=== PATIENT | female | born 1960 | race Caucasian/White ===

== ENCOUNTER → 2016-12-06 | Outpatient (REF) | payer OTHER ==
[~2016-12-06] MED LIST: ALDA100T OR; CETI10TA OR; COLA100C2 OR; DILT180C7 OR; LASI80TA OR; LEVOXYL25 MCG OR; METFPOW4 OR; PERC5TAB8 OR; PERC7.5T8 OR; POTA75TA OR; SING4CHW7 OR; STARLIX OR; VITAMIN D50000 UNT OR; [UNRECOGNIZED DRUG - OTHER]
== END ==
LOC: M SFHCLERA 14:11
PROVIDERS: ATTEND Nurse Practitioner Family
DX: R68.89 Other general symptoms and signs (principal)

== ENCOUNTER 2017-03-29 12:50 | Inpatient (IN) | payer BC, OTHER, MEDICARE ==
[~2017-03-29] VITALS: Ht 170.2 cm; Wt 177.5 kg
[2017-03-29] MEDS ORDERED: FISH1000 PO (13:14)
[2017-03-29] MEDS ORDERED: CALC250T PO (13:14)
[2017-03-29] MEDS ORDERED: OMEP20CA3 PO (13:14)
[2017-03-29] MEDS ORDERED: GABA-282 PO (13:14)
[2017-03-29] MEDS ORDERED: AZEL0.055 (13:14)
[2017-03-29] MEDS ORDERED: FE G325T PO (13:14)
[2017-03-29] MEDS ORDERED: METF-414 PO (13:14)
[2017-03-29] MEDS ORDERED: GLIP10TA13 PO (13:14)
[2017-03-29] MEDS ORDERED: CYCL10TA PO (13:14)
[2017-03-29] MEDS ORDERED: TRAM50TA2 PO (13:14)
[2017-03-29] MEDS ORDERED: NAPR375T2 PO (13:14)
[2017-03-29] MEDS ORDERED: DRIS50002 PO (13:14)
[2017-03-29] MEDS ORDERED: FERRPOW27 XX (13:14)
[2017-03-29] MEDS ORDERED: VITA500T53 PO (13:14)
[2017-03-29] MEDS ORDERED: ASPE10LO EX (13:14)
[2017-03-29] MEDS ORDERED: FLUTISP (13:14)
[2017-03-29] MEDS ORDERED: MULTTAB24 PO (13:14)
[2017-03-29] MEDS ORDERED: L-THPOW PO (13:14)
[2017-03-29] MEDS ORDERED: PERCOCET 5MG/325MG TAB PO ONE (15:45)
[2017-03-29 15:56] LABS: ANION GAP 12 MEQ/L (8-16); BLOOD UREA NITROGEN 38 MG/DL (7-18); CALCIUM LEVEL 7.5 MG/DL (8.5-10.1); CARBON DIOXIDE LEVEL 24 MEQ/L (21-32); CHLORIDE LEVEL 96 MEQ/L (98-107); CREATININE FOR GFR 1.56 MG/DL (0.55-1.02); GLOMERULAR FILTRATION RATE 36.7 (>51); GLUCOSE, FASTING 91 MG/DL (70-105); POTASSIUM SERUM 4.4 MEQ/L (3.5-5.1); SODIUM LEVEL 132 MEQ/L (136-145)
[2017-03-29] MEDS ORDERED: NS 500 ML IV ONE (16:00)
[2017-03-29 16:07] LABS: BASO # 0.1 K/mm3 (0.0-0.2); BASO % 0.5 % (0.0-1.0); EOS # 0.2 K/mm3 (0.0-0.50); EOS % 0.9 % (0.0-3.0); LARGE UNSTAINED CELL # 0.1 K/mm3 (0.0-0.4); LARGE UNSTAINED CELL % 0.7 % (0.0-4.0); LYMPH % 15.1 % (24.0-44.0); MEAN CORPUSCULAR HEMOGLOBIN 25.9 pg (27.0-33.0); MEAN CORPUSCULAR HGB CONC 30.6 g/dl (32.0-36.5); MEAN CORPUSCULAR VOLUME 84.6 fl (80.0-96.0); MONO % 5.2 % (0.0-5.0); NEUTROPHILS # 14.7 K/mm3 (1.8-7.7); NEUTROPHILS % 77.5 % (36.0-66.0); PLATELET COUNT, AUTOMATED 633 k/mm3 (150-450); RED CELL DISTRIBUTION WIDTH 17.5 % (11.5-14.5); WHITE BLOOD COUNT 18.9 K/mm3 (4.0-10.0)
[2017-03-29 16:09] LABS: INR 0.97
[2017-03-29] MEDS ORDERED: ISOVUE-370 76% 100ML VIAL (Q9967) As Ordered ONE (16:20)
--- NOTE | 2017-03-29 16:45 | REP ---
Duplex extremity venous ultrasound: Bilateral lower extremities. History: Edema. Question DVT. Findings: The deep veins are anechoic and fully compressible from the groin to the popliteal fossa in the right and left lower extremity. Color flow imaging is homogeneous. Spectral Doppler interrogation demonstrates intact respiratory variation in flow and normal manual augmentation of flow. There is no evidence of deep vein thrombosis. Impression: Negative bilateral lower extremity duplex venous ultrasound. No evidence of deep vein thrombosis. Signed by Mariano Arvizu MD 03/29/2017 04:38 P
--- NOTE | 2017-03-29 17:17 | REP ---
Chest x-ray: Two views. History: Chest pain. Comparison study: June 01, 2010. Findings: The right humeral head has been replaced. The lungs are symmetrically aerated and clear. The pleural angles are sharp. Heart appears mildly enlarged, unchanged from the comparison study from 2009. Pulmonary vasculature is not increased. EKG electrodes are seen. No evidence of pulmonary edema or pleural effusion. Impression: Mildly prominent heart. Otherwise no acute disease. Signed by Mariano Arvizu MD 03/30/2017 07:54 A
--- NOTE | 2017-03-29 17:32 | REP ---
CT of the chest with IV contrast, CT pulmonary artery angiography: There are no emboli in the pulmonary trunk or central pulmonary arteries. There are no emboli in the pulmonary artery lobe or segment branches. There are no acute infiltrates or pleural effusions. There are no nodules or masses. There is no mediastinal or hilar adenopathy. There is no axillary adenopathy. The thoracic aorta is unremarkable. Cardiac size is normal. The visualized upper abdominal contents are unremarkable. There are surgical clips in the gallbladder fossa. There are surgical clips in the upper abdomen compatible with bariatric surgery. Impression: No pulmonary embolus. Otherwise, negative CT study of the chest. Cholecystectomy and bariatric surgery. Signed by Remy Spangler MD 03/29/2017 05:23 P
[2017-03-29] MEDS: NS 1,000 ML IV SCH (19:25)
[2017-03-29] MEDS ORDERED: DILT120T PO (19:26)
[2017-03-29] MEDS ORDERED: SPIR100T PO (19:26)
[2017-03-29] MEDS ORDERED: CETI10TA PO (19:26)
[2017-03-29] MEDS ORDERED: MONT10TA2 PO (19:26)
[2017-03-29] MEDS ORDERED: K-TA1TAB PO (19:26)
[2017-03-29] MEDS ORDERED: OXYC1TAB23 PO (19:26)
[2017-03-29] MEDS ORDERED: FURO1TAB15 PO (19:26)
[2017-03-29] MEDS ORDERED: PERCOCET 5MG/325MG TAB PO PRN (19:30)
[2017-03-29] MEDS ORDERED: ONDANSETRON 4MG/2ML VIAL (J2405) IV PRN (19:30)
[2017-03-29] MEDS ORDERED: SYNT100T PO (19:32)
[2017-03-29] MEDS ORDERED: VITMTA PO (19:32)
[2017-03-29] MEDS ORDERED: FISH120012 PO (19:32)
[2017-03-29] MEDS ORDERED: DILT120C PO (19:43)
[2017-03-29] MEDS ORDERED: GLUCAGON FOR INJ 1 MG VIAL (J1610) SC PRN (19:45)
[2017-03-29] MEDS ORDERED: DEXTROSE 50% 50 ML SYRINGE IV PRN (19:45)
[2017-03-29] MEDS ORDERED: GLUCOSE 4 GM CHEW TABLET PO PRN (19:45)
--- NOTE | 2017-03-29 20:41 | HPE ---
DATE OF ADMISSION: 03/29/2017 PRIMARY CARE PHYSICIAN: Zunilda Hernández CHIEF COMPLAINT: Dizziness when standing. HISTORY OF THE PRESENT ILLNESS: The patient is a 56-year-old morbidly female who reports over the last 2-3 weeks she has had progressively worsening dizziness when standing to the point that she is having difficulty taking care of her grandson. At home at her baseline, due to her morbid obesity and bad osteoarthritis, she walks with two canes. However, this has become more difficult and bothersome with transfers and arising from a seated or laying position of late. She denies shortness of breath, chest pain, lightheadedness, nausea, vomiting, diarrhea, cough, sick contacts, changes in bowel or bladder habits. She tells me that her levothyroxine has been titrated up slightly in the last week, but otherwise no recent medication changes. PAST MEDICAL HISTORY: Chronic kidney disease with a baseline creatinine of approximately 1.0. Osteoarthritis. Morbid obesity. Type 2 diabetes. Hypertension. Dyslipidemia. Hypothyroidism secondary to Grave's disease. Season allergies. Gastroesophageal reflux disease. Iron deficiency anemia. Diabetic neuropathy. ALLERGIES: PENICILLIN and CROSS-REACTORS and QUINOLONES cause hives, TAPAZOLE caused anaphylaxis. PAST SURGICAL HISTORY: Cholecystectomy. Bariatric surgery. section. Hernia repair. Thyroidectomy. SOCIAL HISTORY: She walks with two canes at her baseline. She is a [employer]. She watches her grandson daily but otherwise does not work. She denies alcohol or tobacco use. She lives with her . FAMILY HISTORY: Noncontributory. REVIEW OF SYSTEMS: Negative other than in the history of the present illness (HPI). HOME MEDICATIONS: - Lasix 80 mg by mouth twice a day - glipizide extended release 10 mg daily - metformin 2 grams nightly extended release - naproxen 375 mg twice a day as needed for pain - Percocet 5-325 one tablet by mouth every 4 hours as needed for pain - potassium chloride 20 mEq twice a day - aldactone 100 mg twice a day - vitamin D 50,000 units as directed - azelastine spray daily - calcium citrate 250 mg daily - ferrous gluconate 325 mg by mouth twice a day - fish oil 1200 mg daily - cetirizine 10 mg daily - B12 500 mcg every 2 days - diltiazem 120 mg daily - fluticasone 50 mcg spray inhaled nasally nightly - gabapentin 900 mg three times a day - levothyroxine 200 mcg in the morning - Singulair 10 mg nightly - multivitamin one tablet daily - omeprazole 20 mg daily OBJECTIVE: VITAL SIGNS: Temperature 97.8, pulse 82, respiratory rate 22, blood pressure is 133 while laying flat and 85/47 when standing. At the present time, she is 145/ 61 sitting on the edge of the stretcher. Oxygen saturation 99% on room air. In general, she is a morbidly obese female sitting on the edge of the stretcher. She is accompanied by her . She does not appear to be in any acute distress. HEENT: Cranial nerves II-XII are grossly intact. She has dry mucous membranes. There is no elevation of central venous pressure (CVP), although it is difficult to assess secondary to enlarged neck. CARDIOVASCULAR EXAM: S1, S2, she is mildly tachycardic. RESPIRATORY EXAM: Completely clear. There are no rales whatsoever, even at her bases. She has good air movement. ABDOMINAL EXAM: Grossly obese. EXTREMITIES: There is no clubbing or cyanosis. I do not appreciate significant edema, even in the face of her morbid obesity. She has a well-healed surgical on the left lower extremity. LABORATORY STUDIES: WBC 18.9, hemoglobin 11.9, hematocrit 39, platelet count 633 , 77.5% neutrophils, no bandemia. Chemistry panel: Sodium 132, potassium 4.4, chloride 96, bicarbonate 24, BUN 38, creatinine 1.5, TSH 4.3, BNP is 115. INR is 0.97. IMAGING: The patient did have a CT angiography of the chest that revealed no pulmonary embolus. No acute infiltrates or pleural effusions. She had a duplex of the lower extremities that were negative bilaterally for any deep vein thrombosis (DVT) and a chest x-ray that revealed mildly prominent heart; otherwise no acute disease. ASSESSMENT AND PLAN: This is a 56-year-old female with symptomatic orthostatic hypotension. Problems: 1. Symptomatic orthostatic hypotension: Likely related to dehydration. She may have gradually over diuresed with her Lasix over the last 2 weeks. I suspect it is because her BUN to creatinine ratio is greater than 20:1. She is hypochloremic and hypovolemic, hyponatremic and she does not have any evidence on her clinical exam of being fluid overloaded, rather, despite her morbid obesity, appears to be mildly dehydrated, and as such, for the time being, I will hold her nephrotoxic medications, I will hold her Lasix, aldactone and naproxen, gently hydrate her, monitoring her daily weights and intake and output in the progressive care unit. Will get an EKG. Follow her daily weights. If this is the etiology, I would suspect that her symptoms should improve significantly even by the morning. Given that she walks with two canes at her baseline, will have her seen and evaluated by physical therapy. 2. Type 2 diabetes. Will hold her oral agents in favor for sliding scale. She will be on a consistent carbohydrate diet. 3. Osteoarthritis. We are holding her naproxen due to some acute kidney injury. She will be given her home Percocet with additional as needed. 4. Acute kidney injury. Likely prerenal. Will check a fractional secretion of sodium and urea and repeat her basic metabolic panel (BMP) in the morning to see if this improves with hydration and holding of her diuretics. 5. Seasonal allergies. Continue with her Zyrtec, Singulair an Flonase. 6. Gastroesophageal reflux disease. Continue with omeprazole. 7. Iron deficiency anemia. She can continue her home iron supplementation. 8. Diabetic neuropathy. Continue with Neurontin. 9. Hypertension. As mentioned, we are holding her diuretics. I will continue her diltiazem with holding parameters. 10. Post-bariatric surgery. Continue with B12 supplementation and vitamin D supplementation and multivitamin supplementation. 11. Hypothyroidism. Continue with levothyroxine. 12. Deep vein thrombosis (DVT) prophylaxis. The patient will be on heparin. DISPOSITION: The patient is admitted to the progressive care unit to Dr. Holden's service, who will continue following the patient tomorrow morning at 7:00 a.m. [facility]
[2017-03-29] MEDS: FLUTICASONE PROP 0.05% NASAL SPRAY 16 GM (FLONASE) SCH (21:00)
[2017-03-29] MEDS: GABAPENTIN 300 MG CAP PO SCH (21:00)
[2017-03-29] MEDS: MONTELUKAST 10 MG TAB PO SCH (21:00)
[2017-03-29] MEDS: HEPARIN SOD (PORCINE) 5000 UNITS/ML VIAL SC SCH (21:00)
[2017-03-29] MEDS: HumaLOG INSULIN (NovoLOG) PER UNIT SC SCH (21:00)
[2017-03-30] VITALS (7 sets, daily range): BP systolic 101–138; BP diastolic 50–74
[2017-03-30 00:51] LABS: ERYTHROCYTE SEDIMENTATION RATE 44 mm/hr (0-30)
--- NOTE | 2017-03-30 06:04 | ECGEPIP ---
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
[2017-03-30] MEDS: LEVOTHYROXINE 0.1 MG TAB (100 MCG) PO SCH (06:06)
[2017-03-30 07:32] LABS: MEAN CORPUSCULAR HEMOGLOBIN 26.1 pg (27.0-33.0); MEAN CORPUSCULAR HGB CONC 31.5 g/dl (32.0-36.5); RED CELL DISTRIBUTION WIDTH 17.7 % (11.5-14.5); WHITE BLOOD COUNT 10.7 K/mm3 (4.0-10.0)
[2017-03-30 07:38] LABS: CALCIUM LEVEL 7.2 MG/DL (8.5-10.1); CREATININE FOR GFR 1.29 MG/DL (0.55-1.02); GLOMERULAR FILTRATION RATE 45.7 (>51); POTASSIUM SERUM 4.1 MEQ/L (3.5-5.1)
[2017-03-30] MEDS: HumaLOG INSULIN (NovoLOG) PER UNIT SC SCH ×4 (07:40→20:38)
--- NOTE | 2017-03-30 08:13 | ECGEPIP ---
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
[2017-03-30] MEDS: HEPARIN SOD (PORCINE) 5000 UNITS/ML VIAL SC SCH ×2 (10:09→20:38)
[2017-03-30] MEDS: OMEPRAZOLE 20 MG CAP PO SCH (10:10)
[2017-03-30] MEDS: CYANOCOBALAMIN 500 MCG TAB PO SCH (10:10)
[2017-03-30] MEDS: MULTIVITAMINS/MINERALS THERAP 1 TAB PO SCH (10:10)
[2017-03-30] MEDS: CETIRIZINE (ZyrTEC) 10 MG TAB PO SCH (10:15)
[2017-03-30] MEDS: GABAPENTIN 300 MG CAP PO SCH ×2 (10:15→20:37)
[2017-03-30] MEDS: PERCOCET 5MG/325MG TAB PO PRN (11:51)
[2017-03-30] MEDS: NS 1,000 ML IV SCH (15:25)
--- NOTE | 2017-03-30 17:43 | IPN ---
DATE: 03/30/2017 SUBJECTIVE: The patient is seen and examined in the room today. The patient continues to feel dizzy during posture changes and the patient stated it has been going on for a few days. No overnight events reported. OBJECTIVE: VITAL SIGNS: Temperature is 98.4, pulse is 85, respiratory rate 20, blood pressure is 117/55, pulse oximetry is 95% on room air. GENERAL: Morbidly obese, no sign of acute distress, alert and oriented times three. HEENT: Normocephalic, atraumatic. Extraocular motor grossly intact. CARDIOVASCULAR: Positive S1, S2, regular rate. LUNGS: Clear to auscultation bilaterally. ABDOMEN: Soft, nontender, nondistended. Bowel sounds present. Morbidly obese. EXTREMITIES: Positive 1-2 pitting edema bilaterally. No sign of cyanosis. LABORATORY DATA: WBC is 10.7, hemoglobin 9.6, hematocrit 30.5, platelet count is 468. Sodium 134, potassium 4.1, chloride is 102, carbon dioxide 26, BUN 36, creatinine 1.29, GFR is 45.7, fasting glucose 76, calcium is 7.2. ASSESSMENT AND PLAN: 1. Symptomatic orthostatic hypotension. Most likely secondary to dehydration. Lasix is on hold. The patient is getting IV fluid. We will continue to follow the orthostasis. 2. Acute kidney injury. Most likely secondary to prerenal azotemia. Improving with IV hydration. Continue to monitor. 3. Bilateral lower extremity swelling. The differential includes congestive heart failure versus chronic venous stasis. We will obtain the echocardiogram. Currently, the patient is clinically dry. The patient started having orthostatic hypotension and acute kidney injury. The patient requires fluid at this moment. We will continue to monitor the swelling. 4. Type 2 diabetes. On sliding scale and consistent-carbohydrate diet. 5. Seasonal allergies. On Zyrtec and Singulair. 6. Gastroesophageal reflux disease. On omeprazole. 7. Diabetic neuropathy. Continue with Neurontin. 8. Hypertension. Diuretic will be on hold. The patient is on diltiazem. 9. Status post bariatric surgery. We will continue with vitamin B12 supplement and multivitamin. 10. Hypothyroidism. On Synthroid. 11. Osteoarthritis. Due to the acute kidney injury (TIANNA), nonsteroidal antiinflammatory drugs (NSAIDs) will be on hold at this moment. 12. Deep vein thrombosis (DVT) prophylaxis. The patient is on heparin.
[2017-03-30] MEDS: MONTELUKAST 10 MG TAB PO SCH (20:37)
[2017-03-30] MEDS: FLUTICASONE PROP 0.05% NASAL SPRAY 16 GM (FLONASE) SCH (20:39)
[2017-03-31] VITALS (7 sets, daily range): BP systolic 110–152; BP diastolic 58–78
[2017-03-31] MEDS: LEVOTHYROXINE 0.1 MG TAB (100 MCG) PO SCH (05:32)
[2017-03-31 05:35] LABS: MEAN CORPUSCULAR HGB CONC 30.7 g/dl (32.0-36.5); MEAN CORPUSCULAR VOLUME 84.5 fl (80.0-96.0); RED CELL DISTRIBUTION WIDTH 17.6 % (11.5-14.5); WHITE BLOOD COUNT 11.7 K/mm3 (4.0-10.0)
[2017-03-31 06:01] LABS: CALCIUM LEVEL 7.5 MG/DL (8.5-10.1); CREATININE FOR GFR 1.17 MG/DL (0.55-1.02); FREE T4 1.06 NG/DL (0.76-1.46); GLOMERULAR FILTRATION RATE 51.1 (>51); POTASSIUM SERUM 4.1 MEQ/L (3.5-5.1)
[2017-03-31] MEDS: HumaLOG INSULIN (NovoLOG) PER UNIT SC SCH ×4 (07:30→21:10)
[2017-03-31] MEDS: HEPARIN SOD (PORCINE) 5000 UNITS/ML VIAL SC SCH ×2 (09:46→21:09)
[2017-03-31] MEDS: MULTIVITAMINS/MINERALS THERAP 1 TAB PO SCH (09:46)
[2017-03-31] MEDS: OMEPRAZOLE 20 MG CAP PO SCH (09:46)
[2017-03-31] MEDS: GABAPENTIN 300 MG CAP PO SCH ×3 (09:46→21:10)
[2017-03-31] MEDS: CETIRIZINE (ZyrTEC) 10 MG TAB PO SCH (09:46)
[2017-03-31] MEDS: NS 1,000 ML IV SCH (13:00)
[2017-03-31] MEDS: FLUTICASONE PROP 0.05% NASAL SPRAY 16 GM (FLONASE) SCH (21:09)
[2017-03-31] MEDS: MONTELUKAST 10 MG TAB PO SCH (21:10)
[2017-04-01] MEDS: PERCOCET 5MG/325MG TAB PO PRN (04:46)
[2017-04-01] MEDS: LEVOTHYROXINE 0.1 MG TAB (100 MCG) PO SCH (05:36)
[2017-04-01 06:00] VITALS: BP 106/55
[2017-04-01 06:49] LABS: MEAN CORPUSCULAR HEMOGLOBIN 25.9 pg (27.0-33.0); MEAN CORPUSCULAR HGB CONC 30.5 g/dl (32.0-36.5); MEAN CORPUSCULAR VOLUME 84.9 fl (80.0-96.0); RED CELL DISTRIBUTION WIDTH 17.5 % (11.5-14.5)
[2017-04-01 07:02] LABS: ANION GAP 7 MEQ/L (8-16); BLOOD UREA NITROGEN 22 MG/DL (7-18); CARBON DIOXIDE LEVEL 26 MEQ/L (21-32); CHLORIDE LEVEL 107 MEQ/L (98-107); CREATININE FOR GFR 0.97 MG/DL (0.55-1.02); GLOMERULAR FILTRATION RATE > 60.0 (>51); GLUCOSE, FASTING 95 MG/DL (70-105); POTASSIUM SERUM 4.4 MEQ/L (3.5-5.1); SODIUM LEVEL 140 MEQ/L (136-145)
[2017-04-01] MEDS: NS 1,000 ML IV SCH (07:25)
[2017-04-01] MEDS: HumaLOG INSULIN (NovoLOG) PER UNIT SC SCH ×2 (07:30→12:00)
[2017-04-01 09:30] VITALS: BP_SYST 163; BP_SYST 171; BP_SYST 172; BP_DIAS 83; BP_DIAS 84; BP_DIAS 89
[2017-04-01] MEDS: OMEPRAZOLE 20 MG CAP PO SCH (09:46)
[2017-04-01] MEDS: CETIRIZINE (ZyrTEC) 10 MG TAB PO SCH (09:46)
[2017-04-01] MEDS: HEPARIN SOD (PORCINE) 5000 UNITS/ML VIAL SC SCH (09:46)
[2017-04-01] MEDS: GABAPENTIN 300 MG CAP PO SCH (09:46)
[2017-04-01] MEDS: CYANOCOBALAMIN 500 MCG TAB PO SCH (09:46)
[2017-04-01] MEDS: MULTIVITAMINS/MINERALS THERAP 1 TAB PO SCH (09:46)
[2017-04-01 09:47] VITALS: BP 177/81
[2017-04-01] MEDS ORDERED: LASI80TA PO (10:01)
[2017-04-01] MEDS ORDERED: SPIR100T PO (10:01)
[2017-04-01] MEDS ORDERED: DILT240C77 PO (14:07)
--- NOTE | 2017-04-01 15:00 | DSES ---
DATE OF ADMISSION: 03/29/2017 DATE OF DISCHARGE: 04/01/2017 PRIMARY CARE PROVIDER: Zunilda Hernández MD ADMISSION/DISCHARGE DIAGNOSES: 1. Symptomatic orthostatic hypotension secondary to dehydration. 2. Acute kidney injury secondary to prerenal azotemia. 3. Bilateral lower extremity swelling. 4. Type 2 diabetes. 5. Seasonal allergies. 6. Gastroesophageal reflux disease (GERD). 7. Diabetic neuropathy. 8. History of hypertension. 9. Status post bariatric surgery. 10. Hypothyroidism. 11. Osteoarthritis (OA). HOSPITALIZATION COURSE: Patient is a 56-year-old female who presented to [facility] on April 08, 2017 for dizziness during posture changes. Patient is admitted to the PCU for cardiac telemetry. During admission, the patient was found to have severe dehydration causing significant orthostatic hypotension and acute kidney injury (TIANNA). The patient's oral diuretic and blood pressure medication was discontinued and the patient was started on full resuscitation and the patient's input and output has been monitored. The patient's orthostatic hypotension has been measured on a regular basis and the patient is also following with physical therapy. No significant abnormality detected on cardiac telemetry. After two days hospitalization, the patient was transferred to the medical/surgical floor to continue with fluid management. On 04/01/2017, the patient's orthostatic hypotension finally resolved and the patient passed physical therapy and the patient medications were reviewed and adjusted and the patient was determined medically stable for discharge on 04/01/2017 with recommendations to followup with primary care physician within one week for continuous diuretic adjustment. It is recommended the patient obtain a referral for an echocardiogram. OBJECTIVE: VITAL SIGNS: Temperature 97.4, pulse is 70, respirations 18, blood pressure supine is 163/83, sitting is 172/84, standing is 171/89. Oxygen saturation is 96% in room air. LABORATORY DATA: WBC is 9, hemoglobin 9.1, hematocrit 29.8, platelet count 428. Sodium is 140, potassium 4.4, chloride 107, carbon dioxide 26, BUN 22, creatinine 0.97, GFR greater than 60 (at admission patient had a creatinine of 1.56 with a GFR of 36.7). Fasting glucose 95, calcium is 7, free T4 is 1.06. Urinalysis is negative. Microbiology: Blood culture is negative after 48 hours times two sets. Urine culture showed no grow of clinical significance for two or more organisms. IMAGING STUDIES: Chest x-ray on 03/29/2017 showed mildly prominent heart. Otherwise, no acute disease. Bilateral lower extremity Doppler showed no evidence of DVT. CT angio of the chest on 03/29/2017 showed no pulmonary embolism. DISCHARGE MEDICATIONS: - Lasix 80 mg by mouth daily - spironolactone 100 mg by mouth daily - calcium citrate 250 mg by mouth daily - cetirizine 10 mg by mouth daily - vitamin B12 500 mcg by mouth every two days - diltiazem 120 mg by mouth daily - ferrous gluconate 325 mg by mouth twice a day - fluticasone one spray per nasal at bedtime - gabapentin 300 mg by mouth three times a day - glipizide 10 mg by mouth daily - Synthroid 200 mcg by mouth every morning - metformin 2000 mg by mouth at bedtime - montelukast 10 mg by mouth at bedtime - multivitamin one tablet by mouth daily - naproxen 375 mg by mouth twice a day - omeprazole 20 mg by mouth daily - Percocet one tablet by mouth every 4 hours as needed - vitamin D 100,000 units by mouth as directed DISCHARGE INSTRUCTIONS: 1. Discontinue lines, discharge home. 2. Activity as tolerated. 3. Consistent carbohydrate diet as tolerated. 4. Patient is instructed to measure weights. If there is a significant increase or loss of body weight, patient is instructed to contact primary care provider immediately. Due to the severe hydration causing orthostatic and acute kidney injury, the patient's diuretic dose was decreased and should be evaluated in the outpatient setting. 5. Patient recommended to have a cardiac echocardiogram performed in the outpatient setting. DISCHARGE CONDITION: Stable. Discharge took greater than 30 minutes.
--- NOTE | 2017-04-02 16:59 | IPN ---
DATE: 03/31/2017 SUBJECTIVE: The patient is seen and examined in the room today. The patient is still complaining about dizziness and lightheadedness during postural changes, but patient stated her symptoms are improving. No overnight events reported. OBJECTIVE: VITAL SIGNS: Temperature is 97.2, pulse 65, respirations 18, blood pressure showed sitting at 152/72, standing at 133/74. Pulse oximetry 95% on room air. GENERAL: Morbidly obese. No sign of acute distress. Alert and oriented times three. HEENT: Normocephalic, atraumatic. Extraocular motor grossly intact. CARDIOVASCULAR: Positive S1, S2. Regular rate. LUNGS: Clear to auscultation bilaterally. ABDOMEN: Soft, nontender, nondistended. Bowel sounds present. No rebound, no guarding. EXTREMITIES: 2+ pitting edema bilaterally. No sign of cyanosis. LABORATORY DATA: WBC 11.7, hemoglobin 10.1, hematocrit 32.8, platelet count 483. Sodium is 136, potassium 4.1, chloride 103, carbon dioxide 26, BUN 29, creatinine 1.17, GFR is 51.1, fasting glucose 92, calcium is 7.5. Free T4 is 1.06. ASSESSMENT AND PLAN: 1. Symptomatic orthostatic hypotension, most likely secondary to dehydration. Lasix has been on hold. The patient is on intravenous (IV) fluids. The patient continues to have orthostasis. Continue with hydration. Continue with physical therapy. 2. Acute kidney injury secondary to prerenal azotemia. The patient's renal function continues to improve; however, the patient's renal function is not at baseline. 3. Bilateral lower extremity edema. Currently the patient is being treated for symptomatic orthostasis and acute kidney injury (TIANNA). The patient is on IV fluids. Follow the patient closely. Bilateral lower extremity swelling due to congestive heart failure versus chronic renal stasis. The patient will need echocardiogram in the future. 4. Type 2 diabetes, on sliding scale and consistent carbohydrate diet. 5. Seasonal allergies on Zyrtec. 6. Gastroesophageal reflux disease (GERD), on omeprazole. 7. Diabetic neuropathy on Neurontin. 8. Hypertension. The patient is on diltiazem. 9. Status post bariatric surgery. The patient is on supplements. 10. Hypothyroidism. Free T4 is within normal range. Continue Synthroid. 11. Osteoarthritis. 12. Deep venous thrombosis (DVT) prophylaxis. Patient on heparin.
== END 2017-04-01 12:35 | disposition home or self-care (01) | DRG 422 ==
LOC: M ED 14:17 → M ED INP 19:25 → M PCU 03-30 17:10 → M MSPAV 03-31 11:28
PROVIDERS: ADMIT Internal Medicine; ATTEND Internal Medicine
DX: E86.0 Dehydration (principal); N17.9 Acute kidney failure, unspecified; E11.40 Type 2 diabetes mellitus with diabetic neuropathy, unspecified; E66.01 Morbid (severe) obesity due to excess calories; I95.1 Orthostatic hypotension; E87.1 Hypo-osmolality and hyponatremia; M19.90 Unspecified osteoarthritis, unspecified site; E03.9 Hypothyroidism, unspecified; I12.9 Hypertensive chronic kidney disease with stage 1 through stage 4 chronic kidney disease, or unspecified chronic kidney disease; Z79.899 Other long term (current) drug therapy; N18.9 Chronic kidney disease, unspecified; D50.9 Iron deficiency anemia, unspecified; K21.9 Gastro-esophageal reflux disease without esophagitis; Z88.0 Allergy status to penicillin; Z88.8 Allergy status to other drugs, medicaments and biological substances; Z98.84 Bariatric surgery status; R60.0 Localized edema

== ENCOUNTER → 2017-04-19 | Outpatient (REF) | payer OTHER, MEDICARE ==
[~2017-04-19] MED LIST changes: +ASPE10LO EX; +AZEL0.055; +CALC250T PO; +CETI10TA PO; +CYCL10TA PO; +DILT120C PO; +DILT120T PO; +DILT240C77 PO; +DRIS50002 PO; +FE G325T PO; +FERRPOW27 XX; +FISH1000 PO; +FISH120012 PO; +FLUTISP; +FURO1TAB15 PO; +GABA-282 PO; +GLIP10TA13 PO; +K-TA1TAB PO; +L-THPOW PO; +LASI80TA PO; +METF-414 PO; +MONT10TA2 PO; +MULTTAB24 PO; +NAPR375T2 PO; +OMEP20CA3 PO; +OXYC1TAB23 PO; +SPIR100T PO; +SYNT100T PO; +TRAM50TA2 PO; +VITA500T53 PO; +VITMTA PO
[2017-04-19 14:48] LABS: CALCIUM LEVEL 7.9 MG/DL (8.5-10.1); CREATININE FOR GFR 1.26 MG/DL (0.55-1.02); GLOMERULAR FILTRATION RATE 46.9 (>51); POTASSIUM SERUM 4.7 MEQ/L (3.5-5.1)
== END ==
LOC: M LABDRAW1 11:40
PROVIDERS: ATTEND Physician Assistant Medical
DX: N17.9 Acute kidney failure, unspecified (principal)

== ENCOUNTER → 2017-04-30 | Outpatient (REF) | payer OTHER, MEDICARE ==
[~2017-04-30] MED LIST changes: -FURO1TAB15 PO; +FURO80TA2 PO; -GLIP10TA13 PO; +GLIP1TAB51 PO; +NAPR-855 PO; -NAPR375T2 PO
[2017-04-30 16:34] LABS: ALBUMIN 2.3 GM/DL (3.2-5.2); CALCIUM LEVEL 7.9 MG/DL (8.5-10.1); CREATININE FOR GFR 1.48 MG/DL (0.55-1.02); MAGNESIUM LEVEL 2.1 MG/DL (1.8-2.4); PHOSPHORUS LEVEL 4.7 MG/DL (2.5-4.9); POTASSIUM SERUM 4.5 MEQ/L (3.5-5.1)
== END ==
LOC: M LABDRAW1 14:25
PROVIDERS: ATTEND Internal Medicine Cardiovascular Disease
DX: I10 Essential (primary) hypertension (principal)

== ENCOUNTER → 2017-05-01 | Outpatient (REF) | payer BC, OTHER, MEDICARE | LOC: M LAB 10:00 | PROVIDERS: ATTEND Internal Medicine Cardiovascular Disease | DX: I10 Essential (primary) hypertension (principal) ==

== ENCOUNTER → 2017-06-25 | Outpatient (REF) | payer BC, OTHER ==
[2017-06-25 14:29] LABS: FREE T4 1.61 NG/DL (0.76-1.46)
== END ==
LOC: M LABDRAW1 11:16
PROVIDERS: ATTEND Internal Medicine Endocrinology, Diabetes & Metabolism
DX: E89.0 Postprocedural hypothyroidism (principal)

== ENCOUNTER → 2017-07-09 | Outpatient (REF) | payer OTHER, BC ==
[2017-07-09 12:53] LABS: BASO # 0.1 K/mm3 (0.0-0.2); BASO % 0.8 % (0.0-1.0); EOS # 0.5 K/mm3 (0.0-0.50); EOS % 3.7 % (0.0-3.0); LARGE UNSTAINED CELL # 0.1 K/mm3 (0.0-0.4); LARGE UNSTAINED CELL % 0.8 % (0.0-4.0); LYMPH # 1.2 K/mm3 (1.5-4.5); LYMPH % 9.1 % (24.0-44.0); MEAN CORPUSCULAR HEMOGLOBIN 28.3 pg (27.0-33.0); MEAN CORPUSCULAR HGB CONC 31.1 g/dl (32.0-36.5); MEAN CORPUSCULAR VOLUME 91.1 fl (80.0-96.0); MONO # 0.7 K/mm3 (0.0-0.8); MONO % 5.6 % (0.0-5.0); NEUTROPHILS # 9.9 K/mm3 (1.8-7.7); PLATELET COUNT, AUTOMATED 509 k/mm3 (150-450); RED CELL DISTRIBUTION WIDTH 16.2 % (11.5-14.5); WHITE BLOOD COUNT 12.4 K/mm3 (4.0-10.0)
== END ==
LOC: M LABDRAW1 11:45
PROVIDERS: ATTEND Family Medicine
DX: Z01.419 Encounter for gynecological examination (general) (routine) without abnormal findings (principal); D72.829 Elevated white blood cell count, unspecified; B37.3 Candidiasis of vulva and vagina
CPT/HCPCS: 36415; 85025; G0123

== ENCOUNTER → 2017-10-22 | Outpatient (REF) | payer OTHER ==
[2017-10-22 13:02] LABS: MEAN CORPUSCULAR HEMOGLOBIN 28.5 pg (27.0-33.0); MEAN CORPUSCULAR HGB CONC 32.5 g/dl (32.0-36.5); MEAN CORPUSCULAR VOLUME 87.9 fl (80.0-96.0); PLATELET COUNT, AUTOMATED 545 10^3/uL (150-450); RED CELL DISTRIBUTION WIDTH 15.8 % (11.5-14.5)
[2017-10-22 13:20] LABS: ALBUMIN 2.3 GM/DL (3.2-5.2); ANION GAP 11 MEQ/L (8-16); BLOOD UREA NITROGEN 26 MG/DL (7-18); CALCIUM LEVEL 8.5 MG/DL (8.5-10.1); CARBON DIOXIDE LEVEL 21 MEQ/L (21-32); CHLORIDE LEVEL 102 MEQ/L (98-107); GLOMERULAR FILTRATION RATE 49.7 (>51); GLUCOSE, FASTING 118 MG/DL (70-105); MAGNESIUM LEVEL 1.9 MG/DL (1.8-2.4); PHOSPHORUS LEVEL 3.8 MG/DL (2.5-4.9); SODIUM LEVEL 134 MEQ/L (136-145)
[2017-10-22 13:22] LABS: POTASSIUM SERUM 5.4 MEQ/L (3.5-5.1)
== END ==
LOC: M LABDRAW1 12:41
DX: I50.32 Chronic diastolic (congestive) heart failure (principal); R06.02 Shortness of breath

== ENCOUNTER → 2017-10-28 | Outpatient (REF) | payer OTHER ==
[2017-10-28 12:43] LABS: ANION GAP 9 MEQ/L (8-16); BLOOD UREA NITROGEN 25 MG/DL (7-18); CARBON DIOXIDE LEVEL 23 MEQ/L (21-32); CHLORIDE LEVEL 106 MEQ/L (98-107); CHOLESTEROL LEVEL 179 MG/DL (<200); CHOLESTEROL RISK RATIO 2.753 (<5); CREATININE FOR GFR 0.87 MG/DL (0.55-1.02); FREE T4 1.73 NG/DL (0.76-1.46); GLOMERULAR FILTRATION RATE > 60.0 (>51); GLUCOSE, FASTING 105 MG/DL (70-105); HDL CHOLESTEROL 65 MG/DL (>40); LDL CHOLESTEROL 81.4 MG/DL (<100); NON-HDL-C 114 MG/DL; POTASSIUM SERUM 5.1 MEQ/L (3.5-5.1); SODIUM LEVEL 138 MEQ/L (136-145); THYROID STIMULATING HORMONE 0.147 uIU/ML (0.358-3.740); TRIGLYCERIDES LEVEL 163 MG/DL (<150)
[2017-10-28 13:07] LABS: MALB URINE SIEMENS 16.8 MG/L; MAU/CREAT RATIO 12.8 MCG/MG (0.0-30.0)
[2017-10-28 13:34] LABS: ESTIMATED AVERAGE GLUCOSE 105 MG/DL (60-110); HEMOGLOBIN A1c 5.3 %
== END ==
LOC: M LABDRAW1 10:34
DX: E11.40 Type 2 diabetes mellitus with diabetic neuropathy, unspecified (principal); E89.0 Postprocedural hypothyroidism
CPT/HCPCS: 84443

== ENCOUNTER → 2017-12-17 | Outpatient (REF) | payer OTHER ==
[2017-12-17 13:03] LABS: FREE T4 1.05 NG/DL (0.76-1.46)
== END ==
LOC: M LABDRAW1 09:37
DX: E03.9 Hypothyroidism, unspecified (principal)

== ENCOUNTER → 2017-12-17 | Outpatient (REF) | payer OTHER ==
[2017-12-17 13:06] LABS: TOTAL 25(OH) VITAMIN D 70.4 NG/ML (30.0-100.0)
[2017-12-17 13:08] LABS: ANION GAP 10 MEQ/L (8-16); BLOOD UREA NITROGEN 23 MG/DL (7-18); CALCIUM LEVEL 8.1 MG/DL (8.5-10.1); CARBON DIOXIDE LEVEL 23 MEQ/L (21-32); CHLORIDE LEVEL 104 MEQ/L (98-107); CREATININE FOR GFR 1.08 MG/DL (0.55-1.30); FREE T4 1.02 NG/DL (0.76-1.46); GLOMERULAR FILTRATION RATE 55.9 (>51); GLUCOSE, FASTING 88 MG/DL (70-100); SODIUM LEVEL 137 MEQ/L (136-145)
== END ==
LOC: M LABDRAW1 09:31
DX: E89.0 Postprocedural hypothyroidism (principal); E83.51 Hypocalcemia

== ENCOUNTER → 2017-12-17 | Outpatient (REF) | payer OTHER ==
[2017-12-17 12:59] LABS: ALBUMIN 2.2 GM/DL (3.2-5.2); ANION GAP 10 MEQ/L (8-16); BLOOD UREA NITROGEN 24 MG/DL (7-18); CALCIUM LEVEL 8.1 MG/DL (8.5-10.1); CARBON DIOXIDE LEVEL 23 MEQ/L (21-32); CHLORIDE LEVEL 104 MEQ/L (98-107); CREATININE FOR GFR 1.05 MG/DL (0.55-1.30); GLOMERULAR FILTRATION RATE 57.7 (>51); GLUCOSE, FASTING 85 MG/DL (70-100); MAGNESIUM LEVEL 1.8 MG/DL (1.8-2.4); SODIUM LEVEL 137 MEQ/L (136-145)
[2017-12-17 13:03] LABS: POTASSIUM SERUM 5.3 MEQ/L (3.5-5.1)
== END ==
LOC: M LABDRAW1 09:35
DX: I50.32 Chronic diastolic (congestive) heart failure (principal)

== ENCOUNTER → 2018-04-15 | Outpatient (REF) | payer OTHER ==
[2018-04-15 15:32] LABS: ANION GAP 15 MEQ/L (8-16); BLOOD UREA NITROGEN 42 MG/DL (7-18); CALCIUM LEVEL 8.8 MG/DL (8.5-10.1); CARBON DIOXIDE LEVEL 21 MEQ/L (21-32); CHLORIDE LEVEL 100 MEQ/L (98-107); CREATININE FOR GFR 1.49 MG/DL (0.55-1.30); GLOMERULAR FILTRATION RATE 38.5 (>51); GLUCOSE, FASTING 160 MG/DL (70-100); MAGNESIUM LEVEL 1.8 MG/DL (1.8-2.4); POTASSIUM SERUM 3.8 MEQ/L (3.5-5.1); SODIUM LEVEL 136 MEQ/L (136-145)
== END ==
LOC: M LABDRAW1 11:45
DX: I50.9 Heart failure, unspecified (principal)

== ENCOUNTER → 2018-04-15 | Outpatient (REF) | payer OTHER ==
[2018-04-15 15:25] LABS: BASO # 0.1 10^3/uL (0.0-0.2); BASO % 0.6 % (0.0-1.0); EOS # 0.1 10^3/uL (0.0-0.50); EOS % 1.1 % (0.0-3.0); HEMATOCRIT 45.2 % (36.0-47.0); HEMOGLOBIN 15.1 g/dl (12.0-15.5); IMMATURE GRANULOCYTE % 0.7 % (0-3.0); LYMPH # 1.9 10^3/uL (1.5-4.5); LYMPH % 14.5 % (24.0-44.0); MEAN CORPUSCULAR HEMOGLOBIN 30.1 pg (27.0-33.0); MEAN CORPUSCULAR HGB CONC 33.4 g/dl (32.0-36.5); MONO # 0.7 10^3/uL (0.0-0.8); NEUTROPHILS # 10.4 10^3/uL (1.8-7.7); NEUTROPHILS % 78.1 % (36.0-66.0); PLATELET COUNT, AUTOMATED 457 10^3/uL (150-450); RED BLOOD COUNT 5.02 10^6/uL (4.00-5.40); RED CELL DISTRIBUTION WIDTH 13.3 % (11.5-14.5); WHITE BLOOD COUNT 13.3 10^3/uL (4.0-10.0)
[2018-04-15 15:34] LABS: ESTIMATED AVERAGE GLUCOSE 103 MG/DL (60-110); HEMOGLOBIN A1c 5.2 %
[2018-04-15 15:39] LABS: ALBUMIN 2.7 GM/DL (3.2-5.2); ALBUMIN/GLOBULIN RATIO 0.73 (1.00-1.93); ALKALINE PHOSPHATASE 110 U/L (45-117); ALT/SGPT 17 U/L (12-78); ANION GAP 15 MEQ/L (8-16); AST/SGOT 21 U/L (7-37); BILIRUBIN,TOTAL 0.5 MG/DL (0.2-1.0); BLOOD UREA NITROGEN 42 MG/DL (7-18); CALCIUM LEVEL 8.6 MG/DL (8.5-10.1); CARBON DIOXIDE LEVEL 21 MEQ/L (21-32); CHLORIDE LEVEL 101 MEQ/L (98-107); CHOLESTEROL LEVEL 197 MG/DL (<200); CHOLESTEROL RISK RATIO 2.897 (<5); CREATININE FOR GFR 1.54 MG/DL (0.55-1.30); FREE T4 1.51 NG/DL (0.76-1.46); GLOMERULAR FILTRATION RATE 37.1 (>51); GLUCOSE, FASTING 161 MG/DL (70-100); HDL CHOLESTEROL 68 MG/DL (>40); MAGNESIUM LEVEL 1.8 MG/DL (1.8-2.4); NON-HDL-C 129 MG/DL; SODIUM LEVEL 137 MEQ/L (136-145); TOTAL PROTEIN 6.4 GM/DL (6.4-8.2); TRIGLYCERIDES LEVEL 195 MG/DL (<150)
[2018-04-15 15:48] LABS: MALB URINE SIEMENS 17.4 MG/L
== END ==
LOC: M LABDRAW1 11:44
DX: E11.40 Type 2 diabetes mellitus with diabetic neuropathy, unspecified (principal); E89.0 Postprocedural hypothyroidism; I10 Essential (primary) hypertension

== ENCOUNTER → 2018-07-05 | Outpatient (REF) | payer OTHER ==
[2018-07-05 13:16] LABS: ANION GAP 10 MEQ/L (8-16); BLOOD UREA NITROGEN 31 MG/DL (7-18); CALCIUM LEVEL 8.3 MG/DL (8.5-10.1); CARBON DIOXIDE LEVEL 23 MEQ/L (21-32); CHLORIDE LEVEL 109 MEQ/L (98-107); CREATININE FOR GFR 1.16 MG/DL (0.55-1.30); FREE T4 1.68 NG/DL (0.76-1.46); GLOMERULAR FILTRATION RATE 51.4 (>51); GLUCOSE, FASTING 114 MG/DL (70-100); POTASSIUM SERUM 4.2 MEQ/L (3.5-5.1); SODIUM LEVEL 142 MEQ/L (136-145); THYROID STIMULATING HORMONE 0.344 uIU/ML (0.358-3.740)
== END ==
LOC: M LABDRAW1 11:45
DX: E03.9 Hypothyroidism, unspecified (principal); I11.0 Hypertensive heart disease with heart failure; I50.32 Chronic diastolic (congestive) heart failure
CPT/HCPCS: 84443

== ENCOUNTER → 2018-08-24 | Outpatient (REF) | payer OTHER ==
[2018-08-24 14:22] LABS: C REACTIVE PROTEIN QUANTITATIV 3.41 MG/DL (0.00-0.30); RHEUMATOID FACTOR QUANT < 10.0 IU/ML (<15.0)
[2018-08-24 14:22] LABS: COMPLEMENT C3 134 MG/DL (90-180)
[2018-08-24 14:31] LABS: FREE T4 2.14 NG/DL (0.76-1.46)
[2018-08-26 00:09] LABS: ANA (HEP2) Negative (.); SSA SJOGRENS A <0.2 AI (0.0-0.9); SSB SJOGRENS B <0.2 AI (0.0-0.9)
== END ==
LOC: M LAB REF 13:23
DX: E03.9 Hypothyroidism, unspecified (principal)

== ENCOUNTER 2018-10-31 13:29 | Day surgery (SDC) | payer BC, OTHER ==
[~2018-10-31] VITALS: Ht 170.2 cm; Wt 118.4 kg
[~2018-10-31 13:29] MED LIST changes: +ASPECRE EX; -DILT120C PO; +DILT120C77 PO; -DRIS50002 PO; +DRIS50003 PO; +FERR32TA PO; +FISH600C PO; -GABA-282 PO; +GABA-843 PO; +GLIP10TA18 PO; -GLIP1TAB51 PO; -LASI80TA PO; +LASI80TA3 PO; +LEVO175T2 PO; +LIDOCAINE 2% INJ 100 MG/5 ML SDV (FOR ANES.) As Ordered ONE; +NS 1,000 ML IV ONE; +ONDA4TAB5; +PROPOFOL 200 MG/20 ML VIAL As Ordered ONE; -SPIR100T PO; +SPIR100T3 PO
--- NOTE | 2018-10-31 15:00 | ROOR ---
Patient Name: Ashanti Stoll Procedure Date: 10/31/2018 2:35 PM Date of : 1960 Age: 57 Room: [facility] Gender: Female Note Status: Finalized Procedure: Upper GI endoscopy Indications: Nausea with vomiting Providers: Darrius BETANCOURT MD Referring MD: Zunilda Hernández MD Requesting Provider: Medicines: Monitored Anesthesia Care Complications: No immediate complications. Procedure: Pre-Anesthesia Assessment: - The heart rate, respiratory rate, oxygen saturations, blood pressure, adequacy of pulmonary ventilation, and response to care were monitored throughout the procedure. The Endoscope was introduced through the mouth, and advanced to the jejunum. The upper GI endoscopy was accomplished without difficulty. The patient tolerated the procedure well. Findings: The examined esophagus was normal. 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 The gastrojejunal anastomosis was characterized by moderate stenosis. This was traversed after dilation. A TTS dilator was passed through the scope. Dilation with a 10-11-12 mm balloon dilator was performed to 12 mm. The dilation site was examined and showed moderate mucosal disruption and moderate improvement in luminal narrowing. The examined jejunum was normal. Impression: - Normal esophagus. 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 Dilated to 12 mm with CRE balloon dilation. Scope now passes easily. - Normal examined jejunum. - No specimens collected. Recommendation: - Observe patient's clinical course. - Depending on results with todays dilation, will consider repeat dilation vs referral to Bariatric surgery for revision of gastrojejunal anastomosis. - Avoid NSAIDS/Aleve/Naprosyn/Motrin. Use Tylenol instead. - Use Omeprazole 40 mg daily. - (the script was sent to your pharmacy on file) Darrius Betancourt MD Darrius BETANCOURT MD 10/31/2018 3:00:33 PM This report has been signed electronically. Number of Addenda: 0 Note Initiated On: 10/31/2018 2:35 PM Estimated Blood Loss: Estimated blood loss: none.
[2018-10-31 15:30] VITALS: BP 152/72
== END 2018-10-31 15:44 | disposition home or self-care (01) ==
LOC: M OPP 13:29
PROVIDERS: ATTEND Internal Medicine Gastroenterology
DX: R11.2 Nausea with vomiting, unspecified (principal); Z98.84 Bariatric surgery status

== ENCOUNTER → 2018-12-13 | Outpatient (REF) | payer OTHER ==
[~2018-12-13] MED LIST changes: -LIDOCAINE 2% INJ 100 MG/5 ML SDV (FOR ANES.) As Ordered ONE; -NS 1,000 ML IV ONE; -PROPOFOL 200 MG/20 ML VIAL As Ordered ONE
[2018-12-13 12:20] LABS: BASO # 0.1 10^3/uL (0.0-0.2); BASO % 0.7 % (0.0-1.0); EOS # 0.6 10^3/uL (0.0-0.50); EOS % 3.8 % (0.0-3.0); HEMATOCRIT 40.8 % (36.0-47.0); HEMOGLOBIN 13.4 g/dl (12.0-15.5); LYMPH # 1.9 10^3/uL (1.5-4.5); LYMPH % 11.8 % (24.0-44.0); MEAN CORPUSCULAR HEMOGLOBIN 28.8 pg (27.0-33.0); MEAN CORPUSCULAR HGB CONC 32.8 g/dl (32.0-36.5); MEAN CORPUSCULAR VOLUME 87.6 fl (80.0-96.0); MONO # 0.7 10^3/uL (0.0-0.8); MONO % 4.3 % (0.0-5.0); NEUTROPHILS # 12.7 10^3/uL (1.8-7.7); NEUTROPHILS % 78.3 % (36.0-66.0); PLATELET COUNT, AUTOMATED 425 10^3/uL (150-450); RED BLOOD COUNT 4.66 10^6/uL (4.00-5.40); WHITE BLOOD COUNT 16.2 10^3/uL (4.0-10.0)
[2018-12-13 12:48] LABS: ALBUMIN 3.6 GM/DL (3.2-5.2); ALT/SGPT 16 U/L (12-78); BILIRUBIN,TOTAL 0.6 MG/DL (0.2-1.0); BLOOD UREA NITROGEN 53 MG/DL (7-18); C REACTIVE PROTEIN QUANTITATIV 1.28 MG/DL (0.00-0.30); CALCIUM LEVEL 8.7 MG/DL (8.5-10.1); CARBON DIOXIDE LEVEL 23 MEQ/L (21-32); CHLORIDE LEVEL 100 MEQ/L (98-107); CREATININE FOR GFR 1.48 MG/DL (0.55-1.30); GLOMERULAR FILTRATION RATE 38.7 (>51); GLUCOSE, FASTING 243 MG/DL (70-100); POTASSIUM SERUM 4.2 MEQ/L (3.5-5.1); RHEUMATOID FACTOR QUANT < 10.0 IU/ML (<15.0); SODIUM LEVEL 135 MEQ/L (136-145); TOTAL PROTEIN 6.7 GM/DL (6.4-8.2); URIC ACID 8.4 MG/DL (2.6-6.0)
[2018-12-13 13:23] LABS: ERYTHROCYTE SEDIMENTATION RATE 61 mm/hr (0-30)
== END ==
LOC: M SFHCPLAZ 10:34
PROVIDERS: ATTEND Internal Medicine Rheumatology
DX: M19.90 Unspecified osteoarthritis, unspecified site (principal)

== ENCOUNTER → 2018-12-21 | Outpatient (CLI) | payer BC, OTHER ==
--- NOTE | 2018-12-21 11:25 | REP ---
Clinical: Arthritis. Technique: AP, lateral, bilateral oblique views of the right and left hand. Findings: Generalized osteodystrophy is appreciated. Right hand demonstrates periarticular sclerosis, joint space narrowing, and scattered cystic/erosive changes most notably at the head of the first metacarpal bone and head of the second proximal phalanx. Left hand demonstrates periarticular sclerosis with joint space narrowing of the and subchondral heterogeneity but no significant periarticular erosive changes. Impression: Findings suggest moderate bilateral osteoarthritic degenerative changes (right greater than left). Electronically Signed by Lit Meyers MD 12/21/2018 11:16 A
--- NOTE | 2018-12-21 11:29 | REP ---
Clinical: Arthritis. Technique: AP, lateral, bilateral oblique views of the right and left wrist. Findings: Generalized osteodystrophy is appreciated. Right wrist demonstrates diffuse periarticular sclerosis along with pancarpal joint space narrowing including joint space narrowing along the radiocarpal joint line and carpometacarpal joints. Surrounding soft tissues are grossly unremarkable. Left wrist demonstrates diffuse increase sclerosis along the radial surface radiocarpal joint space narrowing. Mild joint space narrowing involving the carpometacarpal joints is also suggested. Subchondral erosive cystic changes at the base of the first metacarpal bone are identified. Impression: Moderate arthritic changes (left greater than right). Electronically Signed by Lit Meyers MD 12/21/2018 11:22 A
== END ==
LOC: M LRY 10:23
PROVIDERS: ATTEND Internal Medicine Rheumatology
DX: M19.90 Unspecified osteoarthritis, unspecified site (principal)

== ENCOUNTER → 2019-01-09 | Outpatient (REF) | payer OTHER ==
[2019-01-09 13:52] LABS: FREE T4 1.94 NG/DL (0.76-1.46); THYROID STIMULATING HORMONE 1.86 uIU/ML (0.358-3.740)
== END ==
LOC: M LABDRAW1 12:44
PROVIDERS: ATTEND Family Medicine
DX: E03.9 Hypothyroidism, unspecified (principal)

== ENCOUNTER → 2019-08-03 | Outpatient (REF) | payer OTHER ==
[~2019-08-03] MED LIST changes: +DILT1CAP6 PO; -DILT240C77 PO; -OMEP20CA3 PO; +OMEP20CA4 PO; +VITA500T17 PO; -VITA500T53 PO
[2019-08-03 15:26] LABS: BASO # 0.1 10^3/uL (0.0-0.2); BASO % 0.7 % (0.0-1.0); EOS # 0.7 10^3/uL (0.0-0.5); EOS % 4.6 % (0.0-3.0); HEMOGLOBIN 11.7 g/dl (12.0-15.5); LYMPH # 1.5 10^3/uL (1.5-5.0); LYMPH % 10.2 % (24.0-44.0); MEAN CORPUSCULAR HEMOGLOBIN 29.3 pg (27.0-33.0); MEAN CORPUSCULAR HGB CONC 32.5 g/dl (32.0-36.5); MONO # 1.1 10^3/uL (0.0-0.8); MONO % 7.1 % (0.0-5.0); NEUTROPHILS # 11.3 10^3/uL (1.5-8.5); NEUTROPHILS % 76.6 % (36.0-66.0); PLATELET COUNT, AUTOMATED 463 10^3/uL (150-450); WHITE BLOOD COUNT 14.8 10^3/uL (4.0-10.0)
[2019-08-03 15:39] LABS: ALBUMIN 3.3 GM/DL (3.2-5.2); BILIRUBIN,TOTAL 0.4 MG/DL (0.2-1.0); CALCIUM LEVEL 8.9 MG/DL (8.5-10.1); CHOLESTEROL RISK RATIO 2.767 (<5); CREATININE FOR GFR 2.07 MG/DL (0.55-1.30); FREE T4 1.75 NG/DL (0.76-1.46); GLOMERULAR FILTRATION RATE 26.3 (>51); POTASSIUM SERUM 4.4 MEQ/L (3.5-5.1); THYROID STIMULATING HORMONE 3.08 uIU/ML (0.358-3.740); TOTAL PROTEIN 6.8 GM/DL (6.4-8.2)
[2019-08-03 15:45] LABS: HEMOGLOBIN A1c 6.9 %
[2019-08-03 15:56] LABS: CREATININE, URINE 91.7 MG/DL; MALB URINE SIEMENS 62.1 MG/L; MAU/CREAT RATIO 67.7 MCG/MG (0.0-30.0)
== END ==
LOC: M LABDRAW1 11:20
PROVIDERS: ATTEND Family Medicine
DX: E11.40 Type 2 diabetes mellitus with diabetic neuropathy, unspecified (principal); E03.9 Hypothyroidism, unspecified

== ENCOUNTER 2019-12-19 07:40 | Day surgery (SDC) | payer BC, OTHER ==
[~2019-12-19] VITALS: Ht 170.2 cm; Wt 135.2 kg
[~2019-12-19 07:40] MED LIST changes: +DILT120C31 PO; +DYMI137S; -MONT10TA2 PO; +MONT10TA4 PO; +OMEG12003 PO; +OMEP1CAP73 PO; -OMEP20CA4 PO; +ONDA-83; -ONDA4TAB5; +PLAQ200T4 PO; +VITA500079 PO
[2019-12-19] MEDS ORDERED: NS 1,000 ML IV ONE (08:00)
--- NOTE | 2019-12-19 09:37 | ROOR ---
Patient Name: Ashanti Stoll Procedure Date: 12/19/2019 9:07 AM Date of : 1960 Age: 59 Room: [facility] Gender: Female Note Status: Finalized Procedure: Colonoscopy Indications: Positive Cologuard test Providers: Darrius BETANCOURT MD Referring MD: Zunilda Hernández MD Requesting Provider: Medicines: Monitored Anesthesia Care Complications: No immediate complications. Procedure: Pre-Anesthesia Assessment: - The heart rate, respiratory rate, oxygen saturations, blood pressure, adequacy of pulmonary ventilation, and response to care were monitored throughout the procedure. The Colonoscope was introduced through the anus and advanced to the cecum, identified by appendiceal orifice and ileocecal valve. The colonoscopy was performed without difficulty. The patient tolerated the procedure well. The quality of the bowel preparation was good. Findings: The perianal and digital rectal examinations were normal. Internal hemorrhoids were found during retroflexion. The hemorrhoids were medium-sized. Mild sigmoid diverticulosis. Impression: - Internal hemorrhoids. - Mild sigmoid diverticulosis. - Otherwise normal colonoscopy. - No specimens collected. Recommendation: - Repeat colonoscopy in 5 years for screening purposes. Darrius Betancourt MD Darrius BETANCOURT MD 12/19/2019 9:37:09 AM Electronically signed by Darrius BETANCOURT MD Number of Addenda: 0 Note Initiated On: 12/19/2019 9:07 AM Estimated Blood Loss: Estimated blood loss: none.
[2019-12-19] MEDS ORDERED: LIDOCAINE 2% INJ 100 MG/5 ML SDV (FOR ANES.) As Ordered ONE (09:52)
[2019-12-19] MEDS ORDERED: propofoL 500 MG/50 ML VIAL As Ordered ONE (09:52)
[2019-12-19 10:01] VITALS: BP 160/71
== END 2019-12-19 10:03 | disposition home or self-care (01) ==
LOC: M OPP 07:40
PROVIDERS: ATTEND Internal Medicine Gastroenterology
DX: K64.8 Other hemorrhoids (principal); K57.30 Diverticulosis of large intestine without perforation or abscess without bleeding; R19.5 Other fecal abnormalities; Z79.899 Other long term (current) drug therapy; Z88.5 Allergy status to narcotic agent; Z88.8 Allergy status to other drugs, medicaments and biological substances; Z91.018 Allergy to other foods; Z91.048 Other nonmedicinal substance allergy status; Z87.891 Personal history of nicotine dependence

== ENCOUNTER → 2020-01-04 | Outpatient (REF) | payer BC, OTHER ==
[2020-01-04 13:53] LABS: FREE T4 1.61 NG/DL (0.76-1.46); THYROID STIMULATING HORMONE 1.71 uIU/ML (0.358-3.740)
[2020-01-04 13:56] LABS: BASO # 0.1 10^3/uL (0.0-0.2); BASO % 0.9 % (0.0-1.0); EOS # 0.6 10^3/uL (0.0-0.5); HEMATOCRIT 35.4 % (36.0-47.0); HEMOGLOBIN 11.3 g/dl (12.0-15.5); LYMPH # 1.8 10^3/uL (1.5-5.0); LYMPH % 13.9 % (24.0-44.0); MEAN CORPUSCULAR HEMOGLOBIN 28.3 pg (27.0-33.0); MEAN CORPUSCULAR HGB CONC 31.9 g/dl (32.0-36.5); MEAN CORPUSCULAR VOLUME 88.7 fl (80.0-96.0); MONO # 0.9 10^3/uL (0.0-0.8); MONO % 6.8 % (0.0-5.0); NEUTROPHILS # 9.2 10^3/uL (1.5-8.5); NEUTROPHILS % 72.2 % (36.0-66.0); PLATELET COUNT, AUTOMATED 422 10^3/uL (150-450); RED BLOOD COUNT 3.99 10^6/uL (4.00-5.40); WHITE BLOOD COUNT 12.7 10^3/uL (4.0-10.0)
[2020-01-04 13:57] LABS: HEMOGLOBIN A1c 8.1 %
== END ==
LOC: M LABDRAW1 10:54
PROVIDERS: ATTEND Family Medicine
DX: Z00.01 Encounter for general adult medical examination with abnormal findings (principal); I10 Essential (primary) hypertension; E11.40 Type 2 diabetes mellitus with diabetic neuropathy, unspecified; D70.9 Neutropenia, unspecified

== ENCOUNTER 2020-04-16 15:31 | Inpatient (IN) | payer BC, OTHER, MEDICARE ==
[~2020-04-16] VITALS: Ht 167.6 cm; Wt 130.5 kg
[~2020-04-16 15:31] MED LIST changes: -ASPECRE EX; +ASPECRE TOP; +CYCL-707 PO; -CYCL10TA PO; -DYMI137S; +DYMI137S NARES; -FLUTISP; +FLUTISP NARES; +GABA-282 PO; -GABA-843 PO; +MONT10TA10 PO; -MONT10TA4 PO
[2020-04-16] MEDS ORDERED: ACETAMINOPHEN TAB 650MG DOSE (2X325MG) PO PRN (19:00)
[2020-04-16 20:28] LABS: HEMATOCRIT 23.5 % (36.0-47.0); HEMOGLOBIN 7.8 g/dl (12.0-15.5); MEAN CORPUSCULAR HEMOGLOBIN 29.3 pg (27.0-33.0); MEAN CORPUSCULAR HGB CONC 33.2 g/dl (32.0-36.5); MEAN CORPUSCULAR VOLUME 88.3 fl (80.0-96.0); PLATELET COUNT, AUTOMATED 388 10^3/uL (150-450); RED BLOOD COUNT 2.66 10^6/uL (4.00-5.40); WHITE BLOOD COUNT 15.5 10^3/uL (4.0-10.0)
[2020-04-16 20:39] LABS: INR 1.14; PROTHROMBIN TIME 14.3 SECONDS (11.8-14.0)
[2020-04-16 20:55] LABS: ALBUMIN 2.4 GM/DL (3.2-5.2); BILIRUBIN,TOTAL 0.6 MG/DL (0.2-1.0); CALCIUM LEVEL 7.7 MG/DL (8.5-10.1); CREATININE FOR GFR 2.3 MG/DL (0.55-1.30); GLOMERULAR FILTRATION RATE 23.2 (>51); POTASSIUM SERUM 4.7 MEQ/L (3.5-5.1)
[2020-04-16] MEDS ORDERED: OMEPRAZOLE 20 MG CAP PO SCH (21:00)
[2020-04-16 22:00] VITALS: BP 140/72
--- NOTE | 2020-04-16 22:53 | HPEPDOC ---
[facility] Medical History & Physical Date of Admission Apr 16, 2020 Date of Service: Apr 16, 2020 Primary Care Physician: Zunilda Hernández MD Attending Physician: NAOMI DOVER DO History and Physical CHIEF COMPLAINT: Weakness, lightheadedness HISTORY OF PRESENT ILLNESS: Ms. Stoll is a 59-year-old female who was transferred to [facility] from [facility] for evaluation regarding GI bleed. The patient reports that she has been feeling weak for almost 2 weeks now, however when she woke up this morning she was feeling even more profoundly weak, to the point where she would sit not even able to get out to the car, therefore EMS was called. She is status post Joselito-en-Y gastric bypass surgery in 2006, she reports that she has lost almost 600 pounds, and continues to keep it off. She reports that she does maintain the appropriate diet, and avoids foods that would aggravate her stomach, however she does admit that she takes NSAIDs, in particular naproxen, and has done so for at least the past few years due to arthritic pain. 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 She reports that she has been worked up by multiple doctors and hematologists, none of which have been able to identify a specific etiology PAST SURGICAL HISTORY: Cholecystectomy Oophorectomy Thyroidectomy Umbilical hernia repair Joselito-en-Y gastric bypass SOCIAL HISTORY: She denies tobacco, alcohol, or illicit drug use FAMILY HISTORY: She reports that many individuals in her family also suffer from this "paper skin disease" REVIEW OF SYSTEMS: Constitutional: Patient denies fevers, chills, night sweats, recent weight gain/loss. HEENT: Patient denies blurred or double vision, transient visual disturbances, postnasal drip, epistaxis, sore throat, difficulty chewing or swallowing food. Cardiovascular: Patient denies chest discomfort/pain, palpitations Respiratory: Patient does admit to dyspnea and easy fatigability, however she denies any wheezing, cough, hemoptysis, sputum production. Gastrointestinal: Patient denies nausea, vomiting, diarrhea, constipation, abdominal pain. She reports that her stools have been black recently (although she is on iron supplementation), and then just this morning and they appear to load a more reddish. After she was given Kayexalate at [facility] her stools were a little more liquidy and more reddish PHYSICAL EXAMINATION: General: Awake, alert, oriented 3. She is not in any acute distress at this t pollo. HEENT: Head normocephalic atraumatic, conjunctiva are pink, sclera are nonicteric, buccal mucosa is pink and moist with no lesions in the oropharynx. Hearing is grossly intact to conversation. Respiratory: Clear to auscultation bilaterally with no wheezes, rales, or rhonchi. Cardiovascular: Regular rate and rhythm, with no rubs, gallops, or murmur. Abdomen: Soft, nontender, nondistended, no hepatosplenomegaly appreciated. Bowel sounds present. Extremities: 2+ pulses in the radial and dorsalis pedis bilaterally. No evidence of clubbing or cyanosis. ASSESSMENT/PLAN: Upper GI bleed, likely secondary to NSAID use (naproxen) with a history of Ro ux-en-Y gastric bypass. - Increase omeprazole to 20 mg twice a day. Started on Carafate twice a day as well. The patient knows that she needs to discontinue NSAID use. Anemia - Given 2 units of PRBCs at [facility], H/H increased from 6.4/20.2% to 7.8/23.5%. Will continue to monitor every 6 hours, and transfuse if she goes below 7 once again. Will hold home dose of iron supplementation as blood transfusions have sufficient iron, and this will reduce the likelihood of confusion with dark stools. Hypothyroidism - Continue home dose of levothyroxine Hypertension -Hold home antihypertensives for now History of Joselito-en-Y -Continue with home doses of vitamin supplementation DVT prophylaxis -Teds and sequentials DISPO: [facility] Laboratory Data Labs 24H Laboratory Tests 2 04/16/20 20:06: Prothrombin Time 14.3H, Prothromb Time International Ratio 1.14, Anion Gap 16, Glomerular Filtration Rate 23.2L, Calcium Level 7.7L, Total Bilirubin 0.6, Aspartate Amino Transf (AST/SGOT) 15, Alanine Aminotransferase (ALT/SGPT) 16, Alkaline Phosphatase 53, Total Protein 5.0L, Albumin 2.4L, Albumin/Globulin Ratio 0.9L 04/16/20 20:07: Nucleated Red Blood Cells % (auto) 0.3H 04/16/20 21:28: Urine Color YELLOW, Urine Appearance CLEAR, Urine pH 5.0, Urine Specific [place] 1.011, Urine Protein NEGATIVE, Urine Glucose (UA) NEGATIVE, Urine Ketones TRACEH, Urine Blood NEGATIVE, Urine Nitrite NEGATIVE, Urine Bilirubin NEGATIVE, Urine Urobilinogen 0.2, Urine Leukocyte Esterase NEGATIVE, Urine WBC (Auto) 0, Urine RBC (Auto) 1, Urine Hyaline Casts (Auto) 0, Urine Bacteria (Auto) NEGATIVE, Urine Squamous Epithelial Cells 0, Urine Mucus (Auto) SMALL, Urine Sperm (Auto) CBC/BMP Laboratory Tests 04/16/20 20:06 04/16/20 20:07 Home Medications Scheduled Azelastine/Fluticasone (Dymista Nasal [place]) 23 Gm [place].pump, 1 SPR NA DAILY Calcium Citrate (Calcium Citrate) 250 Mg Tab, 600 MG PO BID Cetirizine HCl (Cetirizine HCl) 10 Mg Tab, 10 MG PO DAILY Cholecalciferol (Vitamin D3) (Vitamin D3) 5,000 Unit Tab.rapdis, 50,000 UNIT PO 2XWK Cyanocobalamin (Vitamin B-12) (Vitamin B-12) 500 Mcg Tab, 500 MCG PO DAILY Diltiazem HCl (Dilt-Xr) 120 Mg Cap.er.deg, 1 CAP PO BID Ferrous Gluconate (Ferrous Gluconate) 324 Mg Tab, 324 MG PO BID Fluticasone Propionate (Fluticasone Propionate) 50 Mcg/Act Spr, 1 SPRAY NA QHS Furosemide (Lasix) 80 Mg Tab, 80 MG PO BID Hydroxychloroquine Sulfate (Plaquenil) 200 Mg Tablet, 200 MG PO BID Levothyroxine Sodium (Levothyroxine Sodium) 175 Mcg Tab, 175 MCG PO DAILY Montelukast Sodium (Montelukast Sodium) 10 Mg Tab, 10 MG PO QHS Multivitamins (Thera M Plus Tablet) 1 Tab Tab, 1 TAB PO DAILY [place]-3/Dha/Epa/Fish Oil (Fish Oil 1,200 mg Softgel) 1 Each Capsule.dr, 1 CAP PO DAILY Omeprazole (Omeprazole) 20 Mg Cap, 20 MG PO DAILY Spironolactone (Spironolactone) 100 Mg Tab, 100 MG PO DAILY Trolamine Salicylate/Aloe Vera (Aspercreme 10% Cream) 10 % Cre, 10 % EX QHS Scheduled PRN Naproxen (Naproxen) 375 Mg Tab, 375 MG PO BID PRN for pain Tramadol HCl (Tramadol HCl) 50 Mg Tab, 50 MG PO Q6HP PRN for PAIN Allergies Coded Allergies: Coconut (Verified Allergy, Unknown, hives, 10/21/18) adhesive tape (Verified Allergy, Unknown, 12/05/19) levofloxacin (Verified Allergy, Unknown, hives, 12/05/19) methimazole (Verified Allergy, Unknown, hives/SOB, 12/05/19) tea tree (Verified Allergy, Unknown, hives, 12/05/19) codeine (Verified Adverse Reaction, Mild, N/V, 12/05/19) has had it in past with no problems at time A-FIB/CHADSVASC A-FIB History Current/History of A-Fib/PAF?: No Current PO Anticoag Therapy: No NAOMI DOVER DO Apr 16, 2020 22:11
[2020-04-16] MEDS ORDERED: SPIR100T3 PO (23:39)
[2020-04-16] MEDS ORDERED: VITA50005 PO (23:39)
[2020-04-17] VITALS (14 sets, daily range): BP systolic 117–162; BP diastolic 69–90
[2020-04-17] MEDS: MONTELUKAST 10 MG TAB PO SCH ×2 (00:10→20:33)
[2020-04-17] MEDS: LEVOTHYROXINE 150MCG TABLET (0.15MG) PO SCH (05:37)
[2020-04-17] MEDS: LEVOTHYROXINE 25MCG TABLET (0.025MG) PO SCH (05:37)
[2020-04-17 05:59] LABS: MEAN CORPUSCULAR HEMOGLOBIN 29.1 pg (27.0-33.0); MEAN CORPUSCULAR HGB CONC 33.5 g/dl (32.0-36.5); MEAN CORPUSCULAR VOLUME 86.8 fl (80.0-96.0); PLATELET COUNT, AUTOMATED 317 10^3/uL (150-450); RED BLOOD COUNT 2.27 10^6/uL (4.00-5.40); WHITE BLOOD COUNT 12.2 10^3/uL (4.0-10.0)
[2020-04-17 06:02] LABS: HEMATOCRIT 19.7 % (36.0-47.0); HEMOGLOBIN 6.6 g/dl (12.0-15.5)
[2020-04-17 06:30] LABS: ALBUMIN 2.1 GM/DL (3.2-5.2); BILIRUBIN,TOTAL 0.4 MG/DL (0.2-1.0); CALCIUM LEVEL 7.5 MG/DL (8.5-10.1); CREATININE FOR GFR 2.14 MG/DL (0.55-1.30); GLOMERULAR FILTRATION RATE 25.2 (>51); POTASSIUM SERUM 4.2 MEQ/L (3.5-5.1); TOTAL PROTEIN 4.8 GM/DL (6.4-8.2)
[2020-04-17] MEDS ORDERED: NS 1,000 ML IV SCH (07:26)
[2020-04-17] MEDS ORDERED: SUCRALFATE SUSP 1GM/10ML UD PO SCH (08:00)
[2020-04-17] MEDS: PANTOPRAZOLE 40MG VIAL (C9113 PER 1) IV SCH ×2 (08:18→20:34)
[2020-04-17] MEDS: MULTIVITAMINS/MINERALS THERAP 1 TAB PO SCH (08:18)
[2020-04-17] MEDS: CYANOCOBALAMIN 500 MCG TAB PO SCH (08:18)
--- NOTE | 2020-04-17 09:03 | IPNPDOC ---
Text Note Date of Service The patient was seen on 04/17/20. NOTE No acute events overnight. She has not had any bloody BMs since yesterday at [place]. Her Hgb did drop a little overnight, but she feels much stronger than yesterday. VSSAF NAD labs - below A) 59y/o female with likely UGI bleed secondary to gastritis vs. bleeding marginal ulcer. P) NPO COVID testing OPP for upper endoscopy this afternoon. Mark Barger DO VS,Sudheer, I+O VS, Sudheer, I+O Laboratory Tests 04/16/20 20:06 04/16/20 20:07 04/17/20 05:27 Vital Signs Date Time Temp Pulse Resp B/P (MAP) Pulse Ox O2 Delivery O2 Flow Rate FiO2 04/17/20 06:00 97.9 87 20 117/69 (85) 99 Room Air I&O- Last 24 Hours up to 6 AM 04/17/20 06:00 Intake Total 630 ml Output Total 950 ml Balance -320 ml NAOMI BARGER DO Apr 17, 2020 09:03
[2020-04-17] MEDS ORDERED: fentaNYL 100 MCG/2 ML INJECTION (J3010) As Ordered ONE (11:35)
[2020-04-17] MEDS ORDERED: LIDOCAINE 2% 100MG/5ML SDV (FOR ANES.) As Ordered ONE (11:43)
[2020-04-17] MEDS ORDERED: propofoL 200 MG/20 ML VIAL As Ordered ONE (11:43)
--- NOTE | 2020-04-17 11:51 | ROOR ---
Patient Name: Ashanti Stoll Procedure Date: 04/17/2020 11:39 AM Date of : 1960 Age: 59 Room: [facility] Gender: Female Note Status: Finalized Procedure: Upper GI endoscopy Indications: Iron deficiency anemia Providers: DO Mary Castellanos MD: Zunilda Hernández MD Requesting Provider: Medicines: Propofol per Anesthesia Complications: No immediate complications. Procedure: Pre-Anesthesia Assessment: - Prior to the procedure, a History and Physical was performed, and patient medications and allergies were reviewed. The patient is competent. The risks and benefits of the procedure and the sedation options and risks were discussed with the patient. All questions were answered and informed consent was obtained. Patient identification and proposed procedure were verified by the physician, the nurse, the assistant press operator and the biodiesel processing technician in the endoscopy suite. Mental Status Examination: alert and oriented. Airway Examination: normal oropharyngeal airway and neck mobility. Respiratory Examination: clear to auscultation. CV Examination: normal. ASA Grade Assessment: II - A patient with mild systemic disease. After reviewing the risks and benefits, the patient was deemed in satisfactory condition to undergo the procedure. The anesthesia plan was to use monitored anesthesia care (MAC). Immediately prior to administration of medications, the patient was re-assessed for adequacy to receive sedatives. The heart rate, respiratory rate, oxygen saturations, blood pressure, adequacy of pulmonary ventilation, and response to care were monitored throughout the procedure. The physical status of the patient was re-assessed after the procedure. The Endoscope was introduced through the mouth, and advanced to the efferent jejunal loop. The upper GI endoscopy was accomplished without difficulty. The patient tolerated the procedure well. Findings: The esophagus was normal. The stomach was normal. The examined duodenum was normal. Impression: - Normal esophagus. - Normal stomach. - Normal examined duodenum. - No specimens collected. Recommendation: - Return patient to hospital [facility] for ongoing care. - Resume regular diet today. Remy Barger DO 04/17/2020 11:51:15 AM Electronically signed by Remy Barger DO Number of Addenda: 0 Note Initiated On: 04/17/2020 11:39 AM Estimated Blood Loss: Estimated blood loss: none.
[2020-04-17] MEDS: SUCRALFATE SUSP 1GM/10ML UD PO SCH ×3 (12:35→23:24)
[2020-04-17 13:23] LABS: HEMATOCRIT 26.1 % (36.0-47.0); HEMOGLOBIN 8.6 g/dl (12.0-15.5)
[2020-04-17] MEDS: SPIRONOLACTONE 50 MG TAB PO SCH (13:59)
[2020-04-17 18:15] LABS: HEMATOCRIT 30.8 % (36.0-47.0); HEMOGLOBIN 10.3 g/dl (12.0-15.5)
--- NOTE | 2020-04-17 18:30 | IPNPDOC ---
Date Seen The patient was seen on 04/17/20. Progress Note SUBJECTIVE: Patient was seen and examined this morning. She was transferred from [facility] for acute blood loss anemia 2/2 to GI bleed. She had been transfused at [place]. On repeat CBC this morning the patient did have a drop in Hgb to 6.6 and was subsequently transfused 2 units. She currently states that she feels better then she did yesterday. She feels as if she has more strength. She states that she has felt week for the past week or more and before presentation to [facility] had developed chest discomfort and shortness of breath. Currently patient is planned for an upper endoscopy this afternoon OBJECTIVE PHYSICAL EXAMINATION: VITAL SIGNS: Please see below. GENERAL: Awake, alert, and oriented. Appears in no acute distress. Lying comfortably in bed. HEENT: Atruamtic, normocephalic. Eyes are nonicteric. Trachea is midline. Mucous membranes are pink and moist CARDIOVASCULAR: Normal S1, S2. Regular rate and rhythm. No clicks rubs or murmurs RESPIRATORY: Clear vesicular breath sounds bilaterally. No wheezes, rhonchi, or rales. Symmetric chest expansion ABDOMINAL: Morbidly obese. Soft, nondistended. Nontender. No rebound tenderness or guarding. Normoactive bowel sounds EXTREMITIES: No edema. Full and equal pulses in bilateral upper and lower extremities NEUROLOGICAL: No focal neurological deficits PSYCHOLOGICAL: Mood and affect appear appropriate LABORATORY DATA, IMAGING STUDIES, MICROBIOLOGY: Please see below. DVT prophylaxis ordered?: Mechanical ASSESSMENT AND PLAN: Patient is a 59 year old female who presented to [facility] as a transfer from [place] for acute blood loss anemia 2/2 GI bleed PROBLEMS: 1. Acute Blood Loss Anemia 2/2 upper vs lower GI bleed -Patient presented to [place] with Hgb of 6.4 and Hemoccult positive stool. She was transfused at [facility] and transfered to [facility] for endoscopy. She has had a drop in Hgb this morning to 6.7 and has been transfused an additional 2 units with appropriate response. Regarding the cause of her bleed she does have a gastric bypass and has been taking Naproxen which does increase risk of a gastritis or ulcer. Clinically she has no abdominal pain. She actually denies any bloody stools that she noticed. She has had no further bloody stools since presentation to [facility] -Patient did receive an endoscopy by General Surgery. Interestingly the patients upper endoscopy was rather normal. She has reportedly had a colonoscopy in the past by Dr. Raman which revealed diverticuli. This could be the source of her bleeding. At this time it does not appear that she is actively bleeding -Plan to trend H&H and transfuse prn. -If patient does develop bloody stools or a significant drop in hgb then will consider RBC tagged scan 2. Congestive Heart Failure -Patient has what appears to be a history of CHF. She does follow with Dr. Rendon. There is no Echocardiogram available in the medical record. She is obese and likely has a degree of right heart failure. At this time this is stable -Continue home Spironolactone -Will decrease Lasix dose by half given acute GI bleed and likely more dietary compliance in hospital. 3. HTN -Continue Diltiazem 4. Hypothyroidism -Continue Levothyroxine 5. History of Joselito-en-Y -Continue home vitamins -Recommendations to discontinue Naproxen outpatient 6. DVT Prophylaxis -Mechanical VS, I&O, 24H, Fishbone Vital Signs/I&O Vital Signs Date Time Temp Pulse Resp B/P (MAP) Pulse Ox O2 Delivery O2 Flow Rate FiO2 04/17/20 16:14 98.6 95 18 146/80 100 Room Air I&O- Last 24 Hours up to 6 AM 04/17/20 06:00 Intake Total 630 ml Output Total 950 ml Balance -320 ml Laboratory Data 24H LABS Laboratory Tests 2 04/16/20 20:06: Prothrombin Time 14.3H, Prothromb Time International Ratio 1.14, Anion Gap 16, Glomerular Filtration Rate 23.2L, Calcium Level 7.7L, Total Bilirubin 0.6, Asp artate Amino Transf (AST/SGOT) 15, Alanine Aminotransferase (ALT/SGPT) 16, Alkaline Phosphatase 53, Total Protein 5.0L, Albumin 2.4L, Albumin/Globulin Ratio 0.9L 04/16/20 20:07: Nucleated Red Blood Cells % (auto) 0.3H 04/16/20 21:28: Urine Color YELLOW, Urine Appearance CLEAR, Urine pH 5.0, Urine Specific [place] 1.011, Urine Protein NEGATIVE, Urine Glucose (UA) NEGATIVE, Urine Ketones TRACEH, Urine Blood NEGATIVE, Urine Nitrite NEGATIVE, Urine Bilirubin NEGATIVE, Urine Urobilinogen 0.2, Urine Leukocyte Esterase NEGATIVE, Urine WBC (Auto) 0, Urine RBC (Auto) 1, Urine Hyaline Casts (Auto) 0, Urine Bacteria (Auto) NEGATIVE, Urine Squamous Epithelial Cells 0, Urine Mucus (Auto) SMALL, Urine Sperm (Auto) 04/17/20 05:27: Anion Gap 9, Glomerular Filtration Rate 25.2L, Calcium Level 7.5L, Total Bilirubin 0.4, Aspartate Amino Transf (AST/SGOT) 13, Alanine Aminotransferase (ALT/SGPT) 15, Alkaline Phosphatase 45, Total Protein 4.8L, Albumin 2.1L, Albumin/Globulin Ratio 0.8L, Nucleated Red Blood Cells % (auto) 0.3H CBC/BMP Laboratory Tests 04/16/20 20:06 04/16/20 20:07 04/17/20 05:27 04/17/20 13:09 Microbiology Microbiology 04/17/20 Respiratory Virus Panel (PCR) (JOYEC) - Final, Complete GME ATTESTATION I have personally evaluated and examined the patient. Discussed with resident/student regarding plan of care and agree with the above assessment and plan. MANINDER COLEMAN DO Apr 17, 2020 17:45 KODY DUGAN MD Apr 19, 2020 08:13
[2020-04-17] MEDS ORDERED: FLUTICASONE PROP 0.05% NASAL SPRAY 16 GM (FLONASE) NARES SCH (21:00)
[2020-04-18 00:53] LABS: HEMATOCRIT 26.1 % (36.0-47.0); HEMOGLOBIN 8.9 g/dl (12.0-15.5)
[2020-04-18] MEDS: LEVOTHYROXINE 25MCG TABLET (0.025MG) PO SCH (05:37)
[2020-04-18] MEDS: SUCRALFATE SUSP 1GM/10ML UD PO SCH (05:37)
[2020-04-18] MEDS: LEVOTHYROXINE 150MCG TABLET (0.15MG) PO SCH (05:37)
[2020-04-18 06:00] VITALS: BP 143/75
[2020-04-18 06:08] LABS: HEMATOCRIT 26.5 % (36.0-47.0); HEMOGLOBIN 8.7 g/dl (12.0-15.5)
--- NOTE | 2020-04-18 08:01 | IPNPDOC ---
Text Note Date of Service The patient was seen on 04/18/20. NOTE No acute events overnight. She did have a BM this am that was slightly dark, but not bloody. She feels like she has her strength back, and is anxious to go home. VSSAF NAD labs - below A) 59y/o female who presented with acute blood loss anemia likely secondary to diverticular bleed that has resolved. POD#1 s/p EGD that was normal P)reg diet stable for d/c from surgical standpoint I explained to her that if she develops bleeding again then she I will recommend a colonoscopy and if that is normal she will likely need a capsule endoscopy. Follow up as needed. Mark Barger DO VSSudheer, I+O VSSudheer, I+O Laboratory Tests 04/17/20 13:09 04/17/20 18:01 04/18/20 00:19 04/18/20 05:40 Vital Signs Date Time Temp Pulse Resp B/P (MAP) Pulse Ox O2 Delivery O2 Flow Rate FiO2 04/18/20 06:00 98.3 93 18 143/75 (97) 99 Room Air I&O- Last 24 Hours up to 6 AM 04/18/20 06:00 Intake Total 1950 ml Output Total 3175 ml Balance -1225 ml NAOMI BARGER DO Apr 18, 2020 08:01
[2020-04-18] MEDS ORDERED: FUROSEMIDE 80 MG TAB PO SCH (09:00)
[2020-04-18] MEDS: MULTIVITAMINS/MINERALS THERAP 1 TAB PO SCH (10:03)
[2020-04-18] MEDS: CYANOCOBALAMIN 500 MCG TAB PO SCH (10:03)
[2020-04-18] MEDS: SPIRONOLACTONE 50 MG TAB PO SCH (10:03)
[2020-04-18] MEDS: PANTOPRAZOLE 40MG VIAL (C9113 PER 1) IV SCH (10:03)
[2020-04-18 10:06] VITALS: BP 163/92
--- NOTE | 2020-04-18 16:44 | CR ---
DATE OF CONSULTATION: 04/17/2020 REASON FOR CONSULTATION: Gastrointestinal (GI) bleed. HISTORY OF PRESENT ILLNESS: The patient is a 59-year-old female who was evaluated in [facility] Emergency Room for gastrointestinal (GI) bleeding. She was then transferred here after she was found to be anemic since they did not have any GI or surgery available over there. Initial laboratories showed hemoglobin around 6. She was transferred two units of blood and then transferred over here. She claims that she has been feeling increased weakness for the past couple of weeks. Two weeks prior to that, she was having left lower abdominal pains. Her stools are always dark in color. However, when she was in the emergency room in [place], she did have a couple episodes of bright red bloody stools as well. There is a history of a gastric bypass in 2006. However, she has never had any difficulty with upper GI bleeding or ulcers from that. She does take Naprosyn daily for arthritic pain but she always takes it with food already in her stomach and she does also take omeprazole. She denies any alcohol, caffeine, or tobacco usage. No spicy or acidic foods. No problems with GI bleeding in the past. She did have a colonoscopy in November [address] Raman that was not for GI bleeding, that was just for a positive Cologuard test, but it did not show any source of bleeding other than possibly diverticulosis. Currently, she feels much improved after getting a couple units of blood. She has not had any bowel movements in the last 12 hours since leaving [place]. No current complaints and denies current abdominal pains. PAST MEDICAL HISTORY: Arthritis, Graves' disease, hypertension, hypothyroidism. PAST SURGICAL HISTORY: Cholecystectomy, (C) section, oophorectomy, thyroidectomy, umbilical hernia repair, padilla-en-y gastric bypass. ALLERGIES: LEVAQUIN, TAPAZOLE. MEDICATIONS: Please see medical record. SOCIAL HISTORY: Denies drug, alcohol, or tobacco abuse. FAMILY HISTORY: Noncontributory. REVIEW OF SYSTEMS: Pertinent positives and negatives stated in the history of present illness (HPI). PHYSICAL EXAMINATION: GENERAL: Alert and oriented times three, in no acute distress. VITAL SIGNS: Temperature 97.9, pulse 87, respirations 20, blood pressure 117/69, pulse oximetry 99% on room air. HEENT: Pupils equal, round and react to light and accommodation. HEART: S1, S2, regular rate and rhythm. LUNGS: Clear to auscultation bilaterally. ABDOMEN: Soft, obese, nontender, nondistended. EXTREMITIES: Bilateral lower extremity pitting edema. LABORATORY DATA: Hemoglobin 6.6 which is down from 7.8 from last evening, white count 12.2, platelets 317. Potassium 4.2, creatinine 2.14. ASSESSMENT AND PLAN: The patient is a 59-year-old female presenting with generalized weakness, bloody stools, likely upper versus lower gastrointestinal (GI) bleed. Recommendation at this time is to proceed with upper endoscopy since she already had a normal lower endoscopy four months ago. With her history of Naprosyn usage and gastric bypass and slow onset of this weakness over a few weeks and black tarry stools, suspicion is higher for upper rather than lower GI bleed. The bright red bloody stools that she had are indicative of either a large upper GI bleed versus a lower GI bleed. Recommendation is to proceed with an upper endoscopy first. If that comes back normal and she remains stable then this could be attributed to a diverticular bleed that has stopped on its own. If she shows signs of continuing to bleed again in the next 24 hours, we will consider a tagged red blood cell scan prior to doing a colonoscopy. She understands this plan and she will be scheduled for upper endoscopy around noon today after she gets some COVID testing done and based on those results, we will determine our next course of action.
--- NOTE | 2020-04-18 18:11 | DS.PDOC ---
Discharge Summary General Date of Admission Apr 16, 2020 at 18:41 Date of Discharge 04/18/20 Specialist/Consultants Involve: REMY BARGER DO Discharge Summary PROCEDURES PERFORMED DURING STAY: Upper Endoscopy ADMITTING DIAGNOSES: 1. Acute Blood Loss Anemia 2/2 GI bleed DISCHARGE DIAGNOSES: 1. Acute Blood Loss Anemia 2/2 Lower GI bleed COMPLICATIONS/CHIEF COMPLAINT: Dizziness,Weakness. 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 She had stated that for about 1-2 weeks she had progressively developed weakness and fatigue. She stated that she had gotten up to walk to the bathroom and was unable to make it. She had felt lightheaded and developed chest discomfort and shortness of breath. This prompted her to present to [facility]. She had revealed that she has been taking naproxen with her history of gastric bypass. She had received a CT scan of her head, a chest x-ray, and an abdomen pelvis CT which was negative for any acute process. Her laboratory studies did demonstrate anemia with a Hgb of 6.4. She had hemoccult positive stool in the ER. She was tranfused blood and transferred to [facility] for endoscopy. HOSPITAL COURSE: On arrival to [facility] her repeat labs demonstrated a hgb of 6.6 and she was transfused an additional two units. She was seen by GI who took the patient for and upper endoscopy. The results were rather unrevealing and did not demonstrate any gastric bleed. Her upper endoscopy was otherwise normal (Report below). The patient did have a colonoscopy with Dr. Raman in Nov. of last year and at the time she had been noted to have diverticula. The patients diet was advanced and she was observed overnight. She had no further episodes of bleeding. Her hgb remained stable. The patient was discharged with recommendations to follow-up with her PCP in 7-10 days. She was instructed to stop her naproxen as this does increase her risk of gastric ulcer and bleed given her history of gastric bypass. If patient develops bleeding again she would require a colonoscopy or pill enteroscopy. DISCHARGE MEDICATIONS: Please see below. ALLERGIES: Please see below. PHYSICAL EXAMINATION ON DISCHARGE: VITAL SIGNS: Please see below. GENERAL: Awake, alert, and oriented. Appears in no acute distress. Lying comfortably in bed. HEENT: Atraumatic, normocephalic. Eyes are nonicteric. Trachea is midline. Muc ous membranes are pink and moist CARDIOVASCULAR: Normal S1, S2. Regular rate and rhythm. No clicks rubs or murmurs RESPIRATORY: Clear vesicular breath sounds bilaterally. No wheezes, rhonchi, or rales. Symmetric chest expansion ABDOMINAL: Morbidly obese. Soft, nondistended. Nontender. No rebound tenderness or guarding. Normoactive bowel sounds EXTREMITIES: No edema. Full and equal pulses in bilateral upper and lower extremities NEUROLOGICAL: No focal neurological deficits PSYCHOLOGICAL: Mood and affect appear appropriate LABORATORY DATA: Please see below. IMAGING: UPPER ENDOSCOPY Procedure: Pre-Anesthesia Assessment: - Prior to the procedure, a History and Physical was performed, and patient medications and allergies were reviewed. The patient is competent. The risks and benefits of the procedure and the sedation options and risks were discussed with the patient. All questions were answered and informed consent was obtained. Patient identification and proposed procedure were verified by the physician, the nurse, the sewer inspector and the noc technician in the endoscopy suite. Mental Status Examination: alert and oriented. Airway Examination: normal oropharyngeal airway and neck mobility. Respiratory Examination: clear to auscultation. CV Examination: normal. ASA Grade Assessment: II - A patient with mild systemic disease. After reviewing the risks and benefits, the patient was deemed in satisfactory condition to undergo the procedure. The anesthesia plan was to use monitored anesthesia care (MAC). Immediately prior to administration of medications, the patient was re-assessed for adequacy to receive sedatives. The heart rate, respiratory rate, oxygen saturations, blood pressure, adequacy of pulmonary ventilation, and response to care were monitored throughout the procedure. The physical status of the patient was re-assessed after the procedure. The Endoscope was introduced through the mouth, and advanced to the efferent jejunal loop. The upper GI endoscopy was accomplished without difficulty. The patient tolerated the procedure well. Findings: The esophagus was normal. The stomach was normal. The examined duodenum was normal. Impression: - Normal esophagus. - Normal stomach. - Normal examined duodenum. - No specimens collected. Recommendation: - Return patient to [facility] for ongoing care. - Resume regular diet today. Remy Barger DO 04/17/2020 11:51:15 AM Electronically signed by Remy Barger DO Number of Addenda: 0 Note Initiated On: 04/17/2020 11:39 AM Estimated Blood Loss: PROGNOSIS: Fair ACTIVITY: [As tolerated]. DIET: As tolerated DISCHARGE PLAN: Patient is to be discharged home with recommendations to follow- up with PCP in 7-10 days. She has been counseled on red flags of GI bleeding. If she is to develop bloody stools or develops shortness of breath, chest pain, or lightheadedness she is to call her PCP. If she does have a rebleed recommend colonoscopy or pill enteroscopy to assess bleeding. She was instructed to STOP her Naproxen as she has a history of Gastric bypass. Her upper endoscopy did not note any abnormality however it is recommended that she discontinue this medication. If she wishes to continue Naproxen then she can discuss with her PCP regarding the risks and benefits however Naproxen will be discontinued at this time unless restarted by PCP. DISPOSITION: 01 Home, Self-Care. DISCHARGE CONDITION: [Stable]. TIME SPENT ON DISCHARGE: 40 minutes. I have personally evaluated and examined the patient. Discussed with resident/student regarding plan of care and agree with the above assessment and plan. Vital Signs/I&Os Vital Signs Date Time Temp Pulse Resp B/P (MAP) Pulse Ox O2 Delivery O2 Flow Rate FiO2 04/18/20 10:06 97 163/92 04/18/20 06:00 98.3 18 99 Room Air I&O- Last 24 Hours up to 6 AM 04/18/20 06:00 Intake Total 1950 ml Output Total 3175 ml Balance -1225 ml Laboratory Data CBC/BMP Laboratory Tests 04/17/20 18:01 04/18/20 00:19 04/18/20 05:40 Microbiology Microbiology 04/17/20 Respiratory Virus Panel (PCR) (JOYCE) - Final, Complete Discharge Medications Scheduled Calcium Citrate (Calcium Citrate) 250 Mg Tab, 500 MG PO BID, (Reported) Cetirizine HCl (Cetirizine HCl) 10 Mg Tab, 10 MG PO DAILY, (Reported) Cyanocobalamin (Vitamin B-12) (Vitamin B-12) 500 Mcg Tab, 500 MCG PO DAILY, (R eported) Diltiazem HCl (Dilt-Xr) 120 Mg Cap.er.deg, 120 MG PO BID, (Reported) Ergocalciferol (Vitamin D2) (Vitamin D2) 50,000 Units Cap, 100,000 UNITS PO 1XWK, (Reported) MONDAYS Ferrous Gluconate (Ferrous Gluconate) 324 Mg Tab, 324 MG PO BID, (Reported) Fluticasone Propionate (Fluticasone Propionate) 50 Mcg/Act Spr, 1 SPRAY NARES QHS, (Reported) Furosemide (Lasix) 80 Mg Tab, 80 MG PO BID, (Reported) Hydroxychloroquine Sulfate (Plaquenil) 200 Mg Tablet, 200 MG PO DAILY, (Reported) Levothyroxine Sodium (Levothyroxine Sodium) 175 Mcg Tab, 175 MCG PO DAILY, (Reported) Montelukast Sodium (Montelukast Sodium) 10 Mg Tab, 10 MG PO QHS, (Reported) Multivitamins (Thera M Plus Tablet) 1 Tab Tab, 1 TAB PO DAILY, (Reported) [place]-3/Dha/Epa/Fish Oil (Fish Oil 1,200 mg Softgel) 1 Each Capsule.dr, 1 CAP PO DAILY, (Reported) Omeprazole (Omeprazole) 20 Mg Cap, 20 MG PO DAILY, (Reported) Spironolactone (Spironolactone) 100 Mg Tablet, 100 MG PO DAILY, (Reported) Trolamine Salicylate/Aloe Vera (Aspercreme 10% Cream) 10 % Cre, 1 APPLIC TOP QHS, (Reported) APPLY TO KNEES AND FEET Scheduled PRN Azelastine/Fluticasone (Dymista Nasal Kerens) 23 Gm Kerens.pump, 1 SPR NARES DAILY PRN for SEASONAL ALLERGIES, (Reported) Tramadol HCl (Tramadol HCl) 50 Mg Tab, 50 MG PO Q6H PRN for PAIN, (Reported) Allergies Coded Allergies: Coconut (Verified Allergy, Unknown, hives, 10/21/18) adhesive tape (Verified Allergy, Unknown, 12/05/19) levofloxacin (Verified Allergy, Unknown, hives, 12/05/19) methimazole (Verified Allergy, Unknown, hives/SOB, 12/05/19) tea tree (Verified Allergy, Unknown, hives, 12/05/19) codeine (Verified Adverse Reaction, Mild, N/V, 12/05/19) has had it in past with no problems at time MANINDER COLEMAN 25, 2020 18:11 KODY DUGAN MD Apr 19, 2020 08:17
[2020-07-16] MEDS ORDERED: ALLO100T PO (09:12)
[2020-07-16] MEDS ORDERED: COLC0.6T47 PO (09:19)
[2020-10-02] MEDS ORDERED: ALLO100T PO (14:09)
[2020-10-07] MEDS ORDERED: ALLO100T PO ×2 (14:36)
[2020-10-14] MEDS ORDERED: HYDR-3910 PO (11:57)
== END 2020-04-18 11:30 | disposition home or self-care (01) | DRG 253 ==
LOC: M MSPAV 18:41
PROVIDERS: ADMIT Internal Medicine; ATTEND Student in an Organized Health Care Education/Training Program
PROC: 0DJ08ZZ Inspection of Upper Intestinal Tract, Via Natural or Artificial Opening Endoscopic (ICD-10-PCS; 2020-04-17)
PROC: 30233N1 Transfusion of Nonautologous Red Blood Cells into Peripheral Vein, Percutaneous Approach (ICD-10-PCS; principal; 2020-04-17 12:00)
DX: K92.2 Gastrointestinal hemorrhage, unspecified (principal); I50.9 Heart failure, unspecified; E66.01 Morbid (severe) obesity due to excess calories; M06.9 Rheumatoid arthritis, unspecified; E03.9 Hypothyroidism, unspecified; Z79.899 Other long term (current) drug therapy; Z88.5 Allergy status to narcotic agent; Z88.8 Allergy status to other drugs, medicaments and biological substances; Z91.018 Allergy to other foods; Z98.84 Bariatric surgery status; I11.0 Hypertensive heart disease with heart failure; D62 Acute posthemorrhagic anemia

== ENCOUNTER 2020-04-19 12:20 | Emergency (ER) | payer BC, OTHER, MEDICARE ==
[~2020-04-19] VITALS: Ht 165.1 cm; Wt 125.0 kg
[~2020-04-19 12:20] MED LIST changes: -GABA-282 PO; +GABA-843 PO; -MONT10TA10 PO; +MONT10TA4 PO; +VITA50005 PO
[2020-04-19] MEDS ORDERED: NS 1,000 ML IV SCH (13:01)
[2020-04-19] MEDS ORDERED: PANTOPRAZOLE 40MG VIAL (C9113 PER 1) IV ONE (13:15)
[2020-04-19 13:16] LABS: BASO # 0.1 10^3/uL (0.0-0.2); BASO % 0.4 % (0.0-1.0); EOS # 0.1 10^3/uL (0.0-0.5); EOS % 0.5 % (0.0-3.0); HEMATOCRIT 28.1 % (36.0-47.0); HEMOGLOBIN 9.2 g/dl (12.0-15.5); LYMPH # 1.3 10^3/uL (1.5-5.0); LYMPH % 8.5 % (24.0-44.0); MEAN CORPUSCULAR HEMOGLOBIN 29.5 pg (27.0-33.0); MEAN CORPUSCULAR HGB CONC 32.7 g/dl (32.0-36.5); MEAN CORPUSCULAR VOLUME 90.1 fl (80.0-96.0); MONO # 1.1 10^3/uL (0.0-0.8); MONO % 7.2 % (0.0-5.0); NEUTROPHILS # 12.4 10^3/uL (1.5-8.5); NEUTROPHILS % 79.4 % (36.0-66.0); PLATELET COUNT, AUTOMATED 376 10^3/uL (150-450); RED BLOOD COUNT 3.12 10^6/uL (4.00-5.40); WHITE BLOOD COUNT 15.6 10^3/uL (4.0-10.0)
[2020-04-19 13:26] LABS: PROTHROMBIN TIME 12.9 SECONDS (11.8-14.0)
[2020-04-19 13:47] LABS: ALBUMIN 2.5 GM/DL (3.2-5.2); ALT/SGPT 18 U/L (12-78); BILIRUBIN,DIRECT < 0.1 MG/DL (0.0-0.2); BILIRUBIN,TOTAL 0.3 MG/DL (0.2-1.0); BLOOD UREA NITROGEN 67 MG/DL (7-18); CALCIUM LEVEL 8.5 MG/DL (8.5-10.1); CARBON DIOXIDE LEVEL 16 MEQ/L (21-32); CHLORIDE LEVEL 110 MEQ/L (98-107); CK-MB VALUE MASS 1.2 NG/ML (<3.6); CPK CREATINE PHOSPHOKINASE 30 U/L (26-192); CREATININE FOR GFR 1.87 MG/DL (0.55-1.30); GLOMERULAR FILTRATION RATE 29.4 (>51); GLUCOSE, FASTING 145 MG/DL (70-100); LIPASE 134 U/L (73-393); POTASSIUM SERUM 3.9 MEQ/L (3.5-5.1); SODIUM LEVEL 136 MEQ/L (136-145); TOTAL PROTEIN 5.4 GM/DL (6.4-8.2); TROPONIN I 0.03 NG/ML (< 0.10)
[2020-04-19 15:30] VITALS: BP 114/64
== END 2020-04-19 15:44 | disposition home or self-care (01) ==
LOC: M ED 12:20
DX: K92.2 Gastrointestinal hemorrhage, unspecified (principal); D64.9 Anemia, unspecified; R06.02 Shortness of breath; E11.9 Type 2 diabetes mellitus without complications; I10 Essential (primary) hypertension; Z79.899 Other long term (current) drug therapy; Z79.890 Hormone replacement therapy; Z88.1 Allergy status to other antibiotic agents; Z88.5 Allergy status to narcotic agent; Z88.8 Allergy status to other drugs, medicaments and biological substances; Z91.018 Allergy to other foods; Z91.048 Other nonmedicinal substance allergy status
CPT/HCPCS: 80048; 80076; 81001; 82550; 82553; 83690; 84484; 85025; 85610; 86850; 86900; 86901; 87086; 93041; 96361; 96374; 99284; C9113

== ENCOUNTER 2020-04-26 10:27 | Emergency (ER) | payer BC, OTHER ==
[~2020-04-26] VITALS: Ht 167.6 cm; Wt 125.0 kg
[2020-04-26] VITALS (8 sets, daily range): BP systolic 105–145; BP diastolic 40–77
[2020-04-26] MEDS ORDERED: NS 500 ML IV ONE (10:45)
[2020-04-26] MEDS ORDERED: PANTOPRAZOLE 40MG VIAL (C9113 PER 1) IV ONE (11:00)
[2020-04-26 11:28] LABS: VENOUS BASE EXCESS -13.5 (-2.0-2.0); VENOUS HCO3 12.4 MEQ/L (23.0-27.0); VENOUS PARTIAL PRESSURE CO2 28.5 mmHg (38.0-50.0); VENOUS PH 7.257 UNITS (7.330-7.430); VENOUS STANDARD HCO3 13.4 MEQ/L; VENOUS TOTAL CO2 13.3 MEQ/L (24.0-28.0)
[2020-04-26 11:30] LABS: BASO # 0.1 10^3/uL (0.0-0.2); BASO % 0.3 % (0.0-1.0); EOS # 0.1 10^3/uL (0.0-0.5); EOS % 0.8 % (0.0-3.0); LYMPH % 6.1 % (24.0-44.0); MEAN CORPUSCULAR HEMOGLOBIN 30.1 pg (27.0-33.0); MEAN CORPUSCULAR HGB CONC 31.7 g/dl (32.0-36.5); MEAN CORPUSCULAR VOLUME 94.8 fl (80.0-96.0); MONO % 6.5 % (0.0-5.0); NEUTROPHILS % 83.2 % (36.0-66.0); PLATELET COUNT, AUTOMATED 478 10^3/uL (150-450); RED BLOOD COUNT 1.73 10^6/uL (4.00-5.40); WHITE BLOOD COUNT 15.6 10^3/uL (4.0-10.0)
[2020-04-26 11:35] LABS: HEMATOCRIT 16.4 % (36.0-47.0); HEMOGLOBIN 5.2 g/dl (12.0-15.5)
[2020-04-26 12:08] LABS: ALBUMIN 2.6 GM/DL (3.2-5.2); ALT/SGPT 19 U/L (12-78); BILIRUBIN,DIRECT < 0.1 MG/DL (0.0-0.2); BILIRUBIN,TOTAL 0.4 MG/DL (0.2-1.0); BLOOD UREA NITROGEN 85 MG/DL (7-18); CALCIUM LEVEL 7.5 MG/DL (8.5-10.1); CARBON DIOXIDE LEVEL 13 MEQ/L (21-32); CHLORIDE LEVEL 105 MEQ/L (98-107); CREATININE FOR GFR 2.25 MG/DL (0.55-1.30); FREE T4 1.69 NG/DL (0.76-1.46); GLOMERULAR FILTRATION RATE 23.8 (>51); GLUCOSE, FASTING 273 MG/DL (70-100); MAGNESIUM LEVEL 1.9 MG/DL (1.8-2.4); POTASSIUM SERUM 3.4 MEQ/L (3.5-5.1); SODIUM LEVEL 132 MEQ/L (136-145); THYROID STIMULATING HORMONE 0.687 uIU/ML (0.358-3.740); TOTAL PROTEIN 5.3 GM/DL (6.4-8.2)
[2020-04-26] MEDS ORDERED: MUCI600T31 PO (13:05)
[2020-04-26] MEDS ORDERED: AZEL1SPR3 NARES (13:05)
[2020-04-26] MEDS ORDERED: NEXI20CA33 PO (13:05)
--- NOTE | 2020-04-26 17:51 | ECGEPIP ---
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
== END 2020-04-26 16:25 | disposition short-term general hospital (02) ==
LOC: M ED 10:27
DX: D64.9 Anemia, unspecified (principal); I10 Essential (primary) hypertension; E78.5 Hyperlipidemia, unspecified; E05.00 Thyrotoxicosis with diffuse goiter without thyrotoxic crisis or storm; Z98.84 Bariatric surgery status; Z79.899 Other long term (current) drug therapy; Z79.890 Hormone replacement therapy; Z88.1 Allergy status to other antibiotic agents; Z88.5 Allergy status to narcotic agent; Z91.018 Allergy to other foods; Z91.048 Other nonmedicinal substance allergy status
CPT/HCPCS: 80048; 80076; 82803; 83735; 84439; 84443; 84484; 85025; 86850; 86900; 86901; 86920; 93005; 93041; 96361; 96374; 99285; C9113; P9016

== ENCOUNTER → 2020-05-03 | Outpatient (CLI) | payer BC, OTHER, MEDICARE ==
[~2020-05-03] MED LIST changes: +ALLO100T PO; +AZEL1SPR3 NARES; +COLC1TAB13 PO; +MUCI600T31 PO; +NEXI20CA33 PO
== END ==
LOC: M LABSMTC 09:38
PROVIDERS: ATTEND Anesthesiology
DX: Z01.818 Encounter for other preprocedural examination (principal); Z11.59 Encounter for screening for other viral diseases
CPT/HCPCS: C9803; U0003

== ENCOUNTER 2020-05-06 13:37 | Day surgery (SDC) | payer BC, OTHER ==
[~2020-05-06] VITALS: Ht 167.6 cm; Wt 120.2 kg
[~2020-05-06 13:37] MED LIST changes: -ALLO100T PO; -COLC1TAB13 PO
[2020-05-06] MEDS ORDERED: NS 1,000 ML IV ONE (13:45)
[2020-05-06] MEDS ORDERED: fentaNYL 100 MCG/2 ML INJECTION (J3010) As Ordered ONE (14:29)
[2020-05-06] MEDS ORDERED: propofoL 200 MG/20 ML VIAL As Ordered ONE ×3 (14:29→15:21)
[2020-05-06] MEDS ORDERED: LIDOCAINE 2% 100MG/5ML SDV (FOR ANES.) As Ordered ONE (14:29)
--- NOTE | 2020-05-06 15:42 | ROOR ---
Patient Name: Ashanti Stoll Procedure Date: 05/06/2020 2:28 PM Date of : 1960 Age: 59 Room: [facility] Gender: Female Note Status: Finalized Procedure: Upper GI endoscopy Indications: Acute post hemorrhagic anemia Providers: Darrius BETANCOURT MD Referring MD: Zunilda Hernández MD Requesting Provider: Medicines: Monitored Anesthesia Care Complications: No immediate complications. Procedure: Pre-Anesthesia Assessment: - The heart rate, respiratory rate, oxygen saturations, blood pressure, adequacy of pulmonary ventilation, and response to care were monitored throughout the procedure. The Endoscope was introduced through the mouth, and advanced to the efferent jejunal loop. The Enteroscope was introduced through the mouth, and advanced to the jejunum. The upper GI endoscopy was accomplished without difficulty. The patient tolerated the procedure well. Findings: The examined esophagus was normal. 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 The gastrojejunal anastomosis was characterized by healthy appearing mucosa. The examined jejunum was normal. (Scope changed to pediatric colonoscope and advanced as far as possible, but even with this, the jejuno-jejunostomy was not reached) Impression: - Normal esophagus. - Joselito-en-Y gastrojejunostomy with gastrojejunal anastomosis characterized by healthy appearing mucosa. - Normal examined jejunum. - No specimens collected. Recommendation: - To visualize the small bowel, perform video capsule endoscopy at appointment to be scheduled. Darrius Betancourt MD Darrius BETANCOURT MD 05/06/2020 3:42:01 PM Electronically signed by Darrius BETANCOURT MD Number of Addenda: 0 Note Initiated On: 05/06/2020 2:28 PM Estimated Blood Loss: Estimated blood loss: none.
--- NOTE | 2020-05-06 15:45 | ROOR ---
Patient Name: Ashanti Stoll Procedure Date: 05/06/2020 2:29 PM Date of : 1960 Age: 59 Room: [facility] Gender: Female Note Status: Finalized Procedure: Colonoscopy Indications: Hematochezia, Acute post hemorrhagic anemia Providers: Darrius BETANCOURT MD Referring MD: Zunilda Hernández MD Requesting Provider: Medicines: Monitored Anesthesia Care Complications: No immediate complications. Procedure: Pre-Anesthesia Assessment: - The heart rate, respiratory rate, oxygen saturations, blood pressure, adequacy of pulmonary ventilation, and response to care were monitored throughout the procedure. The Colonoscope was introduced through the anus and advanced to 10 cm into the ileum. The colonoscopy was performed without difficulty. The patient tolerated the procedure well. The quality of the bowel preparation was adequate. Findings: The perianal and digital rectal examinations were normal. A 5 mm polyp was found in the splenic flexure. The polyp was sessile. The polyp was removed with a cold snare. Resection and retrieval were complete. Mild sigmoid diverticulosis and small internal hemorrhoids. The terminal ileum appeared normal. Impression: - One 5 mm polyp at the splenic flexure, removed with a cold snare. Resected and retrieved. - Mild sigmoid diverticulosis and small internal hemorrhoids. - The colon is otherwise normal. - The examined portion of the ileum was normal. Recommendation: - To visualize the small bowel, perform video capsule endoscopy at appointment to be scheduled. Darrius Betancourt MD Darrius BETANCOURT MD 05/06/2020 3:45:36 PM Electronically signed by Darrius BETANCOURT MD Number of Addenda: 0 Note Initiated On: 05/06/2020 2:29 PM Estimated Blood Loss: Estimated blood loss: none.
[2020-05-06 16:10] VITALS: BP 137/73
[2020-07-16] MEDS ORDERED: ALLO100T PO (09:12)
[2020-07-16] MEDS ORDERED: COLC1TAB13 PO (09:19)
== END 2020-05-06 16:20 | disposition home or self-care (01) ==
LOC: M OPP 13:37
PROVIDERS: ATTEND Internal Medicine Gastroenterology
DX: K63.5 Polyp of colon (principal); K92.1 Melena; K57.30 Diverticulosis of large intestine without perforation or abscess without bleeding; D62 Acute posthemorrhagic anemia; N18.9 Chronic kidney disease, unspecified; Z98.0 Intestinal bypass and anastomosis status; Z79.891 Long term (current) use of opiate analgesic; Z79.899 Other long term (current) drug therapy; Z88.5 Allergy status to narcotic agent; Z88.8 Allergy status to other drugs, medicaments and biological substances; Z91.018 Allergy to other foods
CPT/HCPCS: 43235; 45385; 88305; J3010

== ENCOUNTER → 2020-05-10 | Outpatient (CLI) | payer BC, OTHER ==
[~2020-05-10] MED LIST changes: +ALLO100T PO; +COLC1TAB13 PO
[2020-05-10 16:23] LABS: BILIRUBIN,TOTAL 0.3 MG/DL (0.2-1.0); CALCIUM LEVEL 7.7 MG/DL (8.5-10.1); CREATININE FOR GFR 2.03 MG/DL (0.55-1.30); GLOMERULAR FILTRATION RATE 26.8 (>51); POTASSIUM SERUM 3.8 MEQ/L (3.5-5.1)
[2020-05-10 16:35] LABS: BASO # 0.1 10^3/uL (0.0-0.2); BASO % 1.2 % (0.0-1.0); EOS # 0.4 10^3/uL (0.0-0.5); EOS % 3.4 % (0.0-3.0); HEMATOCRIT 31.8 % (36.0-47.0); HEMOGLOBIN 10.1 g/dl (12.0-15.5); LYMPH # 0.9 10^3/uL (1.5-5.0); LYMPH % 8.1 % (24.0-44.0); MEAN CORPUSCULAR HEMOGLOBIN 28.9 pg (27.0-33.0); MEAN CORPUSCULAR HGB CONC 31.8 g/dl (32.0-36.5); MEAN CORPUSCULAR VOLUME 90.9 fl (80.0-96.0); MONO # 1.2 10^3/uL (0.0-0.8); MONO % 10.2 % (0.0-5.0); NEUTROPHILS # 8.4 10^3/uL (1.5-8.5); NEUTROPHILS % 74.6 % (36.0-66.0); PLATELET COUNT, AUTOMATED 476 10^3/uL (150-450); WHITE BLOOD COUNT 11.3 10^3/uL (4.0-10.0)
== END ==
LOC: M WUC 11:08
PROVIDERS: ATTEND Nurse Practitioner Family
DX: K92.2 Gastrointestinal hemorrhage, unspecified (principal); D64.9 Anemia, unspecified; N19 Unspecified kidney failure

== ENCOUNTER → 2020-06-26 | Outpatient (REF) | payer OTHER | LOC: M LAB REF 17:55 | PROVIDERS: ATTEND Internal Medicine Nephrology | DX: D50.9 Iron deficiency anemia, unspecified (principal) ==

== ENCOUNTER → 2020-07-30 | Outpatient (CLI) | payer BC, OTHER ==
[2020-07-31 11:10] LABS: TISSUE TRANSGLUTAMINASE IgA <2 U/mL (0-3)
== END ==
LOC: M WUC 10:09
PROVIDERS: ATTEND Internal Medicine Gastroenterology
DX: D50.9 Iron deficiency anemia, unspecified (principal); D62 Acute posthemorrhagic anemia; K50.018 Crohn's disease of small intestine with other complication

== ENCOUNTER → 2020-08-20 | Outpatient (CLI) | payer BC, OTHER ==
[~2020-08-20] MED LIST changes: +E-Z-GAS II EFFERVESCENT PACKET (SODIUM BICARB./CITRIC ACID/SIMETHICONE) As Ordered ONE; +E-Z-HD 98% w/w 340GM SUSP BTL As Ordered ONE; +E-Z-PAQUE 96% w/w SUSP 176GM BTL As Ordered ONE
--- NOTE | 2020-08-20 16:49 | REP ---
INDICATION: CROHN'S DX OF SM INTESTINE, IRON DEFF ANEMIA. COMPARISON: None TECHNIQUE: This procedure was performed by Linda Kearns [facility], under the direct supervision of Dr. Arvizu. Images were reviewed with Dr. Arvizu prior to dictation. Because the patient is status post Joselito-en-Y surgery and has extremely limited mobility liquid barium was given in the prone oblique position in order to perform a single contrast upper GI examination. FINDINGS: The latent print examiner film shows no organomegaly or pathological masses. The intestinal gas pattern is unremarkable. There are surgical destin in the right upper quadrant and left upper quadrant. The oral and pharyngeal stages of deglutition were unremarkable. Esophageal transport is prompt and efficient and there is no evidence of esophagitis, stricture, or mucosal ring. However tertiary waves were visualized during the exam. There is no evidence of a hiatal hernia. Gastroesophageal reflux noted to the level of the josé manuel. The remaining stomach [place] are normally outlined. There is free flow of contrast through the anastomosis into the small intestine. No stricture or ulcer is visualized. The visualized portion of the proximal small bowel appears normal in course and caliber. Additional liquid barium was administered at the end of the end of the exam and followed through the small bowel to the level of the terminal ileum. Small bowel transit time is approximately 200 minutes. During fluoroscopy gentle palpation shows all loops are freely movable and pliable. There are no fixture angulated loops. The small bowel mucosal pattern is normal in course and caliber. There is no transition to suggest a partial small bowel obstruction. Spot filming of the terminal ileum shows it to be unremarkable. IMPRESSION: 1. Tertiary waves were visualized during the exam. 2. Gastroesophageal reflux to the level of the josé manuel. 3. Small bowel transit time of approximately 3-1/2 hours. 1.1 minutes of fluoroscopy time was utilized for this procedure. Some fluoroscopic images are performed with last image hold technology. These images require no additional radiation. <Electronically signed by Linda Kearns > 08/20/20 [id number] <Electronically signed by Martell Arvizu > 08/20/20 [id number]
== END ==
LOC: M RAD 07:55
PROVIDERS: ATTEND Internal Medicine Gastroenterology
DX: K21.9 Gastro-esophageal reflux disease without esophagitis (principal); K50.018 Crohn's disease of small intestine with other complication; D50.9 Iron deficiency anemia, unspecified; Z98.84 Bariatric surgery status

== ENCOUNTER → 2021-01-03 | Outpatient (REF) | payer BC, OTHER ==
[~2021-01-03] MED LIST changes: +COLC0.6T47 PO; -COLC1TAB13 PO; +DOXY-342 PO; -E-Z-GAS II EFFERVESCENT PACKET (SODIUM BICARB./CITRIC ACID/SIMETHICONE) As Ordered ONE; -E-Z-HD 98% w/w 340GM SUSP BTL As Ordered ONE; -E-Z-PAQUE 96% w/w SUSP 176GM BTL As Ordered ONE; +FEBU40TA4 PO; +GABA-282 PO; -GABA-843 PO; +HYDR-3910 PO; +MONT10TA10 PO; -MONT10TA4 PO; +SEVE800T3 PO; +SODI650T PO
[2021-01-03 13:37] LABS: HEMOGLOBIN A1c 5.3 %
[2021-01-03 13:52] LABS: ALBUMIN 2.6 GM/DL (3.2-5.2); BILIRUBIN,TOTAL 0.3 MG/DL (0.2-1.0); CALCIUM LEVEL 8.6 MG/DL (8.5-10.1); CHOLESTEROL RISK RATIO 1.974 (<5); CREATININE FOR GFR 3.32 MG/DL (0.55-1.30); FREE T4 1.32 NG/DL (0.76-1.46); GLOMERULAR FILTRATION RATE 15.1 (>51); POTASSIUM SERUM 5.2 MEQ/L (3.5-5.1); THYROID STIMULATING HORMONE 6.92 uIU/ML (0.358-3.740); TOTAL PROTEIN 6.2 GM/DL (6.4-8.2)
== END ==
LOC: M LAB REF 11:51
PROVIDERS: ATTEND Nurse Practitioner Family
DX: E03.9 Hypothyroidism, unspecified (principal); I10 Essential (primary) hypertension; E11.65 Type 2 diabetes mellitus with hyperglycemia

== ENCOUNTER 2021-02-03 11:10 | Inpatient (IN) | payer BC, OTHER ==
[2021-02-03 12:18] LABS: BASO # 0.1 10^3/uL (0.0-0.2); BASO % 0.6 % (0.0-1.0); EOS # 0.2 10^3/uL (0.0-0.5); EOS % 1.2 % (0.0-3.0); HEMATOCRIT 29.9 % (36.0-47.0); HEMOGLOBIN 9.5 g/dl (12.0-15.5); LYMPH # 0.9 10^3/uL (1.5-5.0); LYMPH % 6.3 % (24.0-44.0); MEAN CORPUSCULAR HEMOGLOBIN 29.1 pg (27.0-33.0); MEAN CORPUSCULAR HGB CONC 31.8 g/dl (32.0-36.5); MEAN CORPUSCULAR VOLUME 91.4 fl (80.0-96.0); MONO % 6.8 % (2.0-8.0); NEUTROPHILS # 12.1 10^3/uL (1.5-8.5); NEUTROPHILS % 83.5 % (36.0-66.0); PLATELET COUNT, AUTOMATED 561 10^3/uL (150-450); RED BLOOD COUNT 3.27 10^6/uL (4.00-5.40); WHITE BLOOD COUNT 14.5 10^3/uL (4.0-10.0)
[2021-02-03 12:50] LABS: ALBUMIN 2.1 GM/DL (3.2-5.2); ALT/SGPT 32 U/L (12-78); BILIRUBIN,DIRECT 0.2 MG/DL (0.0-0.2); BILIRUBIN,TOTAL 0.4 MG/DL (0.2-1.0); CK-MB VALUE MASS 1.1 NG/ML (<3.6); CPK CREATINE PHOSPHOKINASE 40 U/L (26-192); MB/CK RELATIVE INDEX 2.75 (< OR =4); TOTAL PROTEIN 5.2 GM/DL (6.4-8.2); TROPONIN I < 0.02 NG/ML (< 0.10)
--- NOTE | 2021-02-03 13:19 | REP ---
INDICATION: WEAKNESS. COMPARISON: 03/29/2017 AP and lateral views and the latest prior. TECHNIQUE: Single AP view. The technique utilized in obtaining the radiograph has magnified the cardiac silhouette and accentuated the interstitial markings. FINDINGS: The cardiomediastinal silhouette is stable. The heart is not enlarged. Lung bradley are clear and stable. No acute patchy parenchymal opacities or pleural effusions have developed. Chronic changes are seen involving the shoulders. Previous right shoulder prosthesis status quo. Left shoulder DJD.. IMPRESSION: There is no evidence of acute cardiopulmonary disease. <Electronically signed by Héctor Christensen > 02/03/21 [id number]
[2021-02-03] MEDS ORDERED: LEVO2TA PO (13:22)
--- NOTE | 2021-02-03 13:22 | REP ---
INDICATION: WEAKNESS. COMPARISON: None. TECHNIQUE: Axial CT images with multiplanar reformations. FINDINGS: No acute bleed or acute large vessel territorial infarct. Ventricles, cisterns and sulci are within normal limits. No mass effect or midline shift. No abnormal fluid collections. There is age-related volume loss and chronic small vessel ischemic changes. IMPRESSION: No acute findings. Age-related volume loss and white matter changes. <Electronically signed by Tommy Subramanian > 02/03/21 [id number]
[2021-02-03 13:33] LABS: MAGNESIUM LEVEL 1.7 MG/DL (1.8-2.4)
[2021-02-03] MEDS ORDERED: HYDR-3363 PO (13:39)
[2021-02-03] MEDS ORDERED: OMEP-221 PO (13:39)
[2021-02-03 14:01] LABS: RSV AMPLIFICATION NEGATIVE (NEGATIVE)
--- NOTE | 2021-02-03 14:46 | HPEPDOC ---
[facility] Medical History & Physical Date of Admission Feb 03, 2021 Date of Service: Feb 03, 2021 Attending Physician: Elysia Jain MD History and Physical CHIEF COMPLAINT: increased weakness HISTORY OF PRESENT ILLNESS: The patient is a 60-year-old female with past medical history of Graves' diseas e, hypertension, hypothyroidism, CKD stage IV, vitamin B12 anemia, IBS, morbid obesity, GERD who presented to [facility] emergency room with the chief complaint of increased weakness since 01/31/2021. The patient states she's had worsening weakness for several months , much worsened since her Covid 19 infection in November 2020. She states at baseline she is able to stand up and use her bedside commode and use her wheelchair to get between places. She noticed on 01/31/2021 that she had significantly decreased lower extremity strength, increased dizziness and lightheadedness, vision changes, weakness. She also says that for the past 1 week she's had decreased oral intake from her baseline. She also describes having dysuria during this time and taking medications at home to help with this. She does not have a history of frequent urinary tract infections but describes the dysuria similar to when she had a urinary tract infection in the past. She denies nausea, vomiting, diarrhea, chest pain, shortness of breath, recent illness side from her COVID-19 infection November, muscle cramping, numbness or tingling in her lower legs or upper arms, loss of consciousness, falls or polyuria. Due to the symptoms above not improving the patient came to the emergency room for further evaluation. In the emergency room vital signs were stable, patient remained on room air. CT of the head and chest x-ray were negative for acute findings. Abnormal labs include WBC 14.5, H&H 9.5/29.9, AST mildly elevated at 40, magnesium low at 1.7. [id number] BMP showed sodium 129, BUN 139, creatinine 4.8 (baseline creatinine 3.03.4). The patient follows with Dr. Glass with nephrology services as outpatient closely. She is on several diuretics at home which she takes daily. When attempted to's be stood up the patient could not stand up on her own without significant assistance. The patient was ultimately admitted for increased generalized weakness likely secondary to TIANNA on CKD stage IV, urinary tract infection. REVIEW OF SYSTEMS: Neg except mentioned above PAST MEDICAL HISTORY: Arthritis Graves' disease Hypertension Hypothyroidism "Paper skin disease" as she describes it, she bruises quite easily. She reports that she has been worked up by multiple doctors and hematologists, none of which have been able to identify a specific etiology CKD Stage IV Vitamin B12 anemia hx of COVID-19 11/2020 IBS morbid obesity GERD chronic pain PAST SURGICAL HISTORY: Cholecystectomy Oophorectomy Thyroidectomy Umbilical hernia repair Joselito-en-Y gastric bypass SOCIAL HISTORY: She denies tobacco, alcohol, or illicit drug use. Primary care provider Dr. Hernández, she follows with hematology/oncology at the [facility], nephrologistDr. Glass, podiatryDrJames Rondon, cardiologyDrJames Rendon, gastroenterologyDrJames Raman. She is a full code. She uses a wheelchair, cane and walker at baseline. She also sees bedside commode at baseline. Her is her emergency contact. FAMILY HISTORY: Mother: Hypertension. Alive Father: Prostate cancer. Alive ALLERGIES: Please see below. HOME MEDICATIONS: Please see below. PHYSICAL EXAMINATION: VS: Please see below CONSTITUTIONAL: No acute distress, resting comfortably, AAO x 3 EYES: PERRLA, EOM intact HENT, MOUTH: Normocephalic, atraumatic, moist mucous membrane NECK: SUPPLE, no JVD, no lymphadenopathy, no carotid bruit CV: Regular rate and rhythm, S1S2 normal, no murmurs/rubs/gallops RESPIRATORY: Clear to auscultation bilaterally, no rales/rhonchi/wheezes GI: obese abdomen, BS positive in 4 quadrants, soft, nontender, nondistended, no rebound or guarding, no organomegaly : Deferred MUSCULOSKELETAL: Decreased ROM- baseline. No cyanosis, clubbing, swelling, joint deformity. +1 pitting lower extremity edema INTEGUMENTARY: Scabs and excoriation goss all over body, large ulcer on the anterior abdomen by belly button (appears clean, nonsuppurative). Multiple healed lesions and scars over body. no erythema NEUROLOGIC: Strength 4/5 in all extremities, generally weak. Cranial Nerves II- XII are intact, no focal deficits, sensory and motor in tact, no horizontal or vertical nystagmus. no hyperreflexia, reflexes normal in upper ext, unable to be illicited in the lower ext PSYCHIATRIC: Mood and affect are normal LABORATORY DATA: Please see below IMAGING: CT head No acute intracranial abnormality CXR: No acute disease ASSESSMENT: 60-year-old female with past medical history of Graves' disease, hypertension, hypothyroidism, CKD stage III-IV, vitamin B12 anemia, IBS, morbid obesity, GERD admitted for increased generalized weakness likely secondary to TIANNA on CKD stage IV, urinary tract infection. PLAN: Acute on chronic deconditioning likely 2/2 to TIANNA on CKD Stage IV, UTI -Baseline: wheelchair, walker and cane at times; however, can barely stand, needs assistance -States after 11/2020 COVID-19 infection, she has had increased weakness from her baseline so this could also be contributing factor. -PT/OT -See treatment for individual issues below TIANNA on CKD Stage IV -Cr 4.8, baseline 3.0-3.4 on POC in ER (repeating currently) -Holding all diuretics but do not start IVFs per nephrology, avoid nephrotoxic medications -Encourage PO intake -Nephrology consulted to see in AM- followed by Olivia Glass as o/p -Daily BMP UTI -+ dysuria for 1 week at home -weak UA, sent for UCX -F/u blood cultures -C/w ceftriaxone IV Hypomagnesemia, acute -Mag 1.7 -mag run x 1 HTN -Stable -Holding diuretics -C/w other meds with holding parameters Grave's disease / hypothyroidism -c/w home treatment -Does not follow with endo as o/p Vitamin B12 anemia -C/w home meds IBS -Stable -No incr diarrhea -c/w home meds -Follows with Dr. Raman o/p Chronic pain / arthritis -Tramadol PRN GERD -PPI DVT px -heparin sc DISPOSITION: Admitted as acute inpatient. PT/OT. Vital Signs Vital Signs Date Time Temp Pulse Resp B/P (MAP) Pulse Ox O2 Delivery O2 Flow Rate FiO2 02/03/21 11:33 97.7 82 18 111/53 99 Room Air Laboratory Data Labs 24H Laboratory Tests 2 02/03/21 12:06: Immature Granulocyte % (Auto) 1.6, Neutrophils (%) (Auto) 83.5H, Lymphocytes (%) (Auto) 6.3L, Monocytes (%) (Auto) 6.8, Eosinophils (%) (Auto) 1.2, Basophils (%) (Auto) 0.6, Neutrophils # (Auto) 12.1H, Lymphocytes # (Auto) 0.9L, Monocytes # (Auto) 1.0H, Eosinophils # (Auto) 0.2, Basophils # (Auto) 0.1, Nucleated Red Blood Cells % (auto) 0.0, Magnesium Level 1.7L, Total Bilirubin 0.4, Direct Bilirubin 0.2, Aspartate Amino Transf (AST/SGOT) 40H, Alanine Aminotransferase (ALT/SGPT) 32, Alkaline Phosphatase 269H, Total Creatine Kinase 40, Creatine Kinase MB 1.1, Creatine Kinase MB Relative Index 2.75, Troponin I < 0.02, Total Protein 5.2L, Albumin 2.1L, Albumin/Globulin Ratio 0.7L, Thyroid Stimulating Hormone (TSH) 2.200 02/03/21 13:17: Urine Color YELLOW, Urine Appearance CLEAR, Urine pH 5.0, Urine Specific [place] 1.009, Urine Protein NEGATIVE, Urine Glucose (UA) NEGATIVE, Urine Ketones NEGATIVE, Urine Blood NEGATIVE, Urine Nitrite NEGATIVE, Urine Bilirubin NEGATIVE, Urine Urobilinogen 0.2, Urine Leukocyte Esterase 1+H, Urine WBC (Auto) 18H, Urine RBC (Auto) 2, Urine Hyaline Casts (Auto) 0, Urine Bacteria (Auto) NEGATIVE, Urine Squamous Epithelial Cells 1, Urine Mucus (Auto) SMALL, Urine Sperm (Auto) , Coronavirus (COVID-19)(PCR) NEGATIVE, Influenza Type A (RT-PCR) NEGATIVE, Influenza Type B (RT-PCR) NEGATIVE, Respiratory Syncytial Virus (PCR) NEGATIVE CBC/BMP Laboratory Tests 02/03/21 12:06 Microbiology Microbiology 02/03/21 Urine Culture, Received Pending Home Medications Scheduled Calcium Citrate (Calcium Citrate) 250 Mg Tab, 500 MG PO BID Cetirizine HCl (Cetirizine HCl) 10 Mg Tab, 10 MG PO DAILY Cyanocobalamin (Vitamin B-12) (Vitamin B-12) 500 Mcg Tab, 500 MCG PO DAILY TAKES IN AFTERNOON Diltiazem HCl (Dilt-Xr) 120 Mg Cap.er.deg, 120 MG PO BID Ergocalciferol (Vitamin D2) (Vitamin D2) 50,000 Units Cap, 100,000 UNITS PO 1XWK MONDAYS Febuxostat (Uloric) 40 Mg Tablet, 40 MG PO DAILY Furosemide (Lasix) 80 Mg Tab, 80 MG PO BID Hydroxychloroquine Sulfate (Plaquenil) 200 Mg Tablet, 200 MG PO QHS Levothyroxine Sodium (Synthroid) 200 Mcg Tablet, 200 MCG PO DAILY Montelukast Sodium (Montelukast Sodium) 10 Mg Tab, 10 MG PO QHS Multivitamins (Thera M Plus Tablet) 1 Tab Tab, 1 TAB PO DAILY TAKES IN THE AFTERNOON Omeprazole (Omeprazole) 40 Mg Capsule.dr, 40 MG PO DAILY Sevelamer Carbonate (Sevelamer Carbonate) 800 Mg Tablet, 2,400 MG PO TID Spironolactone (Spironolactone) 100 Mg Tablet, 100 MG PO DAILY Trolamine Salicylate/Aloe Vera (Aspercreme 10% Cream) 10 % Cre, 1 APPLIC TOP QHS APPLY TO KNEES AND FEET Scheduled PRN Azelastine HCl (Azelastine HCl) 0.1% [place].pump, 2 SPRAY NARES DAILY PRN for ALLERGIES Guaifenesin (Mucinex) 600 Mg Tab.er.12h, 600 MG PO BID PRN for CONGESTION Hydroxyzine HCl (Hydroxyzine HCl) 25 Mg Tablet, 25 MG PO Q8H PRN for ITCHING Sodium Bicarbonate (Sodium Bicarbonate) 650 Mg Tablet, 650 MG PO BID PRN for INDIGESTION Tramadol HCl (Tramadol HCl) 50 Mg Tab, 50 MG PO Q6H PRN for PAIN Allergies Coded Allergies: Coconut (Verified Allergy, Unknown, hives, 05/02/20) adhesive tape (Verified Allergy, Unknown, 05/02/20) levofloxacin (Verified Allergy, Unknown, hives, 05/02/20) methimazole (Verified Allergy, Unknown, hives/SOB, 05/02/20) tea tree (Verified Allergy, Unknown, hives, 05/02/20) codeine (Verified Adverse Reaction, Mild, N/V -has had it in past with no problems at time, 05/02/20) A-FIB/CHADSVASC A-FIB History Current/History of A-Fib/PAF?: No Current PO Anticoag Therapy: No Age/Risk Factor Scoring CHADSVASC: CHADSVASC Response (Comments) Value Age Risk Factor Age < 65 years old 0 Gender Risk Factor Female 1 Hx of CHF No 0 Hx of HTN Yes 1 Hx of Stroke/TIA/or VTE No 0 Hx of Diabetes No 0 Hx of Vascular Disease No 0 Total 2 Treatment Treatment ordered: Other Other anticoagulant ordered: heparin Elysia Jain MD Feb 03, 2021 14:46
[2021-02-03] MEDS ORDERED: hydrOXYzine 25 MG TAB PO ONE (15:40)
[2021-02-03] MEDS ORDERED: ACETAMINOPHEN TAB 650MG DOSE (2X325MG) PO PRN (15:55)
[2021-02-03] MEDS ORDERED: guaiFENesin ER 600 MG TAB PO PRN (15:55)
[2021-02-03] MEDS ORDERED: NS 1,000 ML IV SCH (15:55)
[2021-02-03] MEDS ORDERED: SODIUM BICARBONATE 325 MG TAB PO PRN (15:55)
[2021-02-03] MEDS ORDERED: MAG SULF 1GM/100ML (MAG RUN) 1 GM in IV 1 EA IV ONE (16:50)
[2021-02-03 16:54] LABS: INR 0.96
[2021-02-03 17:04] LABS: ALBUMIN 2.1 GM/DL (3.2-5.2); BILIRUBIN,TOTAL 0.5 MG/DL (0.2-1.0); CALCIUM LEVEL 7.6 MG/DL (8.5-10.1); CREATININE FOR GFR 3.56 MG/DL (0.55-1.30); POTASSIUM SERUM 4.8 MEQ/L (3.5-5.1); TOTAL PROTEIN 5.2 GM/DL (6.4-8.2)
[2021-02-03 20:00] VITALS: BP 128/66
[2021-02-03] MEDS: HYDROXYCHLOROQUINE 200 MG TAB PO SCH (20:42)
[2021-02-03] MEDS: MONTELUKAST 10 MG TAB PO SCH (20:43)
[2021-02-03] MEDS: cefTRIAXone SOD 1 GM in D5W MINI-BAG PLUS 50 ML IV SCH (20:44)
[2021-02-03] MEDS: (RENVELA) SEVELAMER **CARBONate** 800 MG TAB PO SCH (20:44)
[2021-02-03] MEDS: HEPARIN SOD (PORCINE) 5000UNITS/ML 1ML VIAL/SYRINGE SQ SCH (20:45)
[2021-02-03] MEDS: traMADol 50 MG TAB PO PRN (20:46)
[2021-02-03] MEDS: hydrOXYzine 25 MG TAB PO PRN (23:43)
--- NOTE | 2021-02-04 02:43 | ECGEPIP ---
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
[2021-02-04] MEDS: LEVOTHYROXINE 100MCG TABLET (0.1MG) PO SCH (05:30)
[2021-02-04 06:00] VITALS: BP_SYST 126; BP_SYST 128; BP_DIAS 64
[2021-02-04 06:04] LABS: HEMATOCRIT 28.4 % (36.0-47.0); HEMOGLOBIN 8.8 g/dl (12.0-15.5); MEAN CORPUSCULAR HEMOGLOBIN 28.2 pg (27.0-33.0); PLATELET COUNT, AUTOMATED 510 10^3/uL (150-450); RED BLOOD COUNT 3.12 10^6/uL (4.00-5.40); WHITE BLOOD COUNT 10.5 10^3/uL (4.0-10.0)
[2021-02-04 06:32] LABS: CALCIUM LEVEL 7.4 MG/DL (8.5-10.1); CREATININE FOR GFR 3.48 MG/DL (0.55-1.30); GLOMERULAR FILTRATION RATE 14.3 (>51); POTASSIUM SERUM 4.9 MEQ/L (3.5-5.1)
[2021-02-04] MEDS: hydrOXYzine 25 MG TAB PO PRN ×2 (08:55→18:14)
[2021-02-04] MEDS: FEBUXOSTAT 40 MG TABLET (ULORIC) PO SCH (08:55)
[2021-02-04] MEDS: CETIRIZINE (ZyrTEC) 10 MG TAB PO SCH (08:55)
[2021-02-04] MEDS: (RENVELA) SEVELAMER **CARBONate** 800 MG TAB PO SCH ×3 (08:55→18:14)
[2021-02-04] MEDS: OMEPRAZOLE 20 MG CAP PO SCH (08:56)
[2021-02-04] MEDS: HEPARIN SOD (PORCINE) 5000UNITS/ML 1ML VIAL/SYRINGE SQ SCH ×2 (08:57→20:46)
[2021-02-04] MEDS: traMADol 50 MG TAB PO PRN ×2 (08:57→20:46)
[2021-02-04] MEDS ORDERED: ENOXAPARIN 40MG/0.4ML SYRINGE (J1650 PER 10MG) SC SCH (09:00)
[2021-02-04] MEDS: MICONAZOLE TOPICAL 2% CREAM 15GM TOP SCH ×2 (11:38→20:46)
[2021-02-04] MEDS ORDERED: NS 0.45% 1,000 ML IV SCH (13:00)
[2021-02-04] MEDS: CYANOCOBALAMIN 500 MCG TAB PO SCH (13:11)
[2021-02-04] MEDS: MULTIVITAMINS/MINERALS THERAP 1 TAB PO SCH (13:11)
--- NOTE | 2021-02-04 13:21 | IPNPDOC ---
Text Note Date of Service The patient was seen on 02/04/21. NOTE SUBJECTIVE: -No acute complaints OBJECTIVE: VS: Please see below CONSTITUTIONAL: No acute distress, resting comfortably, AO x 3 EYES: PERRLA, EOM intact HENT, MOUTH: Normocephalic, atraumatic, moist mucous membrane NECK: SUPPLE, no JVD, no lymphadenopathy, no carotid bruit CV: Regular rate and rhythm, S1S2 normal, no murmurs/rubs/gallops RESPIRATORY: Clear to auscultation bilaterally, no rales/rhonchi/wheezes GI: obese abdomen, BS positive in 4 quadrants, soft, nontender, nondistended, no rebound or guarding, no organomegaly : Deferred MUSCULOSKELETAL: Decreased ROM- baseline. No cyanosis, clubbing, swelling, joint deformity. +1 pitting lower extremity edema INTEGUMENTARY: Diffuse scabs and excoriation goss, no erythema NEUROLOGIC: Strength 4/5 in all extremities, overall weak. Cranial Nerves II-XII are intact, no focal deficits, sensory and motor in tact, no horizontal or vertical nystagmus. PSYCHIATRIC: Mood and affect are normal LABORATORY DATA: Reviewed WBC 10.5 Hgb 8.8 Platelets 510 Na 134 K 4.9 Cr 3.48 IMAGING: CT head No acute intracranial abnormality CXR: No acute disease ASSESSMENT: 60-year-old W with past medical history of Graves' disease s/p thyroidectomy on replacement levothyroxine, hypertension, CKD stage III-IV, vitamin B12 anemia, IBS, morbid obesity, GERD admitted for increased generalized weakness likely secondary to TIANNA on CKD stage IV and urinary tract infection. PLAN: Acute on chronic deconditioning likely 2/2 to TIANNA on CKD Stage IV, UTI -Baseline: wheelchair, walker and cane at times; however, can barely stand, needs assistance -States after 11/2020 COVID-19 infection, she has had increased weakness from her baseline so this could also be contributing factor. -PT/OT -See treatment for individual issues below TIANNA on CKD Stage IV -Holding all diuretics, no IVFs per nephrology, avoid nephrotoxic medications -Encourage PO intake -Nephrology consulted to see this AM- followed by Olivia Glass as o/p -Daily BMP UTI -+ dysuria for 1 week at home -weak UA, sent for UCX -F/u blood cultures -C/w ceftriaxone IV, day 2 Hypomagnesemia, acute: resolved. -Mag 1.7 -mag run x 1 HTN -Stable -Holding diuretics -C/w other meds with holding parameters Grave's disease / hypothyroidism -c/w home treatment -Does not follow with endo as o/p Vitamin B12 anemia -C/w home meds IBS -Stable -No incr diarrhea -c/w home meds -Follows with Dr. Raman o/p Chronic pain / arthritis -Tramadol PRN GERD -PPI DVT px -heparin sc DISPOSITION: Admitted as acute inpatient. PT/OT. VS,Fishbone, I+O VS, Fishbone, I+O Laboratory Tests 02/03/21 12:06 02/03/21 16:27 02/04/21 05:48 Vital Signs Date Time Temp Pulse Resp B/P (MAP) Pulse Ox O2 Delivery O2 Flow Rate FiO2 02/04/21 08:57 17 Room Air 02/04/21 08:57 84 131/81 02/04/21 06:00 97.8 98 I&O- Last 24 Hours up to 6 AM 02/04/21 05:59 Intake Total 435 ml Output Total 300 ml Balance 135 ml HANSA AMARO MD Feb 04, 2021 09:25
[2021-02-04 14:00] VITALS: BP 120/58
--- NOTE | 2021-02-04 15:39 | CR.PDOC ---
General Date of Consultation: Feb 04, 2021 Attending Physician: JOSUE GLASS DO Consultation REASON FOR CONSULTATION/CHIEF COMPLAINT: Acute kidney injury on CKD HISTORY OF PRESENT ILLNESS: Ashanti Stoll is a 60-year-old female with past medical history of chronic kidney disease stage IV, anemia, hypertension, type 2 diabetes who presented to the [facility] emergency room on 02/10/2021 with chief complaint of weakness. She states that for several months she has been unable to get around her house easily without the use of a walker because her legs "give out from underneath her." She also has had worsened dizziness and lightheadedness. She called EMS for transport to the hospital when she found that she was unable to get up out of a chair. Most recently also, she has been having some burning with urination, but she denies any fevers, chills, nausea/vomiting during that time. In the emergency room she was found to have elevated WBC, hyponatremia, and acute kidney injury. Nephrology service is consult it at this time for TIANNA management. ALLERGIES: Please see below. HOME MEDICATIONS: Please see below. PAST MEDICAL HISTORY: 1. Osteoarthritis 2. CKD Stage 4 3. Morbid obesity 4. T2DM 5. Dyslipidemia 6. Hypothyroidism 2/2 Graves Disease 7. Seasonal allergies 8. GERD 9. Iron deficiency anemia, anemia of CKD, B12 deficiency 10. Diabetic neuropathy 11. History of COVID 19 pneumonia 12. Irritable bowel syndrome PAST SURGICAL HISTORY: Cholecystectomy Oophorectomy Thyroidectomy Umbilical hernia repair Joselito-en-Y gastric bypass FAMILY HISTORY: Mother: Hypertension. Alive Father: Prostate cancer. Alive SOCIAL HISTORY: She denies tobacco, alcohol, or illicit drug use. Primary care provider Dr. Hernández, she follows with hematology/oncology at the [facility], nephrologistDrJames Glass, podiatryDrJames Rondon, cardiologyDrJames Rendon, gastroenterologyDr. Lamine. She is a full code. She uses a wheelchair, cane and walker at baseline. She also sees bedside commode at baseline. Her is her emergency contact. REVIEW OF SYSTEMS: Constitutional: No Weight Change, No Fever, No Chills, No Night Sweats, No Fatigue, No Malaise ENT/Mouth: No Hearing Changes, No Ear Pain, No Nasal Congestion, No Sinus Pain, No Hoarseness, No sore throat, No Rhinorrhea, No Swallowing Difficulty Eyes: No Eye Pain, No Swelling, No Redness, No Foreign Body, No Discharge, No Vision Changes Cardiovascular: No Chest Pain, No SOB, No PND, No Dyspnea on Exertion, No Orthopnea, No Claudication, No Edema, No Palpitations Respiratory: No Cough, No Wheezing, No Smoke Exposure, No Dyspnea Gastrointestinal: No Nausea, No Vomiting, No Diarrhea, No Constipation, No Pain, No Heartburn, No Anorexia, No Dysphagia, No Hematochezia, No Melena Genitourinary: Reports dysuria Musculoskeletal: Reports weakness in her lower extremities bilaterally Skin: No Skin Lesions, No Pruritis, No Hair Changes, No Breast/Skin Changes, No Nipple Discharge Neuro: Reports weakness, difficulty ambulating, lightheadedness, dizziness. Psych: No Anxiety/Panic, No Depression, No Insomnia, No Personality Changes, No Delusions Heme/Lymph: No Bruising, No Bleeding, No Transfusions History, No Lymphadenopathy Endocrine: No Polyuria, No Polydipsia, No Temperature Intolerance PHYSICAL EXAMINATION: VITAL SIGNS: see below GENERAL: Morbidly obese, laying in bed, alert and oriented, in no apparent distress, pleasant and conversant in full sentences. HEENT: PERRL, EOMI, Oral mucous membranes are moist without lesions. NECK: The patient has no noted JVD. No adenopathy is appreciated. No thyromegaly CHEST/LUNGS: Lungs are clear bilaterally without rhonchi, rales, or wheezes. There is no subcutaneous air appreciated. There is no tenderness to the chest wall. HEART: Regular rate and rhythm. No murmurs, rubs, or gallops are appreciated. Distal pulses are 2+. No carotid bruits appreciated. ABDOMEN: Soft, nontender, and nondistended. Bowel sounds are positive. No organomegaly is appreciated. No masses are appreciated. There are no peritoneal signs. There is no [place] sign. EXTREMITIES: Bilateral extremities covered in scars, excoriations, scabs. No peripheral edema. There is no focal long bone tenderness or deformity. SKIN: The patients skin is warm and dry, without rashes or lesions. PSYCHIATRIC: AAO x 3, normal mood/affect NEUROLOGIC: The patient has 3/5 strength to the upper and lower extremities bilaterally. Sensation is intact throughout. There are no obvious deficits to the cranial nerves. LABORATORY DATA: Please see below. ASSESSMENT/PLAN: This is a 60-year-old female with history of CKD stage IV, type 2 diabetes, hypertension, hypothyroidism who presents with generalized weakness and found to have acute kidney injury on chronic kidney disease stage IV, and urinary tract infection 1. Acute kidney injury: Patient's creatinine found to be 3.56 on admission, likely prerenal -It appears her baseline is anywhere between 3.0-3.4. Today she is 3.48 which shows improvement. -Holding diuretics at this time -No indication for fluids at this time -Please encourage the patient to hydrate by mouth 2. Urinary tract infection: -WBC down to 10.5 from 14.5 yesterday -Urinalysis demonstrates 18 WBC, urine cultures pending -Agree with empiric Rocephin 3. Anemia of chronic kidney disease: -Hemoglobin today 8.8, stable -No signs of acute bleed 4. Chronic kidney disease, stage IV: -Continue home oral sodium bicarbonate, Renvela with meals 5. Hypertension: not on antihypertensives -Blood pressure within normal limits Disposition: Pending further improvement in her renal function, will continue to monitor patient. She will likely need some type of rehabilitation prior to returning home. Vital Signs/I&O Vital Signs Date Time Temp Pulse Resp B/P (MAP) Pulse Ox O2 Delivery O2 Flow Rate FiO2 02/04/21 09:27 17 Room Air 02/04/21 08:57 84 131/81 02/04/21 06:00 97.8 98 I&O- Last 24 Hours up to 6 AM 02/04/21 06:00 Intake Total 675 ml Output Total 300 ml Balance 375 ml Laboratory Data Labs 24H Laboratory Tests 2 02/03/21 16:27: Prothrombin Time 13.0, Prothromb Time International Ratio 0.96, Activated Partial Thromboplast Time 27.0, Anion Gap 12, Glomerular Filtration Rate 14.0L, Calcium Level 7.6L, Total Bilirubin 0.5, Aspartate Amino Transf (AST/SGOT) 33, Alanine Aminotransferase (ALT/SGPT) 29, Alkaline Phosphatase 272H, Total Protein 5.2L, Albumin 2.1L, Albumin/Globulin Ratio 0.7L 02/04/21 05:48: Anion Gap 13, Glomerular Filtration Rate 14.3L, Calcium Level 7.4L, Nucleated Red Blood Cells % (auto) 0.0, Magnesium Level 2.0 02/04/21 11:01: Lab Scanned Report Miscellaneous Lab CBC/BMP Laboratory Tests 02/03/21 16:27 02/04/21 05:48 Microbiology Microbiology 02/03/21 Blood Culture, Received Pending 02/03/21 Blood Culture, Received Pending 02/03/21 Urine Culture, Received Pending Allergies Coded Allergies: Coconut (Verified Allergy, Unknown, hives, 05/02/20) adhesive tape (Verified Allergy, Unknown, 05/02/20) levofloxacin (Verified Allergy, Unknown, hives, 05/02/20) methimazole (Verified Allergy, Unknown, hives/SOB, 05/02/20) tea tree (Verified Allergy, Unknown, hives, 05/02/20) codeine (Verified Adverse Reaction, Mild, N/V -has had it in past with no problems at time, 05/02/20) Home Medications Scheduled Calcium Citrate (Calcium Citrate) 250 Mg Tab, 500 MG PO BID, (Reported) Cetirizine HCl (Cetirizine HCl) 10 Mg Tab, 10 MG PO DAILY, (Reported) Cyanocobalamin (Vitamin B-12) (Vitamin B-12) 500 Mcg Tab, 500 MCG PO DAILY, (Reported) TAKES IN AFTERNOON Diltiazem HCl (Dilt-Xr) 120 Mg Cap.er.deg, 120 MG PO BID, (Reported) Ergocalciferol (Vitamin D2) (Vitamin D2) 50,000 Units Cap, 100,000 UNITS PO 1XWK, (Reported) MONDAYS Febuxostat (Uloric) 40 Mg Tablet, 40 MG PO DAILY, (Reported) Furosemide (Lasix) 80 Mg Tab, 80 MG PO BID, (Reported) Hydroxychloroquine Sulfate (Plaquenil) 200 Mg Tablet, 200 MG PO QHS, (Reported) Levothyroxine Sodium (Synthroid) 200 Mcg Tablet, 200 MCG PO DAILY, (Reported) Montelukast Sodium (Montelukast Sodium) 10 Mg Tab, 10 MG PO QHS, (Reported) Multivitamins (Thera M Plus Tablet) 1 Tab Tab, 1 TAB PO DAILY, (Reported) TAKES IN THE AFTERNOON Omeprazole (Omeprazole) 40 Mg Capsule.dr, 40 MG PO DAILY, (Reported) Sevelamer Carbonate (Sevelamer Carbonate) 800 Mg Tablet, 2,400 MG PO TID, (Reported) Spironolactone (Spironolactone) 100 Mg Tablet, 100 MG PO DAILY, (Reported) Trolamine Salicylate/Aloe Vera (Aspercreme 10% Cream) 10 % Cre, 1 APPLIC TOP QHS, (Reported) APPLY TO KNEES AND FEET Scheduled PRN Azelastine HCl (Azelastine HCl) 0.1% [place].pump, 2 SPRAY NARES DAILY PRN for ALLERGIES, (Reported) Guaifenesin (Mucinex) 600 Mg Tab.er.12h, 600 MG PO BID PRN for CONGESTION, (Reported) Hydroxyzine HCl (Hydroxyzine HCl) 25 Mg Tablet, 25 MG PO Q8H PRN for ITCHING, (Reported) Sodium Bicarbonate (Sodium Bicarbonate) 650 Mg Tablet, 650 MG PO BID PRN for IN DIGESTION, (Reported) Tramadol HCl (Tramadol HCl) 50 Mg Tab, 50 MG PO Q6H PRN for PAIN, (Reported) GME ATTESTATION GME ATTESTATION My faculty preceptor for this patient encounter was physically present during the encounter and was fully available. All aspects of the patient interview, examination, medical decision making process, and medical care plan development were reviewed and approved by the faculty preceptor. The faculty preceptor is aware and concurs with the plan as stated in the body of this note and will a ttest to such by his/her cosignature. CECILIO SPENCER MD Feb 04, 2021 14:27
[2021-02-04] MEDS: cefTRIAXone SOD 1 GM in D5W MINI-BAG PLUS 50 ML IV SCH (16:30)
[2021-02-04] MEDS: MONTELUKAST 10 MG TAB PO SCH (20:43)
[2021-02-04] MEDS: HYDROXYCHLOROQUINE 200 MG TAB PO SCH (20:43)
[2021-02-04 22:00] VITALS: BP 123/56
[2021-02-05] MEDS: hydrOXYzine 25 MG TAB PO PRN ×3 (02:15→23:42)
[2021-02-05] MEDS: LEVOTHYROXINE 100MCG TABLET (0.1MG) PO SCH (05:44)
[2021-02-05] MEDS: traMADol 50 MG TAB PO PRN (05:45)
[2021-02-05 06:00] VITALS: BP 127/67
[2021-02-05 06:26] LABS: HEMATOCRIT 25.7 % (36.0-47.0); HEMOGLOBIN 8.2 g/dl (12.0-15.5); MEAN CORPUSCULAR HEMOGLOBIN 29.3 pg (27.0-33.0); MEAN CORPUSCULAR HGB CONC 31.9 g/dl (32.0-36.5); MEAN CORPUSCULAR VOLUME 91.8 fl (80.0-96.0); PLATELET COUNT, AUTOMATED 451 10^3/uL (150-450); WHITE BLOOD COUNT 10.7 10^3/uL (4.0-10.0)
[2021-02-05 06:55] LABS: CALCIUM LEVEL 7.6 MG/DL (8.5-10.1); CREATININE FOR GFR 3.42 MG/DL (0.55-1.30); GLOMERULAR FILTRATION RATE 14.6 (>51); PERCENT SATURATION 22.7 % (13.2-45.0); POTASSIUM SERUM 4.5 MEQ/L (3.5-5.1)
[2021-02-05] MEDS: FEBUXOSTAT 40 MG TABLET (ULORIC) PO SCH (08:16)
[2021-02-05] MEDS: (RENVELA) SEVELAMER **CARBONate** 800 MG TAB PO SCH ×3 (08:16→18:40)
[2021-02-05] MEDS: HEPARIN SOD (PORCINE) 5000UNITS/ML 1ML VIAL/SYRINGE SQ SCH ×2 (08:16→23:43)
[2021-02-05] MEDS: CETIRIZINE (ZyrTEC) 10 MG TAB PO SCH (08:16)
[2021-02-05] MEDS: OMEPRAZOLE 20 MG CAP PO SCH (08:16)
[2021-02-05] MEDS: ONDANSETRON 4MG/2ML VIAL IV PRN (08:27)
[2021-02-05] MEDS ORDERED: FERRIC CARBOXYMALTOSE INJ 750 MG, VIAL MATE ADAPTER 1 EACH in NS 250 ML IV ONE ×2 (12:00→15:00)
[2021-02-05] MEDS ORDERED: FERRIC CARBOXYMALTOSE INJ 750 MG in NS 250 ML IV ONE (13:00)
[2021-02-05 14:00] VITALS: BP 115/60
--- NOTE | 2021-02-05 14:10 | IPNPDOC ---
Text Note Date of Service The patient was seen on 02/05/21. NOTE SUBJECTIVE: -Reports some dizziness and nausea OBJECTIVE: VS: Please see below CONSTITUTIONAL: No acute distress, resting comfortably, AO x 3 EYES: PERRLA, EOM intact HENT, MOUTH: Normocephalic, atraumatic, moist mucous membrane NECK: SUPPLE, no JVD, no lymphadenopathy, no carotid bruit CV: Regular rate and rhythm, S1S2 normal, no murmurs/rubs/gallops RESPIRATORY: Clear to auscultation bilaterally, no rales/rhonchi/wheezes GI: obese abdomen, BS positive in 4 quadrants, soft, nontender, nondistended, no rebound or guarding, no organomegaly : Deferred MUSCULOSKELETAL: Decreased ROM- baseline. No cyanosis, clubbing, swelling, joint deformity. +1 pitting lower extremity edema INTEGUMENTARY: Diffuse scabs and excoriation goss, no confluent erythema NEUROLOGIC: Strength 4/5 in all extremities, overall weak. Cranial Nerves II-XII are intact, no focal deficits, sensory and motor in tact, no horizontal or vertical nystagmus. PSYCHIATRIC: Mood and affect are normal LABORATORY DATA: Reviewed WBC 10.7 Hgb 8.2 Platelets 451 Na 133 K 4.9 Cr 3.42 IMAGING: CT head No acute intracranial abnormality CXR: No acute disease ASSESSMENT: 60-year-old W with past medical history of Graves' disease s/p thyroidectomy on replacement levothyroxine, hypertension, CKD stage III-IV, vitamin B12 anemia, IBS, morbid obesity, GERD admitted for increased generalized weakness likely secondary to TIANNA on CKD stage IV and urinary tract infection. PLAN: Acute on chronic deconditioning likely 2/2 to TIANNA on CKD Stage IV, UTI -Baseline: wheelchair, walker and cane at times; however, can barely stand, needs assistance -States after 11/2020 COVID-19 infection, she has had increased weakness from her baseline so this could also be contributing factor. -PT/OT -See treatment for individual issues below TIANNA on CKD Stage IV -Holding all diuretics, recent gentle IVFs per nephrology for worsening BUN, c/f uremia and if no improvement will be placing permacath and likely beginning HD -Avoid nephrotoxic medications -Daily BMP Serratia UTI -+ dysuria for 1 week at home -weak UA, growing Serratia -F/u blood cultures -Day 3 of ceftriaxone Hypomagnesemia, acute: resolved. -Mag 1.7 -mag run x 1 HTN -Stable -Holding diuretics -C/w other meds with holding parameters Grave's disease / hypothyroidism -c/w home treatment -Does not follow with endo as o/p Vitamin B12 anemia -C/w home meds IBS -Stable -No incr diarrhea -c/w home meds -Follows with Dr. Raman o/p Chronic pain / arthritis -Tramadol PRN GERD -PPI DVT px -heparin sc DISPOSITION: Admitted as acute inpatient. PT/OT. VS,Fishbone, I+O VS, Fishbone, I+O Laboratory Tests 02/05/21 06:06 Vital Signs Date Time Temp Pulse Resp B/P (MAP) Pulse Ox O2 Delivery O2 Flow Rate FiO2 02/05/21 08:18 92 134/79 02/05/21 06:15 16 02/05/21 06:00 98.3 97 Room Air I&O- Last 24 Hours up to 6 AM 02/05/21 06:00 Intake Total 890 ml Output Total 600 ml Balance 290 ml HANSA AMARO MD Feb 05, 2021 14:09
[2021-02-05] MEDS: MULTIVITAMINS/MINERALS THERAP 1 TAB PO SCH (14:40)
[2021-02-05] MEDS: SODIUM BICARBONATE 325 MG TAB PO SCH ×2 (14:40→23:42)
[2021-02-05] MEDS: CYANOCOBALAMIN 500 MCG TAB PO SCH (14:41)
[2021-02-05] MEDS: MICONAZOLE TOPICAL 2% CREAM 15GM TOP SCH ×2 (14:41→23:43)
--- NOTE | 2021-02-05 17:20 | REP ---
INDICATION: ckd 4. COMPARISON: None. TECHNIQUE: Urinary tract sonography. FINDINGS: Scanning at the level of the urinary bladder shows no abnormality. Renal cortical echogenicity pattern is increased bilaterally consistent with chronic medical renal disease. Renal parenchyma is quite echogenic.. There is no evidence hydronephrosis on either side. There are multiple small cysts bilaterally. The largest right renal cyst measures 1.8 cm located at the lower pole. The largest cyst on the left is at mid pole level measuring 0.9 cm in diameter. No mass or calculus is seen.. The right kidney measures 10.6 x 3.8 x 4.6 cm. Left renal dimensions are 8.9 x 4.5 x 5.2 cm. IMPRESSION: Increased renal cortical echogenicity pattern bilaterally consistent with chronic medical renal disease. Bilateral small renal cysts. No hydronephrosis seen.. <Electronically signed by Martell Arvizu > 02/05/21 [id number]
[2021-02-05] MEDS: cefTRIAXone SOD 1 GM in D5W MINI-BAG PLUS 50 ML IV SCH (18:40)
[2021-02-05 21:42] VITALS: BP 124/69
[2021-02-05 22:00] VITALS: BP 137/70
[2021-02-05 22:50] VITALS: BP 127/77
[2021-02-05] MEDS: MONTELUKAST 10 MG TAB PO SCH (23:42)
[2021-02-05] MEDS: HYDROXYCHLOROQUINE 200 MG TAB PO SCH (23:42)
[2021-02-05 23:51] VITALS: BP 123/70
[2021-02-06] VITALS (11 sets, daily range): BP systolic 120–150; BP diastolic 61–74
[2021-02-06] MEDS: LEVOTHYROXINE 100MCG TABLET (0.1MG) PO SCH (05:30)
[2021-02-06 07:37] LABS: HEMATOCRIT 24.7 % (36.0-47.0); HEMOGLOBIN 7.7 g/dl (12.0-15.5); MEAN CORPUSCULAR HEMOGLOBIN 29.3 pg (27.0-33.0); MEAN CORPUSCULAR HGB CONC 31.2 g/dl (32.0-36.5); MEAN CORPUSCULAR VOLUME 93.9 fl (80.0-96.0); PLATELET COUNT, AUTOMATED 426 10^3/uL (150-450); RED BLOOD COUNT 2.63 10^6/uL (4.00-5.40); WHITE BLOOD COUNT 10.3 10^3/uL (4.0-10.0)
[2021-02-06 07:48] LABS: CREATININE FOR GFR 3.05 MG/DL (0.55-1.30); GLOMERULAR FILTRATION RATE 16.7 (>51); PHOSPHORUS LEVEL 4.7 MG/DL (2.5-4.9); POTASSIUM SERUM 4.3 MEQ/L (3.5-5.1)
[2021-02-06] MEDS: CETIRIZINE (ZyrTEC) 10 MG TAB PO SCH (10:03)
[2021-02-06] MEDS: OMEPRAZOLE 20 MG CAP PO SCH (10:04)
[2021-02-06] MEDS: FEBUXOSTAT 40 MG TABLET (ULORIC) PO SCH (10:04)
[2021-02-06] MEDS: SODIUM BICARBONATE 325 MG TAB PO SCH ×3 (10:04→21:56)
[2021-02-06] MEDS: MICONAZOLE TOPICAL 2% CREAM 15GM TOP SCH ×2 (10:04→21:57)
[2021-02-06] MEDS: (RENVELA) SEVELAMER **CARBONate** 800 MG TAB PO SCH ×3 (10:06→18:04)
[2021-02-06] MEDS: HEPARIN SOD (PORCINE) 5000UNITS/ML 1ML VIAL/SYRINGE SQ SCH ×2 (10:06→21:55)
[2021-02-06] MEDS: hydrOXYzine 25 MG TAB PO PRN ×2 (10:09→18:05)
[2021-02-06] MEDS: CEPHALEXIN 500 MG CAP PO SCH ×2 (10:18→21:56)
--- NOTE | 2021-02-06 11:04 | IPNPDOC ---
Text Note Date of Service The patient was seen on 02/06/21. NOTE SUBJECTIVE: -No acute events reported -This AM reports improvement in the dizziness and nausea OBJECTIVE: VS: Please see below CONSTITUTIONAL: No acute distress, resting comfortably, AO x 3 EYES: PERRLA, EOM intact HENT, MOUTH: Normocephalic, atraumatic, moist mucous membrane NECK: SUPPLE, no JVD, no lymphadenopathy, no carotid bruit CV: Regular rate and rhythm, S1S2 normal, no murmurs/rubs/gallops RESPIRATORY: Clear to auscultation bilaterally, no rales/rhonchi/wheezes GI: obese abdomen, BS positive in 4 quadrants, soft, nontender, nondistended, no rebound or guarding, no organomegaly : Deferred MUSCULOSKELETAL: Decreased ROM- baseline. No cyanosis, clubbing, swelling, joint deformity. +1 pitting lower extremity edema INTEGUMENTARY: Diffuse scabs and excoriation goss, no confluent erythema NEUROLOGIC: Strength 4/5 in all extremities, overall weak. Cranial Nerves II-XII are intact, no focal deficits, sensory and motor in tact. PSYCHIATRIC: Mood and affect are normal LABORATORY DATA: Reviewed WBC 10.3 Hgb 7.7 Na 15 K 4.3 Cr 3.05 BUN 107 IMAGING: CT head No acute intracranial abnormality CXR: No acute disease ASSESSMENT: 60-year-old W with past medical history of Graves' disease s/p thyroidectomy on replacement levothyroxine, hypertension, CKD stage III-IV, vitamin B12 anemia, IBS, morbid obesity, GERD admitted for increased generalized weakness likely secondary to TIANNA on CKD stage IV and urinary tract infection. PLAN: Acute on chronic deconditioning likely 2/2 to TIANNA on CKD Stage IV, UTI -Baseline: wheelchair, walker and cane at times; however, can barely stand, needs assistance -States after 11/2020 COVID-19 infection, she has had increased weakness from her baseline so this could also be contributing factor. -PT/OT -See treatment for individual issues below TIANNA on CKD Stage IV -Holding all diuretics, recent gentle IVFs per nephrology for worsening BUN, nephrology closely following. Slight improvement at this time with downtrending BUN and Cr. Will hold off permacath and beginning HD per now, according to nephrology -Avoid nephrotoxic medications -Daily BMP Acute on chronic anemia: -ROS negative for evidence of acute bleeding -will give 2u pRBCs today -daily CBC Serratia UTI -+ dysuria for 1 week at home -weak UA, growing Serratia -F/u blood cultures -Day 4 of ceftriaxone Hypomagnesemia, acute: resolved. HTN -Stable -Holding diuretics -C/w other meds with holding parameters Grave's disease / hypothyroidism -c/w home treatment -Does not follow with endo as o/p Vitamin B12 anemia -C/w home meds IBS -Stable -No incr diarrhea -c/w home meds -Follows with Dr. Raman o/p Chronic pain / arthritis -Tramadol PRN GERD -PPI DVT px -heparin sc DISPOSITION: Admitted as acute inpatient. PT/OT. VS,Fishbone, I+O VS, Fishbone, I+O Laboratory Tests 02/06/21 07:04 Vital Signs Date Time Temp Pulse Resp B/P (MAP) Pulse Ox O2 Delivery O2 Flow Rate FiO2 02/06/21 06:00 97.6 69 19 132/65 (87) 97 Room Air I&O- Last 24 Hours up to 6 AM 02/06/21 06:00 Intake Total 1295 ml Output Total 1475 ml Balance -180 ml HANSA AMARO MD Feb 06, 2021 08:29
[2021-02-06] MEDS: MULTIVITAMINS/MINERALS THERAP 1 TAB PO SCH (12:34)
[2021-02-06] MEDS: CYANOCOBALAMIN 500 MCG TAB PO SCH (12:35)
--- NOTE | 2021-02-06 17:56 | IPN ---
NEPHROLOGY PROGRESS NOTE DATE: 02/06/2021 SUBJECTIVE: The patient is seen and examined this morning at the bedside. Her complaints are unchanged. She continues to feel very weak and exhausted and she also complains of floaters and bright lights in her vision and dizziness. Laboratory studies today show worsening anemia and the patient is agreeable for a blood transfusion. OBJECTIVE: PHYSICAL EXAMINATION: VITAL SIGNS: Temperature 97.6, pulse 69, respiratory rate 19, blood pressure 132/65, saturating 97% on room air. INTAKE AND OUTPUT: Intake yesterday was 1,300. Urine output yesterday was 1,400. Weight in the bed scale today is not recorded. GENERAL APPEARANCE: The patient is seen lying in bed, head of the bed elevated, morbidly obese female awake, alert and oriented, in no apparent distress. HEENT: The extraocular muscles are intact. Tongue is moist. NECK: Supple. Jugular veins are not elevated. SKIN: Generalized pallor. HEART: Regular. S1, S2. There is no peripheral edema, no dependent edema. LUNGS: Clear to auscultation bilaterally but breath sounds are mildly diminished due to body habitus and obesity. ABDOMEN: Obese and nontender. EXTREMITIES: Negative for clubbing, cyanosis, or edema. SKIN: Generalized pallor and diffuse rash is noted on the legs and torso. LABORATORY STUDIES: White count 10.3, hemoglobin 7.7, platelet count 426, sodium 135, potassium 4.3, bicarbonate 18, BUN 107, creatinine 3.0. Blood cultures continue to show no growth for 48 hours x2 sets. INPATIENT MEDICATIONS: I ordered Injectafer 750 mg which the patient received yesterday. I increased the Sodium Bicarbonate to 325 mEq three times daily. Her Ceftriaxone was discontinued and switched over to Keflex by the Primary Service. Her remainder medications are unchanged as compared to yesterday. PROBLEMS: 1. Chronic kidney disease stage 4 with superimposed acute kidney injury the patient's creatinine has returned to baseline of 3.0, however her blood urea nitrogen is still markedly elevated at 107 and she is having mild uremic symptoms including nausea. I have a low threshold to start hemodialysis on this patient. At present we will transfuse 2 units of packed red blood cells (as discussed with Dr. Marx) and we will see if there is any further improvement in her renal function. She is very likely going to need to start dialysis and she is agreeable for the same, but there is no urgent indication today. Anemia related to chronic kidney disease and iron deficiency. The patient received 750 mg of Injectafer and I suggest to transfuse 2 units of packed red blood cells today as hemoglobin is down to 7.7 and she is quite symptomatic from the anemia. 2. Metabolic acidosis it is a chronic problem. I have increased her sodium bicarbonate to 3x daily and her acidemia is secondary to chronic renal failure. 3. History of fluid overload at home the patient takes Lasix 80 mg p.o. twice daily along with Spironolactone 100 mg p.o. daily. At present I would continue to hold all diuretics. There is no recent echo on file. 4. Urinary tract infection antibiotics are managed as primary service. She received a course of Ceftriaxone. 5. [id number] deconditioning - The patient is extremely weak and is requiring a three person assist and Fannie Stedy and still having trouble getting upright. She is likely to need significant rehabilitation, and I feel she will likely need to start dialysis prior to discharge to any rehabilitation center.
[2021-02-06] MEDS: MONTELUKAST 10 MG TAB PO SCH (21:56)
[2021-02-06] MEDS: HYDROXYCHLOROQUINE 200 MG TAB PO SCH (21:56)
[2021-02-07 00:15] VITALS: BP 140/71
[2021-02-07] MEDS: traMADol 50 MG TAB PO PRN ×2 (00:26→17:25)
[2021-02-07 01:15] VITALS: BP 117/58
[2021-02-07 03:00] VITALS: BP 115/58
[2021-02-07] MEDS: hydrOXYzine 25 MG TAB PO PRN ×3 (03:32→22:04)
[2021-02-07 06:00] VITALS: BP 124/65
[2021-02-07] MEDS: LEVOTHYROXINE 100MCG TABLET (0.1MG) PO SCH (06:14)
[2021-02-07 09:07] LABS: HEMATOCRIT 33.4 % (36.0-47.0); MEAN CORPUSCULAR HEMOGLOBIN 29.2 pg (27.0-33.0); MEAN CORPUSCULAR VOLUME 91.3 fl (80.0-96.0); PLATELET COUNT, AUTOMATED 398 10^3/uL (150-450); RED BLOOD COUNT 3.66 10^6/uL (4.00-5.40); WHITE BLOOD COUNT 9.2 10^3/uL (4.0-10.0)
[2021-02-07 09:11] LABS: HEMOGLOBIN 10.7 g/dl (12.0-15.5)
[2021-02-07] MEDS: HEPARIN SOD (PORCINE) 5000UNITS/ML 1ML VIAL/SYRINGE SQ SCH ×2 (09:21→20:13)
[2021-02-07] MEDS: CEPHALEXIN 500 MG CAP PO SCH ×2 (09:21→20:13)
[2021-02-07] MEDS: FEBUXOSTAT 40 MG TABLET (ULORIC) PO SCH (09:21)
[2021-02-07] MEDS: (RENVELA) SEVELAMER **CARBONate** 800 MG TAB PO SCH ×3 (09:21→17:25)
[2021-02-07] MEDS: SODIUM BICARBONATE 325 MG TAB PO SCH ×3 (09:21→20:13)
[2021-02-07] MEDS: OMEPRAZOLE 20 MG CAP PO SCH (09:21)
[2021-02-07] MEDS: CETIRIZINE (ZyrTEC) 10 MG TAB PO SCH (09:22)
[2021-02-07] MEDS: MICONAZOLE TOPICAL 2% CREAM 15GM TOP SCH ×2 (09:22→20:14)
[2021-02-07 09:34] LABS: CALCIUM LEVEL 7.7 MG/DL (8.5-10.1); CREATININE FOR GFR 2.73 MG/DL (0.55-1.30); POTASSIUM SERUM 4.7 MEQ/L (3.5-5.1)
[2021-02-07] MEDS: MULTIVITAMINS/MINERALS THERAP 1 TAB PO SCH (12:12)
[2021-02-07] MEDS: CYANOCOBALAMIN 500 MCG TAB PO SCH (12:12)
[2021-02-07] MEDS: ONDANSETRON 4MG/2ML VIAL IV PRN (13:44)
[2021-02-07 14:00] VITALS: BP 137/78
--- NOTE | 2021-02-07 14:47 | IPNPDOC ---
Text Note Date of Service The patient was seen on 02/07/21. NOTE SUBJECTIVE: -No acute events reported OBJECTIVE: VS: Please see below CONSTITUTIONAL: No acute distress, resting comfortably, AO x 3 EYES: PERRLA, EOM intact HENT, MOUTH: Normocephalic, atraumatic, moist mucous membrane NECK: SUPPLE, no JVD, no lymphadenopathy, no carotid bruit CV: Regular rate and rhythm, S1S2 normal, no murmurs/rubs/gallops RESPIRATORY: Clear to auscultation bilaterally, no rales/rhonchi/wheezes GI: obese abdomen, BS positive in 4 quadrants, soft, nontender, nondistended, no rebound or guarding, no organomegaly : Deferred MUSCULOSKELETAL: Decreased ROM- baseline. No cyanosis, clubbing, swelling, joint deformity. +1 pitting lower extremity edema INTEGUMENTARY: Diffuse scabs and excoriation goss, no confluent erythema NEUROLOGIC: Strength 4/5 in all extremities, overall weak. Cranial Nerves II-XII are intact, no focal deficits, sensory and motor in tact. PSYCHIATRIC: Mood and affect are normal LABORATORY DATA: WBC 9.2 Hgb 10.7 platelets 398 BUN 88 Cr 2.73 IMAGING: CT head No acute intracranial abnormality CXR: No acute disease ASSESSMENT: 60-year-old W with past medical history of Graves' disease s/p thyro idectomy on replacement levothyroxine, hypertension, CKD stage III-IV, vitamin B12 anemia, IBS, morbid obesity, GERD admitted for increased generalized weakness likely secondary to TIANNA on CKD stage IV and urinary tract infection. PLAN: Acute on chronic deconditioning likely 2/2 to TIANNA on CKD Stage IV, UTI -Baseline: wheelchair, walker and cane at times; however, can barely stand, needs assistance -States after 11/2020 COVID-19 infection, she has had increased weakness from her baseline so this could also be contributing factor. -PT/OT -See treatment for individual issues below TIANNA on CKD Stage IV -Holding all diuretics, recent gentle IVFs per nephrology for worsening BUN, nephrology closely following. Slight improvement at this time with downtrending BUN and Cr. Will hold off permacath and beginning HD for now per nephrology -Avoid nephrotoxic medications -Daily BMP Acute on chronic anemia: -ROS negative for evidence of acute bleeding -s/p 2u pRBCs 4/15 -daily CBC Serratia UTI -+ dysuria for 1 week at home -weak UA, growing Serratia -F/u blood cultures -Day 5 of 7 of abx, 500 BID keflex Hypomagnesemia, acute: resolved. HTN -Stable -Holding diuretics -C/w other meds with holding parameters Grave's disease / hypothyroidism -c/w home treatment -Does not follow with endo as o/p Vitamin B12 anemia -C/w home meds IBS -Stable -No incr diarrhea -c/w home meds -Follows with Dr. Raman o/p Chronic pain / arthritis -Tramadol PRN GERD -PPI DVT px -heparin sc DISPOSITION: Admitted as acute inpatient. PT/OT. VS,Fishbone, I+O VS, Fishbone, I+O Vital Signs Date Time Temp Pulse Resp B/P (MAP) Pulse Ox O2 Delivery O2 Flow Rate FiO2 02/07/21 06:00 98.6 78 18 124/65 (84) 98 Room Air I&O- Last 24 Hours up to 6 AM 02/07/21 06:00 Intake Total 2715 ml Output Total 700 ml Balance 2015 ml HANSA AMARO MD Feb 07, 2021 08:33
--- NOTE | 2021-02-07 14:56 | IPN ---
PROGRESS NOTE DATE: 02/07/2021 SUBJECTIVE: Patient seen and examined this morning at the bedside. She had 2 units of packed red blood cells transfused yesterday. Her chemistry today shows renal function is back to her usual baseline. Patient continues to feel very fatigued, weak, and exhausted. She denies any shortness of breath at rest. Her diuretics have been on hold throughout the course of this whole admission. VITAL SIGNS:: Temperature 98.6, pulse 78, respiratory rate 18, blood pressure 124/65, saturating 98% on room air. Intake yesterday was 2 liters. Urine output was not fully recorded, as the patient has been having incontinent voids. Weight in the bed scale today is not recorded. GENERAL: Patient is seen lying in bed, morbidly obese female. Appears older than stated age. Head of the bed is elevated. Extraocular muscles are intact. Tongue is moist. Neck is supple. Jugular veins are not elevated. The skin pallor has improved. HEART: Sounds are regular. ,S1, S2. There is no peripheral edema. LUNGS: Show diminished breath sounds secondary to body habitus and obesity. ABDOMEN: Soft, obese, and nontender. EXTREMITIES: Show chronic rash on her legs and her torso. There is no pitting edema. NEUROLOGIC: She is oriented times three at baseline mentation. LABORATORY DATA: White count 9.2, hemoglobin 10.7, platelets 398. Sodium 137, potassium 4.7, bicarbonate 19, BUN 88, creatinine 2.7. INPATIENT MEDICATIONS: Reviewed by myself. She was started yesterday on Keflex 500 mg twice a day. Her remainder of medications is unchanged compared to prior days. PROBLEMS: 1. Chronic kidney disease (CKD), stage IV. Patient had an acute kidney injury that has resolved over the past 4 days. We have been holding her diuretic, and she was transfused 2 units of packed red blood cells yesterday, and now her BUN and creatinine are both back to baseline. Patient is at high risk for recurrent acute kidney injuries and decompensations given her advanced chronic renal failure, and we need to decide regarding dialysis initiation at this time. I will defer to her primary mind reader, who will assume her care from tomorrow. The patient is agreeable for dialysis initiation in any case. 2. Anemia secondary to chronic renal failure and iron deficiency. Patient was given a dose of Injectafer earlier this week, and she was transfused 2 units of packed red blood cells. Her hemoglobin has come up nicely, and Aranesp will be started when indicated. 3. Metabolic acidosis, chronic, secondary to chronic renal failure. Continue sodium bicarbonate supplementation. 4. History of fluid overload. The patient's home diuretics have been on hold (Lasix 80 mg twice a day and spironolactone 100 mg by mouth daily). Now that her renal function is back to baseline, her diuretics will be resumed in the near future. 5. Urinary tract infection (UTI). Patient completed a course of ceftriaxone, and she is now on Keflex. Her blood cultures were negative. 6. Hypertension. Blood pressures are well controlled with diltiazem, and her diuretics are presently held. 7. Secondary hyperparathyroidism of renal origin. Patient's phosphorus is well controlled with current dose of Renvela, and parathyroid hormone level is pending.
[2021-02-07] MEDS: HYDROXYCHLOROQUINE 200 MG TAB PO SCH (20:13)
[2021-02-07] MEDS: MONTELUKAST 10 MG TAB PO SCH (20:13)
[2021-02-07 22:00] VITALS: BP 126/65
[2021-02-08 06:00] VITALS: BP 125/69
[2021-02-08] MEDS: LEVOTHYROXINE 100MCG TABLET (0.1MG) PO SCH (06:28)
[2021-02-08] MEDS: hydrOXYzine 25 MG TAB PO PRN ×3 (06:30→23:58)
[2021-02-08] MEDS: traMADol 50 MG TAB PO PRN (06:31)
[2021-02-08 07:54] LABS: HEMATOCRIT 30.8 % (36.0-47.0); MEAN CORPUSCULAR HEMOGLOBIN 29.9 pg (27.0-33.0); MEAN CORPUSCULAR HGB CONC 32.5 g/dl (32.0-36.5); MEAN CORPUSCULAR VOLUME 91.9 fl (80.0-96.0); PLATELET COUNT, AUTOMATED 349 10^3/uL (150-450); RED BLOOD COUNT 3.35 10^6/uL (4.00-5.40); WHITE BLOOD COUNT 9.4 10^3/uL (4.0-10.0)
[2021-02-08 08:16] LABS: CALCIUM LEVEL 7.7 MG/DL (8.5-10.1); CREATININE FOR GFR 2.58 MG/DL (0.55-1.30); GLOMERULAR FILTRATION RATE 20.2 (>51); POTASSIUM SERUM 4.5 MEQ/L (3.5-5.1)
[2021-02-08] MEDS: (RENVELA) SEVELAMER **CARBONate** 800 MG TAB PO SCH ×3 (08:49→18:35)
[2021-02-08] MEDS: FEBUXOSTAT 40 MG TABLET (ULORIC) PO SCH (08:49)
[2021-02-08] MEDS: CEPHALEXIN 500 MG CAP PO SCH ×2 (08:50→20:20)
[2021-02-08] MEDS: CETIRIZINE (ZyrTEC) 10 MG TAB PO SCH (08:50)
[2021-02-08] MEDS: SODIUM BICARBONATE 325 MG TAB PO SCH ×3 (08:50→20:20)
[2021-02-08] MEDS: HEPARIN SOD (PORCINE) 5000UNITS/ML 1ML VIAL/SYRINGE SQ SCH ×2 (08:52→20:21)
[2021-02-08] MEDS: OMEPRAZOLE 20 MG CAP PO SCH (08:53)
[2021-02-08] MEDS: MICONAZOLE TOPICAL 2% CREAM 15GM TOP SCH ×2 (08:53→20:20)
--- NOTE | 2021-02-08 11:04 | IPNPDOC ---
Text Note Date of Service The patient was seen on 02/08/21. NOTE SUBJECTIVE: -No acute events reported OBJECTIVE: VS: Please see below CONSTITUTIONAL: No acute distress, resting comfortably, AO x 3 EYES: PERRLA, EOM intact HENT, MOUTH: Normocephalic, atraumatic, moist mucous membrane NECK: SUPPLE, no JVD, no lymphadenopathy, no carotid bruit CV: Regular rate and rhythm, S1S2 normal, no murmurs/rubs/gallops RESPIRATORY: Clear to auscultation bilaterally, no rales/rhonchi/wheezes GI: obese abdomen, BS positive in 4 quadrants, soft, nontender, nondistended, no rebound or guarding, no organomegaly : Deferred MUSCULOSKELETAL: Decreased ROM- baseline. No cyanosis, clubbing, swelling, joint deformity. +1 pitting lower extremity edema INTEGUMENTARY: Diffuse scabs and excoriation goss, no confluent erythema NEUROLOGIC: Strength 4/5 in all extremities, overall weak. Cranial Nerves II-XII are intact, no focal deficits, sensory and motor in tact. PSYCHIATRIC: Mood and affect are normal LABORATORY DATA: Hgb 10 BUN 77 Cr 2.58 IMAGING: CT head No acute intracranial abnormality CXR: No acute disease ASSESSMENT: 60-year-old W with past medical history of Graves' disease s/p thyroidectomy on replacement levothyroxine, hypertension, CKD stage III-IV, vitamin B12 anemia, IBS, morbid obesity, GERD admitted for increased generalized weakness likely secondary to TIANNA on CKD stage IV and urinary tract infection. PLAN: Acute on chronic deconditioning likely 2/2 to TIANNA on CKD Stage IV, UTI -Baseline: wheelchair, walker and cane at times; however, can barely stand, needs assistance -States after 11/2020 COVID-19 infection, she has had increased weakness from her baseline so this could also be contributing factor. -PT/OT -See treatment for individual issues below TIANNA on CKD Stage IV: improving -Holding all diuretics, recent gentle IVFs per nephrology for worsening BUN, nephrology closely following. Slight improvement at this time with downtrending BUN and Cr. Held off permacath and beginning HD per Dr. Ashley Glass, will be seen by Dr. Arleen Glass today. -Avoid nephrotoxic medications -Daily BMP Acute on chronic anemia: -ROS negative for evidence of acute bleeding -s/p 2u pRBCs 02/06 -daily CBC Serratia UTI -+ dysuria for 1 week at home -weak UA, growing Serratia -F/u blood cultures -Day 6 of 7 of abx, 500 BID keflex Hypomagnesemia, acute: resolved. HTN -Stable -Holding diuretics -C/w other meds with holding parameters Grave's disease / hypothyroidism -c/w home treatment -Does not follow with endo as o/p Vitamin B12 anemia -C/w home meds IBS -Stable -No incr diarrhea -c/w home meds -Follows with Dr. Raman o/p Chronic pain / arthritis -Tramadol PRN GERD -PPI DVT px -heparin sc DISPOSITION: Admitted as acute inpatient. PT/OT, anticipate STR discharge when medically stable and cleared from a renal perspective. VS,Fishbone, I+O VS, Fishbone, I+O Laboratory Tests 02/07/21 08:48 02/08/21 07:30 Vital Signs Date Time Temp Pulse Resp B/P (MAP) Pulse Ox O2 Delivery O2 Flow Rate FiO2 02/08/21 06:31 16 Room Air 02/07/21 22:00 97.8 80 126/65 (85) 98 I&O- Last 24 Hours up to 6 AM 02/08/21 05:59 Intake Total 1340 ml Output Total 1150 ml Balance 190 ml HANSA AMARO MD Feb 08, 2021 07:59
[2021-02-08] MEDS: MULTIVITAMINS/MINERALS THERAP 1 TAB PO SCH (13:14)
[2021-02-08] MEDS: CYANOCOBALAMIN 500 MCG TAB PO SCH (13:14)
[2021-02-08 14:00] VITALS: BP 127/60
[2021-02-08] MEDS: NS 1,000 ML IV SCH (16:07)
--- NOTE | 2021-02-08 17:59 | IPN ---
PROGRESS NOTE DATE: 02/08/2021 SUBJECTIVE: Ms. Stoll is seen this morning on her bedside. She has a complaint of light blinking in her eyes. She also reports occasional headache. Her oral intake has been poor. She denies any dyspnea or chest pain. She has generalized skin rash with small ulcers in different stages of healing. PHYSICAL EXAMINATION: Temperature 97.2 degrees Fahrenheit, heart rate 88 per minute, respiratory rate 16 per minute, blood pressure 125/69 mmHg, oxygen saturation 99% on room air. HEAD: Atraumatic. NECK: No jugular venous distention (JVD) or thyroid enlargement noticed. HEART SOUNDS: Regular. LUNGS: Clear to auscultation. ABDOMEN: Obese. Bowel sounds are normal. EXTREMITIES: Without any cyanosis or clubbing. SKIN: Rash all over her body with multiple small ulcers which are well-demarcated and without any surrounding erythema. NEUROLOGIC: She is awake and at her baseline mentation without a focal deficit. LABORATORY STUDIES: Today's labs show WBC 9.4, hemoglobin 10.9, hematocrit 30.8, platelets 349. Sodium 138, potassium 4.5, CO2 17, BUN 77, creatinine 2.58, glucose 91, calcium 7.7. PROBLEMS: 1. Acute kidney injury superimposed on chronic kidney disease. Her kidney function has improved since admission and she still seems to be slightly volume depleted. I am going to give her some intravenous (IV) fluid with normal saline at 70 mL/hour and see how she does. No urgent need for dialysis. 2. Metabolic acidosis. Her acidosis persists and I am increasing her sodium bicarbonate to 650 mg three times a day. 3. Anemia. At present, her anemia is stable and improved since she was transfused. 4. Skin ulcers. She has multiple skin ulcers all over her body without any explanation. I have discussed with the hospitalist and she is likely to need dermatology consultation for proper diagnosis. She carries a diagnosis of paper thin skin.
[2021-02-08] MEDS: MONTELUKAST 10 MG TAB PO SCH (20:20)
[2021-02-08 22:00] VITALS: BP 135/63
[2021-02-09] MEDS: NS 1,000 ML IV SCH (02:30)
[2021-02-09] MEDS: LEVOTHYROXINE 100MCG TABLET (0.1MG) PO SCH (05:44)
[2021-02-09 06:00] VITALS: BP 136/66
[2021-02-09 06:26] LABS: HEMATOCRIT 30.6 % (36.0-47.0); HEMOGLOBIN 9.5 g/dl (12.0-15.5); MEAN CORPUSCULAR HEMOGLOBIN 29.4 pg (27.0-33.0); MEAN CORPUSCULAR VOLUME 94.7 fl (80.0-96.0); PLATELET COUNT, AUTOMATED 332 10^3/uL (150-450); RED BLOOD COUNT 3.23 10^6/uL (4.00-5.40)
[2021-02-09 06:51] LABS: CALCIUM LEVEL 7.7 MG/DL (8.5-10.1); CREATININE FOR GFR 2.24 MG/DL (0.55-1.30); GLOMERULAR FILTRATION RATE 23.8 (>51); POTASSIUM SERUM 4.5 MEQ/L (3.5-5.1)
[2021-02-09] MEDS: HEPARIN SOD (PORCINE) 5000UNITS/ML 1ML VIAL/SYRINGE SQ SCH ×2 (08:01→20:51)
[2021-02-09] MEDS: (RENVELA) SEVELAMER **CARBONate** 800 MG TAB PO SCH ×3 (08:02→18:16)
[2021-02-09] MEDS: traMADol 50 MG TAB PO PRN (08:02)
[2021-02-09] MEDS: FEBUXOSTAT 40 MG TABLET (ULORIC) PO SCH (08:02)
[2021-02-09] MEDS: SODIUM BICARBONATE 325 MG TAB PO SCH (08:02)
[2021-02-09] MEDS: CETIRIZINE (ZyrTEC) 10 MG TAB PO SCH (08:05)
[2021-02-09] MEDS: MICONAZOLE TOPICAL 2% CREAM 15GM TOP SCH ×2 (08:06→20:51)
[2021-02-09] MEDS: OMEPRAZOLE 20 MG CAP PO SCH (08:06)
[2021-02-09] MEDS: hydrOXYzine 25 MG TAB PO PRN ×2 (08:09→16:28)
--- NOTE | 2021-02-09 11:38 | IPNPDOC ---
Text Note Date of Service The patient was seen on 02/09/21. NOTE SUBJECTIVE: -No acute events reported -Reports seeing flushing lights from time to time OBJECTIVE: VITALS: see below CONSTITUTIONAL: No acute distress, resting comfortably, AO x 3 EYES: PERRLA, EOMI, anicteric HENT, MOUTH: Normocephalic, atraumatic, moist mucous membrane NECK: SUPPLE, no JVD, no lymphadenopathy CV: Regular rate and rhythm, S1S2 normal, no murmurs/rubs/gallops RESPIRATORY: Clear to auscultation bilaterally, no rales/rhonchi/wheezes GI: obese abdomen, BS positive in 4 quadrants, soft, nontender, nondistended, no rebound or guarding, no organomegaly INTEGUMENTARY: Diffuse scabs and excoriation goss, no confluent erythema NEUROLOGIC: Strength 4/5 in all extremities, overall weak. Cranial Nerves II-XII are intact, no focal deficits, sensory and motor in tact. PSYCHIATRIC: Mood and affect are normal LABORATORY DATA: Hgb 9.5 Cr 2.24 IMAGING: CT head No acute intracranial abnormality CXR: No acute disease ASSESSMENT: 60-year-old W with past medical history of Graves' disease s/p thyroidectomy on replacement levothyroxine, hypertension, CKD stage III-IV, vitamin B12 anemia, IBS, morbid obesity, GERD admitted for increased generalized weakness likely secondary to TIANNA on CKD stage IV and urinary tract infection. PLAN: Acute on chronic deconditioning likely 2/2 to TIANNA on CKD Stage IV, UTI -Baseline: wheelchair, walker and cane at times; however, can barely stand, needs assistance -States after 11/2020 COVID-19 infection, she has had increased weakness from her baseline so this could also be contributing factor. -PT/OT -See treatment for individual issues below TIANNA on CKD Stage IV: improving -Holding all diuretics, recent gentle IVFs per nephrology for worsening BUN, nephrology closely following. Slight improvement at this time with downtrending BUN and Cr. Held off permacath and beginning HD per Dr. Glass, giving some gentle fluids. -Avoid nephrotoxic medications -Daily BMP Acute on chronic anemia: -ROS negative for evidence of acute bleeding -s/p 2u pRBCs 02/06 -daily CBC Serratia UTI -+ dysuria for 1 week at home -weak UA, growing Serratia -F/u blood cultures -Day 7 of 7 of abx, 500 BID keflex Hypomagnesemia, acute: resolved. [place] skin lesions: Patient reports this to be a chronic issue and has seen many doctors for it. Dr. Glass saw her a few months ago and it is much worse and recommended a derm consult. Will consult derm on Wednesday -Derm consult on 02/10 Flashing lights with some headaches at times and dizziness: -will hold Plaquenil which can have Ophtho side effects HTN -Stable -Holding diuretics -C/w other meds with holding parameters Grave's disease / hypothyroidism -c/w home treatment -Does not follow with endo as o/p Vitamin B12 anemia -C/w home meds IBS -Stable -No incr diarrhea -c/w home meds -Follows with Dr. Raman o/p Chronic pain / arthritis -Tramadol PRN GERD -PPI DVT px -heparin sc DISPOSITION: Admitted as acute inpatient. PT/OT, anticipate STR discharge when medically stable and cleared from a renal perspective. VS,Fishbone, I+O VS, Fishbone, I+O Laboratory Tests 02/09/21 05:55 Vital Signs Date Time Temp Pulse Resp B/P (MAP) Pulse Ox O2 Delivery O2 Flow Rate FiO2 02/09/21 08:04 140/78 02/09/21 08:02 18 02/09/21 06:00 98.3 83 99 Room Air I&O- Last 24 Hours up to 6 AM 02/09/21 06:00 Intake Total 3970 ml Output Total 900 ml Balance 3070 ml HANSA AMARO MD Feb 09, 2021 08:33
--- NOTE | 2021-02-09 11:48 | IPN ---
PROGRESS NOTE DATE: 02/09/2021 SUBJECTIVE: Ms. Stoll was seen this morning on her bedside. She continues to have complaint of flashing lights in her eyes and also feeling dizzy when she gets up. She has been receiving IV normal saline since yesterday. Her oral intake is not as great. OBJECTIVE: On physical examination, temperature is 98.3 degrees Fahrenheit, heart rate 83 per minute and respiratory rate 18 per minute. Blood pressure 140/78 mmHg, oxygen saturation 99% on room air. Head is atraumatic. Neck supple and without jugular venous distention (JVD) or thyroid enlargement. Heart sounds are regular and lungs clear to auscultation. Abdomen is obese, soft and bowel sounds are normal. Extremities without any cyanosis or clubbing. Skin has generalized rash with small superficial ulcers, which are very well demarcated and without any surrounding erythema. Neurologically, she is awake, alert and oriented x3. LABORATORY DATA: Today's labs show WBC count 9.0, hemoglobin 9.5 and hematocrit 30.6, platelets 332. Sodium 139, potassium 4.5, Co2 17, BUN 73 and creatinine 2.24. Glucose 74 and calcium 7.7. PROBLEMS: 1. Acute kidney injury superimposed on chronic kidney disease. Kidney function slightly improved compared to yesterday. The patient has no uremic symptoms and we will stop the IV fluid today The patient is being encouraged to continue with adequate oral intake of fluids. 2. Metabolic acidosis. No change noticed yet. Yesterday, I increased her sodium bicarbonate dose to 650 mg three times a day and we will give at least a couple of more days to see if it improves. 3. Anemia. Anemia has been stable since she was transfused. Slight decreased today is most likely related to the IV fluids. 4. Dizziness and eye symptoms, probably related to hydroxychloroquine side effects. At this point, I will wait for hospitalist to complete the workup. 5. Skin rash. Etiology uncertain. Will wait for dermatology input
[2021-02-09] MEDS: CYANOCOBALAMIN 500 MCG TAB PO SCH (12:42)
[2021-02-09] MEDS: MULTIVITAMINS/MINERALS THERAP 1 TAB PO SCH (12:42)
[2021-02-09 14:00] VITALS: BP 126/60
[2021-02-09] MEDS: MONTELUKAST 10 MG TAB PO SCH (20:51)
[2021-02-09 22:00] VITALS: BP 133/66
[2021-02-10] MEDS: hydrOXYzine 25 MG TAB PO PRN ×3 (00:33→17:19)
[2021-02-10] MEDS: LEVOTHYROXINE 100MCG TABLET (0.1MG) PO SCH (05:49)
[2021-02-10 06:00] VITALS: BP 132/72
[2021-02-10] MEDS: traMADol 50 MG TAB PO PRN ×2 (06:10→12:40)
[2021-02-10 06:24] LABS: HEMATOCRIT 29.5 % (36.0-47.0); HEMOGLOBIN 9.1 g/dl (12.0-15.5); MEAN CORPUSCULAR HEMOGLOBIN 28.9 pg (27.0-33.0); MEAN CORPUSCULAR HGB CONC 30.8 g/dl (32.0-36.5); MEAN CORPUSCULAR VOLUME 93.7 fl (80.0-96.0); PLATELET COUNT, AUTOMATED 343 10^3/uL (150-450); RED BLOOD COUNT 3.15 10^6/uL (4.00-5.40); WHITE BLOOD COUNT 9.3 10^3/uL (4.0-10.0)
[2021-02-10 06:28] LABS: CALCIUM LEVEL 7.8 MG/DL (8.5-10.1); CREATININE FOR GFR 2.33 MG/DL (0.55-1.30); GLOMERULAR FILTRATION RATE 22.8 (>51); POTASSIUM SERUM 4.6 MEQ/L (3.5-5.1)
[2021-02-10] MEDS: (RENVELA) SEVELAMER **CARBONate** 800 MG TAB PO SCH ×3 (08:34→17:19)
[2021-02-10] MEDS: CETIRIZINE (ZyrTEC) 10 MG TAB PO SCH (08:35)
[2021-02-10] MEDS: OMEPRAZOLE 20 MG CAP PO SCH (08:35)
[2021-02-10] MEDS: FEBUXOSTAT 40 MG TABLET (ULORIC) PO SCH (08:35)
[2021-02-10] MEDS: HEPARIN SOD (PORCINE) 5000UNITS/ML 1ML VIAL/SYRINGE SQ SCH ×2 (08:35→20:23)
[2021-02-10] MEDS: MICONAZOLE TOPICAL 2% CREAM 15GM TOP SCH ×2 (08:36→20:23)
[2021-02-10] MEDS: SODIUM BICARBONATE 150 MEQ in STERILE WATER LITER BAG 1,000 ML IV SCH ×2 (10:57→22:04)
[2021-02-10 11:55] VITALS: BP 158/83
[2021-02-10] MEDS: MULTIVITAMINS/MINERALS THERAP 1 TAB PO SCH (12:40)
[2021-02-10] MEDS: CYANOCOBALAMIN 500 MCG TAB PO SCH (12:40)
[2021-02-10 14:00] VITALS: BP 152/79
[2021-02-10 14:54] LABS: PTH INTACT 60.4 PG/ML (18.5-88.0)
--- NOTE | 2021-02-10 15:03 | IPNPDOC ---
Text Note Date of Service The patient was seen on 02/10/21. NOTE SUBJECTIVE: -No acute events reported OBJECTIVE: VITALS: see below CONSTITUTIONAL: No acute distress, resting comfortably, AO x 3 EYES: PERRLA, EOMI, anicteric HENT, MOUTH: Normocephalic, atraumatic, moist mucous membrane NECK: SUPPLE, no JVD, no lymphadenopathy CV: Regular rate and rhythm, S1S2 normal, no murmurs/rubs/gallops RESPIRATORY: Clear to auscultation bilaterally, no rales/rhonchi/wheezes GI: obese abdomen, BS positive in 4 quadrants, soft, nontender, nondistended, no rebound or guarding, no organomegaly INTEGUMENTARY: Diffuse scabs and excoriation goss, no confluent erythema NEUROLOGIC: Strength 4/5 in all extremities, overall weak. Cranial Nerves II-XII are intact, no focal deficits, sensory and motor in tact. PSYCHIATRIC: Mood and affect are normal LABORATORY DATA: BUN 62 Cr 2.3 IMAGING: CT head No acute intracranial abnormality CXR: No acute disease ASSESSMENT: 60-year-old W with past medical history of Graves' disease s/p thyroidectomy on replacement levothyroxine, hypertension, CKD stage III-IV, vitamin B12 anemia, IBS, morbid obesity, GERD admitted for increased generalized weakness likely secondary to TIANNA on CKD stage IV and urinary tract infection. PLAN: Acute on chronic deconditioning likely 2/2 to TIANNA on CKD Stage IV, UTI -Baseline: wheelchair, walker and cane at times; however, can barely stand, needs assistance -States after 11/2020 COVID-19 infection, she has had increased weakness from her baseline so this could also be contributing factor. -PT/OT -See treatment for individual issues below TIANNA on CKD Stage IV: improving -Holding all diuretics, recent gentle IVFs per nephrology for worsening BUN, nephrology closely following. Slight improvement at this time with downtrending BUN and Cr. Held off permacath and beginning HD per Dr. Glass, giving some gentle fluids. -Avoid nephrotoxic medications -Daily BMP Acute on chronic anemia: -ROS negative for evidence of acute bleeding -s/p 2u pRBCs /15 -daily CBC Serratia UTI -+ dysuria for 1 week at home -weak UA, growing Serratia -F/u blood cultures -s/p 7d of abx, completed 02/09 Hypomagnesemia, acute: resolved. [place] skin lesions: Patient reports this to be a chronic issue and has seen many doctors for it. Dr. Glass saw her a few months ago and it is much worse and recommended a derm consult. Will consult derm on Wednesday -Derm consulted on 02/10 --> econsult with Dr. Pringle who will schedule her for outpatient follow up shortly. Sent pics over vocera, pending recs. Flashing lights with some headaches at times and dizziness: -holding Plaquenil which can have Ophtho side effects, needs rheum follow up at discharge. HTN -Stable -Holding diuretics -C/w other meds with holding parameters Grave's disease / hypothyroidism -c/w home treatment -Does not follow with endo as o/p Vitamin B12 anemia -C/w home meds IBS -Stable -No incr diarrhea -c/w home meds -Follows with Dr. Raman o/p Chronic pain / arthritis -Tramadol PRN GERD -PPI DVT px -heparin sc DISPOSITION: Admitted as acute inpatient. PT/OT, anticipate STR discharge when medically stable and cleared from a renal perspective. VS,Fishbone, I+O VS, Fishbone, I+O Laboratory Tests 02/10/21 05:45 Vital Signs Date Time Temp Pulse Resp B/P (MAP) Pulse Ox O2 Delivery O2 Flow Rate FiO2 02/10/21 08:38 99 160/84 02/10/21 06:40 16 02/10/21 06:00 98.8 96 Room Air I&O- Last 24 Hours up to 6 AM 02/10/21 06:00 Intake Total 2880 ml Output Total 1250 ml Balance 1630 ml HANSA AMARO MD Feb 10, 2021 10:58
[2021-02-10] MEDS: MONTELUKAST 10 MG TAB PO SCH (20:23)
[2021-02-10 22:00] VITALS: BP 129/64
[2021-02-11] MEDS: hydrOXYzine 25 MG TAB PO PRN ×3 (02:31→20:37)
[2021-02-11] MEDS: traMADol 50 MG TAB PO PRN (02:35)
[2021-02-11] MEDS: LEVOTHYROXINE 100MCG TABLET (0.1MG) PO SCH (05:40)
[2021-02-11 06:00] VITALS: BP 137/72
[2021-02-11 06:00] LABS: HEMATOCRIT 27.9 % (36.0-47.0); MEAN CORPUSCULAR HEMOGLOBIN 29.7 pg (27.0-33.0); MEAN CORPUSCULAR HGB CONC 32.3 g/dl (32.0-36.5); MEAN CORPUSCULAR VOLUME 92.1 fl (80.0-96.0); PLATELET COUNT, AUTOMATED 315 10^3/uL (150-450); RED BLOOD COUNT 3.03 10^6/uL (4.00-5.40); WHITE BLOOD COUNT 8.9 10^3/uL (4.0-10.0)
[2021-02-11 06:30] LABS: BLOOD UREA NITROGEN 58 MG/DL (7-18); CARBON DIOXIDE LEVEL 21 MEQ/L (21-32); CHLORIDE LEVEL 107 MEQ/L (98-107); CREATININE FOR GFR 2.12 MG/DL (0.55-1.30); GLOMERULAR FILTRATION RATE 25.4 (>51); GLUCOSE, FASTING 75 MG/DL (70-100); POTASSIUM SERUM 4.7 MEQ/L (3.5-5.1); SODIUM LEVEL 136 MEQ/L (136-145)
[2021-02-11 06:31] LABS: CALCIUM LEVEL 7.6 MG/DL (8.5-10.1)
[2021-02-11] MEDS ORDERED: FUROSEMIDE 40MG/4ML VIAL (J1940) IV ONE (07:30)
[2021-02-11 08:38] LABS: ALBUMIN 1.6 GM/DL (3.2-5.2); ALT/SGPT 68 U/L (12-78); BILIRUBIN,DIRECT < 0.1 MG/DL (0.0-0.2); BILIRUBIN,TOTAL 0.2 MG/DL (0.2-1.0); TOTAL PROTEIN 4.5 GM/DL (6.4-8.2)
[2021-02-11] MEDS: CETIRIZINE (ZyrTEC) 10 MG TAB PO SCH (09:25)
[2021-02-11] MEDS: (RENVELA) SEVELAMER **CARBONate** 800 MG TAB PO SCH ×3 (09:25→18:16)
[2021-02-11] MEDS: MICONAZOLE TOPICAL 2% CREAM 15GM TOP SCH ×2 (09:25→20:38)
[2021-02-11] MEDS: FEBUXOSTAT 40 MG TABLET (ULORIC) PO SCH (09:25)
[2021-02-11] MEDS: OMEPRAZOLE 20 MG CAP PO SCH (09:25)
[2021-02-11] MEDS: HEPARIN SOD (PORCINE) 5000UNITS/ML 1ML VIAL/SYRINGE SQ SCH ×2 (09:26→20:38)
--- NOTE | 2021-02-11 10:04 | IPNPDOC ---
Subjective General Date/Time Seen The patient was seen on 02/11/21 at 09:45. Subject Chief Complaint/History The patient is a 60-year-old female admitted with a reason for visit of Uti/Weakness. SUBJECTIVE: Mrs. Stoll was seen and examined at the bedside this morning. She notes that her legs have been somewhat more swollen as of the past day or two. She has not gotten out of bed because she feels she is unable to. Her urine output has dropped a bit and diuretics were on hold for the past few days. She has not yet been seen by dermatology. Otherwise, she has no complaints today. OBJECTIVE: PHYSICAL EXAMINATION: VITAL SIGNS: see below GENERAL: morbidly obese, laying flat in bed, alert and oriented, in no apparent distress, pleasant and conversant in full sentences. HEENT: PERRL, EOMI, Oral mucous membranes are moist without lesions. NECK: The patient has mildly elevated JVD. No adenopathy is appreciated. No thyromegaly CHEST/LUNGS: Lungs are clear bilaterally without rhonchi, rales, or wheezes. There is no subcutaneous air appreciated. There is no tenderness to the chest wall. HEART:Regular rate and rhythm. No murmurs, rubs, or gallops are appreciated. Distal pulses are 2+. No carotid bruits appreciated. ABDOMEN: obese, Soft, nontender, and nondistended. Bowel sounds are positive. No organomegaly is appreciated. No masses are appreciated. There are no peritoneal signs. There is no [place] sign. EXTREMITIES: No peripheral edema. There is no focal long bone tenderness or deformity. SKIN: There is a generalized rash on bilateral thighs, extending to LLE and abdomen. Several small ulcers appearing non-infectious PSYCHIATRIC: AAO x 3, normal mood/affect NEUROLOGIC: No obvious focal deficits IMAGING: No new imaging LABS: See below ASSESSMENT: This is a 60 YO F with history of CKD 3b, HTN, Graves disease, morbid obesity who presented with generalized weakness found to have TIANNA on CKD and UTI. PLAN: 1. Acute kidney injury on CKD: -Renal function today improved to 2.12 from 2.33 yesterday -Will give one dose IV Lasix 40mg today for peripheral edema -PTH WNL -Other electrolytes WNL 2. Metabolic acidosis: appears to have resolved -Bicarb today 21, improved with bicarb drip + oral bicarb -Stop IV bicarb drip and continue oral bicarb for now 3. Anemia of CKD: -S/p iron replacement therapy 02/05 -Hgb today 9.0, stable. Likely lower 2/2 recent IV fluids 4. Hyperphosphatemia of CKD: -Continue Renvela with meals -Will check phosphorus level tomorrow AM 5. Rash: -Will look for derm recommendations. Her rash is painful, although dermatomal distribution less likely Shingles 6. Dizziness/eye symptoms: -Seems to be improving 7. UTI: -S/p 3 days Ceftriaxone, 3 days oral Keflex. Asymptomatic at this time DISPO: Diurese today, pending improvement in LE edema, renal function Current Medications Current Medications Current Medications Medications (Trade) Dose Ordered Sig/Javan Route PRN Reason Start Time Stop Time Status Last Admin Dose Admin Acetaminophen (Tylenol Tab) 650 mg Q4H PRN PO PAIN OR FEVER 02/03/21 15:55 02/07/21 00:26 Ceftriaxone Sodium 1 gm/ Dextrose 50 ml @ 100 mls/hr Q24H IV 02/03/21 17:00 02/06/21 10:11 DC 02/05/21 18:40 Cephalexin Monohydrate (Keflex) 500 mg Q12H PO 02/06/21 09:00 02/08/21 21:00 DC 02/08/21 20:20 Cetirizine HCl (ZyrTEC) 10 mg DAILY PO 02/04/21 09:00 02/11/21 09:25 Cyanocobalamin (Vitamin B12) 500 mcg DAILY@1300 PO 02/04/21 13:00 02/10/21 12:40 Diltiazem HCl (Cardizem Cd) 120 mg BID PO 02/03/21 21:00 02/11/21 09:28 Enoxaparin Sodium (Lovenox) 40 mg DAILY SC 02/04/21 09:00 02/03/21 16:09 DC Febuxostat (Uloric) 40 mg DAILY PO 02/04/21 09:00 02/11/21 09:25 Guaifenesin (Mucinex Tab Er) 600 mg BID PRN PO CONGESTION 02/03/21 15:55 Heparin Sodium (Porcine) (Heparin) 5,000 units Q12H SQ 02/03/21 21:00 02/11/21 09:26 Home Med (Med Rec Complete!) ASDIRECTED XX 02/03/21 13:45 02/03/21 13:44 DC Hydroxychloroquine Sulfate (Plaquenil) 200 mg QHS PO 02/03/21 21:00 02/08/21 16:26 DC 02/07/21 20:13 Hydroxyzine HCl (Atarax) 25 mg Q8H PRN PO ITCHING 02/03/21 15:55 02/11/21 02:31 Levothyroxine Sodium (Synthroid) 200 mcg DAILY@0600 PO 02/04/21 06:00 02/11/21 05:40 Miconazole Nitrate (Monistat) Apply under abdomi... BID TOP 02/04/21 09:00 02/11/21 09:25 Montelukast Sodium (Singulair) 10 mg QHS PO 02/03/21 21:00 02/10/21 20:23 Multivitamins (Theragram-M) 1 tab DAILY@1300 PO 02/04/21 13:00 02/10/21 12:40 Omeprazole (PriLOSEC) 40 mg DAILY PO 02/04/21 09:00 02/11/21 09:25 Ondansetron HCl (ZOFRAN INJection) 4 mg Q6HP PRN IV NAUSEA OR VOMITING 02/04/21 13:20 02/07/21 13:44 Sevelamer Carbonate (Renvela) 2,400 mg WM PO 02/03/21 18:00 02/11/21 09:25 Sodium Bicarbonate 150 meq/Sterile Water 1,150 ml @ 100 mls/hr [id number] IV 02/10/21 10:00 02/11/21 07:20 DC 02/10/21 22:04 Sodium Bicarbonate (Sodium Bicarbonate) 325 mg BID PO 02/05/21 10:15 02/06/21 09:32 DC 02/05/21 23:42 Sodium Bicarbonate (Sodium Bicarbonate) 325 mg TID PO 02/06/21 09:00 02/08/21 15:55 DC 02/08/21 08:50 Sodium Bicarbonate (Sodium Bicarbonate) 650 mg BID PRN PO INDIGESTION 02/03/21 15:55 02/05/21 10:14 DC Sodium Bicarbonate (Sodium Bicarbonate) 650 mg TID PO 02/08/21 16:00 02/09/21 10:00 DC 02/09/21 08:02 Sodium Chloride 1,000 ml @ 60 mls/hr [id number] IV 02/04/21 13:00 02/04/21 15:37 DC 02/04/21 13:11 Sodium Chloride 1,000 ml @ 85 mls/hr [id number] IV 02/03/21 15:55 02/03/21 16:23 DC Sodium Chloride 1,000 ml @ 100 mls/hr Q10H IV 02/08/21 16:30 02/09/21 10:00 DC 02/08/21 16:07 Tramadol HCl (Ultram) 50 mg Q6H PRN PO PAIN 02/03/21 15:55 02/11/21 02:35 Allergies Coded Allergies: Coconut (Verified Allergy, Unknown, hives, 05/02/20) adhesive tape (Verified Allergy, Unknown, 05/02/20) levofloxacin (Verified Allergy, Unknown, hives, 05/02/20) methimazole (Verified Allergy, Unknown, hives/SOB, 05/02/20) tea tree (Verified Allergy, Unknown, hives, 05/02/20) codeine (Verified Adverse Reaction, Mild, N/V -has had it in past with no problems at time, 05/02/20) VS,Fishbone, I+O VS, Fishbone, I+O Laboratory Tests 02/11/21 05:45 Vital Signs Date Time Temp Pulse Resp B/P (MAP) Pulse Ox O2 Delivery O2 Flow Rate FiO2 02/11/21 09:28 90 139/72 02/11/21 06:00 97.8 19 95 Room Air I&O- Last 24 Hours up to 6 AM 02/11/21 06:00 Intake Total 3160 ml Output Total 100 ml Balance 3060 ml GME ATTESTATION GME ATTESTATION My faculty preceptor for this patient encounter was physically present during the encounter and was fully available. All aspects of the patient interview, examination, medical decision making process, and medical care plan development were reviewed and approved by the faculty preceptor. The faculty preceptor is aware and concurs with the plan as stated in the body of this note and will attest to such by his/her cosignature. CECILIO SPENCER MD Feb 11, 2021 10:04
[2021-02-11] MEDS ORDERED: SPIR100T3 PO (12:07)
[2021-02-11] MEDS ORDERED: LASI80TA3 PO (12:07)
[2021-02-11] MEDS: CYANOCOBALAMIN 500 MCG TAB PO SCH (13:49)
[2021-02-11] MEDS: MULTIVITAMINS/MINERALS THERAP 1 TAB PO SCH (13:49)
--- NOTE | 2021-02-11 16:14 | IPNPDOC ---
Text Note Date of Service The patient was seen on 02/11/21. NOTE Subjective: Patient is a 60-year-old female with a PMHx of Grave's disease (s/p thyroidectomy), HTN, CKD3, Vitamin B12 deficiency, IBS, Morbid obesity, GERD who presented to the emergency room with complaints of generalized weakness. Patient was found to have TIANNA on CKD, as well as a UTI. Patient was admitted to the hospital service for further evaluation and treatment. Nephrology was called on consultation. Patient was seen and examined at the bedside. She was seen sitting up in bed, appears to be comfortable, not in any acute distress. Denies any chest pain, shortness breath, palpitations. Has not experience any abdominal pain or diarrhea. Objective: Vitals (See below) General: Lying in bed, no acute distress, comfortable, AAOx3 HEENT: NC, AT CVS: +S1S2 Lungs: Fair air entry b/l, -w/r/r Abdomen: Soft, ND, NT, Obesity Extremities: 2+ edema bilaterally, - Calf tenderness Skin: There is diffuse scabbing excoriation goss throughout her body Imaging: CT head 02/03: No acute findings. Age-related volume loss and white matter changes. CXR 02/03: There is no evidence of acute cardiopulmonary disease. Renal US 02/03: Increased renal cortical echogenicity pattern bilaterally consistent with chronic medical renal disease. Bilateral small renal cysts. No hydronephrosis seen.. Assessment and plan: Acute on chronic deconditioning - likely 2/2 to TIANNA on CKD Stage IV, and UTI - At baseline patient uses a wheelchair, walker and cane - Continue with PT and OT recommending rehabilitation TIANNA on CKD4 - Creatinine is gradually improving - Will avoid nephrotoxic medications - s/p IV fluids - Nephrology on consultation Acute on chronic anemia - No evidence of acute bleed - s/p 2u PRBC Serratia UTI - Patient had reported urinary discomfort at home - Urine culture 02/03: Serratia [place] - Blood cultures 02/03: No growth at 5 days - s/p 7d of antibiotics s/p Hypomagnesemia Skin lesions / [place] - Patient with is a chronic issue for her and has worsened recently as her renal function has worsened - Case was initially discussed with Dr. Pringle of dermatology; will have outpatient follow-up Flashing lights with some headaches at times and dizziness - Holding Plaquenil (re: Ophthalmologic side effects) - Will have outpatient follow up with Rheumatology HTN - BP well controlled - Discussed with Nephrology; Diuretics will be resumed - c/w Diltiazem - Given dose of Lasix today Grave's disease / Hypothyroidism - c/w Levothyroxine Vitamin B12 anemia - c/w supplementation IBS - Remains stable - Follows with Dr. Raman as an outpatient Chronic pain / arthritis - c/w Tramadol PRN GERD - c/w Omeprazole DVT prophylaxis - c/w Heparin Disposition: - Awaiting transition to rehab VS,Fishbone, I+O VS, Fishbone, I+O Laboratory Tests 02/11/21 05:45 Vital Signs Date Time Temp Pulse Resp B/P (MAP) Pulse Ox O2 Delivery O2 Flow Rate FiO2 02/11/21 09:28 90 139/72 02/11/21 06:00 97.8 19 95 Room Air I&O- Last 24 Hours up to 6 AM 02/11/21 06:00 Intake Total 3160 ml Output Total 100 ml Balance 3060 ml TRACIE SINGH MD Feb 11, 2021 16:14
[2021-02-11] MEDS: MONTELUKAST 10 MG TAB PO SCH (20:38)
[2021-02-12] MEDS: LEVOTHYROXINE 100MCG TABLET (0.1MG) PO SCH (05:44)
[2021-02-12] MEDS: hydrOXYzine 25 MG TAB PO PRN ×2 (05:44→14:53)
[2021-02-12 06:00] VITALS: BP 132/71
[2021-02-12 06:18] LABS: HEMATOCRIT 26.2 % (36.0-47.0); HEMOGLOBIN 8.6 g/dl (12.0-15.5); MEAN CORPUSCULAR HEMOGLOBIN 30.3 pg (27.0-33.0); MEAN CORPUSCULAR HGB CONC 32.8 g/dl (32.0-36.5); MEAN CORPUSCULAR VOLUME 92.3 fl (80.0-96.0); PLATELET COUNT, AUTOMATED 305 10^3/uL (150-450); RED BLOOD COUNT 2.84 10^6/uL (4.00-5.40); WHITE BLOOD COUNT 7.4 10^3/uL (4.0-10.0)
[2021-02-12 06:48] LABS: CALCIUM LEVEL 7.6 MG/DL (8.5-10.1); CREATININE FOR GFR 2.09 MG/DL (0.55-1.30); GLOMERULAR FILTRATION RATE 25.8 (>51); PHOSPHORUS LEVEL 2.2 MG/DL (2.5-4.9); POTASSIUM SERUM 4.3 MEQ/L (3.5-5.1)
[2021-02-12] MEDS: OMEPRAZOLE 20 MG CAP PO SCH (08:55)
[2021-02-12] MEDS: FEBUXOSTAT 40 MG TABLET (ULORIC) PO SCH (08:55)
[2021-02-12] MEDS: (RENVELA) SEVELAMER **CARBONate** 800 MG TAB PO SCH ×2 (08:55→13:05)
[2021-02-12] MEDS: CETIRIZINE (ZyrTEC) 10 MG TAB PO SCH (08:55)
[2021-02-12] MEDS: MICONAZOLE TOPICAL 2% CREAM 15GM TOP SCH (08:56)
[2021-02-12] MEDS: HEPARIN SOD (PORCINE) 5000UNITS/ML 1ML VIAL/SYRINGE SQ SCH (08:56)
--- NOTE | 2021-02-12 08:58 | IPNPDOC ---
Subjective General Date/Time Seen The patient was seen on 02/12/21 at 08:54. Subject Chief Complaint/History The patient is a 60-year-old female admitted with a reason for visit of Uti/Weakness. SUBJECTIVE: Mrs. Stoll was seen and examined at the bedside this morning. She was supposed to be discharged to rehab in [place] yesterday but this has been delayed. She is unsure why. She seems somewhat down this morning. She has not noticed any worsening swelling in her legs. Otherwise, she has no complaints today. OBJECTIVE: PHYSICAL EXAMINATION: VITAL SIGNS: see below GENERAL: morbidly obese, laying flat in bed, alert and oriented, in no apparent distress, pleasant and conversant in full sentences. HEENT: PERRL, EOMI, Oral mucous membranes are moist without lesions. NECK: The patient has mildly elevated JVD. No adenopathy is appreciated. No thyromegaly CHEST/LUNGS: Lungs are clear bilaterally without rhonchi, rales, or wheezes. There is no subcutaneous air appreciated. There is no tenderness to the chest wall. HEART:Regular rate and rhythm. No murmurs, rubs, or gallops are appreciated. Distal pulses are 2+. No carotid bruits appreciated. ABDOMEN: obese, Soft, nontender, and nondistended. Bowel sounds are positive. No organomegaly is appreciated. No masses are appreciated. There are no peritoneal signs. There is no Yale sign. EXTREMITIES: No peripheral edema. There is no focal long bone tenderness or deformity. SKIN: There is a generalized rash on bilateral thighs, extending to LLE and abdo men. Several small ulcers appearing non-infectious PSYCHIATRIC: AAO x 3, normal mood/affect NEUROLOGIC: No obvious focal deficits IMAGING: No new imaging LABS: See below ASSESSMENT: This is a 60 YO F with history of CKD 3b, HTN, Graves disease, morbid obesity who presented with generalized weakness found to have TIANNA on CKD and UTI. PLAN: 1. Acute kidney injury on CKD: -Renal function today improved to 2.09 from 2.12 yesterday -Recommend discharge on 100mg Spironolactone daily + 80mg Lasix daily 2. Metabolic acidosis: appears to have resolved -Bicarb today 21, improved with bicarb drip + oral bicarb 3. Anemia of CKD: -S/p iron replacement therapy 02/05 -Hgb today 8.6, stable 4. Hyperphosphatemia of CKD: -Continue Renvela with meals -Phosphorus level 2.2, encourage compliance with medication 5. Rash: -Will look for derm recommendations. Her rash is painful, although dermatomal d istribution less likely Shingles 6. Dizziness/eye symptoms: -Seems to be improving 7. UTI: -S/p 3 days Ceftriaxone, 3 days oral Keflex. Asymptomatic at this time DISPO: Likely discharge today, please have patient follow up in nephrology office outpatient Current Medications Current Medications Current Medications Medications (Trade) Dose Ordered Sig/Javan Route PRN Reason Start Time Stop Time Status Last Admin Dose Admin Acetaminophen (Tylenol Tab) 650 mg Q4H PRN PO PAIN OR FEVER 02/03/21 15:55 02/07/21 00:26 Ceftriaxone Sodium 1 gm/ Dextrose 50 ml @ 100 mls/hr Q24H IV 02/03/21 17:00 02/06/21 10:11 DC 02/05/21 18:40 Cephalexin Monohydrate (Keflex) 500 mg Q12H PO 02/06/21 09:00 02/08/21 21:00 DC 02/08/21 20:20 Cetirizine HCl (ZyrTEC) 10 mg DAILY PO 02/04/21 09:00 02/11/21 09:25 Cyanocobalamin (Vitamin B12) 500 mcg DAILY@1300 PO 02/04/21 13:00 02/11/21 13:49 Diltiazem HCl (Cardizem Cd) 120 mg BID PO 02/03/21 21:00 02/11/21 20:40 Enoxaparin Sodium (Lovenox) 40 mg DAILY SC 02/04/21 09:00 02/03/21 16:09 DC Febuxostat (Uloric) 40 mg DAILY PO 02/04/21 09:00 02/11/21 09:25 Furosemide (Lasix) 80 mg DAILY PO 02/12/21 09:00 Guaifenesin (Mucinex Tab Er) 600 mg BID PRN PO CONGESTION 02/03/21 15:55 Heparin Sodium (Porcine) (Heparin) 5,000 units Q12H SQ 02/03/21 21:00 02/11/21 20:38 Home Med (Med Rec Complete!) ASDIRECTED XX 02/03/21 13:45 02/03/21 13:44 DC Hydroxychloroquine Sulfate (Plaquenil) 200 mg QHS PO 02/03/21 21:00 02/08/21 16:26 DC 02/07/21 20:13 Hydroxyzine HCl (Atarax) 25 mg Q8H PRN PO ITCHING 02/03/21 15:55 02/12/21 05:44 Levothyroxine Sodium (Synthroid) 200 mcg DAILY@0600 PO 02/04/21 06:00 02/12/21 05:44 Miconazole Nitrate (Monistat) Apply under abdomi... BID TOP 02/04/21 09:00 02/11/21 20:38 Montelukast Sodium (Singulair) 10 mg QHS PO 02/03/21 21:00 02/11/21 20:38 Multivitamins (Theragram-M) 1 tab DAILY@1300 PO 02/04/21 13:00 02/11/21 13:49 Omeprazole (PriLOSEC) 40 mg DAILY PO 02/04/21 09:00 02/11/21 09:25 Ondansetron HCl (ZOFRAN INJection) 4 mg Q6HP PRN IV NAUSEA OR VOMITING 02/04/21 13:20 02/07/21 13:44 Sevelamer Carbonate (Renvela) 2,400 mg WM PO 02/03/21 18:00 02/11/21 18:16 Sodium Bicarbonate 150 meq/Sterile Water 1,150 ml @ 100 mls/hr [id number] IV 02/10/21 10:00 02/11/21 07:20 DC 02/10/21 22:04 Sodium Bicarbonate (Sodium Bicarbonate) 325 mg BID PO 02/05/21 10:15 02/06/21 09:32 DC 02/05/21 23:42 Sodium Bicarbonate (Sodium Bicarbonate) 325 mg TID PO 02/06/21 09:00 02/08/21 15:55 DC 02/08/21 08:50 Sodium Bicarbonate (Sodium Bicarbonate) 650 mg BID PRN PO INDIGESTION 02/03/21 15:55 02/05/21 10:14 DC Sodium Bicarbonate (Sodium Bicarbonate) 650 mg TID PO 02/08/21 16:00 02/09/21 10:00 DC 02/09/21 08:02 Sodium Chloride 1,000 ml @ 60 mls/hr [id number] IV 02/04/21 13:00 02/04/21 15:37 DC 02/04/21 13:11 Sodium Chloride 1,000 ml @ 85 mls/hr [id number] IV 02/03/21 15:55 02/03/21 16:23 DC Sodium Chloride 1,000 ml @ 100 mls/hr Q10H IV 02/08/21 16:30 02/09/21 10:00 DC 02/08/21 16:07 Spironolactone (Aldactone) 100 mg DAILY PO 02/12/21 09:00 Tramadol HCl (Ultram) 50 mg Q6H PRN PO PAIN 02/03/21 15:55 02/11/21 02:35 Allergies Coded Allergies: Coconut (Verified Allergy, Unknown, hives, 05/02/20) adhesive tape (Verified Allergy, Unknown, 05/02/20) levofloxacin (Verified Allergy, Unknown, hives, 05/02/20) methimazole (Verified Allergy, Unknown, hives/SOB, 05/02/20) tea tree (Verified Allergy, Unknown, hives, 05/02/20) codeine (Verified Adverse Reaction, Mild, N/V -has had it in past with no problems at time, 05/02/20) VS,Fishbone, I+O VS, Fishbone, I+O Laboratory Tests 02/12/21 05:35 Vital Signs Date Time Temp Pulse Resp B/P (MAP) Pulse Ox O2 Delivery O2 Flow Rate FiO2 02/12/21 06:00 97.9 95 18 132/71 (91) 98 Room Air I&O- Last 24 Hours up to 6 AM 02/12/21 06:00 Intake Total 1960 ml Output Total 900 ml Balance 1060 ml GME ATTESTATION GME ATTESTATION My faculty preceptor for this patient encounter was physically present during the encounter and was fully available. All aspects of the patient interview, examination, medical decision making process, and medical care plan development were reviewed and approved by the faculty preceptor. The faculty preceptor is aware and concurs with the plan as stated in the body of this note and will attest to such by his/her cosignature. CECILIO SPENCER MD Feb 12, 2021 08:58
[2021-02-12 08:59] VITALS: BP 141/72
[2021-02-12] MEDS ORDERED: SPIRONOLACTONE 50 MG TAB PO SCH (09:00)
[2021-02-12] MEDS ORDERED: FUROSEMIDE 80 MG TAB PO SCH (09:00)
--- NOTE | 2021-02-12 12:43 | DS.PDOC ---
Discharge Summary General Date of Admission Feb 03, 2021 at 15:53 Date of Discharge 02/12/2021 Discharge Summary PROCEDURES PERFORMED DURING STAY: [None]. ADMITTING DIAGNOSES / DISCHARGE DIAGNOSES: Acute on chronic deconditioning - likely 2/2 to TIANNA on CKD Stage IV, and UTI TIANNA on CKD4 Acute on chronic anemia Serratia UTI s/p Hypomagnesemia Skin lesions / Scabby Flashing lights with some headaches at times and dizziness HTN Grave's disease / Hypothyroidism Vitamin B12 anemia IBS Chronic pain / arthritis GERD DVT prophylaxis COMPLICATIONS/CHIEF COMPLAINT: Weakness HISTORY OF PRESENT ILLNESS: Patient is a 60-year-old female with a PMHx of Grave's disease (s/p thyroidectomy), HTN, CKD3, Vitamin B12 deficiency, IBS, Morbid obesity, GERD who presented to the emergency room with complaints of generalized weakness. Patient was found to have TIANNA on CKD, as well as a UTI. Patient was admitted to the hospital service for further evaluation and treatment. Nephrology was called on consultation. HOSPITAL COURSE: Acute on chronic deconditioning - likely 2/2 to TIANNA on CKD Stage IV, and UTI - At baseline patient uses a wheelchair, walker and cane - Continue with PT and OT recommending rehabilitation - Patient be transitioned to [facility] for additional therapy - Will have outpatient follow-up with primary care provider, and nephrology within the next 7 days TIANNA on CKD4 - Creatinine is gradually improving - Will avoid nephrotoxic medications - s/p IV fluids; diuretics resumed - Nephrology on consultation Acute on chronic anemia - No evidence of acute bleed - Hg remains stable - s/p 2u PRBC Serratia UTI - Patient had reported urinary discomfort at home - Urine culture 02/03: Serratia Fonticola - Blood cultures 02/03: No growth at 5 days - s/p 7d of antibiotics s/p Hypomagnesemia Skin lesions / Scabby - Patient with is a chronic issue for her and has worsened recently as her renal function has worsened - Case was initially discussed with Dr. Pringle of dermatology; will have outpatient follow-up Flashing lights with some headaches at times and dizziness - Holding Plaquenil (re: Ophthalmologic side effects) - Will have outpatient follow up with Rheumatology HTN - BP well controlled - c/w Diltiazem, Furosemide, Spironolactone Grave's disease / Hypothyroidism - c/w Levothyroxine Vitamin B12 anemia - c/w supplementation IBS - Remains stable - Follows with Dr. aRman as an outpatient Chronic pain / arthritis - c/w Tramadol PRN GERD - c/w Omeprazole DVT prophylaxis - c/w Heparin DISCHARGE MEDICATIONS: Please see below. ALLERGIES: Please see below. PHYSICAL EXAMINATION ON DISCHARGE: Vitals (See below) General: Patient sitting up in bed, appears to be comfortable, not in any acute distress, is awake, alert and oriented to person, place and time HEENT: NC, AT CVS: +S1S2 Lungs: Fair air entry b/l, no appreciable wheezing, rhonchi or rales Abdomen: Soft, distended, nontender, Obesity Extremities: LE still reveal 2+ pitting edema, - Calf tenderness Skin: Diffuse scabbing / excoriation LABORATORY DATA: Please see below. IMAGING: CT head 02/03: No acute findings. Age-related volume loss and white matter changes. CXR 02/03: There is no evidence of acute cardiopulmonary disease. Renal US 02/03: Increased renal cortical echogenicity pattern bilaterally consistent with chronic medical renal disease. Bilateral small renal cysts. No hydronephrosis seen.. ACTIVITY: [As tolerated]. DISCHARGE PLAN: Follow-up with primary care provider, nephrology and dermatology within the next 7 days Remain compliant with treatment plan and medications Return to the ER if you experience any problems DISPOSITION: Cartilage area rehabilitation DISCHARGE CONDITION: [Stable]. TIME SPENT ON DISCHARGE: 35 minutes. Vital Signs/I&Os Vital Signs Date Time Temp Pulse Resp B/P (MAP) Pulse Ox O2 Delivery O2 Flow Rate FiO2 02/12/21 08:59 98 141/72 02/12/21 06:00 97.9 18 98 Room Air I&O- Last 24 Hours up to 6 AM 02/12/21 06:00 Intake Total 1960 ml Output Total 900 ml Balance 1060 ml Laboratory Data Labs 24H Laboratory Tests 2 02/12/21 05:35: Nucleated Red Blood Cells % (auto) 0.0, Anion Gap 10, Glomerular Filtration Rate 25.8L, Calcium Level 7.6L, Phosphorus Level 2.2L 02/12/21 11:46: Coronavirus (COVID-19)(PCR) NEGATIVE CBC/BMP Laboratory Tests 02/12/21 05:35 Microbiology Microbiology 02/03/21 Blood Culture - Final, Complete NO GROWTH AFTER 5 DAYS 02/03/21 Blood Culture - Final, Complete NO GROWTH AFTER 5 DAYS 02/03/21 Urine Culture - Final, Complete Serratia Fonticola Discharge Medications Scheduled Calcium Citrate (Calcium Citrate) 250 Mg Tab, 500 MG PO BID, (Reported) Cetirizine HCl (Cetirizine HCl) 10 Mg Tab, 10 MG PO DAILY, (Reported) Cyanocobalamin (Vitamin B-12) (Vitamin B-12) 500 Mcg Tab, 500 MCG PO DAILY, (Reported) TAKES IN AFTERNOON Diltiazem HCl (Dilt-Xr) 120 Mg Cap.er.deg, 120 MG PO BID, (Reported) Ergocalciferol (Vitamin D2) (Vitamin D2) 50,000 Units Cap, 100,000 UNITS PO 1XWK, (Reported) MONDAYS Febuxostat (Uloric) 40 Mg Tablet, 40 MG PO DAILY, (Reported) Furosemide (Lasix) 80 Mg Tab, 80 MG PO DAILY Levothyroxine Sodium (Synthroid) 200 Mcg Tablet, 200 MCG PO DAILY, (Reported) Montelukast Sodium (Montelukast Sodium) 10 Mg Tab, 10 MG PO QHS, (Reported) Multivitamins (Thera M Plus Tablet) 1 Tab Tab, 1 TAB PO DAILY, (Reported) TAKES IN THE AFTERNOON Omeprazole (Omeprazole) 40 Mg Capsule.dr, 40 MG PO DAILY, (Reported) Sevelamer Carbonate (Sevelamer Carbonate) 800 Mg Tablet, 2,400 MG PO TID, (Reported) Spironolactone (Spironolactone) 100 Mg Tablet, 100 MG PO DAILY Trolamine Salicylate/Aloe Vera (Aspercreme 10% Cream) 10 % Cre, 1 APPLIC TOP QHS, (Reported) APPLY TO KNEES AND FEET Scheduled PRN Azelastine HCl (Azelastine HCl) 0.1% Jewett.pump, 2 SPRAY NARES DAILY PRN for ALLERGIES, (Reported) Guaifenesin (Mucinex) 600 Mg Tab.er.12h, 600 MG PO BID PRN for CONGESTION, (Reported) Hydroxyzine HCl (Hydroxyzine HCl) 25 Mg Tablet, 25 MG PO Q8H PRN for ITCHING, (Reported) Tramadol HCl (Tramadol HCl) 50 Mg Tab, 50 MG PO Q6H PRN for PAIN, (Reported) Allergies Coded Allergies: Coconut (Verified Allergy, Unknown, hives, 05/02/20) adhesive tape (Verified Allergy, Unknown, 05/02/20) levofloxacin (Verified Allergy, Unknown, hives, 05/02/20) methimazole (Verified Allergy, Unknown, hives/SOB, 05/02/20) tea tree (Verified Allergy, Unknown, hives, 05/02/20) codeine (Verified Adverse Reaction, Mild, N/V -has had it in past with no problems at time, 05/02/20) TRACIE SINGH MD Feb 12, 2021 12:43
[2021-02-12] MEDS: CYANOCOBALAMIN 500 MCG TAB PO SCH (13:05)
[2021-02-12] MEDS: MULTIVITAMINS/MINERALS THERAP 1 TAB PO SCH (13:05)
== END 2021-02-12 16:04 | DRG 463 ==
LOC: M ED 11:10 → M ED INP 15:53 → ENRESERV 19:09 → M MSPAV 20:00
PROVIDERS: ADMIT Internal Medicine; ATTEND Internal Medicine
PROC: 30233N1 Transfusion of Nonautologous Red Blood Cells into Peripheral Vein, Percutaneous Approach (ICD-10-PCS; principal; 2021-02-06)
DX: N39.0 Urinary tract infection, site not specified (principal); N18.4 Chronic kidney disease, stage 4 (severe); N17.9 Acute kidney failure, unspecified; D51.9 Vitamin B12 deficiency anemia, unspecified; E87.1 Hypo-osmolality and hyponatremia; N25.81 Secondary hyperparathyroidism of renal origin; E83.42 Hypomagnesemia; E66.01 Morbid (severe) obesity due to excess calories; E83.39 Other disorders of phosphorus metabolism; I12.9 Hypertensive chronic kidney disease with stage 1 through stage 4 chronic kidney disease, or unspecified chronic kidney disease; R42 Dizziness and giddiness; D50.9 Iron deficiency anemia, unspecified; L98.9 Disorder of the skin and subcutaneous tissue, unspecified; K58.9 Irritable bowel syndrome, unspecified; G89.29 Other chronic pain; D63.1 Anemia in chronic kidney disease; K21.9 Gastro-esophageal reflux disease without esophagitis; R53.1 Weakness; J30.2 Other seasonal allergic rhinitis; E89.0 Postprocedural hypothyroidism; Z86.16 Personal history of COVID-19; Z98.84 Bariatric surgery status; Z79.899 Other long term (current) drug therapy; Z88.5 Allergy status to narcotic agent; Z88.1 Allergy status to other antibiotic agents; Z88.8 Allergy status to other drugs, medicaments and biological substances; Z91.018 Allergy to other foods; Z91.048 Other nonmedicinal substance allergy status; Z68.39 Body mass index [BMI] 39.0-39.9, adult; Z99.3 Dependence on wheelchair

== ENCOUNTER → 2021-03-26 | Outpatient (REF) | payer OTHER ==
[~2021-03-26] MED LIST changes: +HYDR-3363 PO; +LEVO2TA PO; +OMEP-221 PO
[2021-03-26 19:41] LABS: HEMATOCRIT 28.2 % (36.0-47.0); HEMOGLOBIN 8.8 g/dl (12.0-15.5); MEAN CORPUSCULAR HEMOGLOBIN 30.1 pg (27.0-33.0); MEAN CORPUSCULAR HGB CONC 31.2 g/dl (32.0-36.5); MEAN CORPUSCULAR VOLUME 96.6 fl (80.0-96.0); PLATELET COUNT, AUTOMATED 431 10^3/uL (150-450); RED BLOOD COUNT 2.92 10^6/uL (4.00-5.40); WHITE BLOOD COUNT 11.3 10^3/uL (4.0-10.0)
[2021-03-26 19:42] LABS: CREATININE FOR GFR 2.74 MG/DL (0.55-1.30); GLOMERULAR FILTRATION RATE 18.9 (>51); POTASSIUM SERUM 4.9 MEQ/L (3.5-5.1); PTH INTACT 18.5 PG/ML (18.5-88.0)
[2021-03-26 19:43] LABS: ALBUMIN 2.5 GM/DL (3.2-5.2); CALCIUM LEVEL 8.5 MG/DL (8.5-10.1); PHOSPHORUS LEVEL 5.4 MG/DL (2.5-4.9); URIC ACID 3.7 MG/DL (2.6-6.0)
== END ==
LOC: M LAB REF 19:30
PROVIDERS: ATTEND Internal Medicine Nephrology
DX: N39.0 Urinary tract infection, site not specified (principal)

== ENCOUNTER → 2021-03-26 | Outpatient (REF) | payer OTHER ==
[2021-03-26 14:32] LABS: FREE T4 1.08 NG/DL (0.76-1.46); THYROID STIMULATING HORMONE 2.08 uIU/ML (0.358-3.740)
== END ==
LOC: M SHH 13:09
PROVIDERS: ATTEND Physician Assistant Medical
DX: E03.9 Hypothyroidism, unspecified (principal)

== ENCOUNTER → 2021-04-21 | Outpatient (CLI) | payer OTHER ==
[~2021-04-21] MED LIST changes: +ERGO500029 PO; -VITA50005 PO
[2021-04-21 16:01] LABS: BASO # 0.1 10^3/uL (0.0-0.2); BASO % 0.6 % (0.0-1.0); EOS # 0.4 10^3/uL (0.0-0.5); EOS % 2.5 % (0.0-3.0); HEMATOCRIT 32.2 % (36.0-47.0); HEMOGLOBIN 9.8 g/dl (12.0-15.5); LYMPH # 1.7 10^3/uL (1.5-5.0); LYMPH % 11.8 % (24.0-44.0); MEAN CORPUSCULAR HEMOGLOBIN 28.6 pg (27.0-33.0); MEAN CORPUSCULAR HGB CONC 30.4 g/dl (32.0-36.5); MEAN CORPUSCULAR VOLUME 93.9 fl (80.0-96.0); MONO # 0.8 10^3/uL (0.0-0.8); MONO % 5.3 % (2.0-8.0); NEUTROPHILS # 11.5 10^3/uL (1.5-8.5); NEUTROPHILS % 77.7 % (36.0-66.0); PLATELET COUNT, AUTOMATED 682 10^3/uL (150-450); RED BLOOD COUNT 3.43 10^6/uL (4.00-5.40); WHITE BLOOD COUNT 14.8 10^3/uL (4.0-10.0)
[2021-04-21 16:23] LABS: ALT/SGPT 24 U/L (12-78); BILIRUBIN,TOTAL 0.4 MG/DL (0.2-1.0); BLOOD UREA NITROGEN 107 MG/DL (7-18); CALCIUM LEVEL 7.8 MG/DL (8.5-10.1); CARBON DIOXIDE LEVEL 10 MEQ/L (21-32); CHLORIDE LEVEL 108 MEQ/L (98-107); GLOMERULAR FILTRATION RATE 13.8 (>51); GLUCOSE, FASTING 223 MG/DL (70-100); POTASSIUM SERUM 5.9 MEQ/L (3.5-5.1); RHEUMATOID FACTOR QUANT < 10.0 IU/ML (<15.0); SODIUM LEVEL 131 MEQ/L (136-145); TOTAL PROTEIN 6.4 GM/DL (6.4-8.2)
[2021-04-21 17:01] LABS: ERYTHROCYTE SEDIMENTATION RATE 124 mm/hr (0-30)
[2021-04-23 10:08] LABS: ANTINUCLEAR ANTIBODIES DIRECT Negative (Negative)
== END ==
LOC: M WUC 13:22
PROVIDERS: ATTEND Psychiatry & Neurology Neurology
DX: R51.9 Headache, unspecified (principal)

== ENCOUNTER 2021-04-26 20:30 | Inpatient (IN) | payer BC, OTHER ==
[~2021-04-26] VITALS: Ht 167.6 cm; Wt 111.4 kg
[2021-04-26 21:01] LABS: HEMATOCRIT 26.1 % (36.0-47.0); MEAN CORPUSCULAR HEMOGLOBIN 29.1 pg (27.0-33.0); MEAN CORPUSCULAR HGB CONC 30.7 g/dl (32.0-36.5); MEAN CORPUSCULAR VOLUME 94.9 fl (80.0-96.0); PLATELET COUNT, AUTOMATED 577 10^3/uL (150-450); RED BLOOD COUNT 2.75 10^6/uL (4.00-5.40)
[2021-04-26 21:13] LABS: WHITE BLOOD COUNT 27.9 10^3/uL (4.0-10.0)
[2021-04-26 21:26] LABS: LYMPHOCYTES 3 % (16-44); METAMYELOCYTES 2 % (0-0); MONOCYTES 4 % (0-5); NEUTROPHILS 87 % (28-66); PLATELET ESTIMATE INCREASED (NORMAL)
[2021-04-26 21:28] LABS: HYPOCHROMASIA 1+; POLYCHROMASIA 1+
[2021-04-26 21:42] LABS: ACETAMINOPHEN LEVEL 3.1 UG/ML (10.0-30.0); ALBUMIN 2.8 GM/DL (3.2-5.2); ALT/SGPT 22 U/L (12-78); BILIRUBIN,DIRECT 0.2 MG/DL (0.0-0.2); BILIRUBIN,TOTAL 0.4 MG/DL (0.2-1.0); BLOOD UREA NITROGEN 133 MG/DL (7-18); CALCIUM LEVEL 6.4 MG/DL (8.5-10.1); CARBON DIOXIDE LEVEL 4 MEQ/L (21-32); CHLORIDE LEVEL 103 MEQ/L (98-107); CK-MB VALUE MASS 2.3 NG/ML (<3.6); CPK CREATINE PHOSPHOKINASE 35 U/L (26-192); CREATININE FOR GFR 4.81 MG/DL (0.55-1.30); ETHYL ALCOHOL (ETHANOL) < 0.003 % (0.000-0.010); GLOMERULAR FILTRATION RATE 9.9 (>51); GLUCOSE, FASTING 147 MG/DL (70-100); MAGNESIUM LEVEL 1.5 MG/DL (1.8-2.4); MB/CK RELATIVE INDEX 6.57 (< OR =4); POTASSIUM SERUM 5.6 MEQ/L (3.5-5.1); SALICYLATE LEVEL 3.7 MG/DL (5.0-30.0); SODIUM LEVEL 128 MEQ/L (136-145); TOTAL PROTEIN 5.8 GM/DL (6.4-8.2); TROPONIN I < 0.02 NG/ML (< 0.10)
[2021-04-26] MEDS ORDERED: NORT10CA2 PO (21:54)
--- NOTE | 2021-04-26 22:01 | REPVR ---
PROCEDURE INFORMATION: Exam: CT Head Without Contrast Exam date and time: 04/26/2021 9:07 PM Age: 60 years old Clinical indication: Altered mental status/memory loss TECHNIQUE: Imaging protocol: Computed tomography of the head without contrast. Radiation optimization: All CT scans at this facility use at least one of these dose optimization techniques: automated exposure control; mA and/or kV adjustment per patient size (includes targeted exams where dose is matched to clinical indication); or iterative reconstruction. COMPARISON: CT Head without contrast 02/03/2021 1:00 PM FINDINGS: Brain: Small chronic left caudate head lacunar infarct. Mild scattered nonspecific hypodensities of the periventricular and deep subcortical white matter, most likely secondary to chronic small vessel ischemic change. No intracranial hemorrhage or extra-axial fluid collection. No evidence of mass effect or midline shift. Sinclair-white matter differentiation is normal. Cerebral ventricles: No ventriculomegaly. Paranasal sinuses: Visualized sinuses are unremarkable. No fluid levels. Mastoid air cells: Unremarkable. Bones/joints: No acute osseus lesion or fracture. Soft tissues: Unremarkable. IMPRESSION: 1. No acute intracranial pathology. 2. Other chronic findings, as above. Electronically signed by: Toñito Garcia On 04/26/2021 22:01:23 PM
--- NOTE | 2021-04-26 22:04 | REPVR ---
PROCEDURE INFORMATION: Exam: CT Abdomen And Pelvis Without Contrast Exam date and time: 04/26/2021 9:07 PM Age: 60 years old Clinical indication: Abdominal pain; Generalized; Additional info: Gen abd pain TECHNIQUE: Imaging protocol: Computed tomography of the abdomen and pelvis without contrast. Radiation optimization: All CT scans at this facility use at least one of these dose optimization techniques: automated exposure control; mA and/or kV adjustment per patient size (includes targeted exams where dose is matched to clinical indication); or iterative reconstruction. COMPARISON: RENAL US 02/05/2021 4:12 PM FINDINGS: Liver: Unremarkable. No mass. Gallbladder and bile ducts: There has been prior cholecystectomy. No biliary duct dilation. Pancreas: Normal. No ductal dilation. Spleen: Normal. No splenomegaly. Adrenal glands: Normal. No mass. Kidneys and ureters: Unremarkable. No calculi or hydronephrosis. Stomach and bowel: Changes of prior bariatric surgery are noted. The small bowel and colon are unremarkable. No bowel obstruction. Appendix: No evidence of appendicitis. Intraperitoneal space: No free air. No significant fluid collection. Vasculature: Unremarkable. No abdominal aortic aneurysm. Lymph nodes: Unremarkable. No enlarged lymph nodes. Urinary bladder: Unremarkable as visualized. Reproductive: Unremarkable as visualized. Bones/joints: There are advanced degenerative changes in the spine and pelvis. Soft tissues: Unremarkable. IMPRESSION: No acute findings. Electronically signed by: Judah Hauser On 04/26/2021 22:04:04 PM
--- NOTE | 2021-04-26 22:05 | REPVR ---
PROCEDURE INFORMATION: Exam: XR Chest Exam date and time: 04/26/2021 9:26 PM Age: 60 years old Clinical indication: Other: Altered mental status TECHNIQUE: Imaging protocol: XR of the chest. Views: 1 view. COMPARISON: MO Chest, 1 view 02/03/2021 1:05 PM FINDINGS: Lungs: Clear. No consolidation. Pleural spaces: No pleural effusion. No pneumothorax. Heart/Mediastinum: Mild cardiomegaly. Bones/joints: Right shoulder arthroplasty in expected location. 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 IMPRESSION: No acute findings. Electronically signed by: Judah Hauser On 04/26/2021 22:04:58 PM
[2021-04-26] MEDS ORDERED: fentaNYL 100 MCG/2 ML INJECTION (J3010) IV ONE (22:10)
[2021-04-26 22:32] LABS: ABG BASE EXCESS -29.2 (-2.0-2.0); ABG HCO3 1.9 MEQ/L (22.0-26.0); ABG O2 SATURATION 91.5 % (95.0-99.0); ABG PARTIAL PRESSURE O2 182.7 mmHg (75.0-100.0); ABG STANDARD HCO3 3.2 MEQ/L (22.0-26.0); ABG TOTAL CO2 2.2 MEQ/L (22.0-29.0)
[2021-04-26 22:34] LABS: ABG pH (ARTERIAL) 6.873 UNITS (7.350-7.450)
[2021-04-26 22:35] LABS: ABG PARTIAL PRESSURE CO2 10.3 mmHg (35.0-45.0)
[2021-04-26] MEDS ORDERED: SODIUM BICARBONATE 8.4% INJ 50 ML SYRINGE IV STA (22:48)
[2021-04-26] MEDS ORDERED: NS 1,000 ML IV ONE ×2 (22:50→23:20)
[2021-04-26] MEDS ORDERED: AMPICILLIN SOD/SULBACTAM SOD 3 GM in D5W MINI-BAG PLUS 100 ML IV ONE (23:15)
[2021-04-26] MEDS ORDERED: MED REC COMMENT (23:34)
[2021-04-26 23:36] LABS: ACETONE/KETONE 25.76 MG/DL (<2.81)
--- NOTE | 2021-04-26 23:50 | HPEPDOC ---
[facility] Medical History & Physical Date of Admission Apr 26, 2021 Date of Service: Apr 26, 2021 History and Physical CHIEF COMPLAINT: Altered mentation HISTORY OF PRESENT ILLNESS: History was obtained from her Girish who was present at bedside as well as Dr. Lai emergency department physician. Patient's mentation waxes and wanes and I'm unable to elicit history from her. Mrs. Stoll is a 60-year-old female who presented to the emergency department at the insistence of her due to several days of progressively worsening mentation at home. She was very resistant to come to the hospital symptoms star katie around Wednesday but today tells me she was completely confused and he finally was able to bring her in. He tells me she's been progressively appearing weaker home but is very stubborn and doesn't like to come to hospital. is unable to provide me with further history however he did note that he noticed her urine output has been decreased over the past several days he doesn't think she may much urine yesterday. In the emergency department patient was seen by Dr. Lai her blood pressure dropped despite IV fluids necessitating placement of a central line in the emergency department and starting Levofed. Patient was found to have severe metabolic acidosis in the setting of renal failure and becoming anuric. Nephrology was consulted. Dr Coronado saw the patient in the ED and recommended continuous dialysis to be started. Patient was very confused although she had brief periods of time when she appeared less confused and was able to answer basic questions she recognizes her and new she was at the hospital. Patient does not make enough urine in the Amaral to send for urinalysis. While lucid I was able to have a brief course of care discussion with the patient and her at bedside and she expresses me she wishes to be full code. 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 Cholecystectomy Oophorectomy Thyroidectomy Umbilical hernia repair Gastric bypass surgery SOCIAL HISTORY: Unable to obtain due to patient's mentation. Chart review reveals she does not smoke use tobacco or use illicit drugs. FAMILY HISTORY: Unable to obtain due to patient's mentation ALLERGIES: Please see below. REVIEW OF SYSTEMS: Patient unable to focus long enough to answer review of systems questions her mentation waxes and wanes HOME MEDICATIONS: Please see below. PHYSICAL EXAMINATION: Constitutional: Morbidly obese female appears very ill, weak appearing, confused only briefly lucid ENT: Sclera is nonicteric Respiratory: Lungs diminished breath sounds bilaterally. Cardiovascular: Regular rhythm rate 55 and monitor. Gastrointestinal: Abdomen is soft, non distended, non tender, BS present. Musculoskeletal: Trace pedal edema. Neurologic: Unable to assess Mental Status: Fluctuating mentation LABORATORY DATA: See below. IMAGING: See chart MICROBIOLOGY: Please see below. ASSESSMENT/PLAN 60-year-old female with end-stage renal disease who presents at the insistence of her due to progressively worsening altered mentation found to be acutely ill on presentation with septic shock, acute encephalopathy, anuric uric renal failure with increased anion gap metabolic acidosis. Patient admitted to the ICU for further workup and management. # Increased anion gap Metabolic acidosis in the setting of Acute on chronic renal failure: Dr. Vasquez nephrology was consulted and appreciate his recommendations he was able to see the patient in the ED at bedside patient will be admitted to the ICU and continuous dialysis will be started. Patient is an anuric currently. Amaral monitor urine output. # Shock: likely septic shock. Lactic acid surprisingly normal 0.7. Recheck lactate in the morning. Received fluid boluses in the ED persistently hypotensive central line placed in the ED patient started on pressors for blood pressure support. Empirically started on IV vancomycin and Zosyn. IV fluids started, reassess fluids tomorrow. Followup BCx. Amaral in place, currently anuri c. Not enough urine for UA. Leukocytosis 27.9 on admission. Source of possible infection not yet known. Follow-up pro-calcitonin. CT abdomen/pelvis and chest x-ray without acute findings. # Hyperammonia: In setting of RIGGINS cirrhosis. Ammonia elevated 96 on admission. Start lactulose twice daily to achieve 3-4 loose bowel movements daily. Recheck ammonia AM # Acute metabolic encephalopathy: Multifactorial due to acute illness with metabolic acidosis, septic shock, hyperammonia, hypotension. Patient is severely ill. Guarded prognosis. # Bradycardia: Heart rate in the 40s/50s received 1 dose of atropine. Continue cardiac monitoring. Hold home medications which can cause bradycardia. # Hx Hypertension: Septic shock currently hypotensive on pressor support. # Hypothyroidism: Takes 200 mcg levothyroxine daily orally this will be switched to 100 mcg IV while NPO. # GERD: IV Protonix # All nonessential home medications for chronic medical problems have been held and can be reviewed again as appropriate lonce patient is better tolerating by mouth and blood pressure is improved. # DVT prophylaxis: Heparin Goals of care discussed with the patient and at bedside while was worrell siently well enough to tell me she wishes to be full code. is Jose Angel León [phone] Critical care time 45 minutes A Yousef Hospitalist Vital Signs Vital Signs Date Time Temp Pulse Resp B/P (MAP) Pulse Ox O2 Delivery O2 Flow Rate FiO2 04/26/21 23:03 51 20 133/81 (98) 95 Room Air 04/26/21 20:34 97.7 Laboratory Data Labs 24H Laboratory Tests 2 04/26/21 20:48: 04/26/21 20:49: Immature Granulocyte % (Auto) , Neutrophils (%) (Auto) , Nucleated Red Blood Cells % (auto) 0.5H, Neutrophils 87H, Band Neutrophils 4, Lymphocytes (Manual) 3L, Monocytes (Manual) 4, Metamyelocytes 2H, Polychromasia 1+, Hypochromasia 1+, Platelet Estimate INCREASED, Anion Gap 21H, Glomerular Filtration Rate 9.9L, Lactic Acid Level 0.7, Calcium Level 6.4L, Magnesium Level 1.5L, Total Bilirubin 0.4, Direct Bilirubin 0.2, Aspartate Amino Transf (AST/SGOT) 20, Alanine Aminotransferase (ALT/SGPT) 22, Alkaline Phosphatase 274H, Ammonia 96H, Total Creatine Kinase 35, Creatine Kinase MB 2.3, Creatine Kinase MB Relative Index 6.57H, Troponin I < 0.02, Total Protein 5.8L, Albumin 2.8L, Albumin/Globulin R atio 0.9L, Thyroid Stimulating Hormone (TSH) 3.770H, Salicylates Level 3.7L, Acetaminophen Level 3.1L, Ethyl Alcohol Level < 0.003, B-Hydroxybutyrate 25.76H 04/26/21 22:15: Blood Gas Bicarbonate Standard 3.2L, Arterial Blood pH 6.873*L, Arterial Blood Partial Pressure CO2 10.3*L, Arterial Blood Partial Pressure O2 182.7H, Arterial Blood Total CO2 2.2L, Arterial Blood HCO3 1.9L, Arterial Blood Base Excess - 29.2L, Arterial Blood Oxygen Saturation 91.5L 04/26/21 22:21: POC Lactate (Misc Panel) 1.17 04/26/21 23:34: CBC/BMP Laboratory Tests 04/26/21 20:49 Microbiology Microbiology 04/26/21 Blood Culture, Received Pending 04/26/21 Blood Culture, Received Pending Home Medications Scheduled Calcium Citrate (Calcium Citrate) 250 Mg Tab, 500 MG PO BID Cetirizine HCl (Cetirizine HCl) 10 Mg Tab, 10 MG PO DAILY Cyanocobalamin (Vitamin B-12) (Vitamin B-12) 500 Mcg Tab, 500 MCG PO DAILY TAKES IN AFTERNOON Diltiazem HCl (Dilt-Xr) 120 Mg Cap.er.deg, 120 MG PO BID Ergocalciferol (Vitamin D2) (Vitamin D2) 50,000 Units Cap, 100,000 UNITS PO 1XWK MONDAYS Febuxostat (Uloric) 40 Mg Tablet, 40 MG PO DAILY Furosemide (Lasix) 80 Mg Tab, 80 MG PO DAILY Levothyroxine Sodium (Synthroid) 200 Mcg Tablet, 200 MCG PO DAILY Montelukast Sodium (Montelukast Sodium) 10 Mg Tab, 10 MG PO QHS Multivitamins (Thera M Plus Tablet) 1 Tab Tab, 1 TAB PO DAILY TAKES IN THE AFTERNOON Nortriptyline HCl (Nortriptyline HCl) 10 Mg Capsule, 10 MG PO QHS Omeprazole (Omeprazole) 40 Mg Capsule.dr, 40 MG PO DAILY Sevelamer Carbonate (Sevelamer Carbonate) 800 Mg Tablet, 1,600 MG PO TID Spironolactone (Spironolactone) 100 Mg Tablet, 100 MG PO DAILY Trolamine Salicylate/Aloe Vera (Aspercreme 10% Cream) 10 % Cre, 1 APPLIC TOP QHS APPLY TO KNEES AND FEET Scheduled PRN Azelastine HCl (Azelastine HCl) 0.1% [place].pump, 2 SPRAY NARES DAILY PRN for ALLERGIES Guaifenesin (Mucinex) 600 Mg Tab.er.12h, 600 MG PO BID PRN for CONGESTION Hydroxyzine HCl (Hydroxyzine HCl) 25 Mg Tablet, 25 MG PO Q6H PRN for ITCHING Tramadol HCl (Tramadol HCl) 50 Mg Tab, 50 MG PO Q6H PRN for PAIN Miscellaneous Medications [Med Rec Comment] STATES HE THINKS PT ONLY TOOK HYDROXYZINE TODAY Allergies Coded Allergies: Coconut (Verified Allergy, Unknown, hives, 05/02/20) adhesive tape (Verified Allergy, Unknown, 05/02/20) levofloxacin (Verified Allergy, Unknown, hives, 05/02/20) methimazole (Verified Allergy, Unknown, hives/SOB, 05/02/20) tea tree (Verified Allergy, Unknown, hives, 05/02/20) codeine (Verified Adverse Reaction, Mild, N/V -has had it in past with no problems at time, 05/02/20) A-FIB/CHADSVASC A-FIB History Current/History of A-Fib/PAF?: No CHANTALSEPAMELA Iniguez MD Apr 26, 2021 23:50
[2021-04-27] VITALS (95 sets, daily range): BP systolic 81–142; BP diastolic 41–68
[2021-04-27] MEDS: NOREPINEPHRINE BITARTRATE 8 MG in D5W 500 ML IV SCH ×3 (00:20→23:00)
[2021-04-27 00:25] LABS: RSV AMPLIFICATION NEGATIVE (NEGATIVE)
[2021-04-27] MEDS ORDERED: VANCOMYCIN HCL 1,000 MG, VIAL MATE ADAPTER 1 EACH in NS 250 ML IV ONE (00:25)
[2021-04-27 00:29] LABS: FREE T4 0.65 NG/DL (0.76-1.46)
[2021-04-27] MEDS ORDERED: NOREPINEPHRINE BITARTRATE 8 MG in D5W 492 ML IV SCH (00:30)
[2021-04-27] MEDS ORDERED: NS 1,000 ML IV SCH (00:45)
[2021-04-27] MEDS ORDERED: ATROPINE SULF 1MG/10ML SYRINGE (J0461) As Ordered ONE (00:47)
[2021-04-27] MEDS ORDERED: ATROPINE SULF 1MG/10ML SYRINGE (J0461) IV ONE (01:05)
[2021-04-27] MEDS: LACTULOSE 20 GM/30 ML SYRUP UD PO SCH ×4 (01:09→20:23)
[2021-04-27] MEDS: MAG SULF 1GM/100ML (MAG RUN) 1 GM in IV 1 EA IV SCH ×2 (01:18→03:29)
[2021-04-27] MEDS ORDERED: HEPARIN SOD (PORCINE) 5000UNITS/ML 1ML VIAL/SYRINGE As Ordered ONE (01:24)
[2021-04-27] MEDS ORDERED: LIDOCAINE 2% MDV 20ML VIAL As Ordered ONE (01:32)
[2021-04-27] MEDS ORDERED: VANCOMYCIN HCL 1,000 MG, VIAL MATE ADAPTER 1 EACH in NS 250 ML IV SCH (02:00)
[2021-04-27] MEDS ORDERED: guaiFENesin ER 600 MG TAB PO PRN (02:10)
--- NOTE | 2021-04-27 02:29 | REPVR ---
PROCEDURE INFORMATION: Exam: XR Chest Exam date and time: 04/27/2021 2:17 AM Age: 60 years old Clinical indication: Other: Central line placement TECHNIQUE: Imaging protocol: XR of the chest. Views: 1 view. COMPARISON: CR PORTABLE CHEST X-RAY 04/26/2021 9:01 PM FINDINGS: Tubes, catheters and devices: Right IJ central venous line projects at the atrial caval junction. Lungs: Clear. No consolidation. Pleural spaces: No pleural effusion. No pneumothorax. Heart/Mediastinum: Mild cardiomegaly. Bones/joints: Right shoulder arthroplasty in expected location. 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 IMPRESSION: Right IJ central venous line projects at the atrial caval junction. Electronically signed by: Judah Hauser On 04/27/2021 02:28:44 AM
[2021-04-27 02:54] LABS: HEMATOCRIT 24.6 % (36.0-47.0); HEMOGLOBIN 7.3 g/dl (12.0-15.5); MEAN CORPUSCULAR HEMOGLOBIN 28.9 pg (27.0-33.0); MEAN CORPUSCULAR HGB CONC 29.7 g/dl (32.0-36.5); MEAN CORPUSCULAR VOLUME 97.2 fl (80.0-96.0); PLATELET COUNT, AUTOMATED 614 10^3/uL (150-450); RED BLOOD COUNT 2.53 10^6/uL (4.00-5.40); WHITE BLOOD COUNT 27.9 10^3/uL (4.0-10.0)
[2021-04-27 03:18] LABS: CALCIUM LEVEL 6.2 MG/DL (8.5-10.1); CREATININE FOR GFR 4.73 MG/DL (0.55-1.30); GLOMERULAR FILTRATION RATE 10.1 (>51); POTASSIUM SERUM 5.4 MEQ/L (3.5-5.1)
[2021-04-27 03:19] LABS: MAGNESIUM LEVEL 1.7 MG/DL (1.8-2.4)
[2021-04-27 04:17] LABS: ABG BASE EXCESS -28.6 (-2.0-2.0); ABG HCO3 2.5 MEQ/L (22.0-26.0); ABG PARTIAL PRESSURE O2 150.7 mmHg (75.0-100.0); ABG STANDARD HCO3 3.4 MEQ/L (22.0-26.0); ABG pH (ARTERIAL) 6.861 UNITS (7.350-7.450)
[2021-04-27 04:18] LABS: ABG PARTIAL PRESSURE CO2 14.5 mmHg (35.0-45.0)
[2021-04-27] MEDS: CALCIUM GLUCONATE 1,000 MG, VIAL MATE ADAPTER 1 EACH in NS 100 ML IV SCH ×6 (04:18→21:08)
[2021-04-27] MEDS: VANCOMYCIN HCL 1,000 MG, VIAL MATE ADAPTER 1 EACH in NS 250 ML IV SCH ×2 (05:43→17:37)
[2021-04-27 06:04] LABS: HEMATOCRIT 24.9 % (36.0-47.0); HEMOGLOBIN 7.5 g/dl (12.0-15.5); MEAN CORPUSCULAR HEMOGLOBIN 28.7 pg (27.0-33.0); MEAN CORPUSCULAR HGB CONC 30.1 g/dl (32.0-36.5); MEAN CORPUSCULAR VOLUME 95.4 fl (80.0-96.0); PLATELET COUNT, AUTOMATED 600 10^3/uL (150-450); RED BLOOD COUNT 2.61 10^6/uL (4.00-5.40)
--- NOTE | 2021-04-27 06:06 | ECGEPIP ---
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
[2021-04-27 06:07] LABS: WHITE BLOOD COUNT 31.2 10^3/uL (4.0-10.0)
[2021-04-27 06:27] LABS: ALBUMIN 2.5 GM/DL (3.2-5.2); BILIRUBIN,TOTAL 0.5 MG/DL (0.2-1.0); CALCIUM LEVEL 6.8 MG/DL (8.5-10.1); CREATININE FOR GFR 4.08 MG/DL (0.55-1.30); GLOMERULAR FILTRATION RATE 11.9 (>51); POTASSIUM SERUM 4.7 MEQ/L (3.5-5.1); TOTAL PROTEIN 5.6 GM/DL (6.4-8.2)
[2021-04-27] MEDS: PIPERACILLIN/TAZOBACTAM SOD 2.25 GM in D5W MINI-BAG PLUS 50 ML IV SCH ×3 (06:56→17:37)
[2021-04-27] MEDS: CALCIUM GLUCONATE 1,000 MG in NS 100 ML IV SCH ×2 (07:45→08:32)
[2021-04-27] MEDS: HEPARIN SOD (PORCINE) 5000UNITS/ML 1ML VIAL/SYRINGE SC SCH ×2 (08:33→21:09)
[2021-04-27] MEDS: DOCUSATE SODIUM 100MG CAPSULE PO SCH ×3 (08:33→20:23)
[2021-04-27] MEDS: LEVOTHYROXINE 100MCG (0.1MG) VIAL IV SCH (08:33)
--- NOTE | 2021-04-27 08:58 | RO ---
OPERATIVE NOTE DATE OF OPERATION: 04/27/2021 PREPROCEDURE DIAGNOSIS: Acute anuric renal failure, severe metabolic acidosis and septic shock. POSTPROCEDURE DIAGNOSIS: Acute anuric renal failure, hyperkalemia, severe metabolic acidosis. PROCEDURE: Placement of right internal jugular central venous dialysis catheter. SURGEON: Yayo Vasquez MD COCOA BEAN ROASTER HELPER: ANESTHESIA: 2% Lidocaine local CONSENT: Informed written consent was obtained from the patient's . All the risks of the procedure were explained and consent was placed in the chart. INDICATIONS FOR PROCEDURE: Acute oliguric renal failure, severe metabolic acidosis, septic shock. DESCRIPTION OF PROCEDURE: A time out was performed confirming the patient and location of the procedure. The patient was prepped and draped in the usual sterile fashion. A 14-Yoruba dual lumen catheter was placed in the right internal jugular vein via Seldinger technique. Venous blood was aspirated from each port and the line was flushed with saline. Later on the lumens were flushed with Heparin, one lumen with 1 mL and the other one with 1.2 mL Heparin solution. Line was sutured in place. COMPLICATIONS OF THE PROCEDURE: None. ESTIMATED BLOOD LOSS: 5 mL. DISPOSITION: The patient tolerated the procedure well. Postprocedure stat portable chest x-ray was done. Placement of the catheter was confirmed in superior vena cava. Catheter OK to use for CVVHDF. MTDD
--- NOTE | 2021-04-27 09:04 | CR ---
CONSULTATION DATE: 04/26/2021 REQUESTING PHYSICIAN: Jason Lai MD in the emergency room and Jesse Espinal MD, the admitting physician. CHIEF COMPLAINT: The patient was brought to the emergency room because of worsening confusion, altered mental status and shortness of breath. HISTORY OF PRESENT ILLNESS: Note: History was obtained from patient's , Ramiro Stoll, who was present at the bedside and from the medical chart. The patient is unable to provide any reliable history. Ashanti Stoll is a 60-year-old female with past medical history of chronic kidney disease stage 4. Reported GFR as per is around 15 according to latest clinic visit with Dr. Glass in nephrology clinic. He was progressively getting worse at home with altered mental status, confusion, progressive shortness of breath, decreased oral intake. She was unable to walk around. She was refusing to seek medical help. However, finally pushed her to come to the emergency room. also noted that the patient's urine output was decreasing. In the emergency room, the patient was found to be septic and hypotensive. Her blood pressure dropped to 70s in the ER despite multiple fluid boluses. She was getting bradycardic. She got a triple lumen catheter placed in the left groin and after IV fluid boluses, she was started on IV antibiotics and Levophed infusion. She was brought up to the ICU. I saw and evaluated the patient in the emergency room and again in the ICU as well. I discussed the patient with Dr. Jason Lai, with patient's and with the admitting physician, Dr. Jesse Espinal. As soon as she came to the ICU, stat bedside quick echocardiogram was done by the certified composites technician and no pericardial effusion was found. After that, I placed the right IJ dialysis catheter. Procedure note is separately dictated. PAST MEDICAL HISTORY: 1. Chronic end-stage renal disease , stage 4 or probably early stage 5. Reported GFR by is around 14-15. Creatinine in our record from March, is 2.7. Creatinine on arrival was 4.8 today. 2. History of Graves disease and hypothyroidism. 3. Hypertension. 4. Arthritis. 5. Morbid obesity. 6. Irritable bowel syndrome. 7. Gastroesophageal reflux disease. PAST SURGICAL HISTORY: 1. Status post cholecystectomy. 2. . 3. Oophorectomy. 4. Thyroidectomy. 5. Umbilical hernia repair. 6. Gastric bypass surgery in the past. ALLERGIES: SHE IS ALLERGIC TO COCONUT, TAPES, CODEINE, LEVAQUIN, METHIMAZOLE AND for remainder see med records. FAMILY HISTORY: I was unable to obtain family history. SOCIAL HISTORY: As reported in the chart, there is no history of smoking or illicit drug abuse. REVIEW OF SYSTEMS: I was unable to do any review of systems with the patient. He was very confused, obtunded, restless and at times, agitated in moderate respiratory distress. PHYSICAL EXAMINATION: GENERAL: The patient is awake but restless, falls back asleep quite easily. VITAL SIGNS: Temperature is 94.5 degrees rectal. Blood pressure is 103/68 with Levophed. Pulse is 55, respiratory rate of 18, saturating 94% on room air. HEAD AND NECK: Pupils are equally round and reactive to light. Mucous membranes are dry. Neck is supple. No significant JVD is noted. CARDIOVASCULAR: S1, S2, bradycardia was noted. EXTREMITIES: No significant edema of the lower extremities. RESPIRATORY: Mildly decreased breath sounds at the bases. No active rales or rhonchi. ABDOMEN: Soft, obese, positive bowel sounds. Tenderness to deep palpation in the lower quadrants. No organomegaly is noted. GENITOURINARY: She has an indwelling Amaral catheter. A small amount of urine in the bag is noted. MUSCULOSKELETAL: No clubbing or cyanosis. HTML DEVELOPER: The patient is confused, obtunded, follows a few commands, answers a few questions. SKIN: The patient has multiple excoriations on the skin and a poor status because of her kidney disease. LYMPH NODES: No significant cervical, axillary or inguinal lymphadenopathy. LABORATORY DATA: Lab review: CBC showed a WBC of 27.9, hemoglobin is 8, platelets of 577. ABG done in the emergency room showed a pH of 6.8, pCO2 of 10.3, pO2 182. Bicarb is 109. O2 sat is 91.5%. BMP showed sodium 128, potassium 5.6, chloride 103, bicarb 4, BUN 133. Creatinine is 4.8. Lactic acid 0.7, calcium 6.4. Magnesium is 1.5. Alk phos is 274. Ammonia is 96. Albumin 2.8. TSH 3.7. Free T4 is 0.65. Toxicology: Salicylate level, Tylenol level and ethyl alcohol level is negative. was 25.7. Beta hydroxybutyrate was 25.7. IMAGING: A chest x-ray was done which did not show any acute pathology. CT scan of the head was done which showed no acute intracranial pathology. A CT of the abdomen and pelvis was also done which showed no acute findings. HOME MEDICATIONS: The patient's home medications were all reviewed by myself. She is on: 1. Calcium citrate 500 mg p.o. twice a day. 2. Cetirizine 10 mg p.o. daily. 3. Vitamin B12 500 mcg p.o. daily. 4. Diltiazem 120 mg p.o. twice a day. 5. Vitamin D 100,000 units once a week. 6. Ulotic 40 mg p.o. daily. 7. Lasix 80 mg p.o. daily. 8. Hydroxyzine p.r.n. 9. Levothyroxine 200 mcg p.o. daily. 10. Montelukast 10 mg p.o. q.h.s. 11. Multivitamin. 12. Nortriptyline 10 mg p.o. q.h.s. 13. Omeprazole 40 mg p.o. daily. 14. Renvela 1600 mg p.o. three times a day. 15. Spironolactone 100 mg p.o. daily. 16. Tramadol 50 mg q.6 hour p.r.n. pain. CURRENT INPATIENT MEDICATIONS: The patient's inpatient medications were reviewed. 1. She has been started on Levophed infusion. 2. She was given magnesium sulfate two runs. 3. She has been given two liters of normal saline bolus. 4. She is getting normal saline at 200 mL an hour for a total of the four liters. 5. Zosyn 2.25 gm IV q.6 hourly. 6. Vancomycin 1 gm IV q.12 hourly. 7. Atropine 0.5 mg IV x1 dose was given by myself because of bradycardia. 8. Colace 100 mg p.o. twice a day. 9. Heparin 5000 units subcu q.12 hourly. 10. Lactulose 30 mL p.o. twice a day. 11. Levothyroxine 100 mcg IV daily. 12. Sodium bicarbonate 50 mEq IV x1 dose was given. ASSESSMENT: A 60-year-old female with acute renal failure superimposed on chronic kidney disease stage 4. Severe high anion gap metabolic acidosis, septic shock and metabolic encephalopathy. PLAN: 1. Acute oliguric renal failure superimposed on chronic kidney disease stage 4. The patient has severe metabolic acidosis. She is obtunded and uremic. Urgent consent was obtained from patient's . Right IJ double lumen dialysis catheter was placed. The patient will be started on CVVHDF. Once she is stable and off the pressors, then intermittent hemodialysis will be started. 2. Severe high anion gap metabolic acidosis with ketoacidosis. It is secondary to sepsis and renal failure. The patient was given on amp of bicarb in the emergency room. No need to bicarb fluids at this time since patient is being started on CVVHDF and acidosis will be corrected with that. 3. Hyperkalemia. The patient was taking spironolactone at home and she is severely acidotic. No need to correct hyperkalemia at this time. The patient would actually get hypokalemic once her acidosis resolved. 4. Septic shock. The patient got IV fluid boluses and despite that, her blood pressures were low. She has been started on Levophed. She is getting empiric IV antibiotics at this time. I am going to change the Zosyn dose to CVVHDF dose. Once her metabolic acidosis gets better, her blood pressures are expected to improve. 5. Anemia and end-stage renal disease. Hemoglobin is 8. I am going to give one unit of blood which will help improve her blood pressure as well. 6. Hypomagnesemia. The patient was already given IV magnesium and so the magnesium will be replaced according to CVVHDF protocol. 7. Hypothyroidism. Continue IV Levothyroxine at this time. 8. Bradycardia. Home dose of Cardizem has been stopped. The patient was given IV atropin. Avoid rate-limiting medications at this time. 9. Chronic kidney disease, mineral bone disease. The patient takes Renvela at home for hyperphosphatemia. Renvela will be held at this time. Phosphorus level will improve with CVVHDF. 10. Chronic gout secondary to chronic kidney disease. Uloric is being held at this time. 11. Congestive heart failure. LV ejection fraction is unknown. Bedside echocardiogram is being done at this time. The patient was taking Lasix and Spironolactone at home. They are being stopped at this time. The patient is in renal failure. Volume status will be optimized with hemodialysis. Thank you for involving me in the care of this patient. I shall be happy to follow the patient along with you tomorrow morning. Plan of care was discussed with the admitting physician, Dr. Jesse Espinal and with patient's nurse at the bedside in the ICU. Total critical care time spent in the management of this patient tonight in the emergency room and again in the ICU was two hours and 15 minutes excluding all the procedures. SABINOD
[2021-04-27 10:38] LABS: ABG BASE EXCESS -18.6 (-2.0-2.0); ABG O2 SATURATION 92.2 % (95.0-99.0); ABG PARTIAL PRESSURE O2 125.6 mmHg (75.0-100.0); ABG STANDARD HCO3 10.3 MEQ/L (22.0-26.0); ABG TOTAL CO2 6.4 MEQ/L (22.0-29.0); ABG pH (ARTERIAL) 7.275 UNITS (7.350-7.450)
[2021-04-27 10:39] LABS: CALCIUM LEVEL 7.3 MG/DL (8.5-10.1); CREATININE FOR GFR 2.92 MG/DL (0.55-1.30); GLOMERULAR FILTRATION RATE 17.5 (>51); MAGNESIUM LEVEL 1.9 MG/DL (1.8-2.4)
[2021-04-27 10:40] LABS: POTASSIUM SERUM 3.6 MEQ/L (3.5-5.1)
[2021-04-27 10:41] LABS: ABG PARTIAL PRESSURE CO2 13.2 mmHg (35.0-45.0)
--- NOTE | 2021-04-27 11:33 | IPNPDOC ---
Text Note Date of Service The patient was seen on 04/27/21. NOTE Subjective: Patient is a 60 year old female with a PMHx of of HTN, Hypothyroidism (s/p Graves), CKD4, "Paper skin disease" - Follows with Dr. Lezama, Irritable bowel syndrome, Chronic pain, Arthritis, Obesity, GERD who presented to the ER with with several days of worsening mentation at home. Patient was resistant to come to the hospital, but was ultimately brought in by her because she was completely confused. On arrival to the ER on 04/26 patient was hypotensive and had a central line placed and started on Levophed. She had several metabolic acidosis / oliguric renal failure and nephrology was called on consultation. Patient was seen and examined at the bedside. Currently is able to open her eyes, answers her name but very drowsy. Denies any CP, SOB or palpitations. Reports some abdominal discomfort while palpating. Objective: Vitals (See below) General: Lying in bed, drowsy but awakes, can answer simple questions, oriented to person HEENT: NC, AT CVS: +S1S2 Lungs: Fair air entry b/l, no appreciable wheezing / rales / rhonchi Abdomen: Soft, ND, diffuse tenderness but remains soft without guarding / rigidity Extremities: No significant edema, - Calf tenderness Skin: Multiple scabby lesions throughout body - appears chronic Imaging: CXR 04/26: No acute findings. CT Head 04/26: 1. No acute intracranial pathology. 2. Other chronic findings, as above. CT abdomen / pelvis 04/26: No acute findings. CXR 04/27: Right IJ central venous line projects at the atrial caval junction. Assessment and plan: Acute metabolic encephalopathy - likely 2/2 multifactorial etiology 2/2 Acidosis / Acute Renal Failure / Hyperammonia / Sepsis - Currently has had some improvement in mentation from overnight - Appears to be moving all four extremities - CT imaging noted above - See below Hypotension - likely 2/2 shock - possibly 2/2 septic - Etiology remains unclear - Patient did have abdominal tenderness on physical exam - Leukocytosis is profound / Lactic acidosis is improving (w/ CRRT) - Blood cultures 04/26: Pending - PCT elevated - Imaging noted above - Will check UA / Urine culture - Will consider repeating CT abdomen / pelvis when clinically stable - Has been started on Levophed with central line in place - c/w Vancomycin and Zosyn (Day #1) Severe HAG and NAG metabolic acidosis - Delta / Delta of 0.75 - No lactic acidosis - Metabolic acidosis persists - Will check urine AG - Currently on CRRT Acute renal failure with oliguria on CKD3 - likely progressed to ESRD - Patient is currency oliguric; has made very little urine - UA will be sent for analysis / Urine electrolytes - Amaral catheter was placed in the ER; minimal urine production - c/w CRRT - Nephrology on consult; appreciate their input Hyper-ammonia - Possibly 2/2 dehydration, less likely 2/2 RIGGINS - No BMS reported - Was started on Lactulose s/p Bradycardia - HR currently has been appropriate - s/p Atropine Hypothyroidism - s/p Graves disease - Will start Levothyroxine IV; changed to 50% of PO dosing Skin lesions / Scabby - Patient with is a chronic issue for her and has worsened recently as her renal function has worsened - Follows with Dr. Pringle of dermatology; will have outpatient follow-up Hx of HTN - BP hypotensive - Will hold Diltiazem, Furosemide, Spironolactone Vitamin B12 anemia - Supplementation on hold IBS - Remains stable - Follows with Dr. Raman as an outpatient Chronic pain / arthritis - Pain medications on hold GI prophylaxis - Will start Protonix DVT prophylaxis - c/w Heparin Code Status: - Full code Prognosis: - Poor prognosis VS,Sudheer, I+O VS, Sudheer, I+O Laboratory Tests 04/26/21 20:49 04/27/21 02:41 04/27/21 02:42 04/27/21 05:36 04/27/21 09:49 Vital Signs Date Time Temp Pulse Resp B/P (MAP) Pulse Ox O2 Delivery O2 Flow Rate FiO2 04/27/21 09:30 100 20 125/58 (80) 97 Room Air 04/27/21 09:15 96.6 I&O- Last 24 Hours up to 6 AM 04/27/21 06:00 Intake Total 2100 ml Output Total 5 ml Balance 2095 ml TARCIE SINGH MD Apr 27, 2021 11:33
[2021-04-27] MEDS ORDERED: INSULIN IV RATE CHANGE DOCUMENTATION ML/HR XX SCH (12:10)
[2021-04-27] MEDS ORDERED: INSULIN REGULAR IN 0.9 % NACL 100 UNIT in IV 1 EA IV SCH ×4 (12:10→12:55)
[2021-04-27 12:19] LABS: CREATININE,RANDOM URINE 59.9 MG/DL; POTASSIUM RANDOM URINE 17.3 MEQ/L
[2021-04-27] MEDS: PANTOPRAZOLE 40MG VIAL (C9113 PER 1) IV SCH (12:51)
[2021-04-27] MEDS: KCL 40MEQ IN D5/0.45NS 1000ML 1,000 ML IV SCH ×3 (12:52→23:07)
[2021-04-27] MEDS ORDERED: GLUCAGON INJ 1MG VIAL SC PRN (13:05)
[2021-04-27] MEDS ORDERED: GLUCOSE 4GM CHEW TABLET PO PRN (13:05)
[2021-04-27] MEDS ORDERED: DEXTROSE 50% 50 ML SYRINGE IV PRN (13:05)
[2021-04-27] MEDS: KCL 20MEQ IN 100ML SWI (KRUN) 20 MEQ in IV 1 EA IV SCH ×4 (13:08→14:25)
[2021-04-27] MEDS ORDERED: SODIUM CHLORIDE 0.9% INJ 10 ML SYR IV PRN (14:00)
[2021-04-27] MEDS: INSULIN IV RATE CHANGE DOCUMENTATION ML/HR XX SCH ×3 (14:23→20:21)
[2021-04-27] MEDS ORDERED: MAG SULF 1GM/100ML (MAG RUN) 1 GM in IV 1 EA IV ONE (15:00)
[2021-04-27 17:11] LABS: HEMOGLOBIN 8.8 g/dl (12.0-15.5); MEAN CORPUSCULAR HEMOGLOBIN 29.9 pg (27.0-33.0); MEAN CORPUSCULAR HGB CONC 33.8 g/dl (32.0-36.5); MEAN CORPUSCULAR VOLUME 88.4 fl (80.0-96.0); RED BLOOD COUNT 2.94 10^6/uL (4.00-5.40); WHITE BLOOD COUNT 14.2 10^3/uL (4.0-10.0)
[2021-04-27 17:21] LABS: PLATELET COUNT, AUTOMATED 348 10^3/uL (150-450)
[2021-04-27 17:32] LABS: CALCIUM LEVEL 7.2 MG/DL (8.5-10.1); CREATININE FOR GFR 2.08 MG/DL (0.55-1.30); GLOMERULAR FILTRATION RATE 25.9 (>51); MAGNESIUM LEVEL 2.1 MG/DL (1.8-2.4); POTASSIUM SERUM 4.2 MEQ/L (3.5-5.1)
[2021-04-27 17:45] LABS: HEMOGLOBIN A1c 5.1 %
[2021-04-27 18:17] LABS: ACETONE/KETONE 19.5 MG/DL (<2.81)
--- NOTE | 2021-04-27 22:27 | IPN ---
NEPHROLOGY PROGRESS NOTE DATE: 04/27/2021 SUBJECTIVE: The patient was seen and examined at the bedside today morning in the ICU. She continues to be on CVVHDF which was started last night. The patient remains oliguric at this time. She is still very obtunded and confused and unable to eat or drink anything. The patient still had persistent high anion gap metabolic acidosis when I saw her in the morning. She is unable to provide any review of systems. OBJECTIVE: VITAL SIGNS: Temperature is 97 degrees Fahrenheit, blood pressure 104/52, pulse rate 94, respiratory rate of 18, saturating 98% on room air. INTAKE AND OUTPUT: Urine output recorded as 184 and ultrafiltration with hemodialysis is 2,781 mL. Weight in the bed scale is 113 kg. PHYSICAL EXAMINATION: GENERAL APPEARANCE: The patient is laying in bed and drowsy and obtunded, does not answer many questions. HEAD AND NECK: Pupils are equally round and reactive to light. Mucous membranes are moist. Neck is supple. She has a IJ non tunneled hemodialysis catheter currently being used for CVVHDF. CARDIOVASCULAR: S1, S2, regular rate. EXTREMITIES: 1+ edema of the bilateral lower extremities. RESPIRATORY: Chest is clear to auscultation bilaterally. Bilaterally currently. ABDOMEN: Soft, obese, positive bowel sounds. GENITOURINARY: She has an indwelling Amaral catheter. MUSCULOSKELETAL: No clubbing, no cyanosis at this time. GANG SAW OPERATOR: Patient is obtunded and disoriented at this time. LAB REVIEW: CBC showed a WBC count of 14.2, hemoglobin 8.8, platelet count 348. BMP showed sodium 136, potassium 3.6, chloride 105, bicarbonate 6, BUN of 78, creatinine of 2.9, glucose 198, calcium 7.3, ionized calcium 4. Beta hydroxybutyrate was more than 46 today morning. IMAGING: A chest x-ray was done today morning which shows right IJ central venous line is at the atrial cable junction. CURRENT INPATIENT MEDICATIONS: The patient's medications were all reviewed by myself. I started the patient on insulin drip along with KCL 40 mEq and D5 half normal saline at 200 mL an hour. She continues to be on IV antibiotics. No other significant change in the medications today as compared with last night. ASSESSMENT AND PLAN: 1. Acute renal failure superimposed on chronic kidney disease stage 4 - The patient is on CVVHDF at this time. I will continue the CVVHDF right now. Her acidosis has not resolved yet as the patient is still very obtunded. 2. High anion gap metabolic acidosis along with euglycemic ketoacidosis - The patient has been started on dextrose containing fluid and insulin drip. Repeat beta oxybutyrate is improving at 19.5. Ketoacidosis is likely secondary to a combination of sepsis and starvation ketosis. The rest of the acidosis was resolved with hemodialysis. 3. Septic shock septic shock is getting better. The patient's Levophed has been weaned off. She continues to be on IV antibiotics. Cultures are pending. 4. Anemia in end-stage renal disease - The patient is status post 2 units of PRBC transfusion. Hemoglobin level is improving. 5. Bradycardia it has resolved now. Cardizem was stopped on admission. If needed, it will be slowly reintroduced. Total critical care time spent in the management of this patient today morning in the ICU excluding all the procedures was 50 minutes.
[2021-04-28] VITALS (76 sets, daily range): BP systolic 86–135; BP diastolic 42–63
[2021-04-28] MEDS: CALCIUM GLUCONATE 1,000 MG, VIAL MATE ADAPTER 1 EACH in NS 100 ML IV SCH ×4 (00:06→07:42)
[2021-04-28] MEDS: PIPERACILLIN/TAZOBACTAM SOD 2.25 GM in D5W MINI-BAG PLUS 50 ML IV SCH ×4 (00:07→17:20)
[2021-04-28 00:08] LABS: CALCIUM LEVEL 7.7 MG/DL (8.5-10.1); CREATININE FOR GFR 1.54 MG/DL (0.55-1.30); GLOMERULAR FILTRATION RATE 36.7 (>51); MAGNESIUM LEVEL 2.2 MG/DL (1.8-2.4); POTASSIUM SERUM 4.5 MEQ/L (3.5-5.1)
[2021-04-28] MEDS ORDERED: POTASSIUM PHOSPHATE INJ 30 MMOL in D5W 500 ML IV ONE (02:00)
[2021-04-28] MEDS: MORPHINE 2 MG/ML 1ML VIAL (J2270) IV PRN (04:07)
[2021-04-28] MEDS: KCL 40MEQ IN D5/0.45NS 1000ML 1,000 ML IV SCH (04:48)
[2021-04-28] MEDS: VANCOMYCIN HCL 1,000 MG, VIAL MATE ADAPTER 1 EACH in NS 250 ML IV SCH ×2 (04:55→16:32)
[2021-04-28 06:04] LABS: HEMATOCRIT 24.1 % (36.0-47.0); MEAN CORPUSCULAR HEMOGLOBIN 29.4 pg (27.0-33.0); MEAN CORPUSCULAR HGB CONC 33.2 g/dl (32.0-36.5); MEAN CORPUSCULAR VOLUME 88.6 fl (80.0-96.0); PLATELET COUNT, AUTOMATED 309 10^3/uL (150-450); RED BLOOD COUNT 2.72 10^6/uL (4.00-5.40); WHITE BLOOD COUNT 9.3 10^3/uL (4.0-10.0)
[2021-04-28 06:24] LABS: CALCIUM LEVEL 6.8 MG/DL (8.5-10.1); CREATININE FOR GFR 1.13 MG/DL (0.55-1.30); GLOMERULAR FILTRATION RATE 52.5 (>51); MAGNESIUM LEVEL 2.1 MG/DL (1.8-2.4); PHOSPHORUS LEVEL 3.4 MG/DL (2.5-4.9); POTASSIUM SERUM 5.4 MEQ/L (3.5-5.1)
[2021-04-28 06:25] LABS: ACETONE/KETONE 1.17 MG/DL (<2.81)
[2021-04-28] MEDS ORDERED: HumaLOG INSULIN (NovoLOG) PER UNIT SC SCH (07:30)
[2021-04-28] MEDS ORDERED: LEVOTHYROXINE 100MCG (0.1MG) VIAL IV SCH (09:00)
[2021-04-28] MEDS: DOCUSATE SODIUM 100MG CAPSULE PO SCH ×2 (09:00→20:37)
[2021-04-28] MEDS: LEVOTHYROXINE 100MCG (0.1MG) VIAL IV SCH (09:46)
[2021-04-28] MEDS: HEPARIN SOD (PORCINE) 5000UNITS/ML 1ML VIAL/SYRINGE SC SCH ×2 (09:46→20:36)
[2021-04-28] MEDS: PANTOPRAZOLE 40MG VIAL (C9113 PER 1) IV SCH (12:26)
[2021-04-28] MEDS: MIDODRINE 5 MG TAB PO SCH ×2 (12:55→16:29)
[2021-04-28 12:56] LABS: BLOOD UREA NITROGEN 18 MG/DL (7-18); CALCIUM LEVEL 7.5 MG/DL (8.5-10.1); CARBON DIOXIDE LEVEL 27 MEQ/L (21-32); CHLORIDE LEVEL 107 MEQ/L (98-107); CREATININE FOR GFR 0.89 MG/DL (0.55-1.30); GLOMERULAR FILTRATION RATE > 60.0 (>51); GLUCOSE, FASTING 101 MG/DL (70-100); MAGNESIUM LEVEL 2.1 MG/DL (1.8-2.4); POTASSIUM SERUM 5.2 MEQ/L (3.5-5.1); SODIUM LEVEL 136 MEQ/L (136-145)
[2021-04-28] MEDS ORDERED: SODIUM PHOSPHATE INJ 30 MMOL in D5W 500 ML IV SCH (13:05)
--- NOTE | 2021-04-28 13:06 | IPNPDOC ---
Text Note Date of Service The patient was seen on 04/28/21. NOTE Subjective: Patient seen and examined at bedside today. She continues is drowsy but arousal. She is able to answer her name, place and time appropriately. She denies having any chest pain, shortness of breath. Objective: Physical exam: General: Patient is drowsy, alert oriented x3, laying in bed, no apparent distress. Cardiac: S1 and S2 normal, regular rate and rhythm, no murmurs appreciated. Lungs: I could examine the lungs in supine position. Air entry in bilateral l aterally no wheezes or crackles appreciated Abdomen: Soft to touch, mild tenderness , normal bowel sounds appreciated in all 4 quadrants. Extremities: Noted bilateral pitting edema about 2+ in the ankles and extending above. No redness or swelling noted in the calves or legs. Skin: Patient has fragile skin and noted multiple scabs in her thorax and abdomen. Imaging: CXR 04/26: No acute findings. CT Head 04/26: 1. No acute intracranial pathology. 2. Other chronic findings, as above. CT abdomen / pelvis 04/26: No acute findings. CXR 04/27: Right IJ central venous line projects at the atrial caval junction. Chest x-ray done on 04/27/2021: Reported Right AKA central venous line projects at the atrial caval junction. Lungs are clear and normal acute findings. Labs: Vitals: Temperature 96.1, HR 89, RR 18, BP 107/52, oxygenation 98% on room air. CBC: WBC 9.3, Hb 8, HCT 24.1, platelet 309. BMP: NA 136, K5.5, CL 108, HCO3 23, BUN 25, creatinine 1.17 [came down from 1.54], glucose 182 Magnesium 2.1. Patient's beta hydroxybutyrate back to baseline. Patient is off of Levophed since yesterday afternoon and has been switched from IV insulin to subcu insulin yesterday evening. Blood cultures: No growth after 24 hours. Urine cultures negative. Assessment: 60-year-old female patient with PMH of HTN, hypothyroidism [s/p Graves' disease], CKD 4, IBD, arthritis, obesity, GERD, fragile skin follows with Dr. Lezama, presented to the ED with concern for worsening mentation since several years. In the ED patient was hypertensive and was started on Levophed she had an anion gap metabolic acidosis and non-anion gap metabolic acidosis, and oliguric on presentation. Patient was admitted to ICU for further evaluation and management. Plan: Acute metabolic encephalopathy [2/2 multifactorial, TIANNA, acidosis, hyper ammonia, sepsis. -Patient is improving, she is drowsy but arousal and able to answer most of the questions. -She is getting CRRT for her acidosis since her admission. -Since she is improving she might be off of CRRT today sometime. Hypotension: Unclear etiology likely urine, as blood cultures were negative. - Patient is off of Levophed since yesterday afternoon. -She is still on CRRT when I saw her today morning, no fluid is being removed out of her CRRT. -Patient's white count is back to baseline. -Blood culture shows no in growth preliminary report -She does not have any abdominal tenderness today on examination. - We will continue vancomycin and Zosyn for now [D2] -Patient's UA did show WBC leukocyte esterase. she is on broad-spectrum antibiotic. -Patient was started on midodrine 5 mg p.o. for her hypotension by nephrology Severe NAGMA and HAGMA: -Repeat ABG today pH 7.4, CO2 31.6, HCO3 22.2 -No lactic acidosis from starting. -Likely reason for acidosis is ketoacidosis and renal failure. -Her acidosis has been resolving. -Nephrology on board for this case we highly appreciate their input and recommendation. Hyper ammonia: -Resolution of her elevated ammonia levels - today her ammonia level 17 back to baseline. Hypothyroidism: -History of Graves' disease. -Patient was put on IV levothyroxine [50% of p.o. dosing] we will continue the same until she is able to take p.o. medications. HTN: -Patient is hypotensive right now. -We will hold her home HTN medications [diltiazem, furosemide, spironolactone] GI prophylaxis: - will continue Protonix. DVT prophylaxis: - we will continue heparin Disposition: -Based on patient clinical improvement. VS,Fishbone, I+O VS, Fishbone, I+O Laboratory Tests 04/27/21 16:53 04/27/21 23:28 04/28/21 05:51 Vital Signs Date Time Temp Pulse Resp B/P (MAP) Pulse Ox O2 Delivery O2 Flow Rate FiO2 04/28/21 08:15 87 16 102/52 (69) 97 Room Air 04/28/21 08:00 96.3 I&O- Last 24 Hours up to 6 AM 04/28/21 06:00 Intake Total 7522.5 ml Output Total 4585 ml Balance 2937.5 ml GME ATTESTATION GME ATTESTATION My faculty preceptor for this patient encounter was physically present during the encounter and was fully available. All aspects of the patient interview, examination, medical decision making process, and medical care plan development were reviewed and approved by the faculty preceptor. The faculty preceptor is aware and concurs with the plan as stated in the body of this note and will attest to such by his/her cosignature. ATTENDING NOTE I, Shahla Singh, have independently examined this patient and performed my own physical exam, as well as reviewed the documentation and edited where necessary. I have discussed in detail with the resident / student the findings and plan of treatment as documented by the resident / student and edited their note. I agree with their findings and treatment plan and have edited their documentation. I will continue to follow the patient during this hospital stay. Rebeka Low MD Apr 28, 2021 13:06 SHAHLA SINGH MD Apr 28, 2021 16:43
[2021-04-28 14:58] LABS: ABG BASE EXCESS -1.3 (-2.0-2.0); ABG HCO3 22.2 MEQ/L (22.0-26.0); ABG O2 SATURATION 92.3 % (95.0-99.0); ABG PARTIAL PRESSURE CO2 31.6 mmHg (35.0-45.0); ABG PARTIAL PRESSURE O2 122.7 mmHg (75.0-100.0); ABG STANDARD HCO3 23.4 MEQ/L (22.0-26.0); ABG TOTAL CO2 23.2 MEQ/L (22.0-29.0); ABG pH (ARTERIAL) 7.465 UNITS (7.350-7.450)
[2021-04-28] MEDS: CALCIUM GLUCONATE 1,000 MG in NS 100 ML IV SCH ×2 (15:03→16:29)
[2021-04-28] MEDS ORDERED: VANICREAM MOISTURIZING SKIN CREAM 113GM TUBE TOP PRN (15:15)
[2021-04-28] MEDS ORDERED: diphenhydrAMINE CREAM 30GM TOP PRN (15:15)
[2021-04-28] MEDS ORDERED: SODIUM PHOSPHATE INJ 30 MMOL in D5W 250 ML IV ONE (16:00)
[2021-04-28] MEDS ORDERED: AZELASTINE 137MCG NASAL SPY 30 ML (ASTELIN) PRN (16:30)
[2021-04-28] MEDS: ONDANSETRON 4MG/2ML VIAL IV PRN (16:47)
[2021-04-28 18:34] LABS: HEMOGLOBIN 7.7 g/dl (12.0-15.5); MEAN CORPUSCULAR HEMOGLOBIN 29.3 pg (27.0-33.0); MEAN CORPUSCULAR HGB CONC 32.1 g/dl (32.0-36.5); MEAN CORPUSCULAR VOLUME 91.3 fl (80.0-96.0); PLATELET COUNT, AUTOMATED 271 10^3/uL (150-450); RED BLOOD COUNT 2.63 10^6/uL (4.00-5.40); WHITE BLOOD COUNT 7.3 10^3/uL (4.0-10.0)
[2021-04-28 18:57] LABS: CALCIUM LEVEL 7.3 MG/DL (8.5-10.1); CREATININE FOR GFR 1.13 MG/DL (0.55-1.30); GLOMERULAR FILTRATION RATE 52.5 (>51); PHOSPHORUS LEVEL 4.6 MG/DL (2.5-4.9); POTASSIUM SERUM 4.9 MEQ/L (3.5-5.1)
--- NOTE | 2021-04-28 21:55 | IPN ---
NEPHROLOGY PROGRESS NOTE DATE: 04/28/2021 SUBJECTIVE: Ashanti is seen and examined this morning at the bedside. She is awake, alert and conversational and following commands today. She passed a swallow evaluation and is now on a pureed diet. Blood pressures remain borderline soft and the patient is oligoanuric. CRRT was discontinued at 2:00 p.m. today. The patient denies any shortness of breath at rest. Denies any abdominal pain or nausea. Nursing staff reports that she has had a pasty bowel movement but no yumiko diarrhea. CBP today is 13. OBJECTIVE: PHYSICAL EXAMINATION: VITAL SIGNS: Temperature 99, pulse 116, respiratory rate 16, blood pressure 132/58, saturating 97-99% on room air. INTAKE AND OUTPUT: Intake yesterday was 7.6 liters and urine output was only 230 mL. CRRT removed 3.6 liters. She is net positive about 3.5 liters. Weight in the bed scale is 112.6 kg which is actually half a kg lower than it was yesterday. GENERAL APPEARANCE: The patient is seen lying in bed with the head of the bed elevated. She is awake and alert. She makes eye contact. She follows simple commands and answers simple questions appropriately. HEENT: The extraocular muscles are intact. Tongue is moist. NECK: Supple. She has a non tunneled dialysis catheter in the right IJ currently being used for CRRT. HEART: Tachycardic, S1, S2, I do not appreciate any overt murmurs. LUNGS: Symmetric air entry bilaterally without crackles or rales but breath sounds are distant secondary to body habitus. ABDOMEN: Soft and nontender. GENITOURINARY: Amaral catheter with minimal urine. EXTREMITIES: Trace edema but no clubbing or cyanosis. Her radial pulses are palpable. NEUROLOGICAL: The patient is awake, alert, answers simple questions appropriately and follows commands as well and mentation is improved as compared to yesterday. SKIN: Warm and dry. LABORATORY STUDIES: Sodium 136, potassium 5.2, bicarbonate 27, BUN 18, creatinine 0.8, glucose 101, phosphorous 2.0, magnesium 2.1, white count 9.3, hemoglobin 8.0, platelet count 309. PH 7.4, pco2 31, pO2 122. Blood cultures from April 26, no growth for 24 hours x2 sets. IMAGING: Chest x-ray done yesterday is reviewed with no pleural effusions. There is no lung imaging today. CURRENT INPATIENT MEDICATIONS: The patient has received supplementation of calcium gluconate and sodium phosphate and potassium phosphate. She was d5 half normal saline with 40 mEq of potassium chloride running at 125 mL an hour which I discontinued. She remains off of pressors. She continues on Zosyn and Vancomycin. Her insulin sliding scale is stopped. She was started on Midodrine 5 mg three times daily. The remainder medications are unchanged as compared to yesterday. PROBLEMS: 1. Oligoanuric renal failure in this patient with underlying chronic kidney disease stage 4 - The patient is dialysis dependent at this time. She has been maintaining a MAP of 65. She has been off of pressor support. I am discontinuing her CRRT today (2:00 p.m.) and we will transition her to intermittent hemodialysis. I am pessimistic about her renal prognosis - she is unlikely to recover renal function and is most likely going to need chronic hemodialysis placement, but we will see how she does over the course of this admission. We will request I.R. for permacath placement as she currently is dialyzing via a temporary non-tunneled catheter. 2. Hypotension - The patient is off of pressor support but her systolic blood pressure is mostly in the 90's and 80's at the time of my visit this morning and I am starting her on Midodrine 5 mg three times daily. She may require pressor support with intermittent hemodialysis. We will see how she does. CVP today was 13. The patient is now on a pureed diet. IV fluids are being stopped at this time. 3. Status post septic shock - The patient initially had a white count of 27. It is improving and white count is down to 9 on labs today. Her blood cultures had no growth and likewise her urine culture was negative. She is on broad spectrum empiric antibiotics managed by the Primary Team, Vancomycin and Zosyn. Her Vancomycin trough levels have been acceptable. 4. Hyperkalemia it was due to high potassium in the CRRT bath along with potassium phosphate repletion and potassium containing IVF. I adjusted the dialysis bath and the patient is no longer receiving any potassium containing fluids. 5. Status post high anion gap metabolic acidosis secondary to ketosis her acidemia has resolved with CRRT and dextrose based IV fluids w/ insulin. IVF is being stopped now 6. Metabolic encephalopathy the patient's mentation is much improved at the time of my visit today. She also passed her swallow evaluation. She is now on a pureed diet. I am stopping the IV fluids. 7. Anemia in chronic renal failure - The patient is being transfused another unit of packed red blood cells today for a total of three so far on this admission. I will get iron stores and we will also start her on Aranesp. No melena or BRBPR reported. SABINOD
[2021-04-29] VITALS (10 sets, daily range): BP systolic 100–128; BP diastolic 50–62
[2021-04-29 05:50] LABS: BLOOD UREA NITROGEN 24 MG/DL (7-18); CARBON DIOXIDE LEVEL 26 MEQ/L (21-32); CHLORIDE LEVEL 106 MEQ/L (98-107); CREATININE FOR GFR 1.45 MG/DL (0.55-1.30); GLOMERULAR FILTRATION RATE 39.3 (>51); GLUCOSE, FASTING 84 MG/DL (70-100); HEMATOCRIT 24.6 % (36.0-47.0); HEMOGLOBIN 7.9 g/dl (12.0-15.5); MEAN CORPUSCULAR HEMOGLOBIN 29.6 pg (27.0-33.0); MEAN CORPUSCULAR HGB CONC 32.1 g/dl (32.0-36.5); MEAN CORPUSCULAR VOLUME 92.1 fl (80.0-96.0); PHOSPHORUS LEVEL 4.4 MG/DL (2.5-4.9); PLATELET COUNT, AUTOMATED 303 10^3/uL (150-450); POTASSIUM SERUM 5.2 MEQ/L (3.5-5.1); RED BLOOD COUNT 2.67 10^6/uL (4.00-5.40); SODIUM LEVEL 136 MEQ/L (136-145)
[2021-04-29 06:03] LABS: VANCOMYCIN LEVEL TROUGH 28.1 UG/ML (10.0-20.0)
[2021-04-29] MEDS: PIPERACILLIN/TAZOBACTAM SOD 2.25 GM in D5W MINI-BAG PLUS 50 ML IV SCH ×6 (06:23→23:56)
--- NOTE | 2021-04-29 07:15 | ECGEPIP ---
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
[2021-04-29] MEDS: DOCUSATE SODIUM 100MG CAPSULE PO SCH ×3 (09:00→20:07)
[2021-04-29] MEDS: DARBEPOETIN 100 MCG/0.5 ML *NON-DIALYSIS* SYRINGE (J0881) SC SCH (09:32)
[2021-04-29] MEDS: LEVOTHYROXINE 100MCG (0.1MG) VIAL IV SCH (09:32)
[2021-04-29] MEDS: MIDODRINE 5 MG TAB PO SCH ×3 (09:32→15:28)
[2021-04-29] MEDS: HEPARIN SOD (PORCINE) 5000UNITS/ML 1ML VIAL/SYRINGE SC SCH ×2 (09:33→20:07)
[2021-04-29] MEDS: CETIRIZINE (ZyrTEC) 10 MG TAB PO SCH (09:33)
--- NOTE | 2021-04-29 10:10 | ECHO ---
ECHOCARDIOGRAM DATE OF PROCEDURE: 04/27/2021 Age: 60 Gender: Female Height: 66 inches. Weight: 242 pounds. REFERRING PHYSICIAN: Jesse Espinal M.D. INDICATION: Sepsis. MEASUREMENTS: 2D Measurements: Aortic root 3.3 cm Proximal ascending aorta 3.7 cm Left atrium 5.2 cm Left ventricle diastole 4.2 cm Ventricular septum 1.56 cm Posterior wall 1.58 cm Doppler measurements: No aortic stenosis or regurgitation Aortic valve velocity 242 cm/s LVOT [id number] cm/s LVOT VTI 25.6 cm Trace mitral regurgitation Mild tricuspid regurgitation Estimated right ventricle systolic pressure 39-44 mmHg Estimated right atrial pressure 5-10 mmHg No pulmonic regurgitation Pulmonary acceleration time 59 msec MITRAL ANNULAR TISSUE DOPPLER: E prime lateral 11.4 cm/s E prime septal 8.0 cm/s DESCRIPTION: Rhythm was junctional bradycardia in the 50s. Image quality was adequate. This was a 2D, M-mode, color flow Doppler and pulsed wave Doppler examination including mitral annular tissue Doppler. CONCLUSIONS: 1. Moderate concentric left ventricular hypertrophy. Normal regional left ventricular (LV) wall motion and wall thickness. Normal LV systolic function. Left ventricular ejection fraction (LVEF) of 65% by visual estimate. Normal LV diastolic function. 2. No vegetations. 3. Severe left atrial dilatation. 4. Mild mitral annular calcification. Trace mitral regurgitation. 5. Suggestive of mild-moderate elevation of estimated right ventricle systolic pressure. 6. Mildly dilated inferior vena cava with normal respiratory variation suggestive of normal central venous pressure (CVP). CVP estimated at 5-10 mmHg. MTDD
[2021-04-29] MEDS: PANTOPRAZOLE 40MG VIAL (C9113 PER 1) IV SCH (12:03)
[2021-04-29 14:36] LABS: CHOLESTEROL LEVEL 88 MG/DL (<200); CHOLESTEROL RISK RATIO 2.315 (<5); HDL CHOLESTEROL 38 MG/DL (>40); LDL CHOLESTEROL 28 MG/DL (<100); NON-HDL-C 50 MG/DL; TRIGLYCERIDES LEVEL 109 MG/DL (<150)
[2021-04-29 14:43] LABS: HEPATITIS B SURFACE ANTIBODY NEGATIVE (POSITIVE)
[2021-04-29 14:54] LABS: HEPATITIS B SURFACE ANTIGEN NEGATIVE (NEGATIVE)
[2021-04-29 15:22] LABS: HEPATITIS B CORE ANTIBODY IGM NEGATIVE (NEGATIVE)
[2021-04-29] MEDS ORDERED: FUROSEMIDE 40MG/4ML VIAL (J1940) IV ONE (17:25)
--- NOTE | 2021-04-29 18:09 | IPNPDOC ---
Text Note Date of Service The patient was seen on 04/29/21. NOTE Subjective: Patient seen and examined at bedside today. Patient is less drowsy today and is able to answer all the questions. She reports to be feeling tired, denies having any chest pain, headaches, shortness of breath, abdominal pain. Objective: Physical exam: General: Patient is alert oriented x3. Laying in bed. No apparent distress. Cardiac: No murmurs appreciated. S1 and S2 regular rate and rhythm Lungs: Bilateral clear breath sounds, no rhonchi wheezes or crackles appreciated. Abdomen: Soft to touch, no tenderness in all 4 quadrants, positive bowel sounds appreciated. Extremities: Noted bilateral pitting edema about 2+ in the ankles. No redness or swelling noted in the calves or legs. Skin: Patient has fragile skin and noted multiple scabs in her thorax, neck and abdomen. Imaging: CXR 04/26: No acute findings. CT Head 04/26: 1. No acute intracranial pathology. 2. Other chronic findings, as above. CT abdomen / pelvis 04/26: No acute findings. CXR 04/27: Right IJ central venous line projects at the atrial caval junction. Chest x-ray done on 04/27/2021: Reported Right AKA central venous line projects at the atrial caval junction. Lungs are clear and normal acute findings. Labs: Vitals: Temperature 97.6, HR 98, RR 18, BP 100/57 oxygenation 94% on room air CBC: WBC 9, Hb 7.9, HCT 24.6, platelet 303 BMP: NA 136, K 5.2, CL 106, HCO3 26, BUN 24, creatinine 1.45 [increased from 1.13], glucose 84 Blood cultures: no growth after 24 hours. Urine cultures 04/27/2021 negative. Assessment: 60-year-old female patient with PMH of HTN, hypothyroidism [s/p Graves' disease], CKD 4, IBD, arthritis, obesity, GERD, fragile skin follows with Dr. Lezama, presented to the ED with concern for worsening mentation since few days prior to admission. In the ED patient was hypotensive and was started on Levophed she had an anion gap metabolic acidosis and non-anion gap metabolic acidosis, and oliguric on presentation. Patient was admitted to ICU for further evaluation and management. Plan: Acute metabolic encephalopathy [2/2 multifactorial, TIANNA, acidosis, hyper ammonia, sepsis. -Patient mentation has improved. Seems to be back to her baseline. -Patient is off of CRRT yesterday. -Nephrology is on board and thinks she might be needing hemodialysis with her renal condition. Hypotension: Unclear etiology likely urine, as blood cultures were negative. -Patient was started on on midodrine yesterday. -Does not have any signs of sepsis like with elevated white count, tachycardia, fever. -Patient is Zosyn [day 3] -Given the patient's MRSA screen is negative and no white count will DC the vancomycin. -Patient was started on vancomycin and Zosyn 04/27/2021 given that she is hypotensive and having abdominal tenderness [suspected bowel ischemia]. Given that she is stable and resolution of her abdominal tenderness, no elevation of lactate, will consider stopping her antibiotic may be tomorrow. Severe NAGMA and HAGMA: -Resolution of her acidosis. Hypothyroidism: -History of Graves' disease. -Given that patient is able to take oral medication we will switch her from IV levothyroxine to oral levothyroxine her home dose -That is levothyroxine 200 mcg daily. HTN: -Patient is hypotensive. -We continue to hold her home HTN medications [diltiazem, furosemide, spironolactone] GI prophylaxis: - will continue Protonix. DVT prophylaxis: - we will continue heparin Disposition: -Based on patient clinical improvement. Attending Attestation: I saw and evaluated patient. I agree with the finding and plan of care as documented in the residents note. VS,Tede, I+O VS, Giovannibone, I+O Laboratory Tests 04/28/21 18:16 04/29/21 04:59 Vital Signs Date Time Temp Pulse Resp B/P (MAP) Pulse Ox O2 Delivery O2 Flow Rate FiO2 04/29/21 16:00 97.4 80 17 128/59 (82) 97 Room Air I&O- Last 24 Hours up to 6 AM 04/29/21 06:00 Intake Total 2898 ml Output Total 2147 ml Balance 751 ml Rebeka Low MD Apr 29, 2021 18:09 MARK BARTON MD Apr 30, 2021 06:46
--- NOTE | 2021-04-29 18:26 | IPN ---
PROGRESS NOTE DATE: 04/29/2021 SUBJECTIVE: Ashanti is seen and examined this morning at the bedside in the intensive care unit. Her CRRT was stopped yesterday. She remains in oligoanuric renal failure, but hemodynamically she has improved. Her systolics are now around 100 to 110. She continues on midodrine. She is tolerating a soft diet. She denies any nausea, vomiting, or shortness of breath. OBJECTIVE: VITAL SIGNS: Temperature 97.4, pulse 80, respiratory rate 17, blood pressure 128/59, saturating 97% on room air. INTAKE AND OUTPUT: Intake yesterday was 4.9 liters. Urine output yesterday was 200 mL. CRRT yesterday had removed around 2.6 liters. Weight on the bed scale today is 111 kg, which is actually lower than the past two days. GENERAL: The patient is seen lying in bed with head of the bed elevated. Morbidly obese female in no distress. HEENT: Extraocular muscles are intact. Tongue is moist. NECK: Supple. There is a temporarily dialysis catheter in the right IJ. HEART: Sounds are regular S1, S2. There is no significant leg edema. LUNGS: Show symmetric air entry. Diminished breath sounds secondary to obesity and body habitus, but no crackle or rale. ABDOMEN: Soft, obese, and nontender. GENITOURINARY: Shows indwelling Amaral catheter with very little urine in the bag. NEUROLOGIC: She is awake, alert, and oriented x3, interactive, and conversational. She moves extremities on command. MUSCULOSKELETAL: There is no clubbing or cyanosis of the legs. There is no significant edema. LABORATORY DATA: White count 9.0, hemoglobin 7.9, platelets 303,000. Sodium 136, potassium 5.2, bicarbonate 26, BUN 24, creatinine 1.4, phosphorus 4.4, magnesium 2.0. INPATIENT MEDICATIONS: She continues on IV Zosyn. Her vancomycin trough was 28 today so vancomycin is presently stopped. She got a dose of Aranesp 100 mcg subcutaneously today. I also ordered Lasix 40 mg IV x1. The remainder of her medications are unchanged as compared to yesterday. PROBLEMS: 1. Oligoanuric acute renal failure superimposed on chronic kidney disease (CKD) stage IV. The patient is dialysis-dependent at this time. Her continuous renal replacement therapy (CRRT) was stopped yesterday afternoon. There are no signs of renal recovery at present. I am going to see if she converts to nonoliguric renal failure with a dose of Lasix. She is most likely going to need a hemodialysis tomorrow April 30, and I also spoke with interventional radiology regarding getting a tunneled Permacath for her (plan is for Wednesday if renal function remains poor). She is currently dialyzing via a temporary right internal jugular (IJ) dialysis catheter. 2. Hypotension. Blood pressures have nicely improved over the past 24 hours. Systolic is now 100 to 110. We will continue her on midodrine 5 mg three times a day. I am hopeful that she will tolerate intermittent hemodialysis without pressor support. 3. Hyperkalemia. Potassium is 5.2. She is going to get a dose of Lasix today and we will see if she responds to it. I plan to dialyze her tomorrow April 30. 4. Anemia on chronic renal failure. Her iron stores were adequate. She got three units of packed red blood cells on this admission. I started her on Aranesp and we will continue the same. If hemoglobin remains less than 8 tomorrow, she will be transfused with dialysis. MTDD
[2021-04-30] VITALS (10 sets, daily range): BP systolic 103–145; BP diastolic 52–74
[2021-04-30] MEDS: LEVOTHYROXINE 100MCG TABLET (0.1MG) PO SCH (05:10)
[2021-04-30] MEDS: PIPERACILLIN/TAZOBACTAM SOD 2.25 GM in D5W MINI-BAG PLUS 50 ML IV SCH (05:10)
[2021-04-30] MEDS: MORPHINE 2 MG/ML 1ML VIAL (J2270) IV PRN (05:11)
[2021-04-30] MEDS ORDERED: VANCOMYCIN HCL 1,000 MG, VIAL MATE ADAPTER 1 EACH in NS 250 ML IV SCH (08:00)
[2021-04-30] MEDS: DOCUSATE SODIUM 100MG CAPSULE PO SCH ×2 (08:20→21:00)
[2021-04-30] MEDS: CETIRIZINE (ZyrTEC) 10 MG TAB PO SCH (08:20)
[2021-04-30] MEDS: MIDODRINE 5 MG TAB PO SCH ×3 (08:20→16:00)
[2021-04-30 08:28] LABS: BASO # 0.1 10^3/uL (0.0-0.2); BASO % 0.8 % (0.0-1.0); EOS # 0.4 10^3/uL (0.0-0.5); EOS % 4.3 % (0.0-3.0); HEMATOCRIT 25.5 % (36.0-47.0); HEMOGLOBIN 7.9 g/dl (12.0-15.5); LYMPH # 1.6 10^3/uL (1.5-5.0); MEAN CORPUSCULAR VOLUME 93.8 fl (80.0-96.0); MONO # 1.1 10^3/uL (0.0-0.8); MONO % 12.7 % (2.0-8.0); NEUTROPHILS # 5.3 10^3/uL (1.5-8.5); NEUTROPHILS % 62.1 % (36.0-66.0); PLATELET COUNT, AUTOMATED 304 10^3/uL (150-450); RED BLOOD COUNT 2.72 10^6/uL (4.00-5.40); WHITE BLOOD COUNT 8.5 10^3/uL (4.0-10.0)
[2021-04-30 08:52] LABS: CALCIUM LEVEL 7.3 MG/DL (8.5-10.1); CREATININE FOR GFR 2.14 MG/DL (0.55-1.30); GLOMERULAR FILTRATION RATE 25.1 (>51); POTASSIUM SERUM 5.6 MEQ/L (3.5-5.1)
[2021-04-30] MEDS ORDERED: SODIUM CHLORIDE 0.9% 1000ML IV PRN (09:50)
[2021-04-30] MEDS: HEPARIN SOD (PORCINE) 5000UNITS/ML 1ML VIAL/SYRINGE SC SCH ×2 (10:00→21:03)
--- NOTE | 2021-04-30 16:10 | IPNPDOC ---
Text Note Date of Service The patient was seen on 04/30/21. NOTE Subjective: Patient seen and examined at bedside today. Patient with is feeling better today. She denies having any headaches, chest pain, abdominal pain, shortness of breath. She reports she did not have a good night sleep and she states that she cannot sleep well in hospital. Physical exam: General: Patient is alert oriented x3. Sitting in bed. no apparent distress. Cardiac: S1 and S2 normal, regular rate and rhythm, no murmurs appreciated Lungs: Bilateral clear breath sounds, no rhonchi wheezes or crackles appreciated. Abdomen: Soft to touch, positive bowel sounds, no tenderness noted in all 4 quadrants Extremities: Noted bilateral pitting edema about 2+ in the ankles. No redness or swelling noted in the calves or legs. Skin: Patient has fragile skin and noted multiple scabs in her thorax, neck and abdomen. Imaging: CXR 04/26: No acute findings. CT Head 04/26: 1. No acute intracranial pathology. 2. Other chronic findings, as above. CT abdomen / pelvis 04/26: No acute findings. CXR 04/27: Right IJ central venous line projects at the atrial caval junction. Chest x-ray done on 04/27/2021: Reported Right AKA central venous line projects at the atrial caval junction. Lungs are clear and normal acute findings. Labs: Vitals: Temperature temperature 97.3, heart rate 88, RR 20, BP 122/67, 96% on room air. CBC: WBC 8.5, Hb 7.9, HCT 25.5, platelets 304. BMP: NA 140, K5.6 [likely from her potassium bath the CRRT], CL 107 HCO3 23, BUN 29, creatinine 2.14 [increased from 1.45] Glucose 69 Blood cultures/01/12: No growth after 72 hours. UA 04/27/2021: Negative. Assessment: 60-year-old female patient with PMH of HTN, hypothyroidism [s/p Graves' disease], CKD 4, IBD, arthritis, obesity, GERD, fragile skin follows with Dr. Lezama, presented to the ED with concern for worsening mentation since several days. In the ED patient was hypotensive and was started on Levophed she had an anion gap metabolic acidosis and non-anion gap metabolic acidosis, and oliguric on presentation. Patient was admitted to ICU for further evaluation and erika alonso. Plan: Acute metabolic encephalopathy [2/2 multifactorial, TIANNA, acidosis, hyper ammonia, sepsis. -Resolution of her acidosis and sepsis. -Her CRRT was held 2 days ago her kidney functions are very gradually improving. -She will be getting an hemodialysis done today -Nephrology is on board with this case and managing her dialysis Hypotension: Unclear etiology likely urine, as blood cultures were negative. -We will continue patient on midodrine. Her systolic blood pressures are from 1 00-110's -Does not have any signs of sepsis like with elevated white count, tachycardia, fever. -Will discontinue Zosyn today Anemia: -Patient has a gradual drop in her hemoglobin today morning it is 7.9 -Was transfused with 1 unit of PRBC ordered by nephrology and however patient is going for dialysis today. Severe NAGMA and HAGMA: -Resolution of her acidosis. Hypothyroidism: -History of Graves' disease. -Given that patient is able to take oral medication we will switch her from IV levothyroxine to oral levothyroxine her home dose -That is levothyroxine 200 mcg daily. HTN: -Patient is hypotensive. -We continue to hold her home HTN medications [diltiazem, furosemide, spironolactone] GI prophylaxis: - will continue Protonix. DVT prophylaxis: - we will continue heparin Disposition: -Pending clinical improvement, Based on her dialysis requirement. Attending Attestation: I saw and evaluated patient. I agree with the findings and plan of care as documented in the residents note. VS,Fishbone, I+O VS, Fishbone, I+O Laboratory Tests 04/30/21 08:12 04/30/21 08:13 Vital Signs Date Time Temp Pulse Resp B/P (MAP) Pulse Ox O2 Delivery O2 Flow Rate FiO2 04/30/21 13:55 97.0 80 16 127/57 Room Air 04/30/21 08:09 97 I&O- Last 24 Hours up to 6 AM 04/30/21 06:00 Intake Total 1120 ml Output Total 1600 ml Balance -480 ml Rebeka Low MD Apr 30, 2021 16:10 MARK BARTON MD May 01, 2021 06:20
[2021-04-30] MEDS: PANTOPRAZOLE 40MG VIAL (C9113 PER 1) IV SCH (17:59)
--- NOTE | 2021-04-30 18:51 | IPN ---
PROGRESS NOTE DATE: 04/30/2021 SUBJECTIVE: Patient is seen and examined in the hemodialysis unit receiving her first hemodialysis treatment since CRRT was stopped on Wednesday. We are dialyzing her for clearance only as she responded to Lasix and is now nonoliguric. The patient denies any complaints today. No nausea. No shortness of breath. She is receiving 1 unit of packed red blood cells with dialysis today. PHYSICAL EXAMINATION: VITAL SIGNS: Temperature 97.0, pulse 80, respiratory rate 16, blood pressure 127/67, saturating 95 to 97% on room air. INTAKE/OUTPUT: Intake yesterday was 880. Urine output yesterday was 1350. Urine output thus far today is 875. Weight in the bed scale today is 111.8 kg. GENERAL: Patient is seen in the hemodialysis unit receiving her treatment. A morbidly obese female, awake, alert, oriented, comfortable, in no distress. HEENT: Extraocular muscles are intact. Tongue is moist. Neck is supple. There is a temporary dialysis catheter in the right IJ, currently in use. HEART: Heart sounds are regular, S1, S2. There is no leg edema. LUNGS: Show symmetric air entry bilaterally. No crackle or rale. ABDOMEN: Soft, obese and nontender. GENITOURINARY: Shows indwelling Amaral catheter with urine in the bag. NEUROLOGIC: She is awake, alert and oriented x3, interactive and conversational. MUSCULOSKELETAL: There is no cyanosis or clubbing or edema of the legs. LABORATORY DATA: Today show sodium 140, potassium 5.6, bicarbonate 23, BUN 29, creatinine 2.1. Hemoglobin 7.9, platelets 304,000. INPATIENT MEDICATIONS: I note that her Zosyn was stopped. She got a dose of Aranesp yesterday 100 mcg subcutaneously. She is now on oral Synthroid. The remainder of her medications are all unchanged as compared to yesterday. PROBLEMS: 1. Acute kidney injury superimposed on CKD stage 4: Patient is now nonoliguric. I am not sure if she is going to recover renal function or not. She is making urine, but she is not having improvement in her clearance. Hence we did do dialysis today but for clearance only without any significant fluid removal. Depending on her course this week, we will see if she will need to continue with dialysis or not. She is tentatively scheduled for Permacath placement on Wednesday if she continues to have dialysis needs by that point. She is currently dialyzing via a temporary right IJ dialysis catheter. 2. Hyperkalemia: Patient had a 3 hour dialysis treatment today for clearance only and her potassium is expected to improve. 3. Hypotension: Blood pressures have nicely improved. I am going to continue her on Midodrine for another day and then we will wean it off if her blood pressures remain stable. She tolerated today's dialysis treatment without any hemodynamic instability. 4. Anemia of chronic renal failure: Her iron stores are adequate. She got another unit of blood with dialysis today for a total of 4 units all-in-all now and she also got a dose of Aranesp yesterday. 5. Hypoglycemia: Glucose was 69 on the chemistry today. Patient previously came in with a starvation ketosis. She is not receiving any insulin products. She still has poor oral intake. I am ordering Nepro with meals.
[2021-05-01] VITALS: BP 120/56
[2021-05-01 04:00] VITALS: BP 119/56
[2021-05-01] MEDS: LEVOTHYROXINE 100MCG TABLET (0.1MG) PO SCH (05:51)
[2021-05-01 05:54] LABS: BASO # 0.1 10^3/uL (0.0-0.2); BASO % 0.8 % (0.0-1.0); EOS # 0.4 10^3/uL (0.0-0.5); EOS % 4.5 % (0.0-3.0); LYMPH # 1.6 10^3/uL (1.5-5.0); LYMPH % 18.6 % (24.0-44.0); MEAN CORPUSCULAR HEMOGLOBIN 30.2 pg (27.0-33.0); MEAN CORPUSCULAR HGB CONC 32.1 g/dl (32.0-36.5); MONO # 1.1 10^3/uL (0.0-0.8); MONO % 12.7 % (2.0-8.0); NEUTROPHILS # 5.3 10^3/uL (1.5-8.5); NEUTROPHILS % 61.3 % (36.0-66.0); PLATELET COUNT, AUTOMATED 265 10^3/uL (150-450); RED BLOOD COUNT 2.98 10^6/uL (4.00-5.40); WHITE BLOOD COUNT 8.7 10^3/uL (4.0-10.0)
[2021-05-01 06:24] LABS: CALCIUM LEVEL 7.2 MG/DL (8.5-10.1); CREATININE FOR GFR 1.62 MG/DL (0.55-1.30); GLOMERULAR FILTRATION RATE 34.6 (>51); POTASSIUM SERUM 4.2 MEQ/L (3.5-5.1)
[2021-05-01 07:46] VITALS: BP 128/61
[2021-05-01] MEDS: DOCUSATE SODIUM 100MG CAPSULE PO SCH ×2 (09:00→21:00)
[2021-05-01] MEDS: CETIRIZINE (ZyrTEC) 10 MG TAB PO SCH (09:38)
[2021-05-01] MEDS: HEPARIN SOD (PORCINE) 5000UNITS/ML 1ML VIAL/SYRINGE SC SCH ×2 (09:38→21:23)
[2021-05-01] MEDS ORDERED: FUROSEMIDE 40MG/4ML VIAL (J1940) IV ONE (10:15)
[2021-05-01] MEDS: PANTOPRAZOLE 40MG VIAL (C9113 PER 1) IV SCH (11:17)
[2021-05-01 12:00] VITALS: BP 133/71
--- NOTE | 2021-05-01 12:33 | IPN ---
PROGRESS NOTE DATE: 05/01/2021 SUBJECTIVE: Ashanti is seen and examined this morning at the bedside. She complains of diarrhea. She also complains of a dry cough. She was dialyzed yesterday with no significant fluid removal and she tolerated the dialysis without any issues. OBJECTIVE: VITAL SIGNS: Temperature 97.8, pulse 110, respiratory rate 20, blood pressure 128/61, saturating 97% on room air. INTAKE AND OUTPUT: Intake yesterday was 1.8 liters. Urine output was 1.2 liters. Weight on the bed scale today is 113 kg. GENERAL: The patient is seen lying in bed a morbidly obese female, awake, alert, and oriented x3. Comfortable in no distress. HEENT: Extraocular muscles are intact. Tongue is moist. NECK: Supple. Jugular veins are not elevated. There is a temporary dialysis catheter in the right neck. HEART: Sounds are tachycardic. S1, S2. There is no leg edema. LUNGS: Show symmetric air entry bilaterally. No crackle or rale. ABDOMEN: Soft, obese, and nontender. GENITOURINARY: Shows indwelling Amaral catheter and there is also a left femoral central line. NEUROLOGIC: She is awake, alert, oriented x3, interactive, and conversational. EXTREMITIES: There is no clubbing, cyanosis, nor edema of the legs. LABORATORY DATA: Show sodium 141, potassium 4.2, bicarbonate 23, BUN 14, glucose 76. Hemoglobin 9.0, platelets 265,000. INPATIENT MEDICATIONS: She got a dose of Lasix 40 mg IV x1 this morning. Her midodrine was stopped. The remainder of her medications are unchanged as compared to yesterday. PROBLEMS: 1. Acute kidney injury superimposed on chronic kidney disease (CKD) stage IV. It remains to be seen whether or not she is going to have chronic dialysis needs at this point. I did dialyze her yesterday for clearance purposes only as she was hyperkalemic, but we did not remove any significant fluid with dialysis, as she has had satisfactory urine output. I will not dialyze her today 05/01 nor tomorrow 05/02, and we will see the trend of renal function on the blood work and then, decide if she needs a treatment on Wednesday or not. I am going to hold off getting a Permacath for now. The temporary right internal jugular (IJ) dialysis catheter will be removed by this weekend. Her Amaral catheter can be removed today. 2. Hyperkalemia. It improved with a three hour dialysis treatment yesterday, which was done for clearance purposes only. 3. Hypotension. Blood pressures are stable. Mean arterial pressure (MAP) remains above 65 and midodrine was stopped yesterday. She tolerated dialysis without any hemodynamic instability. 4. Anemia of chronic renal failure. She has received four units of blood on this admission. She has also received a dose of Aranesp. Her iron stores are adequate. We will transfuse for hemoglobin less than 8. 5. Hypoglycemia and protein-calorie malnutrition. Albumin level is in the mid 2s and her glucose on chemistry has been on the low side. She is not having fingersticks. She is ordered for Nepro with meal and encouraged for oral intake. 6. Lines. Amaral catheter is going to be discontinued today. I also suggest to discontinue the left femoral central catheter. Her right IJ dialysis catheter will remain until this weekend.
--- NOTE | 2021-05-01 15:21 | REP ---
INDICATION: pre-AVF creation COMPARISON: None. TECHNIQUE: Real time compression and duplex Doppler evaluation of the Bilateral upper extremity deep venous system is performed. FINDINGS: The Bilateral subclavian, jugular, axillary, brachial, and basilic veins are fully compressible where accessible with transducer pressure, and demonstrate no intraluminal thrombus and normal venous waveforms. There is no evidence of deep venous thrombosis. There is occlusive thrombus in the cephalic veins at the level of the distal humerus bilaterally. Right: Basilic vein size (mm)/ Cephalic vein size (mm) Upper humerus: 3/3 Lower humerus:2/2 Upper forearm: 1/2 Lower forearm/wrist: 1/2 Median cubital:2 Right arterial structures: Peak systolic velocity (cm/s)/waveform/size (mm) Axillary: 97/triphasic/7 Brachial: 90/triphasic/4 Radial: 97/triphasic/3 Ulnar:81/triphasic/4 Left: Basilic vein size (mm)/ Cephalic vein size (mm) Upper humerus: 5/3 Lower humerus:4/3 Upper forearm: 2/2 Lower forearm/wrist:1/ Median cubital:5 Left arterial structures: Peak systolic velocity (cm/s)/waveform/size (mm) Axillary: 94/triphasic/8 Brachial: 90/triphasic/3 Radial: 90/triphasic/2 Ulnar: 93/triphasic/3 IMPRESSION: No evidence of deep venous thrombosis of the Bilateral upper extremity deep vein system. Occlusive thrombus in the cephalic veins at the level of the distal humerus bilaterally. Arterial and venous sizes are given above. <Electronically signed by Remy Sinclair > 05/01/21 [id number]
--- NOTE | 2021-05-01 15:30 | IPNPDOC ---
Text Note Date of Service The patient was seen on 05/01/21. NOTE Subjective: Patient was seen at bedside. She reports having dry cough and could not sleep overnight. She also reports having some burning sensation near the Amaral catheter. She denies having any headaches, chest pain, abdominal pain, shortness of breath. Objective Physical exam: General: Patient was sitting in bed, no apparent distress. Cardiac: S1 and S2 are normal, regular rate and rhythm, no murmurs were appreciated. Lungs: Clear bilateral breath sounds, no wheezes appreciated. Abdomen: Soft to touch, she does have an ventral hernia she reports having mild tenderness in that region but on further questioning she is reports she always have mild tenderness in that region. No tenderness on rest of the quadrants. No tenderness noted on the suprapubic region. Extremities: Noted mild bilateral pitting edema about 1+. No redness or swelling in the calves. He does report having some weakness in her legs and pain in her bilateral knees. Skin: Patient has excoriation wounds all over her chest and abdomen region. She reports she is very itchy and scratches them. Likely her itching is due to her renal failure. Imaging: CXR 04/26: No acute findings. CT Head 04/26: 1. No acute intracranial pathology. 2. Other chronic findings, as above. CT abdomen / pelvis 04/26: No acute findings. CXR 04/27: Right IJ central venous line projects at the atrial caval junction. Chest x-ray done on 04/27/2021: Reported Right AKA central venous line projects at the atrial caval junction. Lungs are clear and normal acute findings. Labs: Vitals: Temperature 97.8, HR 96, RR 18, BP 119/56, 96% on room air. CBC: WBC 8.7, Hb 9 patient did receive an unit of blood transfusion yesterday, HCT 28, platelet 265. BMP: NA 141, K4.1, CL 108, HCO3 23, BUN 14, CR 1.62 [came down from 2.14] Blood cultures 04/26: No growth after 72 hours UA 04/27: Negative Assessment: 60-year-old female with past medical history of hypertension, hypothyroidism [s/p Graves' disease], CKD 3, IBD, arthritis, obesity, GERD, fragile skin and excoriation from scratching due to her CKD, brought into the ED for worsening mentation. In the ED patient was hypotensive and was started on Levophed. She had anion gap metabolic acidosis and non-anion gap metabolic acidosis, oliguria on presentation. Patient was admitted to ICU for further management and evaluation. During the ICU stay patient was started on CRRT due to her acidosis, and insulin drip due to ketoacidosis, patient gradually improved and was off of CRRT , he did receive 1 hemodialysis session following that. During the stay she did receive 4 units of leuk reduced RBC. Nephrology on board with this patient and managing her dialysis as needed. Plan: -Resolution of her acute metabolic encephalopathy and sepsis. -Resolution of her NAGMA and HAG MA -Resolution of her hypotension [patient was on midodrine after she was off of her Levophed for a while] Anemia: -Patient did receive a total of 4 units of blood during this admission. -She did receive 1 unit of blood overnight followed with dialysis session. -Her hemoglobin this morning is 9. -Patient denies having any shortness of breath. TIANNA on CKD: -Decision pending whether patient requires hemodialysis on a regular basis. -We will watch her over the weekend to see how her kidneys are improving the nephrology as she might need hemodialysi -If needed patient might get a permacath and early next week. -We will DC the Amaral catheter today. -Patient reports to have severe itching and has skin excoriations in her thorax and abdomen. Hypothyroidism: -Due to Graves' disease. -We will continue her home levothyroxine 200 MCG daily Hypertension: -Continue to hold her blood pressure medications for now. -Patient is getting as needed furosemide scheduled per nephrology GI prophylaxis: -We will continue Protonix overall DVT prophylaxis: -We will continue heparin Disposition: -Pending clinical improvement. Decision to be made regarding her hemodialysis if required on a regular basis. Attending Attestation: I saw and evaluated patient. I agree with the findings and plan of care as documented in the residents note. VS,Sudheer, I+O VSSudheer, I+O Laboratory Tests 05/01/21 05:44 Vital Signs Date Time Temp Pulse Resp B/P (MAP) Pulse Ox O2 Delivery O2 Flow Rate FiO2 05/01/21 12:00 97.5 96 18 133/71 (91) 99 Room Air I&O- Last 24 Hours up to 6 AM 05/01/21 06:00 Intake Total 1570 ml Output Total 1150 ml Balance 420 ml Rebeka Low MD May 01, 2021 15:30 MARK BARTON MD May 03, 2021 06:25
[2021-05-01 16:42] VITALS: BP 120/74
[2021-05-01 20:00] VITALS: BP 143/65
[2021-05-01] MEDS: guaiFENesin SYRUP 200 MG/10 ML UDC PO PRN (21:23)
[2021-05-02] VITALS: BP 130/59
[2021-05-02 04:36] LABS: BASO # 0.1 10^3/uL (0.0-0.2); BASO % 0.6 % (0.0-1.0); EOS # 0.5 10^3/uL (0.0-0.5); EOS % 4.5 % (0.0-3.0); HEMATOCRIT 28.7 % (36.0-47.0); HEMOGLOBIN 9.1 g/dl (12.0-15.5); LYMPH % 18.1 % (24.0-44.0); MEAN CORPUSCULAR HEMOGLOBIN 29.5 pg (27.0-33.0); MEAN CORPUSCULAR HGB CONC 31.7 g/dl (32.0-36.5); MEAN CORPUSCULAR VOLUME 93.2 fl (80.0-96.0); MONO # 1.3 10^3/uL (0.0-0.8); MONO % 12.3 % (2.0-8.0); NEUTROPHILS # 6.6 10^3/uL (1.5-8.5); NEUTROPHILS % 61.2 % (36.0-66.0); PLATELET COUNT, AUTOMATED 268 10^3/uL (150-450); RED BLOOD COUNT 3.08 10^6/uL (4.00-5.40); WHITE BLOOD COUNT 10.8 10^3/uL (4.0-10.0)
[2021-05-02 05:00] VITALS: BP 130/62
[2021-05-02 05:05] LABS: CALCIUM LEVEL 7.7 MG/DL (8.5-10.1); CREATININE FOR GFR 2.29 MG/DL (0.55-1.30); GLOMERULAR FILTRATION RATE 23.2 (>51); POTASSIUM SERUM 3.9 MEQ/L (3.5-5.1)
[2021-05-02] MEDS: LEVOTHYROXINE 100MCG TABLET (0.1MG) PO SCH (05:53)
[2021-05-02 07:41] VITALS: BP 136/89
[2021-05-02] MEDS: DOCUSATE SODIUM 100MG CAPSULE PO SCH ×2 (09:00→20:27)
[2021-05-02] MEDS: HEPARIN SOD (PORCINE) 5000UNITS/ML 1ML VIAL/SYRINGE SC SCH ×2 (09:15→20:29)
[2021-05-02] MEDS: CETIRIZINE (ZyrTEC) 10 MG TAB PO SCH (09:15)
[2021-05-02 12:00] VITALS: BP 131/73
[2021-05-02] MEDS: PANTOPRAZOLE 40MG VIAL (C9113 PER 1) IV SCH (12:10)
--- NOTE | 2021-05-02 14:24 | IPN ---
PROGRESS NOTE DATE: 05/02/2021 SUBJECTIVE: Ashanti is seen and examined this morning at the bedside. She offers no complaints. She states the diarrhea stopped. She is not having anymore cough. She feels good. She is not short of breath. She continues to make more than a liter of urine a day. Her Amaral catheter and her femoral line have both been discontinued. She still has the right IJ dialysis catheter. OBJECTIVE: VITAL SIGNS: Temperature 97.9, pulse 97, respiratory rate 19, blood pressure 136/89, saturating 95% on room air. INTAKE AND OUTPUT: Intake yesterday was 2 liters. Urine output yesterday was 1675. Weight on the bed scale today is 112.1 kg. GENERAL: The patient is seen awake, alert, and oriented. Lying in bed, morbidly obese female, in no distress. HEENT: Extraocular muscles are intact. Tongue is moist. NECK: Supple. There is a dialysis catheter in the right IJ. HEART: Sounds are regular S1, S2. There is no leg edema. LUNGS: Anterior auscultation only clear breath sounds. No crackle or rales. She is comfortable on room air. ABDOMEN: Soft, obese, and nontender. GENITOURINARY: She no longer has the Amaral catheter. She no longer has the left femoral line. NEUROLOGIC: She is awake, alert, and oriented x4. Interactive and cooperative with physical examination. Moves all four extremities on command. SKIN: Warm and dry. LABORATORY DATA: Show sodium 137, potassium 3.9, bicarbonate 22, BUN 23, creatinine 2.2, GFR 23. Hemoglobin 9.1, platelets 268,000. INPATIENT IMAGING: Shows vein mapping was done yesterday of the arm. INPATIENT ORDERS: Show no change in her medication since yesterday. PROBLEMS: 1. Acute kidney injury superimposed on chronic kidney disease (CKD) stage IV. The patient was briefly on continuous renal replacement therapy (CRRT) while she was in the intensive care unit (ICU). She then had one hemodialysis treatment on April 30. It remains to be seen whether or not she will be chronically dialysis dependent. She is making satisfactory urine and is diuretic responsive. I am not getting a Permacath at this time. She still has a temporary right internal jugular (IJ) dialysis catheter, which was placed on April 27. If she continues to have dialysis needs, we will request Permacath placement. 2. Anemia of chronic renal failure. She has received four units of blood on this admission. She is now on Aranesp. Her iron stores are adequate. Her hemoglobin has improved. 3. History of hypertension. All of her antihypertensives were stopped while she was in the ICU in shock. She was on Levophed for a period of time and then switched over to midodrine. She has no longer required any blood pressure raising agents. Her systolic is now satisfactory in the 130s.
[2021-05-02 15:59] VITALS: BP 120/61
[2021-05-02] MEDS: AZELASTINE 137MCG NASAL SPY 30 ML (ASTELIN) SCH (16:56)
--- NOTE | 2021-05-02 17:06 | IPNPDOC ---
Text Note Date of Service The patient was seen on 05/02/21. NOTE Subjective: She was seen and examined at bedside. She denies having any complaints. He reports having a good night sleep after a long period of time. She reports her cough has been decreased after her oral syrup medication. Her burning sensation in the pubic region was decreased after the Amaral was out. She denies having any headache, chest pain, abdominal pain, shortness of breath. She reports having some congestion in her sinuses and she regularly takes some allergy medications at home[Singulair, Astelin] patient was requesting if she can continue that medication. Objective: Physical exam: General: Patient was sitting in bed, no apparent distress. Cardiac: S1 and S2 normal, no murmurs appreciated. Lungs: Clear bilateral breath sounds, no wheezes appreciated. Abdomen: Soft, no tenderness to palpation in all 4 quadrants [except the ventral hernia], positive bowel sounds appreciated. Extremity: Mild pitting edema the legs>feet. Skin: Patient has excoriation wounds in her abdomen and chest. Imaging: CXR 04/26: No acute findings. CT Head 04/26: 1. No acute intracranial pathology. 2. Other chronic findings, as above. CT abdomen / pelvis 04/26: No acute findings. CXR 04/27: Right IJ central venous line projects at the atrial caval junction. Chest x-ray done on 04/27/2021: Reported Right AKA central venous line projects at the atrial caval junction. Lungs are clear and normal acute findings. Labs: Vitals: Temperature 97.8, HR 96, RR 18, BP 119/56, 96% on room air. CBC: WBC 8.7, Hb 9 patient did receive an unit of blood transfusion yesterday, HCT 28, platelet 265. BMP: NA 141, K4.1, CL 108, HCO3 23, BUN 14, CR 1.62 [came down from 2.14] Blood cultures 04/26: No growth after 72 hours UA 04/27: Negative Assessment: 60-year-old female with past medical history of hypertension, hypothyroidism [s/p Graves' disease], CKD 3, IBD, arthritis, obesity, GERD, fragile skin and excoriation from scratching due to her CKD, brought into the ED for worsening mentation. In the ED patient was hypotensive and was started on Levophed. She had anion gap metabolic acidosis and non-anion gap metabolic acidosis, oliguria on presentation. Patient was admitted to ICU for further management and evaluation. During the ICU stay patient was started on CRRT due to her acidosis, and insulin drip due to ketoacidosis, patient gradually improved and was off of CRRT , he did receive 1 hemodialysis session following that. During the stay she did receive 4 units of leuk reduced RBC. Nephrology on board with this patient and managing her dialysis as needed. Plan: -Resolution of her acute metabolic encephalopathy and sepsis. -Resolution of her NAGMA and HAG MA -Resolution of her hypotension [patient was on midodrine after she was off of her Levophed for a while] TIANNA on CKD: -Decision pending whether patient requires hemodialysis on a regular basis. Given that patient is bedbound and it would be hard for her to go to hemodialysis 3 times per week. -We will watch her over the weekend to see how her kidneys are improving, nephrology is on board with this case -If needed patient might get a permacath and early next week. Anemia: -Patient did receive a total of 4 units of blood during this admission. -Her hemoglobin this morning is 9. -Patient denies having any shortness of breath. Hypothyroidism: -Due to Graves' disease. -We will continue her home levothyroxine 200 MCG daily Allergies: -We will start her on home Singulair, Astelin. Hypertension: -Continue to hold her blood pressure medications for now. -Patient is getting as needed furosemide scheduled per nephrology GI prophylaxis: -We will continue Protonix DVT prophylaxis: -We will continue heparin Disposition: -Pending clinical improvement. Decision to be made regarding her hemodialysis if required on a regular basis. Attending Attestation: I saw and evaluated patient. I agree with the findings and plan of care as documented in the residents note. VS,Fishbone, I+O VS, Fishbone, I+O Laboratory Tests 05/02/21 04:05 Vital Signs Date Time Temp Pulse Resp B/P (MAP) Pulse Ox O2 Delivery O2 Flow Rate FiO2 05/02/21 15:59 98.1 91 18 120/61 (80) 99 Room Air I&O- Last 24 Hours up to 6 AM 05/02/21 06:00 Intake Total 1960 ml Output Total 1900 ml Balance 60 ml Rebeka Low MD May 02, 2021 17:06 MARK BARTON MD May 03, 2021 06:32
[2021-05-02 20:00] VITALS: BP 139/62
[2021-05-02] MEDS: MONTELUKAST 10 MG TAB PO SCH (20:28)
[2021-05-02] MEDS: MORPHINE 2 MG/ML 1ML VIAL (J2270) IV PRN (22:45)
[2021-05-02] MEDS: guaiFENesin SYRUP 200 MG/10 ML UDC PO PRN (22:45)
[2021-05-03 04:00] VITALS: BP 120/56
[2021-05-03] MEDS: LEVOTHYROXINE 100MCG TABLET (0.1MG) PO SCH (05:18)
[2021-05-03 05:54] LABS: BASO # 0.1 10^3/uL (0.0-0.2); BASO % 0.8 % (0.0-1.0); EOS # 0.6 10^3/uL (0.0-0.5); EOS % 7.3 % (0.0-3.0); HEMATOCRIT 28.3 % (36.0-47.0); HEMOGLOBIN 8.9 g/dl (12.0-15.5); LYMPH # 1.6 10^3/uL (1.5-5.0); LYMPH % 18.3 % (24.0-44.0); MEAN CORPUSCULAR HEMOGLOBIN 29.6 pg (27.0-33.0); MEAN CORPUSCULAR HGB CONC 31.4 g/dl (32.0-36.5); MONO % 11.3 % (2.0-8.0); NEUTROPHILS # 5.1 10^3/uL (1.5-8.5); NEUTROPHILS % 58.4 % (36.0-66.0); PLATELET COUNT, AUTOMATED 255 10^3/uL (150-450); RED BLOOD COUNT 3.01 10^6/uL (4.00-5.40); WHITE BLOOD COUNT 8.7 10^3/uL (4.0-10.0)
[2021-05-03 06:17] LABS: CALCIUM LEVEL 7.3 MG/DL (8.5-10.1); CREATININE FOR GFR 2.44 MG/DL (0.55-1.30); GLOMERULAR FILTRATION RATE 21.6 (>51); POTASSIUM SERUM 4.1 MEQ/L (3.5-5.1)
[2021-05-03 07:49] VITALS: BP 129/68
[2021-05-03] MEDS: DOCUSATE SODIUM 100MG CAPSULE PO SCH ×2 (08:16→21:00)
[2021-05-03] MEDS: AZELASTINE 137MCG NASAL SPY 30 ML (ASTELIN) SCH (08:22)
[2021-05-03] MEDS: HEPARIN SOD (PORCINE) 5000UNITS/ML 1ML VIAL/SYRINGE SC SCH ×2 (08:23→21:05)
[2021-05-03] MEDS: CETIRIZINE (ZyrTEC) 10 MG TAB PO SCH (08:23)
[2021-05-03 09:30] VITALS: BP 143/80
[2021-05-03] MEDS: PANTOPRAZOLE 40MG VIAL (C9113 PER 1) IV SCH (12:54)
[2021-05-03 14:00] VITALS: BP 143/79
--- NOTE | 2021-05-03 16:28 | IPNPDOC ---
Text Note Date of Service The patient was seen on 05/03/21. NOTE Subjective: Patient was seen at bedside. Patient reports she is feeling well and feels like she is back to baseline. She denies having any complaints. She reports having a good night sleep. She reports her allergies are better today and is having less headache since morning because she brought her allergy medication at night. Objective: Physical exam: General: Patient is laying in bed, no apparent distress. Cardiac: S1 and S2 normal, no murmurs appreciated. Lung: Clear bilateral breath sounds, no wheezing or rhonchi appreciated. Abdomen soft, no tenderness to palpation all 4 quadrants except the hernia location, positive bowel sounds appreciated. Extremities: Pitting edema similar to yesterday. Skin: Excoriation wound in the abdomen, hands, chest Imaging: CXR 04/26: No acute findings. CT Head 04/26: 1. No acute intracranial pathology. 2. Other chronic findings, as above. CT abdomen / pelvis 04/26: No acute findings. CXR 04/27: Right IJ central venous line projects at the atrial caval junction. Chest x-ray done on 04/27/2021: Reported Right AKA central venous line projects at the atrial caval junction. Lungs are clear and normal acute findings. Assessment: 60-year-old female with past medical history of hypertension, hypothyroidism [s /p Graves' disease], CKD 3, IBD, arthritis, obesity, GERD, fragile skin and excoriation from scratching due to her CKD, brought into the ED for worsening mentation. In the ED patient was hypotensive and was started on Levophed. She had anion gap metabolic acidosis and non-anion gap metabolic acidosis, oliguria on presentation. Patient was admitted to ICU for further management and evaluation. During the ICU stay patient was started on CRRT due to her acidosis, and insulin drip due to ketoacidosis, patient gradually improved and was off of CRRT , he did receive 1 hemodialysis session following that. During the stay she did receive 4 units of leuk reduced RBC. Nephrology on board with this patient and managing her dialysis as needed. Plan: -Resolution of her acute metabolic encephalopathy and sepsis. -Resolution of her NAGMA and HAG MA -Resolution of her hypotension [patient was on midodrine after she was off of her Levophed for a while] TIANNA on CKD: -Decision pending whether patient requires hemodialysis on a regular basis. Given that patient is bedbound and it would be hard for her to go to hemodialysis 3 times per week. -We will watch her over the weekend to see how her kidneys are improving, nephrology is on board with this case -If needed patient might get a permacath and early next week. -Patient's creatinine is 2.4 [increased from 2.29 yesterday) GFR dropped from 23.2-21.6. Anemia: -Patient did receive a total of 4 units of blood during this admission. -Her hemoglobin this morning is 8.9. -Patient denies having any shortness of breath. Hypothyroidism: -Due to Graves' disease. -We will continue her home levothyroxine 200 MCG daily Allergies: -We will continue home Singulair, Astelin. Hypertension: -Continue to hold her blood pressure medications for now. -Patient is getting as needed furosemide scheduled per nephrology GI prophylaxis: -We will continue Protonix DVT prophylaxis: -We will continue heparin Disposition: -Pending clinical improvement. Decision to be made regarding her hemodialysis if required on a regular basis. Attending Attestation: I saw and evaluated patient. I agree with the findings and plan of care as docum ented in the residents note. VS,Fishbone, I+O VS, Fishbone, I+O Laboratory Tests 05/03/21 05:28 Vital Signs Date Time Temp Pulse Resp B/P (MAP) Pulse Ox O2 Delivery O2 Flow Rate FiO2 05/03/21 14:00 98.5 92 20 143/79 (100) 96 Room Air I&O- Last 24 Hours up to 6 AM 05/03/21 06:00 Intake Total 2713 ml Output Total 2975 ml Balance -262 ml Rebeka Low MD May 03, 2021 16:28 MARK BARTON MD May 04, 2021 13:56
--- NOTE | 2021-05-03 20:50 | IPN ---
NEPHROLOGY PROGRESS NOTE DATE: 05/03/2021 SUBJECTIVE: Mrs. Stoll was seen this morning at her bedside. She is sitting in her bed eating her lunch. She is feeling much better and denies any dyspnea or chest pain. She is still bed bound and requiring a bedpan. She is not able to get off the bed even for her daily activities. She is not requiring oxygen anymore and has been hemodynamically stable. OBJECTIVE: PHYSICAL EXAMINATION: VITAL SIGNS: Temperature 98.2 degrees Fahrenheit, heart rate 87 per minute, respiratory rate 16 per minute, blood pressure 143/80 mm of mercury and oxygen saturation 98% on room air. INTAKE AND OUTPUT: Records from yesterday showed total intake 2,700 and output 2,000 with a positive fluid balance of 513. HEENT: Her head is atraumatic. NECK: Supple and JVD not abnormally elevated. She has a dialysis catheter on the right side of her neck. HEART: Regular. LUNGS: Slightly diminished breath sounds at the bases. ABDOMEN: Obese, soft and nontender and bowel sounds are normal. EXTREMITIES: Without any cyanosis or clubbing. NEUROLOGICAL: She is at her baseline mentation without any focal deficits. LABORATORY STUDIES: Today's labs show a WBC count of 8.7, hemoglobin 8.9 and hematocrit 28.3, platelet count 255. Sodium 137, potassium 4.1, CO2 23, BUN 29 and creatinine 2.44. CURRENT INPATIENT MEDICATIONS: The patient's medications were reviewed. She is currently receiving Zyrtec 10 mg daily, Aranesp 100 mcg once a week, Benadryl topical as needed for itching, Colace 100 mg twice daily, Robitussin cough syrup as needed for cough, Heparin 5,000 units subcutaneously every 12 hours, Levothyroxine 200 mcg daily, Singulair 10 mg at bedtime, Zofran as needed for nausea, Morphine 2 mg as needed for moderate to severe pain, Protonix 40 mg intravenously every 24 hours. She is not on any diuretic at present. PROBLEMS: 1. Acute renal failure superimposed on chronic kidney disease - she has good urine output, however creatinine is gradually increasing. She had last dialysis on April 30, and since then we have not dialyzed her. We will continue to monitor closely and at this point she does not need any urgent dialysis today. Her electrolytes are stable and volume status is well compensated. 2. Anemia her anemia is stable and she did receive a dose of Aranesp on April 28. We will switch her Aranesp to once a week even without dialysis. At this point her anemia is stable and we will continue to monitor closely. 3. Congestive heart failure - The patient has been off diuretics and volume status is well compensated. At this point I will continue to hold her diuretics. 4. Recent history of bacteremia source remains unidentified. She has multiple chronic skin ulcers which could be the cause of her infection. At this point she is afebrile and we will continue to monitor her closely. 5. Hypertension - blood pressure is well controlled without any medications.
[2021-05-03] MEDS: MONTELUKAST 10 MG TAB PO SCH (21:05)
[2021-05-03 22:00] VITALS: BP 130/63
[2021-05-03] MEDS: guaiFENesin SYRUP 200 MG/10 ML UDC PO PRN (23:29)
[2021-05-03] MEDS: MORPHINE 2 MG/ML 1ML VIAL (J2270) IV PRN (23:30)
[2021-05-04] MEDS: LEVOTHYROXINE 100MCG TABLET (0.1MG) PO SCH (05:44)
[2021-05-04 06:00] VITALS: BP 126/56
[2021-05-04 07:11] LABS: BASO # 0.1 10^3/uL (0.0-0.2); BASO % 0.9 % (0.0-1.0); EOS # 0.6 10^3/uL (0.0-0.5); EOS % 8.1 % (0.0-3.0); HEMATOCRIT 28.1 % (36.0-47.0); HEMOGLOBIN 8.7 g/dl (12.0-15.5); LYMPH # 1.5 10^3/uL (1.5-5.0); MEAN CORPUSCULAR HEMOGLOBIN 29.6 pg (27.0-33.0); MEAN CORPUSCULAR VOLUME 95.6 fl (80.0-96.0); MONO # 0.8 10^3/uL (0.0-0.8); MONO % 10.3 % (2.0-8.0); NEUTROPHILS # 4.5 10^3/uL (1.5-8.5); PLATELET COUNT, AUTOMATED 253 10^3/uL (150-450); RED BLOOD COUNT 2.94 10^6/uL (4.00-5.40); WHITE BLOOD COUNT 7.6 10^3/uL (4.0-10.0)
[2021-05-04 07:32] LABS: CALCIUM LEVEL 7.2 MG/DL (8.5-10.1); CREATININE FOR GFR 2.88 MG/DL (0.55-1.30); GLOMERULAR FILTRATION RATE 17.8 (>51); POTASSIUM SERUM 4.6 MEQ/L (3.5-5.1)
[2021-05-04] MEDS: DOCUSATE SODIUM 100MG CAPSULE PO SCH ×3 (08:40→21:00)
[2021-05-04] MEDS: CETIRIZINE (ZyrTEC) 10 MG TAB PO SCH (08:40)
[2021-05-04] MEDS: HEPARIN SOD (PORCINE) 5000UNITS/ML 1ML VIAL/SYRINGE SC SCH ×2 (08:40→20:28)
[2021-05-04] MEDS: AZELASTINE 137MCG NASAL SPY 30 ML (ASTELIN) SCH (08:40)
--- NOTE | 2021-05-04 10:50 | IPNPDOC ---
Text Note Date of Service The patient was seen on 05/04/21. NOTE Subjective: Patient seen and examined at bedside. No acute overnight events reported. Today, she is noting some itching requesting to resume her Atarax that she takes at home. Objective: Physical exam: General: Patient is laying in bed, no acute distress. HEENT: NC/AT, EOMI Neck: supple, right IJ dialysis catheter in place Cardiac: S1 and S2 normal, no murmurs appreciated. Lung: Clear bilateral breath sounds, no wheezing or rhonchi appreciated. Abdomen soft, no tenderness to palpation all 4 quadrants except the hernia location, positive bowel sounds appreciated. Extremities:no edema Skin: Excoriation wounds in the abdomen, hands, chest Psych: AAOx3 Neuro: no gross focal deficits A/P: 60-year-old female with PMHx including HTN, hypothyroidism [s/p Graves' disease], CKD 3, IBD, arthritis, obesity, GERD, fragile skin and excoriation from scratching due to her CKD, brought into the ED for worsening mentation. In the ED patient was hypotensive and was started on Levophed. She had anion gap metabolic acidosis and non-anion gap metabolic acidosis, oliguria on pres entation. Patient was admitted to ICU for further management and evaluation. During the ICU stay patient was started on CRRT, transitioned to HD. Hospital stay complicated with anemia requiring 4 PRBC. #TIANNA on CKD: -Decision pending whether patient requires hemodialysis on a regular basis. Giv en that patient is bedbound and it would be hard for her to go to hemodialysis 3 times per week. -We will watch her over the weekend to see how her kidneys are improving, nephrology is on board with this case -If needed patient might get a permacath early next week. #Anemia: -Patient did receive a total of 4 units of blood during this admission. - asymtpomatic with regards to anemia - continue to monitor #Hypothyroidism: -Due to Graves' disease. -We will continue her home levothyroxine 200 MCG daily #Allergies: -We will continue home Singulair, Astelin. #Hypertension: -Continue to hold her blood pressure medications for now. #GI prophylaxis: -We will continue Protonix #DVT prophylaxis: -We will continue heparin Resolved issues: -Resolution of her acute metabolic encephalopathy and sepsis. -Resolution of her NAGMA and HAG MA -Resolution of her hypotension [patient was on midodrine after she was off of her Levophed] Disposition: -Pending clinical improvement. Decision to be made regarding permacath/HD if required on a regular basis. VS,Fishbone, I+O VS, Fishbone, I+O Laboratory Tests 05/04/21 06:17 Vital Signs Date Time Temp Pulse Resp B/P (MAP) Pulse Ox O2 Delivery O2 Flow Rate FiO2 05/04/21 06:00 99.0 90 18 126/56 (79) 96 Room Air I&O- Last 24 Hours up to 6 AM 05/04/21 06:00 Intake Total 2270 ml Output Total 2650 ml Balance -380 ml MARK BARTON MD May 04, 2021 10:50
[2021-05-04] MEDS: hydrOXYzine 25 MG TAB PO PRN ×3 (11:10→23:21)
[2021-05-04] MEDS: PANTOPRAZOLE 40MG VIAL (C9113 PER 1) IV SCH (11:10)
[2021-05-04 14:00] VITALS: BP 137/75
--- NOTE | 2021-05-04 14:05 | IPN ---
NEPHROLOGY PROGRESS NOTE DATE: 05/04/2021 SUBJECTIVE: Mrs. Stoll is seen this morning on her bedside. She is feeling well and denies any dyspnea, chest pain, nausea, vomiting, fever or chills. She wants to have hydroxyzine for itching, as she has generalized rash and itch. PHYSICAL EXAMINATION: Temperature 99 degrees Fahrenheit, heart rate 90 per minute, respiratory rate 18 per minute, blood pressure 126/56 mmHg, oxygen saturation 96% on room air. HEAD: Atraumatic. NECK: Supple and jugular venous distention (JVD) not abnormally elevated. Dialysis catheter is present in right internal jugular vein. HEART SOUNDS: Regular. LUNGS: Slightly diminished breath sounds at bases. ABDOMEN: Obese, soft and nontender. Bowel sounds are normal. EXTREMITIES: Without any cyanosis or clubbing. SKIN: Generalized rash and superficial ulcers all over her body. NEUROLOGIC: She is awake, alert and oriented times three. LABORATORY DATA: Today's labs show WBC 7.6, hemoglobin 8.7, hematocrit 28.1. Sodium 139, potassium 4.6, CO2 22, BUN 34, creatinine 2.88. PROBLEMS: 1. Acute renal failure superimposed on chronic kidney disease. Kidney function is still not improved enough to consider no dialysis. I am concerned that she is likely to require dialysis again. We will check her renal profile tomorrow and then reevaluate her. She does have improved urine output. Electrolytes are stable and volume status is well-compensated, so there is no emergency indication for dialysis today. 2. Anemia. Her anemia has been stable and she will continue with Aranesp 100 mcg once a week. 3. Generalized itching and rash. Patient has been on Zyrtec 10 mg daily; however, she also wants hydroxyzine as needed instead of Benadryl. I did order it for her and I will cancel her Benadryl and just continue with hydroxyzine.
[2021-05-04] MEDS: MORPHINE 2 MG/ML 1ML VIAL (J2270) IV PRN ×2 (14:35→23:22)
[2021-05-04] MEDS: MONTELUKAST 10 MG TAB PO SCH (20:27)
[2021-05-04] MEDS: NYSTATIN OINTMENT 15 GM TOP SCH (20:27)
[2021-05-04 21:02] VITALS: BP 132/61
[2021-05-04] MEDS: guaiFENesin SYRUP 200 MG/10 ML UDC PO PRN (23:21)
[2021-05-05] MEDS: LEVOTHYROXINE 100MCG TABLET (0.1MG) PO SCH (05:41)
[2021-05-05] MEDS: hydrOXYzine 25 MG TAB PO PRN ×3 (05:47→18:28)
[2021-05-05 06:55] LABS: BASO # 0.1 10^3/uL (0.0-0.2); BASO % 0.9 % (0.0-1.0); EOS # 0.6 10^3/uL (0.0-0.5); EOS % 6.3 % (0.0-3.0); HEMATOCRIT 28.7 % (36.0-47.0); LYMPH # 1.4 10^3/uL (1.5-5.0); LYMPH % 15.1 % (24.0-44.0); MEAN CORPUSCULAR HGB CONC 31.4 g/dl (32.0-36.5); MEAN CORPUSCULAR VOLUME 95.7 fl (80.0-96.0); MONO # 1.1 10^3/uL (0.0-0.8); MONO % 12.5 % (2.0-8.0); NEUTROPHILS # 5.7 10^3/uL (1.5-8.5); NEUTROPHILS % 63.6 % (36.0-66.0); PLATELET COUNT, AUTOMATED 235 10^3/uL (150-450)
[2021-05-05 07:27] LABS: CALCIUM LEVEL 7.1 MG/DL (8.5-10.1); CREATININE FOR GFR 2.9 MG/DL (0.55-1.30); GLOMERULAR FILTRATION RATE 17.7 (>51); POTASSIUM SERUM 4.7 MEQ/L (3.5-5.1)
[2021-05-05] MEDS: DOCUSATE SODIUM 100MG CAPSULE PO SCH ×2 (09:00→21:00)
[2021-05-05] MEDS: AZELASTINE 137MCG NASAL SPY 30 ML (ASTELIN) SCH ×2 (09:00→09:22)
[2021-05-05] MEDS: HEPARIN SOD (PORCINE) 5000UNITS/ML 1ML VIAL/SYRINGE SC SCH ×2 (09:19→20:29)
[2021-05-05] MEDS: CETIRIZINE (ZyrTEC) 10 MG TAB PO SCH (09:19)
[2021-05-05] MEDS: NYSTATIN OINTMENT 15 GM TOP SCH ×3 (09:19→20:29)
--- NOTE | 2021-05-05 12:05 | IPN ---
NEPHROLOGY PROGRESS NOTE DATE: 05/05/2021 SUBJECTIVE: Ms. Stoll is seen this morning on her bedside. She reports feeling nauseated after eating breakfast. She has history of gastric bypass and frequently gets nauseated after eating. She denies any dyspnea or chest pain. She has no fever or chills. PHYSICAL EXAMINATION: Temperature 99 degrees Fahrenheit, heart rate 87 per minute and respiratory rate 18 per minute. Blood pressure 132/61 mmHg and oxygen saturation 98% on room air. Head: Atraumatic. Neck: Supple and JVD not abnormally elevated. Dialysis catheter is present in right internal jugular vein. Heart: Sounds are regular. Lungs: With diminished breath sounds due to morbid obesity. Abdomen: Obese, soft and nontender and bowel sounds are present. Extremities: Without any cyanosis or clubbing. There is no peripheral edema. Skin: Small superficial ulcers and chronic scarring from healed ulcers all over her body. Neurologically: She is at her baseline mentation without any focal deficits. Her intake and output records from yesterday show total urine output of 3850 mL. Intake was recorded only at 2100 mL. LABORATORY DATA: Today's labs show: WBC count 9, hemoglobin 9, hematocrit 28.7 and platelets 235. Sodium 140, potassium 4.7, CO2 21, BUN 41, creatinine 2.90, glucose was 68 this morning, calcium 7.1. PROBLEMS/PLAN: 1. Acute kidney injury superimposed on chronic kidney disease: In the last 24 hours kidney function is only slightly changed. Her electrolytes are stable and volume status is well compensated. There is no emergent indication for dialysis today and I will re-evaluate her tomorrow for need for dialysis. 2. Anemia: Stable at present and I will change her Aranesp to a once a week dose so she can hopefully receive her dose even without dialysis. She is already receiving it on every Wednesday. 3. Itching and rash: She is now getting Zyrtec 10 mg daily and hydroxyzine as needed. 4. Congestive heart failure: Volume status is well compensated with good urine output and a negative fluid balance yesterday without any diuretic. At this point no other intervention is needed. 5. Recent sepsis: She is currently afebrile and not on any antibiotic now.
[2021-05-05] MEDS: ONDANSETRON 4MG/2ML VIAL IV PRN (12:26)
[2021-05-05] MEDS: MORPHINE 2 MG/ML 1ML VIAL (J2270) IV PRN (12:26)
[2021-05-05] MEDS: PANTOPRAZOLE 40MG VIAL (C9113 PER 1) IV SCH (12:26)
--- NOTE | 2021-05-05 13:37 | IPNPDOC ---
Text Note Date of Service The patient was seen on 05/05/21. NOTE Subjective: Patient seen and examined at bedside. No acute overnight events reported. No new medical complaints this morning. She is anxious to have her dialysis catheter removed. Objective: Physical exam: General: Patient is laying in bed, no acute distress. HEENT: NC/AT, EOMI Neck: supple, right IJ dialysis catheter in place Cardiac: S1 and S2 normal, no murmurs appreciated. Lung: Clear bilateral breath sounds, no wheezing or rhonchi appreciated. Abdomen soft, no tenderness to palpation all 4 quadrants except the hernia location, positive bowel sounds appreciated. Extremities: no edema Skin: Excoriation wounds in the abdomen, hands, chest Psych: AAOx3 Neuro: no gross focal deficits A/P: 60-year-old female with PMHx including HTN, hypothyroidism [s/p Graves' disea se], CKD 3, IBD, arthritis, obesity, GERD, fragile skin and excoriation from scratching due to her CKD, brought into the ED for worsening mentation. In the ED patient was hypotensive and was started on Levophed. She had anion gap metabolic acidosis and non-anion gap metabolic acidosis, oliguria on presentation. Patient was admitted to ICU for further management and evaluation. During the ICU stay patient was started on CRRT, transitioned to HD. Hospital stay complicated with anemia requiring 4 PRBC. #TIANNA on CKD: - creatinine seems to have plateaued - hopefully will trend down - will continue to monitor - follow as per nephrology - assistance appreciated #Anemia: -Patient did receive a total of 4 units of blood during this admission. - aranesp weekly - asymtpomatic with regards to anemia - continue to monitor #Hypothyroidism: -Due to Graves' disease. -We will continue her home levothyroxine 200 MCG daily #Allergies: -We will continue home Singulair, Astelin. #Hypertension: - stable #GI prophylaxis: -We will continue Protonix #DVT prophylaxis: -We will continue heparin Resolved issues: -Resolution of her acute metabolic encephalopathy and sepsis. -Resolution of her NAGMA and HAG MA -Resolution of her hypotension [patient was on midodrine after she was off of her Levophed] Disposition: -Pending clinical improvement, monitor renal function. Extensive discussion with her - [phone] ext 3800 VS,Sudheer, I+O VS, Sudheer, I+O Laboratory Tests 05/05/21 06:35 Vital Signs Date Time Temp Pulse Resp B/P (MAP) Pulse Ox O2 Delivery O2 Flow Rate FiO2 05/05/21 12:36 17 05/04/21 23:32 Room Air 05/04/21 21:02 99.0 87 132/61 (84) 98 I&O- Last 24 Hours up to 6 AM 05/05/21 06:00 Intake Total 2100 ml Output Total 3400 ml Balance -1300 ml MARK BARTON MD May 05, 2021 13:37
[2021-05-05 14:00] VITALS: BP 112/45
[2021-05-05 20:04] VITALS: BP 125/66
[2021-05-05] MEDS: MONTELUKAST 10 MG TAB PO SCH (20:24)
[2021-05-06] MEDS: hydrOXYzine 25 MG TAB PO PRN ×3 (02:41→16:16)
[2021-05-06] MEDS: LEVOTHYROXINE 100MCG TABLET (0.1MG) PO SCH (05:29)
[2021-05-06 06:00] VITALS: BP 117/62
[2021-05-06 06:33] LABS: BASO # 0.1 10^3/uL (0.0-0.2); BASO % 0.8 % (0.0-1.0); EOS # 0.6 10^3/uL (0.0-0.5); EOS % 7.1 % (0.0-3.0); HEMATOCRIT 28.6 % (36.0-47.0); HEMOGLOBIN 8.7 g/dl (12.0-15.5); LYMPH # 1.2 10^3/uL (1.5-5.0); LYMPH % 15.7 % (24.0-44.0); MEAN CORPUSCULAR HEMOGLOBIN 29.5 pg (27.0-33.0); MEAN CORPUSCULAR HGB CONC 30.4 g/dl (32.0-36.5); MEAN CORPUSCULAR VOLUME 96.9 fl (80.0-96.0); MONO % 12.2 % (2.0-8.0); NEUTROPHILS % 62.9 % (36.0-66.0); PLATELET COUNT, AUTOMATED 233 10^3/uL (150-450); RED BLOOD COUNT 2.95 10^6/uL (4.00-5.40); WHITE BLOOD COUNT 7.9 10^3/uL (4.0-10.0)
[2021-05-06 07:00] LABS: CALCIUM LEVEL 7.4 MG/DL (8.5-10.1); CREATININE FOR GFR 2.94 MG/DL (0.55-1.30); GLOMERULAR FILTRATION RATE 17.4 (>51); POTASSIUM SERUM 4.9 MEQ/L (3.5-5.1)
[2021-05-06] MEDS: DOCUSATE SODIUM 100MG CAPSULE PO SCH (09:00)
[2021-05-06] MEDS: CETIRIZINE (ZyrTEC) 10 MG TAB PO SCH (09:37)
[2021-05-06] MEDS: NYSTATIN OINTMENT 15 GM TOP SCH ×2 (09:38→16:16)
[2021-05-06] MEDS: HEPARIN SOD (PORCINE) 5000UNITS/ML 1ML VIAL/SYRINGE SC SCH (09:38)
[2021-05-06] MEDS: AZELASTINE 137MCG NASAL SPY 30 ML (ASTELIN) SCH (09:38)
[2021-05-06] MEDS: PANTOPRAZOLE 40MG VIAL (C9113 PER 1) IV SCH (11:17)
[2021-05-06] MEDS: DARBEPOETIN 100 MCG/0.5 ML *NON-DIALYSIS* SYRINGE (J0881) SC SCH (11:18)
--- NOTE | 2021-05-06 12:26 | IPN ---
PROGRESS NOTE DATE: 05/06/2021 SUBJECTIVE: Mrs. Watt is seen this morning on her bedside. She is feeling better today and denies any nausea or vomiting. The nursing staff reports that she has good urine output and continues to use the bedpan frequently. She is not able to get out of bed. The patient denies any dyspnea or chest pain. She has no fever or chills. OBJECTIVE: VITAL SIGNS: Temperature is 98.4 degrees Fahrenheit, heart rate is 87 per minute and respiratory rate 18 per minute. Blood pressure 117/62 mmHg and oxygen saturation 96% on room air. HEENT: Head is atraumatic. NECK: Supple, without JVD or thyroid enlargement. Temporary dialysis catheter is present in the right internal jugular vein. HEART: Heart sounds are regular. LUNGS: Diminished breath sounds at dependent parts. ABDOMEN: Obese and nontender. Bowel sounds are normal. EXTREMITIES: Without any cyanosis or clubbing. She has no peripheral edema. SKIN: Multiple small ulcers all over body. NEUROLOGIC: She is at her baseline mentation without any focal deficit. LABORATORY DATA: Today's labs showed a WBC count of 7.9, hemoglobin 8.7 and hematocrit 28.6, platelets are 232,000. Sodium is 143, potassium is 4.9, CO2 19, BUN 46 and creatinine 2.94. Glucose was 67 this morning and calcium is 7.4. PROBLEMS: 1. Acute kidney injury superimposed on chronic kidney disease. Kidney function seems to be leveled off. She has good urine output and has been in negative fluid balance. At this point, there is no emergent need for dialysis. I have advised the nursing staff to remove her hemodialysis catheter. 2. Congestive heart failure, volume status is very well compensated and she has been in negative fluid balance three days consecutively without need of a diuretic. 3. Anemia, her anemia has been stable and she continues with Aranesp 100 mcg once a week. 4. Metabolic acidosis. She has mild metabolic acidosis related to her chronic kidney disease. I am going to watch it for now without any sodium bicarbonate. 5. Disposition: From a renal standpoint, the patient can be discharged to home when stable from her general medical condition. She does not need dialysis at this point. She will be followed up as an outpatient in my clinic.
[2021-05-06 14:00] VITALS: BP 143/67
[2021-05-06] MEDS ORDERED: NYST10OI TOP (14:14)
--- NOTE | 2021-05-06 22:12 | DS.PDOC ---
Discharge Summary General Date of Admission Apr 26, 2021 at 23:50 Date of Discharge May 06, 2021 Specialist/Consultants Involve Nephrology: Dr. Vasquez, Dr. Parker Glass, and Dr. Gabo Glass Discharge Summary PROCEDURES PERFORMED DURING STAY: Placement of right internal jugular central venous dialysis catheter on 04/27/21 ADMITTING DIAGNOSES: 1. Acute on chronic renal failure 2. Anion gap metabolic acidosis 3. Shock 4. Hyperammonia 5. Acute metabolic encephalopathy 6. Bradycardia 7. Hypertension 8. Hypothyroidism 9. GERD DISCHARGE DIAGNOSES: 1. Acute on chronic renal failure 2. Anion gap metabolic acidosis 3. Septic shock from UTI 4. Hyperammonia 5. Acute metabolic encephalopathy 6. Bradycardia 7. Hypertension 8. Hypothyroidism 9. GERD COMPLICATIONS/CHIEF COMPLAINT: Acute On Chronic Kidney Failure,Metabolic Acidosis. HISTORY OF PRESENT ILLNESS: Copied from admitting provider's H&P " History was obtained from her Girish who was present at bedside as well as Dr. Lai emergency department physician. Patient's mentation waxes and wanes and I'm unable to elicit history from her. Mrs. Stoll is a 60-year-old female who presented to the emergency department at the insistence of her due to several days of progressively worsening mentation at home. She was very resistant to come to the hospital symptoms started around Wednesday but today tells me she was completely confused and he finally was able to bring her in. He tells me she's been progressively appearing weaker home but is very stubborn and doesn't like to come to hospital. is unable to provide me with further history however he did note that he noticed her urine output has been decreased over the past several days he doesn't think she may much urine yesterday. In the emergency department patient was seen by Dr. Lai her blood pressure dropped despite IV fluids necessitating placement of a central line in the emergency department and starting Levofed. Patient was found to have severe metabolic acidosis in the setting of renal failure and becoming anuric. Nephrology was consulted. Dr Coronado saw the patient in the ED and recommended continuous dialysis to be started. Patient was very confused although she had brief periods of time when she appeared less confused and was able to answer basic questions she recognizes her and new she was at the hospital. Patient does not make enough urine in the [place] to send for urinalysis. While lucid I was able to have a brief course of care discussion with the patient and her at bedside and she expresses me she wishes to be full code. " HOSPITAL COURSE: Nephrology evaluated patient and placed a right internal jugular central venous dialysis catheter for patient to have continuous dialysis. Patient's AMS was most likely a combination of uremia from TIANNA and septic shock. Patient was empirically treatment for UTI which was suspected to be the cause of shock. Otherwise, patient received 4u pRBC during hospitalization. Patient was able to come off of continuous dialysis. Patient did have good urine output. Nephrology felt that patient did not need intermittent dialysis and was able to have dialysis catheter removed today. This morning, she felt well and felt ready for home. She cleared physical therapy. Patient was discharged home today DISCHARGE MEDICATIONS: Please see below. ALLERGIES: Please see below. PHYSICAL EXAMINATION ON DISCHARGE: VITAL SIGNS: Please see below. GENERAL: Comfortable, in no apparent distress. HEENT: EOMI, sclera clear. NECK: Supple. RESPIRATORY: Lungs clear to auscultation bilaterally, no rales, wheeze or rhonchi. CARDIOVASCULAR: Regular rate and rhythm. ABDOMEN: Soft. Normal bowel sounds. MUSCLE SKELETAL: No pedal edema. PSYCHOLOGICAL: Normal mood and affect LABORATORY DATA: Please see below. IMAGING: Radiologist interpretation CT head without contrast FINDINGS: Brain: Small chronic left caudate head lacunar infarct. Mild scattered nonspecific hypodensities of the periventricular and deep subcortical white matter, most likely secondary to chronic small vessel ischemic change. No intracranial hemorrhage or extra-axial fluid collection. No evidence of mass effect or midline shift. Sinclair-white matter differentiation is normal. Cerebral ventricles: No ventriculomegaly. Paranasal sinuses: Visualized sinuses are unremarkable. No fluid levels. Mastoid air cells: Unremarkable. Bones/joints: No acute osseus lesion or fracture. Soft tissues: Unremarkable. IMPRESSION: 1. No acute intracranial pathology. 2. Other chronic findings, as above. CT abd/pelvis without contrast IMPRESSION: No acute findings. PROGNOSIS: Good ACTIVITY: As tolerated. DIET: Renal diet DISCHARGE PLAN: Home with home health services DISPOSITION: Home Health Service. DISCHARGE INSTRUCTIONS: 1. Follow up with PCP within 1 week 2. Follow up with nephrology in 1 to 2 weeks ITEMS TO FOLLOWUP ON ON OUTPATIENT: 1. Renal function DISCHARGE CONDITION: Stable. Total time spent on discharge planning, discharge summary, and medication recon ciliation: 45 minutes Vital Signs/I&Os Vital Signs Date Time Temp Pulse Resp B/P (MAP) Pulse Ox O2 Delivery O2 Flow Rate FiO2 05/06/21 14:00 99.4 93 14 143/67 (92) 96 Room Air I&O- Last 24 Hours up to 6 AM 05/06/21 06:00 Intake Total 2000 ml Output Total 2875 ml Balance -875 ml Laboratory Data Labs 24H Laboratory Tests 2 05/06/21 06:03: Immature Granulocyte % (Auto) 1.3, Neutrophils (%) (Auto) 62.9, Lymphocytes (%) (Auto) 15.7L, Monocytes (%) (Auto) 12.2H, Eosinophils (%) (Auto) 7.1H, Basophils (%) (Auto) 0.8, Neutrophils # (Auto) 5.0, Lymphocytes # (Auto) 1.2L, Monocytes # (Auto) 1.0H, Eosinophils # (Auto) 0.6H, Basophils # (Auto) 0.1, Nucleated Red Blood Cells % (auto) 0.0, Anion Gap 11, Glomerular Filtration Rate 17.4L, Calcium Level 7.4L CBC/BMP Laboratory Tests 05/06/21 06:03 Microbiology Microbiology 04/27/21 Urine Culture - Final, Complete 04/26/21 Blood Culture - Final, Complete NO GROWTH AFTER 5 DAYS 04/26/21 Blood Culture - Final, Complete NO GROWTH AFTER 5 DAYS Discharge Medications Scheduled Calcium Citrate (Calcium Citrate) 250 Mg Tab, 500 MG PO BID, (Reported) Cetirizine HCl (Cetirizine HCl) 10 Mg Tab, 10 MG PO DAILY, (Reported) Cyanocobalamin (Vitamin B-12) (Vitamin B-12) 500 Mcg Tab, 500 MCG PO DAILY, (Reported) TAKES IN AFTERNOON Ergocalciferol (Vitamin D2) (Vitamin D2) 50,000 Units Cap, 100,000 UNITS PO 1XWK, (Reported) MONDAYS Levothyroxine Sodium (Synthroid) 200 Mcg Tablet, 200 MCG PO DAILY, (Reported) Montelukast Sodium (Montelukast Sodium) 10 Mg Tab, 10 MG PO QHS, (Reported) Multivitamins (Thera M Plus Tablet) 1 Tab Tab, 1 TAB PO DAILY, (Reported) TAKES IN THE AFTERNOON Nystatin (Nystatin) 15 Gm Oint...g., 1 DOSE TOP TID Omeprazole (Omeprazole) 40 Mg Capsule.dr, 40 MG PO DAILY, (Reported) Sevelamer Carbonate (Sevelamer Carbonate) 800 Mg Tablet, 1,600 MG PO TID, (Reported) Trolamine Salicylate/Aloe Vera (Aspercreme 10% Cream) 10 % Cre, 1 APPLIC TOP QHS, (Reported) APPLY TO KNEES AND FEET Scheduled PRN Azelastine HCl (Azelastine HCl) 0.1% [place].pump, 2 SPRAY NARES DAILY PRN for ALLERGIES, (Reported) Guaifenesin (Mucinex) 600 Mg Tab.er.12h, 600 MG PO BID PRN for CONGESTION, (Reported) Hydroxyzine HCl (Hydroxyzine HCl) 25 Mg Tablet, 25 MG PO Q6H PRN for ITCHING, (Reported) Tramadol HCl (Tramadol HCl) 50 Mg Tab, 50 MG PO Q6H PRN for PAIN, (Reported) Miscellaneous Medications [Med Rec Comment] , (Reported) STATES HE THINKS PT ONLY TOOK HYDROXYZINE TODAY Allergies Coded Allergies: Coconut (Verified Allergy, Unknown, hives, 05/02/20) adhesive tape (Verified Allergy, Unknown, 05/02/20) levofloxacin (Verified Allergy, Unknown, hives, 05/02/20) methimazole (Verified Allergy, Unknown, hives/SOB, 05/02/20) tea tree (Verified Allergy, Unknown, hives, 05/02/20) codeine (Verified Adverse Reaction, Mild, N/V -has had it in past with no problems at time, 05/02/20) JAKOB LEONARDO DO May 06, 2021 22:12
== END 2021-05-06 17:10 | disposition home health service (06) | DRG 720 ==
LOC: M ED 20:30 → M ED INP 23:50 → ENRESERV 04-27 00:17 → M ICU 04-27 00:39 → M PCU 04-30 14:47 → M MS5PR 05-03 09:56
PROVIDERS: ADMIT Internal Medicine; ATTEND Internal Medicine
PROC: 02HV33Z Insertion of Infusion Device into Superior Vena Cava, Percutaneous Approach (ICD-10-PCS; principal; 2021-04-27)
PROC: 0JH63XZ Insertion of Tunneled Vascular Access Device into Chest Subcutaneous Tissue and Fascia, Percutaneous Approach (ICD-10-PCS; 2021-04-27)
PROC: 30233N1 Transfusion of Nonautologous Red Blood Cells into Peripheral Vein, Percutaneous Approach (ICD-10-PCS; 2021-04-27)
PROC: 5A1D70Z Performance of Urinary Filtration, Intermittent, Less than 6 Hours Per Day (ICD-10-PCS; 2021-04-30)
DX: A41.9 Sepsis, unspecified organism (principal); K21.9 Gastro-esophageal reflux disease without esophagitis; E03.9 Hypothyroidism, unspecified; I12.9 Hypertensive chronic kidney disease with stage 1 through stage 4 chronic kidney disease, or unspecified chronic kidney disease; N17.9 Acute kidney failure, unspecified; E87.2 Acidosis; R65.21 Severe sepsis with septic shock; G93.41 Metabolic encephalopathy; N39.0 Urinary tract infection, site not specified; Z79.899 Other long term (current) drug therapy; Z91.018 Allergy to other foods; Z88.5 Allergy status to narcotic agent; Z88.8 Allergy status to other drugs, medicaments and biological substances; E66.01 Morbid (severe) obesity due to excess calories; M19.90 Unspecified osteoarthritis, unspecified site; G89.29 Other chronic pain; N18.4 Chronic kidney disease, stage 4 (severe); M10.30 Gout due to renal impairment, unspecified site; E53.8 Deficiency of other specified B group vitamins; E87.5 Hyperkalemia; D63.1 Anemia in chronic kidney disease; E46 Unspecified protein-calorie malnutrition; R21 Rash and other nonspecific skin eruption

== ENCOUNTER → 2021-05-20 | Outpatient (REF) | payer BC, OTHER ==
[~2021-05-20] MED LIST changes: +MED REC COMMENT; +NORT10CA2 PO; +NYST10OI TOP
[2021-05-20 20:13] LABS: FREE T4 1.47 NG/DL (0.76-1.46); THYROID STIMULATING HORMONE 4.7 uIU/ML (0.358-3.740)
== END ==
LOC: M LAB REF 19:14
PROVIDERS: ATTEND Internal Medicine Nephrology
DX: E03.9 Hypothyroidism, unspecified (principal)

== ENCOUNTER → 2021-07-10 | Outpatient (REF) | payer OTHER | LOC: M SFHCRHEU 11:12 | PROVIDERS: ATTEND Internal Medicine | DX: M06.09 Rheumatoid arthritis without rheumatoid factor, multiple sites (principal) ==

== ENCOUNTER → 2021-07-16 | Outpatient (CLI) | payer OTHER ==
[2021-07-16 17:15] LABS: C REACTIVE PROTEIN QUANTITATIV 0.99 MG/DL (0.00-0.30); IMMUNOGLOBULIN G 706 MG/DL (681-1648); IMMUNOGLOBULIN M 81.5 MG/DL (40-230); RHEUMATOID FACTOR QUANT < 10.0 IU/ML (<15.0); TOTAL PROTEIN 5.8 GM/DL (6.4-8.2)
== END ==
LOC: M WUC 10:13
PROVIDERS: ATTEND Internal Medicine
DX: M06.09 Rheumatoid arthritis without rheumatoid factor, multiple sites (principal)

== ENCOUNTER → 2021-07-24 | Outpatient (CLI) | payer BC, OTHER ==
--- NOTE | 2021-07-25 05:51 | REP ---
INDICATION: RA COMPARISON: None. TECHNIQUE: AP, lateral, bilateral oblique views right and left hand. FINDINGS: Mild bilateral osteopenia and moderate to early advanced generalized osteoarthritic degenerative changes noted throughout the hand including metacarpophalangeal and interphalangeal joints. Specific findings include subchondral sclerosis with joint space narrowing. There is no evidence for acute fracture or dislocation. IMPRESSION: Relatively symmetric moderate to early advanced generalized osteoarthritic degenerative changes. <Electronically signed by Lit Meyers > 07/25/21 0557
--- NOTE | 2021-07-25 06:09 | REP ---
INDICATION: RA COMPARISON: None. TECHNIQUE: AP, lateral, bilateral oblique views right and left wrist. FINDINGS: Early advanced verduzco carpal osteoarthritic degenerative changes are noted bilaterally (left greater than right). Findings include subchondral sclerosis and joint space narrowing most notably involving the radiocarpal and 1st carpometacarpal joints. There is no evidence for acute fracture or dislocation. IMPRESSION: Bilateral early advanced diffuse osteoarthritic degenerative changes (left greater than right). <Electronically signed by Lit Meyers > 07/25/21 0606
== END ==
LOC: M WUC 15:17
PROVIDERS: ATTEND Internal Medicine
DX: M19.031 Primary osteoarthritis, right wrist (principal); M19.032 Primary osteoarthritis, left wrist; M19.041 Primary osteoarthritis, right hand; M19.042 Primary osteoarthritis, left hand; M85.88 Other specified disorders of bone density and structure, other site; M06.09 Rheumatoid arthritis without rheumatoid factor, multiple sites

== ENCOUNTER → 2021-08-26 | Outpatient (REF) | payer BC, OTHER ==
[2021-08-26 14:47] LABS: ALBUMIN 2.9 GM/DL (3.2-5.2); BILIRUBIN,TOTAL 0.3 MG/DL (0.2-1.0); CALCIUM LEVEL 9.7 MG/DL (8.5-10.1); CHOLESTEROL RISK RATIO 3.648 (<5); CREATININE FOR GFR 2.51 MG/DL (0.55-1.30); FREE T4 1.4 NG/DL (0.76-1.46); GLOMERULAR FILTRATION RATE 20.9 (>51); THYROID STIMULATING HORMONE 4.07 uIU/ML (0.358-3.740); TOTAL PROTEIN 6.2 GM/DL (6.4-8.2)
[2021-08-26 15:24] LABS: HEMOGLOBIN A1c 5.2 %
== END ==
LOC: M LAB REF 13:02
PROVIDERS: ATTEND Nurse Practitioner Family
DX: E11.22 Type 2 diabetes mellitus with diabetic chronic kidney disease (principal); N18.9 Chronic kidney disease, unspecified; E03.9 Hypothyroidism, unspecified

== ENCOUNTER → 2022-01-26 | Outpatient (REF) | payer BC, OTHER ==
[~2022-01-26] MED LIST changes: -MONT10TA10 PO; +MONT10TA97 PO; -OMEP-221 PO; +OMEP40CA5 PO
[2022-01-26 20:06] LABS: FREE T4 1.51 NG/DL (0.76-1.46); THYROID STIMULATING HORMONE 0.888 uIU/ML (0.358-3.740)
== END ==
LOC: M LAB REF 16:49
PROVIDERS: ATTEND Internal Medicine Nephrology
DX: E03.9 Hypothyroidism, unspecified (principal)

== ENCOUNTER → 2022-03-18 | Outpatient (CLI) | payer BC, OTHER ==
[2022-03-18 16:03] LABS: BASO # 0.1 10^3/uL (0.0-0.2); BASO % 0.7 % (0.0-1.0); EOS # 0.5 10^3/uL (0.0-0.5); EOS % 5.8 % (0.0-3.0); HEMATOCRIT 24.9 % (36.0-47.0); HEMOGLOBIN 7.8 g/dl (12.0-15.5); LYMPH # 1.5 10^3/uL (1.5-5.0); LYMPH % 18.4 % (24.0-44.0); MEAN CORPUSCULAR HEMOGLOBIN 31.6 pg (27.0-33.0); MEAN CORPUSCULAR HGB CONC 31.3 g/dl (32.0-36.5); MEAN CORPUSCULAR VOLUME 100.8 fl (80.0-96.0); MONO # 0.6 10^3/uL (0.0-0.8); NEUTROPHILS # 5.6 10^3/uL (1.5-8.5); NEUTROPHILS % 67.6 % (36.0-66.0); PLATELET COUNT, AUTOMATED 421 10^3/uL (150-450); RED BLOOD COUNT 2.47 10^6/uL (4.00-5.40); WHITE BLOOD COUNT 8.3 10^3/uL (4.0-10.0)
[2022-03-18 16:20] LABS: FREE T4 1.35 NG/DL (0.76-1.46); PERCENT SATURATION 9.2 % (13.2-45.0); THYROID STIMULATING HORMONE 1.31 uIU/ML (0.358-3.740)
== END ==
LOC: M WUC 13:45
PROVIDERS: ATTEND Nurse Practitioner Family
DX: N18.4 Chronic kidney disease, stage 4 (severe) (principal); E03.9 Hypothyroidism, unspecified

== ENCOUNTER → 2022-04-29 | Outpatient (REF) | payer BC ==
[2022-04-29 18:10] LABS: PERCENT SATURATION 16.9 % (13.2-45.0)
== END ==
LOC: M LAB REF 16:49
PROVIDERS: ATTEND Nurse Practitioner Family
DX: N18.4 Chronic kidney disease, stage 4 (severe) (principal)

== ENCOUNTER → 2022-05-13 | Outpatient (CLI) | payer BC, OTHER ==
[2022-05-13 18:25] LABS: BASO # 0.1 10^3/uL (0.0-0.2); BASO % 0.5 % (0.0-1.0); EOS # 0.4 10^3/uL (0.0-0.5); EOS % 4.3 % (0.0-3.0); HEMATOCRIT 28.6 % (36.0-47.0); HEMOGLOBIN 8.9 g/dl (12.0-15.5); LYMPH # 1.4 10^3/uL (1.5-5.0); LYMPH % 14.2 % (24.0-44.0); MEAN CORPUSCULAR HEMOGLOBIN 28.5 pg (27.0-33.0); MEAN CORPUSCULAR HGB CONC 31.1 g/dl (32.0-36.5); MEAN CORPUSCULAR VOLUME 91.7 fl (80.0-96.0); MONO # 0.6 10^3/uL (0.0-0.8); MONO % 6.4 % (2.0-8.0); NEUTROPHILS # 7.4 10^3/uL (1.5-8.5); NEUTROPHILS % 74.2 % (36.0-66.0); PLATELET COUNT, AUTOMATED 374 10^3/uL (150-450); RED BLOOD COUNT 3.12 10^6/uL (4.00-5.40)
== END ==
LOC: M PLALAB 15:38
PROVIDERS: ATTEND Nurse Practitioner Family
DX: N18.4 Chronic kidney disease, stage 4 (severe) (principal); I10 Essential (primary) hypertension

== ENCOUNTER → 2022-06-10 | Outpatient (CLI) | payer BC, OTHER ==
[2022-06-10 17:35] LABS: BASO # 0.1 10^3/uL (0.0-0.2); BASO % 0.8 % (0.0-1.0); EOS # 0.5 10^3/uL (0.0-0.5); EOS % 5.3 % (0.0-3.0); HEMATOCRIT 28.8 % (36.0-47.0); HEMOGLOBIN 8.6 g/dl (12.0-15.5); LYMPH # 1.2 10^3/uL (1.5-5.0); LYMPH % 14.2 % (24.0-44.0); MEAN CORPUSCULAR HEMOGLOBIN 28.2 pg (27.0-33.0); MEAN CORPUSCULAR HGB CONC 29.9 g/dl (32.0-36.5); MEAN CORPUSCULAR VOLUME 94.4 fl (80.0-96.0); MONO # 0.6 10^3/uL (0.0-0.8); MONO % 6.7 % (2.0-8.0); NEUTROPHILS # 6.2 10^3/uL (1.5-8.5); NEUTROPHILS % 72.5 % (36.0-66.0); PLATELET COUNT, AUTOMATED 340 10^3/uL (150-450); RED BLOOD COUNT 3.05 10^6/uL (4.00-5.40); WHITE BLOOD COUNT 8.6 10^3/uL (4.0-10.0)
== END ==
LOC: M PLALAB 14:53
PROVIDERS: ATTEND Nurse Practitioner Family
DX: R53.83 Other fatigue (principal)

== ENCOUNTER → 2022-07-22 | Outpatient (CLI) | payer BC, OTHER ==
[2022-07-22 17:29] LABS: BASO # 0.1 10^3/uL (0.0-0.2); BASO % 0.6 % (0.0-1.0); EOS # 0.5 10^3/uL (0.0-0.5); EOS % 5.7 % (0.0-3.0); HEMATOCRIT 26.7 % (36.0-47.0); HEMOGLOBIN 8.3 g/dl (12.0-15.5); LYMPH # 1.3 10^3/uL (1.5-5.0); LYMPH % 15.2 % (24.0-44.0); MEAN CORPUSCULAR HEMOGLOBIN 29.2 pg (27.0-33.0); MEAN CORPUSCULAR HGB CONC 31.1 g/dl (32.0-36.5); MONO # 0.5 10^3/uL (0.0-0.8); NEUTROPHILS # 5.9 10^3/uL (1.5-8.5); PLATELET COUNT, AUTOMATED 310 10^3/uL (150-450); RED BLOOD COUNT 2.84 10^6/uL (4.00-5.40); WHITE BLOOD COUNT 8.2 10^3/uL (4.0-10.0)
[2022-07-22 18:05] LABS: ALBUMIN 3.2 GM/DL (3.2-5.2); BILIRUBIN,TOTAL 0.3 MG/DL (0.2-1.0); CALCIUM LEVEL 8.3 MG/DL (8.8-10.2); CREATININE FOR GFR 2.69 MG/DL (0.55-1.30); FREE T4 1.09 NG/DL (0.76-1.46); GLOMERULAR FILTRATION RATE 19.2 (>45); PERCENT SATURATION 19.1 % (13.2-45.0); POTASSIUM SERUM 4.5 MEQ/L (3.5-5.1); THYROID STIMULATING HORMONE 5.42 uIU/ML (0.358-3.740)
[2022-07-22 18:08] LABS: HEMOGLOBIN A1c 5.5 %
== END ==
LOC: M PLALAB 15:23
PROVIDERS: ATTEND Nurse Practitioner Family
DX: E11.22 Type 2 diabetes mellitus with diabetic chronic kidney disease (principal); N18.4 Chronic kidney disease, stage 4 (severe); E03.9 Hypothyroidism, unspecified; D50.9 Iron deficiency anemia, unspecified

== ENCOUNTER → 2022-09-02 | Outpatient (REF) | payer BC, OTHER ==
[~2022-09-02] MED LIST changes: -DOXY-342 PO; +DOXY100C81 PO
[2022-09-02 18:08] LABS: PERCENT SATURATION 18.4 % (13.2-45.0)
== END ==
LOC: M LAB REF 16:57
PROVIDERS: ATTEND Internal Medicine Nephrology
DX: D50.9 Iron deficiency anemia, unspecified (principal)

== ENCOUNTER → 2022-10-06 | Outpatient (CLI) | payer BC, OTHER ==
[2022-10-06 15:10] LABS: FREE T4 1.06 NG/DL (0.89-1.76); THYROID STIMULATING HORMONE 4.447 uIU/ML (0.55-4.78)
== END ==
LOC: M PLALAB 11:45
PROVIDERS: ATTEND Nurse Practitioner Family
DX: E03.9 Hypothyroidism, unspecified (principal)

== ENCOUNTER → 2022-12-04 | Outpatient (CLI) | payer BC, OTHER ==
[2022-12-04 15:32] LABS: FREE T4 1.31 NG/DL (0.89-1.76); THYROID STIMULATING HORMONE 2.754 uIU/ML (0.55-4.78)
== END ==
LOC: M PLALAB 12:43
PROVIDERS: ATTEND Nurse Practitioner Family
DX: E03.9 Hypothyroidism, unspecified (principal)

== ENCOUNTER → 2023-01-01 | Outpatient (CLI) | payer BC, OTHER ==
[~2023-01-01] MED LIST changes: +ALBU8.5H INH; +CALC1CAP31 PO; +CEFU1TAB22 PO; +DOXE25CA PO; +FERR325T19 PO; +FURO20TA2 PO; +GUAI100S4 PO; +OXYC-517 PO; +PRED20TA PO
== END ==
LOC: M PLAIMG 11:18
PROVIDERS: ATTEND Nurse Practitioner Family
DX: J90 Pleural effusion, not elsewhere classified (principal); R06.02 Shortness of breath

== ENCOUNTER 2023-01-03 08:29 | Inpatient (IN) | payer BC, OTHER ==
[~2023-01-03] VITALS: Ht 167.6 cm; Wt 111.2 kg
[2023-01-03] VITALS (8 sets, daily range): BP systolic 142–186; BP diastolic 69–96
[~2023-01-03 08:29] MED LIST changes: -ALBU8.5H INH; -CALC1CAP31 PO; -CEFU1TAB22 PO; -DOXE25CA PO; -FERR325T19 PO; -FURO20TA2 PO; -GUAI100S4 PO; -OXYC-517 PO; -PRED20TA PO
[2023-01-03] MEDS ORDERED: ALBU8.5H INH (08:58)
[2023-01-03] MEDS ORDERED: FERR325T19 PO (08:58)
[2023-01-03] MEDS ORDERED: PRED20TA PO (08:58)
[2023-01-03] MEDS ORDERED: DOXE25CA PO (08:58)
[2023-01-03] MEDS ORDERED: GUAI100S4 PO (08:58)
[2023-01-03] MEDS ORDERED: CALC1CAP31 PO (08:58)
[2023-01-03] MEDS ORDERED: FURO20TA2 PO (08:58)
[2023-01-03] MEDS ORDERED: CEFU1TAB22 PO (08:58)
[2023-01-03] MEDS ORDERED: OXYC-517 PO (08:58)
[2023-01-03] MEDS ORDERED: SODI650T PO (09:15)
[2023-01-03] MEDS ORDERED: CYCL-707 PO (09:15)
[2023-01-03] MEDS ORDERED: IPRATROPIUM 0.5MG/ALBUTEROL 2.5MG INH SOL UD 3ML (DUONEB) NEB ONE (09:25)
[2023-01-03] MEDS ORDERED: FUROSEMIDE 40MG/4ML VIAL IV ONE (09:35)
[2023-01-03 09:41] LABS: BASO % 0.3 % (0.0-1.0); EOS # 0.1 10^3/uL (0.0-0.5); EOS % 0.5 % (0.0-3.0); HEMATOCRIT 23.2 % (36.0-47.0); HEMOGLOBIN 7.4 g/dl (12.0-15.5); LYMPH # 0.6 10^3/uL (1.5-5.0); MEAN CORPUSCULAR HEMOGLOBIN 29.4 pg (27.0-33.0); MEAN CORPUSCULAR HGB CONC 31.9 g/dl (32.0-36.5); MEAN CORPUSCULAR VOLUME 92.1 fl (80.0-96.0); MONO # 0.4 10^3/uL (0.0-0.8); MONO % 3.3 % (2.0-8.0); NEUTROPHILS # 10.8 10^3/uL (1.5-8.5); NEUTROPHILS % 89.9 % (36.0-66.0); PLATELET COUNT, AUTOMATED 386 10^3/uL (150-450); RED BLOOD COUNT 2.52 10^6/uL (4.00-5.40)
[2023-01-03 09:53] LABS: INR 0.96
[2023-01-03 09:56] LABS: ABG BASE EXCESS -2.5 (-2.0-2.0); ABG HCO3 21.5 MEQ/L (22.0-26.0); ABG O2 SATURATION 94.4 % (95.0-99.0); ABG PARTIAL PRESSURE CO2 33.5 mmHg (35.0-45.0); ABG PARTIAL PRESSURE O2 78.8 mmHg (75.0-100.0); ABG STANDARD HCO3 22.3 MEQ/L (22.0-26.0); ABG TOTAL CO2 22.6 MEQ/L (23.0-31.0); ABG pH (ARTERIAL) 7.426 UNITS (7.350-7.450)
[2023-01-03 10:24] LABS: ALBUMIN 2.6 G/DL (3.2-5.2); ALKALINE PHOSPHATASE 91 U/L (46-116); ALT/SGPT 20 U/L (7.0-40); AST/SGOT 18 U/L (<34); BILIRUBIN,DIRECT < 0.1 MG/DL (<0.4); BILIRUBIN,TOTAL 0.2 MG/DL (0.3-1.2); THYROID STIMULATING HORMONE 4.893 uIU/ML (0.55-4.78); TOTAL PROTEIN 5.4 G/DL (5.7-8.2)
[2023-01-03 10:31] LABS: APPEARANCE, URINE CLEAR (CLEAR); BACTERIA, URINE AUTO NEGATIVE (NEGATIVE); BILIRUBIN, URINE AUTO NEGATIVE (NEGATIVE); BLOOD, URINE BLOOD NEGATIVE (NEGATIVE); COLOR, URINE STRAW (YELLOW); GLUCOSE, URINE (UA) AUTO 3+ mg/dL (NEGATIVE); KETONE, URINE AUTO NEGATIVE (NEGATIVE); LEUKOCYTE ESTERASE, URINE AUTO NEGATIVE (NEGATIVE); MUCUS, URINE SMALL (NEGATIVE); NITRITE, URINE AUTO NEGATIVE (NEGATIVE); PROTEIN, URINE AUTO 3+ mg/dL (NEGATIVE); RBC, URINE AUTO 1 /HPF (0-3); SQUAMOUS EPITHELIAL CELL UR AU 0 /HPF (0-6); UROBILINOGEN, URINE AUTO 0.2 mg/dL (0.0-2.0); WBC, URINE AUTO 4 /HPF (0-3)
[2023-01-03 11:23] LABS: HEMOGLOBIN A1c 5.7 % (4.0-6.0)
[2023-01-03] MEDS ORDERED: FUROSEMIDE 100MG/10ML VIAL IV ONE (11:45)
[2023-01-03] MEDS ORDERED: LEVO175T2 PO (12:38)
[2023-01-03] MEDS ORDERED: HOME MED LIST COMPLETE! XX SCH (12:40)
[2023-01-03] MEDS ORDERED: GLUCOSE 4GM CHEW TABLET PO PRN (12:55)
[2023-01-03] MEDS ORDERED: GLUCAGON INJ 1MG VIAL SC PRN (12:55)
[2023-01-03] MEDS ORDERED: ALBUTEROL 90 MCG/ACT 8GM HFA INHALER INH PRN (12:55)
[2023-01-03] MEDS ORDERED: DEXTROSE 50% 50ML SYRINGE IV PRN (12:55)
[2023-01-03] MEDS ORDERED: guaiFENesin ER 600 MG TAB PO PRN (12:55)
[2023-01-03] MEDS ORDERED: ACETAMINOPHEN TAB 650MG DOSE (2X325MG) PO PRN (12:55)
[2023-01-03] MEDS ORDERED: traMADol 50 MG TAB PO PRN (12:55)
[2023-01-03] MEDS ORDERED: diphenhydrAMINE 25MG CAP PO PRN (14:25)
[2023-01-03] MEDS ORDERED: diphenhydrAMINE CREAM 30GM TOP PRN (14:35)
[2023-01-03 15:32] LABS: PERCENT SATURATION 19.4 % (13.2-45.0)
[2023-01-03 15:34] LABS: FERRITIN 83.8 NG/ML (7.3-270.7)
[2023-01-03] MEDS: cefTRIAXone SOD 1 GM in D5W MINI-BAG PLUS 50 ML IV SCH (15:56)
[2023-01-03] MEDS: HEPARIN SOD (PORCINE) 5000UNITS/ML 1ML VIAL/SYRINGE SQ SCH ×2 (15:57→20:25)
[2023-01-03] MEDS ORDERED: hydrALAZINE 20MG/ML 1ML VIAL IV PRN (16:25)
[2023-01-03] MEDS: (RENVELA) SEVELAMER **CARBONate** 800 MG TAB PO SCH (17:34)
[2023-01-03] MEDS: INSULIN LISPRO (NovoLOG) PER UNIT SC SCH ×2 (17:34→20:32)
[2023-01-03] MEDS: FERROUS SULFATE 325MG TAB PO SCH (20:24)
[2023-01-03] MEDS: DOXEPIN 25 MG CAP PO SCH (20:25)
[2023-01-03] MEDS: MONTELUKAST 10 MG TAB PO SCH (20:25)
[2023-01-03] MEDS: SODIUM BICARBONATE 325 MG TAB PO SCH (20:25)
[2023-01-03] MEDS: CYCLOBENZAPRINE 10MG TABLET PO SCH (20:26)
[2023-01-03 23:03] LABS: HEMATOCRIT 22.8 % (36.0-47.0); HEMOGLOBIN 7.2 g/dl (12.0-15.5); MEAN CORPUSCULAR HEMOGLOBIN 28.3 pg (27.0-33.0); MEAN CORPUSCULAR HGB CONC 31.6 g/dl (32.0-36.5); MEAN CORPUSCULAR VOLUME 89.8 fl (80.0-96.0); PLATELET COUNT, AUTOMATED 356 10^3/uL (150-450); RED BLOOD COUNT 2.54 10^6/uL (4.00-5.40); WHITE BLOOD COUNT 9.9 10^3/uL (4.0-10.0)
[2023-01-04] VITALS (12 sets, daily range): BP systolic 132–170; BP diastolic 69–89
[2023-01-04] MEDS: IPRATROPIUM 0.5MG/ALBUTEROL 2.5MG INH SOL UD 3ML (DUONEB) NEB PRN ×2 (00:55→21:08)
[2023-01-04 06:02] LABS: HEMATOCRIT 26.6 % (36.0-47.0); HEMOGLOBIN 8.8 g/dl (12.0-15.5); MEAN CORPUSCULAR HEMOGLOBIN 29.7 pg (27.0-33.0); MEAN CORPUSCULAR HGB CONC 33.1 g/dl (32.0-36.5); MEAN CORPUSCULAR VOLUME 89.9 fl (80.0-96.0); PLATELET COUNT, AUTOMATED 338 10^3/uL (150-450); RED BLOOD COUNT 2.96 10^6/uL (4.00-5.40); WHITE BLOOD COUNT 11.2 10^3/uL (4.0-10.0)
[2023-01-04] MEDS: LEVOTHYROXINE 75MCG TABLET (0.075MG) PO SCH (06:07)
[2023-01-04] MEDS: LEVOTHYROXINE 100MCG TABLET (0.1MG) PO SCH (06:07)
[2023-01-04] MEDS: HEPARIN SOD (PORCINE) 5000UNITS/ML 1ML VIAL/SYRINGE SQ SCH ×3 (06:07→21:26)
[2023-01-04 06:33] LABS: PERCENT SATURATION 80.6 % (13.2-45.0)
[2023-01-04 06:34] LABS: FOLATE 10.47 NG/ML (>5.4)
[2023-01-04 06:35] LABS: TOTAL 25(OH) VITAMIN D 105.3 NG/ML (20.0-100.0)
[2023-01-04 06:37] LABS: ALBUMIN 2.4 G/DL (3.2-5.2); BILIRUBIN,TOTAL 0.3 MG/DL (0.3-1.2); CALCIUM LEVEL 7.4 MG/DL (8.3-10.6); CREATININE FOR GFR 3.78 MG/DL (0.55-1.30); GLOMERULAR FILTRATION RATE 12.9 (>45); POTASSIUM SERUM 3.7 MMOL/L (3.5-5.1); TOTAL PROTEIN 4.5 G/DL (5.7-8.2)
[2023-01-04] MEDS: INSULIN LISPRO (NovoLOG) PER UNIT SC SCH ×4 (09:16→20:49)
[2023-01-04] MEDS: FERROUS SULFATE 325MG TAB PO SCH ×2 (09:17→21:27)
[2023-01-04] MEDS: OMEPRAZOLE 20MG CAP PO SCH (09:17)
[2023-01-04] MEDS: CALCITRIOL 0.25 MCG CAP (S0169) PO SCH (09:17)
[2023-01-04] MEDS: SODIUM BICARBONATE 325 MG TAB PO SCH ×2 (09:17→21:27)
[2023-01-04] MEDS: (RENVELA) SEVELAMER **CARBONate** 800 MG TAB PO SCH ×2 (09:24→18:14)
[2023-01-04] MEDS ORDERED: DARBEPOETIN 100MCG/0.5ML *NON-DIALYSIS* SYRINGE SC ONE (09:35)
[2023-01-04] MEDS ORDERED: FERRIC CARBOXYMALTOSE INJ 750 MG, VIAL MATE ADAPTER 1 EACH in NS 250 ML IV ONE (11:00)
[2023-01-04] MEDS: cefTRIAXone SOD 1 GM in D5W MINI-BAG PLUS 50 ML IV SCH (15:06)
[2023-01-04] MEDS: MONTELUKAST 10 MG TAB PO SCH (21:26)
[2023-01-04] MEDS: DOXEPIN 25 MG CAP PO SCH (21:27)
[2023-01-04] MEDS: CYCLOBENZAPRINE 10MG TABLET PO SCH (21:27)
[2023-01-05 04:44] VITALS: BP 135/71
[2023-01-05] MEDS: LEVOTHYROXINE 100MCG TABLET (0.1MG) PO SCH (05:45)
[2023-01-05] MEDS: LEVOTHYROXINE 75MCG TABLET (0.075MG) PO SCH (05:45)
[2023-01-05] MEDS: HEPARIN SOD (PORCINE) 5000UNITS/ML 1ML VIAL/SYRINGE SQ SCH ×3 (05:45→20:51)
[2023-01-05 05:49] LABS: HEMATOCRIT 26.1 % (36.0-47.0); HEMOGLOBIN 8.7 g/dl (12.0-15.5); MEAN CORPUSCULAR HEMOGLOBIN 30.5 pg (27.0-33.0); MEAN CORPUSCULAR HGB CONC 33.3 g/dl (32.0-36.5); MEAN CORPUSCULAR VOLUME 91.6 fl (80.0-96.0); PLATELET COUNT, AUTOMATED 315 10^3/uL (150-450); RED BLOOD COUNT 2.85 10^6/uL (4.00-5.40); WHITE BLOOD COUNT 10.5 10^3/uL (4.0-10.0)
[2023-01-05 06:03] LABS: ALBUMIN 2.1 G/DL (3.2-5.2); BILIRUBIN,TOTAL 0.2 MG/DL (0.3-1.2); CALCIUM LEVEL 6.9 MG/DL (8.3-10.6); CREATININE FOR GFR 3.9 MG/DL (0.55-1.30); GLOMERULAR FILTRATION RATE 12.5 (>45); POTASSIUM SERUM 3.9 MMOL/L (3.5-5.1); TOTAL PROTEIN 4.4 G/DL (5.7-8.2)
[2023-01-05 08:00] VITALS: BP 162/75
[2023-01-05] MEDS: INSULIN LISPRO (NovoLOG) PER UNIT SC SCH ×4 (08:00→20:13)
[2023-01-05] MEDS: (RENVELA) SEVELAMER **CARBONate** 800 MG TAB PO SCH ×2 (08:41→18:08)
[2023-01-05] MEDS: FERROUS SULFATE 325MG TAB PO SCH ×2 (08:41→20:48)
[2023-01-05] MEDS: OMEPRAZOLE 20MG CAP PO SCH (08:42)
[2023-01-05] MEDS: CALCITRIOL 0.25 MCG CAP (S0169) PO SCH (08:42)
[2023-01-05] MEDS: SODIUM BICARBONATE 325 MG TAB PO SCH ×2 (08:42→20:47)
[2023-01-05] MEDS ORDERED: POTASSIUM CHLORIDE 10MEQ SR TABLET PO ONE (10:00)
[2023-01-05] MEDS: FUROSEMIDE 100MG/10ML VIAL IV SCH ×2 (10:31→18:08)
[2023-01-05 12:45] VITALS: BP 156/98
[2023-01-05] MEDS: cefTRIAXone SOD 1 GM in D5W MINI-BAG PLUS 50 ML IV SCH (14:25)
[2023-01-05 16:00] VITALS: BP 156/76
[2023-01-05 20:27] VITALS: BP 173/81
[2023-01-05] MEDS: MONTELUKAST 10 MG TAB PO SCH (20:47)
[2023-01-05] MEDS: DOXEPIN 25 MG CAP PO SCH (20:48)
[2023-01-05] MEDS: CYCLOBENZAPRINE 10MG TABLET PO SCH (20:48)
[2023-01-06] VITALS (9 sets, daily range): BP systolic 130–181; BP diastolic 60–89
[2023-01-06] MEDS: LEVOTHYROXINE 75MCG TABLET (0.075MG) PO SCH (05:18)
[2023-01-06] MEDS: LEVOTHYROXINE 100MCG TABLET (0.1MG) PO SCH (05:18)
[2023-01-06] MEDS: HEPARIN SOD (PORCINE) 5000UNITS/ML 1ML VIAL/SYRINGE SQ SCH ×3 (05:19→23:26)
[2023-01-06] MEDS: INSULIN LISPRO (NovoLOG) PER UNIT SC SCH ×4 (07:30→20:07)
[2023-01-06 07:57] LABS: HEMATOCRIT 28.8 % (36.0-47.0); MEAN CORPUSCULAR HEMOGLOBIN 29.2 pg (27.0-33.0); MEAN CORPUSCULAR HGB CONC 31.3 g/dl (32.0-36.5); MEAN CORPUSCULAR VOLUME 93.5 fl (80.0-96.0); PLATELET COUNT, AUTOMATED 300 10^3/uL (150-450); RED BLOOD COUNT 3.08 10^6/uL (4.00-5.40); WHITE BLOOD COUNT 11.4 10^3/uL (4.0-10.0)
[2023-01-06] MEDS ORDERED: METOPROLOL TART 25 MG TABLET PO ONE (08:00)
[2023-01-06 08:26] LABS: CREATININE FOR GFR 4.08 MG/DL (0.55-1.30); GLOMERULAR FILTRATION RATE 11.8 (>45); POTASSIUM SERUM 4.1 MMOL/L (3.5-5.1)
[2023-01-06] MEDS: FERROUS SULFATE 325MG TAB PO SCH ×2 (09:45→20:15)
[2023-01-06] MEDS: CALCITRIOL 0.25 MCG CAP (S0169) PO SCH (09:45)
[2023-01-06] MEDS: OMEPRAZOLE 20MG CAP PO SCH (09:46)
[2023-01-06] MEDS: (RENVELA) SEVELAMER **CARBONate** 800 MG TAB PO SCH ×2 (09:48→17:20)
[2023-01-06] MEDS: SODIUM BICARBONATE 325 MG TAB PO SCH ×2 (11:31→20:15)
[2023-01-06] MEDS: IPRATROPIUM 0.5MG/ALBUTEROL 2.5MG INH SOL UD 3ML (DUONEB) NEB PRN (12:12)
[2023-01-06] MEDS: oxyCODONE 5MG TAB PO PRN (17:56)
[2023-01-06] MEDS: DOXEPIN 25 MG CAP PO SCH (20:15)
[2023-01-06] MEDS: CYCLOBENZAPRINE 10MG TABLET PO SCH (20:15)
[2023-01-06] MEDS: MONTELUKAST 10 MG TAB PO SCH (20:15)
[2023-01-07] VITALS (8 sets, daily range): BP systolic 129–157; BP diastolic 63–74
[2023-01-07 05:50] LABS: HEMATOCRIT 29.7 % (36.0-47.0); HEMOGLOBIN 9.3 g/dl (12.0-15.5); MEAN CORPUSCULAR HEMOGLOBIN 29.4 pg (27.0-33.0); MEAN CORPUSCULAR HGB CONC 31.3 g/dl (32.0-36.5); PLATELET COUNT, AUTOMATED 294 10^3/uL (150-450); RED BLOOD COUNT 3.16 10^6/uL (4.00-5.40); WHITE BLOOD COUNT 10.8 10^3/uL (4.0-10.0)
[2023-01-07 06:15] LABS: CALCIUM LEVEL 7.1 MG/DL (8.3-10.6); CREATININE FOR GFR 4.13 MG/DL (0.55-1.30); GLOMERULAR FILTRATION RATE 11.7 (>45); POTASSIUM SERUM 3.9 MMOL/L (3.5-5.1)
[2023-01-07] MEDS: HEPARIN SOD (PORCINE) 5000UNITS/ML 1ML VIAL/SYRINGE SQ SCH ×3 (06:33→21:04)
[2023-01-07] MEDS: LEVOTHYROXINE 100MCG TABLET (0.1MG) PO SCH (06:33)
[2023-01-07] MEDS: LEVOTHYROXINE 75MCG TABLET (0.075MG) PO SCH (06:33)
[2023-01-07] MEDS: INSULIN LISPRO (NovoLOG) PER UNIT SC SCH ×4 (07:30→21:00)
[2023-01-07] MEDS: SODIUM BICARBONATE 325 MG TAB PO SCH ×2 (08:28→21:04)
[2023-01-07] MEDS: OMEPRAZOLE 20MG CAP PO SCH (08:28)
[2023-01-07] MEDS: FERROUS SULFATE 325MG TAB PO SCH ×2 (08:28→21:04)
[2023-01-07] MEDS: (RENVELA) SEVELAMER **CARBONate** 800 MG TAB PO SCH ×2 (08:29→17:28)
[2023-01-07] MEDS: CALCITRIOL 0.25 MCG CAP (S0169) PO SCH (08:29)
[2023-01-07 09:03] LABS: TOTAL PROTEIN 4.7 G/DL (5.7-8.2)
[2023-01-07] MEDS: oxyCODONE 5MG TAB PO PRN (12:54)
[2023-01-07 13:26] LABS: PH BODY FLUID 7.742 UNITS (NOT ESTABLISHED); SOURCE, BODY FLUID pH PLEURAL
[2023-01-07 13:49] LABS: SOURCE, BODY FLUID ALBUMIN PLEURAL
[2023-01-07 13:54] LABS: SOURCE, BODY FLUID GLUCOSE PLEURAL; SOURCE, BODY FLUID TRIG PLEURAL; TRIGLYCERIDE, BODY FLUID 14.99999 MG/DL (NOT ESTABLISHED)
[2023-01-07 13:55] LABS: LDH, BODY FLUID 62 U/L (NOT ESTABLISHED); SOURCE, BODY FLUID LDH PLEURAL
[2023-01-07 13:56] LABS: AMYLASE, BODY FLUID < 20 U/L (NOT ESTABLISHED); CHOLESTEROL, BODY FLUID < 25 MG/DL (NOT ESTABLISHED); SOURCE, BODY FLUID AMYLASE PLEURAL; SOURCE, BODY FLUID CHOL PLEURAL; SOURCE, BODY FLUID TOT PROTEIN PLEURAL; TOTAL PROTEIN, BODY FLUID < 2.0 G/DL (NOT ESTABLISHED)
[2023-01-07] MEDS ORDERED: HYDROMORPHONE HCL 0.5 MG/ 0.5 ML SYRINGE IV ONE (14:30)
[2023-01-07 18:16] LABS: APPEARANCE, BODY FLUID HAZY
[2023-01-07] MEDS: MONTELUKAST 10 MG TAB PO SCH (21:04)
[2023-01-07] MEDS: CYCLOBENZAPRINE 10MG TABLET PO SCH (21:04)
[2023-01-07] MEDS: DOXEPIN 25 MG CAP PO SCH (21:05)
[2023-01-08] VITALS (7 sets, daily range): BP systolic 99–139; BP diastolic 56–72
[2023-01-08] MEDS: HEPARIN SOD (PORCINE) 5000UNITS/ML 1ML VIAL/SYRINGE SQ SCH ×3 (05:53→21:04)
[2023-01-08] MEDS: LEVOTHYROXINE 100MCG TABLET (0.1MG) PO SCH (05:53)
[2023-01-08] MEDS: LEVOTHYROXINE 75MCG TABLET (0.075MG) PO SCH (05:53)
[2023-01-08 06:29] LABS: HEMATOCRIT 25.8 % (36.0-47.0); HEMOGLOBIN 8.2 g/dl (12.0-15.5); MEAN CORPUSCULAR HEMOGLOBIN 30.1 pg (27.0-33.0); MEAN CORPUSCULAR HGB CONC 31.8 g/dl (32.0-36.5); MEAN CORPUSCULAR VOLUME 94.9 fl (80.0-96.0); PLATELET COUNT, AUTOMATED 238 10^3/uL (150-450); RED BLOOD COUNT 2.72 10^6/uL (4.00-5.40)
[2023-01-08 06:58] LABS: CALCIUM LEVEL 6.6 MG/DL (8.3-10.6); CREATININE FOR GFR 4.41 MG/DL (0.55-1.30); GLOMERULAR FILTRATION RATE 10.8 (>45); POTASSIUM SERUM 3.9 MMOL/L (3.5-5.1)
[2023-01-08] MEDS: INSULIN LISPRO (NovoLOG) PER UNIT SC SCH ×4 (07:30→20:19)
[2023-01-08] MEDS: (RENVELA) SEVELAMER **CARBONate** 800 MG TAB PO SCH ×2 (08:36→18:08)
[2023-01-08] MEDS: OMEPRAZOLE 20MG CAP PO SCH (08:36)
[2023-01-08] MEDS: CALCITRIOL 0.25 MCG CAP (S0169) PO SCH (08:36)
[2023-01-08] MEDS: SODIUM BICARBONATE 325 MG TAB PO SCH ×2 (08:36→21:03)
[2023-01-08] MEDS: FERROUS SULFATE 325MG TAB PO SCH ×2 (08:37→21:03)
[2023-01-08] MEDS: VANICREAM MOISTURIZING SKIN CREAM 113GM TUBE TOP SCH ×2 (13:50→21:05)
[2023-01-08] MEDS: CYCLOBENZAPRINE 10MG TABLET PO SCH (21:00)
[2023-01-08] MEDS: MONTELUKAST 10 MG TAB PO SCH (21:03)
[2023-01-08] MEDS: DOXEPIN 25 MG CAP PO SCH (21:04)
[2023-01-09] MEDS: LEVOTHYROXINE 100MCG TABLET (0.1MG) PO SCH (06:27)
[2023-01-09] MEDS: LEVOTHYROXINE 75MCG TABLET (0.075MG) PO SCH (06:27)
[2023-01-09] MEDS: HEPARIN SOD (PORCINE) 5000UNITS/ML 1ML VIAL/SYRINGE SQ SCH ×3 (06:28→21:48)
[2023-01-09 06:39] VITALS: BP 122/66
[2023-01-09 07:17] LABS: HEMATOCRIT 25.3 % (36.0-47.0); HEMOGLOBIN 7.7 g/dl (12.0-15.5); MEAN CORPUSCULAR HEMOGLOBIN 29.1 pg (27.0-33.0); MEAN CORPUSCULAR HGB CONC 30.4 g/dl (32.0-36.5); MEAN CORPUSCULAR VOLUME 95.5 fl (80.0-96.0); PLATELET COUNT, AUTOMATED 239 10^3/uL (150-450); RED BLOOD COUNT 2.65 10^6/uL (4.00-5.40)
[2023-01-09] MEDS: INSULIN LISPRO (NovoLOG) PER UNIT SC SCH ×4 (07:30→21:00)
[2023-01-09 07:44] LABS: CALCIUM LEVEL 6.4 MG/DL (8.3-10.6); CREATININE FOR GFR 4.23 MG/DL (0.55-1.30); GLOMERULAR FILTRATION RATE 11.4 (>45); POTASSIUM SERUM 3.8 MMOL/L (3.5-5.1)
[2023-01-09 09:00] VITALS: BP 122/66
[2023-01-09] MEDS ORDERED: cloNIDine HCL 0.1 MG/24 HR PATCH TOP SCH (09:00)
[2023-01-09] MEDS: (RENVELA) SEVELAMER **CARBONate** 800 MG TAB PO SCH ×2 (09:21→18:23)
[2023-01-09] MEDS: OMEPRAZOLE 20MG CAP PO SCH (09:22)
[2023-01-09] MEDS: SODIUM BICARBONATE 325 MG TAB PO SCH ×2 (09:22→21:48)
[2023-01-09] MEDS: CALCITRIOL 0.25 MCG CAP (S0169) PO SCH (09:23)
[2023-01-09] MEDS: FERROUS SULFATE 325MG TAB PO SCH ×2 (09:23→21:48)
[2023-01-09] MEDS: VANICREAM MOISTURIZING SKIN CREAM 113GM TUBE TOP SCH ×2 (09:28→21:48)
[2023-01-09 13:34] LABS: HEMATOCRIT 27.8 % (36.0-47.0); HEMOGLOBIN 8.7 g/dl (12.0-15.5)
[2023-01-09 15:00] VITALS: BP 124/57
[2023-01-09] MEDS: CYCLOBENZAPRINE 10MG TABLET PO SCH (21:00)
[2023-01-09 21:34] VITALS: BP 124/64
[2023-01-09] MEDS: DOXEPIN 25 MG CAP PO SCH (21:48)
[2023-01-09] MEDS: MONTELUKAST 10 MG TAB PO SCH (21:48)
[2023-01-10 05:22] VITALS: BP 121/63
[2023-01-10] MEDS: LEVOTHYROXINE 100MCG TABLET (0.1MG) PO SCH (05:31)
[2023-01-10] MEDS: LEVOTHYROXINE 75MCG TABLET (0.075MG) PO SCH (05:31)
[2023-01-10] MEDS: HEPARIN SOD (PORCINE) 5000UNITS/ML 1ML VIAL/SYRINGE SQ SCH ×2 (05:31→14:00)
[2023-01-10 06:26] LABS: HEMATOCRIT 25.4 % (36.0-47.0); HEMOGLOBIN 7.8 g/dl (12.0-15.5); MEAN CORPUSCULAR HEMOGLOBIN 29.4 pg (27.0-33.0); MEAN CORPUSCULAR HGB CONC 30.7 g/dl (32.0-36.5); MEAN CORPUSCULAR VOLUME 95.8 fl (80.0-96.0); PLATELET COUNT, AUTOMATED 216 10^3/uL (150-450); RED BLOOD COUNT 2.65 10^6/uL (4.00-5.40); WHITE BLOOD COUNT 7.3 10^3/uL (4.0-10.0)
[2023-01-10 06:51] LABS: CALCIUM LEVEL 6.4 MG/DL (8.3-10.6); CREATININE FOR GFR 4.33 MG/DL (0.55-1.30); GLOMERULAR FILTRATION RATE 11.1 (>45); POTASSIUM SERUM 4.2 MMOL/L (3.5-5.1)
[2023-01-10] MEDS: INSULIN LISPRO (NovoLOG) PER UNIT SC SCH ×2 (07:30→12:00)
[2023-01-10] MEDS ORDERED: CLON0.1D3 TOP (08:02)
[2023-01-10 08:54] LABS: HEMATOCRIT 26.1 % (36.0-47.0); HEMOGLOBIN 8.3 g/dl (12.0-15.5)
[2023-01-10] MEDS: CALCITRIOL 0.25 MCG CAP (S0169) PO SCH (09:24)
[2023-01-10] MEDS: FERROUS SULFATE 325MG TAB PO SCH (09:24)
[2023-01-10] MEDS: SODIUM BICARBONATE 325 MG TAB PO SCH (09:25)
[2023-01-10] MEDS: (RENVELA) SEVELAMER **CARBONate** 800 MG TAB PO SCH (09:25)
[2023-01-10] MEDS: OMEPRAZOLE 20MG CAP PO SCH (09:25)
[2023-01-10] MEDS: VANICREAM MOISTURIZING SKIN CREAM 113GM TUBE TOP SCH (09:25)
[2023-01-10 14:00] VITALS: BP 120/49
[2023-01-12 12:08] LABS: BODY FLUID CULTURE Not indicated. (.); ORGANISM ID Not indicated. (.); SPECIMEN SOURCE Urine (.); URINE STREP PNEUMONIAE ANTIGEN Negative (Negative)
[2023-01-12 15:08] LABS: BODY FLUID CULTURE Not indicated. (.); LEGIONELLA ANTIGEN URINE Negative (Negative); ORGANISM ID Not indicated. (.); SPECIMEN SOURCE Urine (.); URINE STREP PNEUMONIAE ANTIGEN Negative (Negative)
== END 2023-01-10 15:38 | disposition home health service (06) | DRG 194 ==
LOC: EDBD 08:29 → M ED 08:29 → M ED INP 12:51 → ENRESERV 13:41 → M PCU 14:06 → M MSPAV 01-07 17:49
PROVIDERS: ADMIT Internal Medicine; ATTEND General Practice
PROC: 30233N1 Transfusion of Nonautologous Red Blood Cells into Peripheral Vein, Percutaneous Approach (ICD-10-PCS; 2023-01-03)
PROC: B246ZZZ Ultrasonography of Right and Left Heart (ICD-10-PCS; principal; 2023-01-04)
PROC: 0W993ZZ Drainage of Right Pleural Cavity, Percutaneous Approach (ICD-10-PCS; 2023-01-06)
PROC: 0W9B3ZZ Drainage of Left Pleural Cavity, Percutaneous Approach (ICD-10-PCS; 2023-01-07)
PROC: 30233J1 Transfusion of Nonautologous Serum Albumin into Peripheral Vein, Percutaneous Approach (ICD-10-PCS; 2023-01-08)
DX: I13.0 Hypertensive heart and chronic kidney disease with heart failure and stage 1 through stage 4 chronic kidney disease, or unspecified chronic kidney disease (principal); N18.4 Chronic kidney disease, stage 4 (severe); J90 Pleural effusion, not elsewhere classified; N17.9 Acute kidney failure, unspecified; I27.20 Pulmonary hypertension, unspecified; N25.81 Secondary hyperparathyroidism of renal origin; G62.9 Polyneuropathy, unspecified; E66.01 Morbid (severe) obesity due to excess calories; Z68.41 Body mass index [BMI] 40.0-44.9, adult; D50.9 Iron deficiency anemia, unspecified; E89.0 Postprocedural hypothyroidism; M19.90 Unspecified osteoarthritis, unspecified site; M06.9 Rheumatoid arthritis, unspecified; I50.33 Acute on chronic diastolic (congestive) heart failure; K58.9 Irritable bowel syndrome, unspecified; R73.03 Prediabetes; G89.29 Other chronic pain; K21.9 Gastro-esophageal reflux disease without esophagitis; I35.0 Nonrheumatic aortic (valve) stenosis; L29.9 Pruritus, unspecified; D63.1 Anemia in chronic kidney disease; I16.0 Hypertensive urgency; Z79.890 Hormone replacement therapy; Z79.52 Long term (current) use of systemic steroids; Z79.899 Other long term (current) drug therapy; Z88.1 Allergy status to other antibiotic agents; Z88.8 Allergy status to other drugs, medicaments and biological substances; Z98.84 Bariatric surgery status; Z91.018 Allergy to other foods; Z91.048 Other nonmedicinal substance allergy status; Z90.49 Acquired absence of other specified parts of digestive tract; Z99.3 Dependence on wheelchair

== ENCOUNTER → 2023-01-13 | Outpatient (REF) | payer BC, OTHER ==
[~2023-01-13] MED LIST changes: +ALBU8.5H INH; +CALC1CAP31 PO; +CEFU1TAB22 PO; +CLON0.1D3 TOP; +DOXE25CA PO; +FERR325T19 PO; +FURO20TA2 PO; +GUAI100S4 PO; +OXYC-517 PO; +PRED20TA PO
[2023-01-13 18:49] LABS: HEPATITIS B SURFACE ANTIBODY NEGATIVE (POSITIVE)
[2023-01-13 19:02] LABS: HEPATITIS B SURFACE ANTIGEN NEGATIVE (NEGATIVE)
[2023-01-13 19:22] LABS: HEPATITIS B CORE ANTIBODY IGM NEGATIVE (NEGATIVE)
== END ==
LOC: M LAB REF 17:40
PROVIDERS: ATTEND Internal Medicine Nephrology
DX: N18.6 End stage renal disease (principal)

== ENCOUNTER → 2023-02-02 | Outpatient (CLI) | payer BC, OTHER ==
[~2023-02-02] VITALS: Ht 167.6 cm; Wt 113.0 kg
[~2023-02-02] MED LIST changes: +CLON0.2D6 TD; +FLUT50SP17 NARES; -FLUTISP NARES; +HEPARIN 1,000UNITS/ML 10ML VIAL (FOR RADIOLOGY & DIALYSIS ONLY) As Ordered ONE; +LASI40TA9 PO; +LIDOCAINE 1% MDV 20ML VIAL As Ordered ONE; +LIDOCAINE W/EPINEPHRINE 1% 20ML VIAL As Ordered ONE; +MIDAZOLAM INJ 2MG/2ML VIAL As Ordered ONE; +ceFAZolin 2 GM/D5W 50 ML IV BAG As Ordered ONE; +ceFAZolin SOD 2 GM in IV 1 EA IV ONE; +fentaNYL 100 MCG/2 ML INJECTION As Ordered ONE
[2023-02-02 07:59] LABS: HEMATOCRIT 30.3 % (36.0-47.0); HEMOGLOBIN 9.7 g/dl (12.0-15.5); MEAN CORPUSCULAR HEMOGLOBIN 29.6 pg (27.0-33.0); MEAN CORPUSCULAR VOLUME 92.4 fl (80.0-96.0); PLATELET COUNT, AUTOMATED 283 10^3/uL (150-450); RED BLOOD COUNT 3.28 10^6/uL (4.00-5.40); WHITE BLOOD COUNT 6.8 10^3/uL (4.0-10.0)
[2023-02-02 08:14] LABS: PARTIAL THROMBOPLASTIN TIME 30.5 SECONDS (24.8-34.2); PROTHROMBIN TIME 13.4 SECONDS (12.5-14.5)
[2023-02-02 08:24] LABS: CALCIUM LEVEL 6.3 MG/DL (8.3-10.6); CREATININE FOR GFR 4.99 MG/DL (0.55-1.30); GLOMERULAR FILTRATION RATE 9.4 (>45); POTASSIUM SERUM 4.1 MMOL/L (3.5-5.1)
[2023-02-02 14:00] VITALS: BP 157/68
== END ==
LOC: M IRPRO 07:04
PROVIDERS: ATTEND Surgery Vascular Surgery
DX: N18.5 Chronic kidney disease, stage 5 (principal)
CPT/HCPCS: 36558; 80048; 85027; 85610; 85730; 86850; 86870; 86900; 86901; 99152; 99153; C1750; C1769; C1894; J0690; J2250; J3010

== ENCOUNTER → 2023-02-24 | Outpatient (CLI) | payer BC, OTHER ==
[~2023-02-24] MED LIST changes: -DILT1CAP6 PO; +DILT240C42 PO; -HEPARIN 1,000UNITS/ML 10ML VIAL (FOR RADIOLOGY & DIALYSIS ONLY) As Ordered ONE; -LIDOCAINE 1% MDV 20ML VIAL As Ordered ONE; -LIDOCAINE W/EPINEPHRINE 1% 20ML VIAL As Ordered ONE; -MIDAZOLAM INJ 2MG/2ML VIAL As Ordered ONE; -ceFAZolin 2 GM/D5W 50 ML IV BAG As Ordered ONE; -ceFAZolin SOD 2 GM in IV 1 EA IV ONE; -fentaNYL 100 MCG/2 ML INJECTION As Ordered ONE
== END ==
LOC: M RAD 12:30
PROVIDERS: ATTEND Surgery Vascular Surgery
DX: N18.5 Chronic kidney disease, stage 5 (principal); Z99.2 Dependence on renal dialysis

== ENCOUNTER → 2023-03-29 | Outpatient (CLI) | payer BC, OTHER ==
[2023-03-29 14:23] LABS: BASO # 0.1 10^3/uL (0.0-0.2); BASO % 0.8 % (0.0-1.0); EOS # 0.9 10^3/uL (0.0-0.5); EOS % 7.7 % (0.0-3.0); HEMATOCRIT 32.7 % (36.0-47.0); HEMOGLOBIN 10.2 g/dl (12.0-15.5); LYMPH % 17.9 % (24.0-44.0); MEAN CORPUSCULAR HEMOGLOBIN 31.6 pg (27.0-33.0); MEAN CORPUSCULAR HGB CONC 31.2 g/dl (32.0-36.5); MEAN CORPUSCULAR VOLUME 101.2 fl (80.0-96.0); MONO # 0.7 10^3/uL (0.0-0.8); MONO % 6.2 % (2.0-8.0); NEUTROPHILS # 7.5 10^3/uL (1.5-8.5); PLATELET COUNT, AUTOMATED 278 10^3/uL (150-450); RED BLOOD COUNT 3.23 10^6/uL (4.00-5.40); WHITE BLOOD COUNT 11.3 10^3/uL (4.0-10.0)
[2023-03-29 14:48] LABS: ALBUMIN 2.5 G/DL (3.2-5.2); BILIRUBIN,TOTAL 0.3 MG/DL (0.3-1.2); CALCIUM LEVEL 7.4 MG/DL (8.3-10.6); CHOLESTEROL RISK RATIO 1.6 (<5); CREATININE FOR GFR 3.7 MG/DL (0.55-1.30); GLOMERULAR FILTRATION RATE 13.3 (>45); HDL CHOLESTEROL 111.4 MG/DL (>40); NON-HDL-C 67.6 MG/DL; POTASSIUM SERUM 4.4 MMOL/L (3.5-5.1); TOTAL PROTEIN 5.2 G/DL (5.7-8.2)
[2023-03-29 14:50] LABS: FREE T4 1.09 NG/DL (0.89-1.76); THYROID STIMULATING HORMONE 2.236 uIU/ML (0.55-4.78)
== END ==
LOC: M PLALAB 11:05
PROVIDERS: ATTEND Nurse Practitioner Family
DX: E11.22 Type 2 diabetes mellitus with diabetic chronic kidney disease (principal); I11.0 Hypertensive heart disease with heart failure; I50.32 Chronic diastolic (congestive) heart failure; E03.9 Hypothyroidism, unspecified

== ENCOUNTER → 2023-04-12 | Day surgery (SDC) | payer BC, OTHER ==
[~2023-04-12] VITALS: Ht 167.6 cm; Wt 98.9 kg
[~2023-04-12] MED LIST changes: +ACETAMINOPHEN 1000MG 100ML IV BAG As Ordered ONE; +DESFLURANE 240 ML INHALANT As Ordered ONE; -DOXY100C81 PO; +DOXY100C82 PO; +FLON1SPR; +HEPARIN SOD (PORCINE) 5000UNITS/ML 1ML VIAL/SYRINGE As Ordered ONE; +HYDROMORPHONE HCL 0.5 MG/ 0.5 ML SYRINGE IV PRN; +LIDOCAINE 1% SDV 30ML VIAL As Ordered ONE; +LIDOCAINE 2% 100MG/5ML SDV (FOR ANES.) As Ordered ONE; +MIDAZOLAM INJ 2MG/2ML VIAL As Ordered ONE; +NS 1,000 ML IV SCH; +OMEP-173 PO; +ONDANSETRON 4MG 2ML VIAL As Ordered ONE; +ONDANSETRON 4MG 2ML VIAL IV PRN; +PAPAVERINE HCL 60MG 2ML VIAL (30MG/ML) As Ordered ONE; +PHENYLEPHRINE 10MG/ML 1ML VIAL As Ordered ONE; +PHENYLephrine 500MCG 5ML (100MCG/ML) SYRINGE As Ordered ONE; +ROPI2TAB24 PO; +TRAM-533 PO; +ceFAZolin SOD 2 GM in IV 1 EA IV ONE; +fentaNYL 100 MCG/2 ML INJECTION As Ordered ONE; +fentaNYL 100 MCG/2 ML INJECTION IV PRN; +propofoL 200 MG/20 ML VIAL As Ordered ONE
[2023-04-12 10:31] LABS: HEMATOCRIT 30.4 % (36.0-47.0); HEMOGLOBIN 9.5 g/dl (12.0-15.5); MEAN CORPUSCULAR HEMOGLOBIN 32.5 pg (27.0-33.0); MEAN CORPUSCULAR HGB CONC 31.3 g/dl (32.0-36.5); MEAN CORPUSCULAR VOLUME 104.1 fl (80.0-96.0); PLATELET COUNT, AUTOMATED 304 10^3/uL (150-450); RED BLOOD COUNT 2.92 10^6/uL (4.00-5.40); WHITE BLOOD COUNT 12.7 10^3/uL (4.0-10.0)
[2023-04-12 10:55] LABS: CALCIUM LEVEL 7.9 MG/DL (8.3-10.6); CREATININE FOR GFR 3.53 MG/DL (0.55-1.30); POTASSIUM SERUM 5.1 MMOL/L (3.5-5.1)
[2023-04-12 17:08] VITALS: BP 123/62; TEMP 97.6; O2SAT 96
== END | disposition home or self-care (01) ==
LOC: M SDC 09:55
PROVIDERS: ATTEND Surgery Vascular Surgery
DX: N18.6 End stage renal disease (principal); Z99.2 Dependence on renal dialysis; E11.22 Type 2 diabetes mellitus with diabetic chronic kidney disease; I13.2 Hypertensive heart and chronic kidney disease with heart failure and with stage 5 chronic kidney disease, or end stage renal disease; I50.32 Chronic diastolic (congestive) heart failure; E03.9 Hypothyroidism, unspecified; I73.9 Peripheral vascular disease, unspecified; Z86.16 Personal history of COVID-19; Z95.828 Presence of other vascular implants and grafts; Z91.048 Other nonmedicinal substance allergy status; Z91.018 Allergy to other foods; Z88.1 Allergy status to other antibiotic agents; Z88.8 Allergy status to other drugs, medicaments and biological substances; Z79.899 Other long term (current) drug therapy; Z79.890 Hormone replacement therapy
CPT/HCPCS: 36415; 36821; 80048; 84132; 85027; 86850; 86870; 86900; 86901; J0131; J0690; J1100; J2250; J2370; J2405; J2440; J3010

== ENCOUNTER 2023-08-31 12:38 | Outpatient (RCR) | payer OTHER, MEDICARE ==
[~2023-08-31 12:38] MED LIST changes: -ACETAMINOPHEN 1000MG 100ML IV BAG As Ordered ONE; -DESFLURANE 240 ML INHALANT As Ordered ONE; -HEPARIN SOD (PORCINE) 5000UNITS/ML 1ML VIAL/SYRINGE As Ordered ONE; -HYDROMORPHONE HCL 0.5 MG/ 0.5 ML SYRINGE IV PRN; -LIDOCAINE 1% SDV 30ML VIAL As Ordered ONE; -LIDOCAINE 2% 100MG/5ML SDV (FOR ANES.) As Ordered ONE; -MIDAZOLAM INJ 2MG/2ML VIAL As Ordered ONE; -NS 1,000 ML IV SCH; -ONDANSETRON 4MG 2ML VIAL As Ordered ONE; -ONDANSETRON 4MG 2ML VIAL IV PRN; -PAPAVERINE HCL 60MG 2ML VIAL (30MG/ML) As Ordered ONE; -PHENYLEPHRINE 10MG/ML 1ML VIAL As Ordered ONE; -PHENYLephrine 500MCG 5ML (100MCG/ML) SYRINGE As Ordered ONE; -ceFAZolin SOD 2 GM in IV 1 EA IV ONE; -fentaNYL 100 MCG/2 ML INJECTION As Ordered ONE; -fentaNYL 100 MCG/2 ML INJECTION IV PRN; -propofoL 200 MG/20 ML VIAL As Ordered ONE
[2023-09-07] MEDS ORDERED: DUPI300P SQ (09:45)
== END 2023-09-23 ==
LOC: M PT 12:38
PROVIDERS: ATTEND Nurse Practitioner Family
DX: G89.4 Chronic pain syndrome (principal)

== ENCOUNTER → 2023-09-09 | Outpatient (CLI) | payer MEDICARE, OTHER ==
[~2023-09-09] MED LIST changes: +DUPI300P SQ
== END ==
LOC: M PLAIMG 11:01
PROVIDERS: ATTEND Nurse Practitioner Family
DX: Z01.818 Encounter for other preprocedural examination (principal); I51.7 Cardiomegaly; J90 Pleural effusion, not elsewhere classified

== ENCOUNTER → 2023-12-01 | Day surgery (SDC) | payer MEDICARE, OTHER ==
[~2023-12-01] VITALS: Ht 167.6 cm; Wt 106.6 kg
[~2023-12-01] MED LIST changes: +ACETAMINOPHEN 1000MG 100ML IV BAG As Ordered ONE; +D5W/0.2% SODIUM CHLORIDE 1,000 ML IV SCH; -FLUT50SP17 NARES; +FLUTISP NARES; +HEPARIN SOD (PORCINE) 5000UNITS/ML 1ML VIAL/SYRINGE As Ordered ONE; -HYDR-3910 PO; +HYDR25TA87 PO; +HYDROMORPHONE HCL 0.5 MG/ 0.5 ML SYRINGE IV PRN; +LIDOCAINE 2% 100MG/5ML SDV (FOR ANES.) As Ordered ONE; +MIDAZOLAM INJ 2MG/2ML VIAL As Ordered ONE; +ONDANSETRON 4MG 2ML VIAL As Ordered ONE; +ONDANSETRON 4MG 2ML VIAL IV PRN; +ROCURONIUM BROMIDE 50MG/5ML VIAL As Ordered ONE; +SUGAMMADEX SODIUM 500 MG/5 ML VIAL (BRIDION) As Ordered ONE; +fentaNYL 100 MCG/2 ML INJECTION As Ordered ONE; +propofoL 200 MG/20 ML VIAL As Ordered ONE
[2023-12-01] MEDS: CelecoXIB 400 MG CAP PO ONE (15:13)
[2023-12-01] MEDS: ceFAZolin SOD 2 GM in IV 1 EA IV ONE (16:07)
[2023-12-01] MEDS: oxyCODONE 5MG TAB PO PRN (17:28)
[2023-12-01] MEDS: fentaNYL 100 MCG/2 ML INJECTION IV PRN (17:45)
[2023-12-01] MEDS: PHENYLephrine 500MCG 5ML (100MCG/ML) SYRINGE IV PRN (17:52)
[2023-12-01 19:03] VITALS: BP 142/72; TEMP 97.9; O2SAT 96
== END | disposition home or self-care (01) ==
LOC: M SDC 13:35
PROVIDERS: ATTEND Surgery
DX: N18.6 End stage renal disease (principal); Z99.2 Dependence on renal dialysis; K66.0 Peritoneal adhesions (postprocedural) (postinfection); E66.01 Morbid (severe) obesity due to excess calories; Z68.36 Body mass index [BMI] 36.0-36.9, adult; Z90.49 Acquired absence of other specified parts of digestive tract; Z98.84 Bariatric surgery status; Z88.1 Allergy status to other antibiotic agents; Z91.048 Other nonmedicinal substance allergy status; Z88.8 Allergy status to other drugs, medicaments and biological substances; Z79.899 Other long term (current) drug therapy
CPT/HCPCS: 36415; 49324; 84132; J0131; J0665; J0690; J1100; J2250; J2371; J2405; J3010

== ENCOUNTER → 2023-12-07 | Outpatient (CLI) | payer MEDICARE, OTHER ==
[~2023-12-07] MED LIST changes: -ACETAMINOPHEN 1000MG 100ML IV BAG As Ordered ONE; -D5W/0.2% SODIUM CHLORIDE 1,000 ML IV SCH; -HEPARIN SOD (PORCINE) 5000UNITS/ML 1ML VIAL/SYRINGE As Ordered ONE; -HYDROMORPHONE HCL 0.5 MG/ 0.5 ML SYRINGE IV PRN; -LIDOCAINE 2% 100MG/5ML SDV (FOR ANES.) As Ordered ONE; -MIDAZOLAM INJ 2MG/2ML VIAL As Ordered ONE; -ONDANSETRON 4MG 2ML VIAL As Ordered ONE; -ONDANSETRON 4MG 2ML VIAL IV PRN; -ROCURONIUM BROMIDE 50MG/5ML VIAL As Ordered ONE; -SUGAMMADEX SODIUM 500 MG/5 ML VIAL (BRIDION) As Ordered ONE; -fentaNYL 100 MCG/2 ML INJECTION As Ordered ONE; -propofoL 200 MG/20 ML VIAL As Ordered ONE
== END ==
LOC: M PLAIMG 10:24
PROVIDERS: ATTEND Internal Medicine Cardiovascular Disease
DX: I38 Endocarditis, valve unspecified (principal); I35.0 Nonrheumatic aortic (valve) stenosis

== ENCOUNTER → 2024-01-03 | Outpatient (REF) | payer MEDICARE, OTHER ==
[2024-01-03 18:40] LABS: FREE T4 0.94 NG/DL (0.89-1.76)
[2024-01-03 18:41] LABS: THYROID STIMULATING HORMONE 0.983 uIU/ML (0.55-4.78)
== END ==
LOC: M LABDRAWP 17:42
PROVIDERS: ATTEND Nurse Practitioner Family
DX: E03.9 Hypothyroidism, unspecified (principal)

== ENCOUNTER → 2024-02-15 | Outpatient (CLI) | payer MEDICARE, OTHER ==
[~2024-02-15] MED LIST changes: +NYST100084 TOP; -NYST10OI TOP
== END ==
LOC: M RAD 11:54
PROVIDERS: ATTEND Physician Assistant
DX: M17.0 Bilateral primary osteoarthritis of knee (principal)

== ENCOUNTER → 2024-02-15 | Outpatient (CLI) | payer MEDICARE, OTHER ==
[2024-02-15 13:16] LABS: BASO # 0.1 10^3/uL (0.0-0.2); BASO % 0.7 % (0.0-1.0); EOS # 0.6 10^3/uL (0.0-0.5); EOS % 5.4 % (0.0-3.0); HEMATOCRIT 21.1 % (36.0-47.0); LYMPH # 1.7 10^3/uL (1.5-5.0); LYMPH % 15.2 % (24.0-44.0); MEAN CORPUSCULAR HEMOGLOBIN 30.6 pg (27.0-33.0); MEAN CORPUSCULAR HGB CONC 31.3 g/dl (32.0-36.5); MEAN CORPUSCULAR VOLUME 97.7 fl (80.0-96.0); MONO # 0.9 10^3/uL (0.0-0.8); MONO % 8.3 % (2.0-8.0); NEUTROPHILS # 7.8 10^3/uL (1.5-8.5); PLATELET COUNT, AUTOMATED 327 10^3/uL (150-450); RED BLOOD COUNT 2.16 10^6/uL (4.00-5.40); WHITE BLOOD COUNT 11.2 10^3/uL (4.0-10.0)
[2024-02-15 13:42] LABS: CHOLESTEROL RISK RATIO 3.11 (<5); HDL CHOLESTEROL 52.9 MG/DL (>40); LDL CHOLESTEROL 86.3 MG/DL (<100); NON-HDL-C 112.1 MG/DL
[2024-02-15 13:49] LABS: HEMOGLOBIN 6.6 g/dl (12.0-15.5); HEMOGLOBIN A1c 4.3 % (4.0-6.0)
== END ==
LOC: M LAB 11:50
PROVIDERS: ATTEND Internal Medicine Cardiovascular Disease
DX: E78.2 Mixed hyperlipidemia (principal)

== ENCOUNTER → 2024-04-17 | Outpatient (CLI) | payer MEDICARE, OTHER ==
[~2024-04-17] MED LIST changes: -AZEL0.055; +AZEL1SPR4; +DUPI300P INJ; +EMGA120I PO; -FLON1SPR; +FLON1SPR NARES; +LEVO200T4 PO; +ROPI5TAB19 PO; +SERT50TA29 PO; +VELP5CHW PO
[2024-04-17 18:24] LABS: ALBUMIN 2.4 G/DL (3.2-5.2); BILIRUBIN,TOTAL 0.2 MG/DL (0.3-1.2); CALCIUM LEVEL 7.4 MG/DL (8.3-10.6); CREATININE FOR GFR 4.24 MG/DL (0.55-1.30); GLOMERULAR FILTRATION RATE 11.3 (>45); POTASSIUM SERUM 4.2 MMOL/L (3.5-5.1); TOTAL PROTEIN 4.9 G/DL (5.7-8.2)
[2024-04-17 18:25] LABS: BASO # 0.1 10^3/uL (0.0-0.2); BASO % 0.7 % (0.0-1.0); EOS # 0.7 10^3/uL (0.0-0.5); HEMATOCRIT 21.2 % (36.0-47.0); LYMPH # 1.5 10^3/uL (1.5-5.0); LYMPH % 12.3 % (24.0-44.0); MEAN CORPUSCULAR HEMOGLOBIN 30.8 pg (27.0-33.0); MEAN CORPUSCULAR HGB CONC 31.1 g/dl (32.0-36.5); MEAN CORPUSCULAR VOLUME 99.1 fl (80.0-96.0); MONO # 0.9 10^3/uL (0.0-0.8); MONO % 7.8 % (2.0-8.0); NEUTROPHILS # 8.5 10^3/uL (1.5-8.5); NEUTROPHILS % 72.5 % (36.0-66.0); PLATELET COUNT, AUTOMATED 326 10^3/uL (150-450); RED BLOOD COUNT 2.14 10^6/uL (4.00-5.40); WHITE BLOOD COUNT 11.8 10^3/uL (4.0-10.0)
[2024-04-17 18:26] LABS: FREE T4 0.88 NG/DL (0.89-1.76)
[2024-04-17 18:27] LABS: THYROID STIMULATING HORMONE 4.356 uIU/ML (0.55-4.78)
[2024-04-17 18:31] LABS: HEMOGLOBIN 6.6 g/dl (12.0-15.5)
== END ==
LOC: M PLALAB 14:59
PROVIDERS: ATTEND Nurse Practitioner Family
DX: E03.9 Hypothyroidism, unspecified (principal); N18.5 Chronic kidney disease, stage 5; I10 Essential (primary) hypertension

== ENCOUNTER 2024-04-19 10:36 | Observation (INO) | payer OTHER, MEDICARE ==
[2024-04-19] VITALS (11 sets, daily range): BP systolic 114–169; BP diastolic 57–82; TEMP 97.4–97.9; O2SAT 95–100
[~2024-04-19] VITALS: Ht 167.6 cm; Wt 116.3 kg
[~2024-04-19 10:36] MED LIST changes: -DUPI300P INJ; -EMGA120I PO; -LEVO200T4 PO; -ROPI5TAB19 PO; -SERT50TA29 PO; -VELP5CHW PO
[2024-04-19 12:14] LABS: BASO # 0.1 10^3/uL (0.0-0.2); BASO % 0.7 % (0.0-1.0); EOS # 0.8 10^3/uL (0.0-0.5); EOS % 6.4 % (0.0-3.0); HEMATOCRIT 21.1 % (36.0-47.0); LYMPH # 1.3 10^3/uL (1.5-5.0); LYMPH % 10.7 % (24.0-44.0); MEAN CORPUSCULAR HEMOGLOBIN 30.7 pg (27.0-33.0); MEAN CORPUSCULAR HGB CONC 30.8 g/dl (32.0-36.5); MEAN CORPUSCULAR VOLUME 99.5 fl (80.0-96.0); MONO # 0.9 10^3/uL (0.0-0.8); MONO % 7.4 % (2.0-8.0); NEUTROPHILS # 8.8 10^3/uL (1.5-8.5); NEUTROPHILS % 74.2 % (36.0-66.0); PLATELET COUNT, AUTOMATED 309 10^3/uL (150-450); RED BLOOD COUNT 2.12 10^6/uL (4.00-5.40); WHITE BLOOD COUNT 11.8 10^3/uL (4.0-10.0)
[2024-04-19 12:36] LABS: HEMOGLOBIN 6.5 g/dl (12.0-15.5)
[2024-04-19 12:40] LABS: BLOOD UREA NITROGEN 99 MG/DL (9-23); CALCIUM LEVEL 7.4 MG/DL (8.3-10.6); CARBON DIOXIDE LEVEL 26 MMOL/L (20-31); CHLORIDE LEVEL 100 MMOL/L (98-107); GLOMERULAR FILTRATION RATE 11.4 (>45); GLUCOSE, FASTING 127 MG/DL (74-106); POTASSIUM SERUM 3.7 MMOL/L (3.5-5.1); SODIUM LEVEL 136 MMOL/L (136-145)
[2024-04-19 12:45] LABS: INR 0.98; PROTHROMBIN TIME 12.7 SECONDS (12.5-14.5)
[2024-04-19] MEDS ORDERED: MED REC IN PROGRESS XX SCH (13:25)
[2024-04-19] MEDS ORDERED: ACETAMINOPHEN TAB 650MG DOSE (2X325MG) PO PRN (13:40)
[2024-04-19] MEDS ORDERED: HYDR-3363 PO (14:06)
[2024-04-19] MEDS ORDERED: ROPI5TAB19 PO (14:26)
[2024-04-19] MEDS ORDERED: LEVO200T4 PO (14:26)
[2024-04-19] MEDS ORDERED: DUPI300P INJ (14:26)
[2024-04-19] MEDS ORDERED: SERT50TA29 PO (14:26)
[2024-04-19] MEDS ORDERED: VELP5CHW PO (14:26)
[2024-04-19] MEDS ORDERED: EMGA120I PO (14:26)
[2024-04-19] MEDS ORDERED: HOME MED LIST COMPLETE! XX SCH (14:30)
[2024-04-19 15:13] LABS: IRON (FE) 43 UG/DL (50-170); PERCENT SATURATION 20.3 % (13.2-45.0); TOTAL IRON BINDING CAPACITY 212 UG/DL (250-425)
[2024-04-19 15:16] LABS: FERRITIN 1122.1 NG/ML (7.3-270.7); FOLATE > 24.0 NG/ML (>5.4); VITAMIN B12 LEVEL 865 PG/ML (211-911)
[2024-04-19] MEDS ORDERED: traMADol 50 MG TAB PO PRN (16:25)
[2024-04-19] MEDS ORDERED: oxyCODONE 5MG TAB PO PRN (16:25)
[2024-04-19] MEDS ORDERED: AZELASTINE 137MCG NASAL SPY 30 ML (ASTELIN) PRN (16:25)
[2024-04-19] MEDS ORDERED: CYCLOBENZAPRINE 10MG TABLET PO PRN (16:25)
[2024-04-19] MEDS: FLUTICASONE PROP 0.05% NASAL SPRAY 16 GM (FLONASE) NARES SCH (22:07)
[2024-04-19] MEDS: rOPINIRole 0.25 MG TAB(REQUIP) PO SCH (22:07)
[2024-04-19] MEDS: OMEPRAZOLE 20MG CAP PO SCH (22:08)
[2024-04-19] MEDS: MONTELUKAST 10 MG TAB PO SCH (22:09)
[2024-04-19 23:21] LABS: HEMATOCRIT 23.9 % (36.0-47.0); HEMOGLOBIN 7.8 g/dl (12.0-15.5); MEAN CORPUSCULAR HGB CONC 32.6 g/dl (32.0-36.5); MEAN CORPUSCULAR VOLUME 94.8 fl (80.0-96.0); PLATELET COUNT, AUTOMATED 243 10^3/uL (150-450); RED BLOOD COUNT 2.52 10^6/uL (4.00-5.40)
[2024-04-20 04:00] VITALS: BP 126/68; TEMP 97.9; O2SAT 95
[2024-04-20] MEDS: LEVOTHYROXINE 100MCG TABLET (0.1MG) PO SCH (05:50)
[2024-04-20 06:38] LABS: HEMATOCRIT 24.3 % (36.0-47.0); HEMOGLOBIN 7.9 g/dl (12.0-15.5); MEAN CORPUSCULAR HEMOGLOBIN 30.9 pg (27.0-33.0); MEAN CORPUSCULAR HGB CONC 32.5 g/dl (32.0-36.5); MEAN CORPUSCULAR VOLUME 94.9 fl (80.0-96.0); PLATELET COUNT, AUTOMATED 250 10^3/uL (150-450); RED BLOOD COUNT 2.56 10^6/uL (4.00-5.40); WHITE BLOOD COUNT 10.3 10^3/uL (4.0-10.0)
[2024-04-20 07:12] LABS: ALBUMIN 2.1 G/DL (3.2-5.2); BILIRUBIN,TOTAL 0.3 MG/DL (0.3-1.2); CREATININE FOR GFR 4.29 MG/DL (0.55-1.30); GLOMERULAR FILTRATION RATE 11.1 (>45); TOTAL PROTEIN 4.5 G/DL (5.7-8.2)
[2024-04-20] MEDS: CETIRIZINE (ZyrTEC) 10 MG TAB PO SCH (08:22)
[2024-04-20] MEDS: SERTRALINE HCL 50 MG TAB PO SCH (08:22)
[2024-04-20] MEDS: CALCITRIOL 0.25 MCG CAP (S0169) PO SCH (08:22)
[2024-04-20] MEDS: FUROSEMIDE 40 MG TAB PO SCH (08:23)
[2024-04-20] MEDS: IRON SUCROSE 200 MG in NS 100 ML IV ONE (08:30)
[2024-04-20 08:45] VITALS: BP 128/98
== END 2024-04-20 12:29 | disposition home or self-care (01) ==
LOC: M ED 10:36 → M ED INP 10:37 → M MSPAV 18:19
PROVIDERS: ADMIT Internal Medicine; ATTEND Internal Medicine
DX: D50.9 Iron deficiency anemia, unspecified (principal); N18.6 End stage renal disease; D63.1 Anemia in chronic kidney disease
CPT/HCPCS: 36415; 80048; 80053; 82607; 82728; 82746; 83550; 85025; 85027; 85610; 86850; 86870; 86900; 86901; 86920; 96365; 99285; J1756; P9016

== ENCOUNTER → 2024-06-07 | Outpatient (CLI) | payer MEDICARE, OTHER ==
[~2024-06-07] MED LIST changes: +DUPI300P INJ; +EMGA120I PO; +GABA-1172 PO; -GABA-282 PO; +LEVO200T4 PO; +ROPI5TAB19 PO; +SERT50TA29 PO; +VELP5CHW PO
== END ==
LOC: M PLALAB 12:20
PROVIDERS: ATTEND Internal Medicine Nephrology
DX: D64.9 Anemia, unspecified (principal)

== ENCOUNTER 2024-06-08 10:32 | Outpatient (CLI) | payer MEDICARE, OTHER ==
[~2024-06-08] VITALS: Ht 167.6 cm; Wt 116.3 kg
[2024-06-08] MEDS ORDERED: NS 250 ML IV ONE (11:00)
[2024-06-08 12:05] VITALS: BP 160/79; TEMP 97; O2SAT 98
[2024-06-08 13:00] VITALS: BP 127/69; TEMP 97.4; O2SAT 97
[2024-06-08 14:05] VITALS: BP 117/69; TEMP 97.4; O2SAT 98
[2024-06-08 14:50] VITALS: BP 126/58; TEMP 97.5; O2SAT 97
[2024-06-08 16:25] VITALS: BP 152/74; TEMP 98.2; O2SAT 98
[2024-06-08 16:39] VITALS: BP 136/86; O2SAT 98
== END 2024-06-08 16:45 ==
LOC: M INFU 10:32
PROVIDERS: ATTEND Internal Medicine Nephrology
DX: D64.9 Anemia, unspecified (principal); Z88.8 Allergy status to other drugs, medicaments and biological substances
CPT/HCPCS: 36430; P9016

== ENCOUNTER → 2024-09-07 | Outpatient (REF) | payer MEDICARE, OTHER ==
[2024-09-07 15:48] LABS: APPEARANCE, URINE HAZY (CLEAR); BACTERIA, URINE AUTO 1+ (NEGATIVE); BILIRUBIN, URINE AUTO NEGATIVE (NEGATIVE); BLOOD, URINE BLOOD 3+ (NEGATIVE); COLOR, URINE YELLOW (YELLOW); GLUCOSE, URINE (UA) AUTO 1+ mg/dL (NEGATIVE); KETONE, URINE AUTO NEGATIVE (NEGATIVE); LEUKOCYTE ESTERASE, URINE AUTO 2+ (NEGATIVE); NITRITE, URINE AUTO NEGATIVE (NEGATIVE); PROTEIN, URINE AUTO 1+ mg/dL (NEGATIVE); RBC, URINE AUTO 84 /HPF (0-3); SPECIFIC GRAVITY URINE AUTO 1.009 (1.002-1.035); SQUAMOUS EPITHELIAL CELL UR AU 3 /HPF (0-6); TRANSITIONAL EPITHELIAL AUTO <1 /HPF; UROBILINOGEN, URINE AUTO 0.2 mg/dL (0.0-2.0); WBC, URINE AUTO 24 /HPF (0-3)
== END ==
LOC: M LAB REF 15:23
PROVIDERS: ATTEND Internal Medicine Nephrology
DX: R31.0 Gross hematuria (principal)

== ENCOUNTER 2024-09-26 19:47 | Inpatient (IN) | payer MEDICARE, OTHER ==
[~2024-09-26] VITALS: Ht 170.2 cm; Wt 121.1 kg
[2024-09-26 20:38] LABS: BASO # 0.1 10^3/uL (0.0-0.2); BASO % 1.2 % (0.0-1.0); EOS # 0.5 10^3/uL (0.0-0.5); EOS % 4.3 % (0.0-3.0); HEMATOCRIT 43.5 % (36.0-47.0); HEMOGLOBIN 13.5 g/dl (12.0-15.5); LYMPH # 1.7 10^3/uL (1.5-5.0); LYMPH % 15.2 % (24.0-44.0); MEAN CORPUSCULAR HEMOGLOBIN 29.1 pg (27.0-33.0); MEAN CORPUSCULAR VOLUME 93.8 fl (80.0-96.0); MONO # 0.9 10^3/uL (0.0-0.8); MONO % 8.3 % (2.0-8.0); NEUTROPHILS # 7.9 10^3/uL (1.5-8.5); NEUTROPHILS % 70.3 % (36.0-66.0); PLATELET COUNT, AUTOMATED 389 10^3/uL (150-450); RED BLOOD COUNT 4.64 10^6/uL (4.00-5.40); WHITE BLOOD COUNT 11.2 10^3/uL (4.0-10.0)
[2024-09-26 20:51] LABS: INR 0.86; PARTIAL THROMBOPLASTIN TIME 28.6 SECONDS (24.8-34.2); PROTHROMBIN TIME 12.1 SECONDS (12.5-14.5)
[2024-09-26 21:07] LABS: CK-MB VALUE MASS < 1.0 NG/ML (<3.6)
[2024-09-26 21:08] LABS: BLOOD UREA NITROGEN 60 MG/DL (9-23); CALCIUM LEVEL 8.2 MG/DL (8.3-10.6); CARBON DIOXIDE LEVEL 25 MMOL/L (20-31); CHLORIDE LEVEL 98 MMOL/L (98-107); CREATININE FOR GFR 4.14 MG/DL (0.55-1.30); GLOMERULAR FILTRATION RATE 11.6 (>45); GLUCOSE, FASTING 157 MG/DL (74-106); POTASSIUM SERUM 3.7 MMOL/L (3.5-5.1); SODIUM LEVEL 136 MMOL/L (136-145)
[2024-09-26 21:11] LABS: CPK CREATINE PHOSPHOKINASE 25 U/L (34-145)
[2024-09-26] MEDS ORDERED: MAGN400T35 PO (21:16)
[2024-09-26] MEDS ORDERED: TORS100T PO (21:16)
[2024-09-26] MEDS ORDERED: ROCA0.5C PO (21:16)
[2024-09-26] MEDS ORDERED: ZOLO100T PO (21:16)
[2024-09-26] MEDS ORDERED: OCUVTAB4 PO (21:16)
[2024-09-26] MEDS ORDERED: HOME MED LIST COMPLETE! XX SCH (21:20)
[2024-09-26] MEDS: ASPIRIN 81MG CHEW TABLET PO ONE (21:41)
[2024-09-26] MEDS: CLOPIDOGREL 75 MG TAB PO ONE (21:42)
[2024-09-26] MEDS ORDERED: MOM 30ML SUSPENSION UDC PO PRN (21:55)
[2024-09-26] MEDS ORDERED: traMADol 50 MG TAB PO PRN (22:20)
[2024-09-26 23:23] VITALS: BP 114/65; TEMP 98.2; O2SAT 95
[2024-09-26] MEDS: ATORVASTATIN 20 MG TAB PO SCH (23:38)
[2024-09-26] MEDS: hydrOXYzine 50 MG TAB PO SCH (23:38)
[2024-09-26] MEDS: MONTELUKAST 10 MG TAB PO SCH (23:39)
[2024-09-26] MEDS: rOPINIRole 0.25 MG TAB(REQUIP) PO SCH (23:39)
[2024-09-26] MEDS: OMEPRAZOLE 20MG CAP PO SCH (23:39)
[2024-09-27 04:21] VITALS: BP 109/77; TEMP 97.2; O2SAT 97
[2024-09-27] MEDS: HEPARIN SOD (PORCINE) 5000UNITS/ML 1ML VIAL/SYRINGE SC SCH ×2 (06:18→20:28)
[2024-09-27] MEDS: LEVOTHYROXINE 100MCG TABLET (0.1MG) PO SCH (06:19)
[2024-09-27 06:27] LABS: HEMATOCRIT 37.9 % (36.0-47.0); HEMOGLOBIN 11.9 g/dl (12.0-15.5); MEAN CORPUSCULAR HEMOGLOBIN 29.7 pg (27.0-33.0); MEAN CORPUSCULAR HGB CONC 31.4 g/dl (32.0-36.5); MEAN CORPUSCULAR VOLUME 94.5 fl (80.0-96.0); PLATELET COUNT, AUTOMATED 307 10^3/uL (150-450); RED BLOOD COUNT 4.01 10^6/uL (4.00-5.40); WHITE BLOOD COUNT 8.2 10^3/uL (4.0-10.0)
[2024-09-27 06:40] LABS: HEMOGLOBIN A1c 4.7 % (4.0-6.0)
[2024-09-27 06:49] LABS: ALBUMIN 1.7 G/DL (3.2-5.2); BILIRUBIN,TOTAL 0.2 MG/DL (0.3-1.2); CHOLESTEROL RISK RATIO 3.19 (<5); CREATININE FOR GFR 4.52 MG/DL (0.55-1.30); GLOMERULAR FILTRATION RATE 10.5 (>45); HDL CHOLESTEROL 64.4 MG/DL (>40); LDL CHOLESTEROL 112.8 MG/DL (<100); NON-HDL-C 141.6 MG/DL; POTASSIUM SERUM 3.6 MMOL/L (3.5-5.1); TOTAL PROTEIN 4.7 G/DL (5.7-8.2)
[2024-09-27] MEDS: SUCROFERRIC OXYHYDROXIDE 500MG CHEW TAB (VELPHORO) PO SCH (07:30)
[2024-09-27 08:53] VITALS: BP 136/63; TEMP 97.8; O2SAT 98
[2024-09-27] MEDS: DOCUSATE SODIUM 100MG CAPSULE PO SCH (09:00)
[2024-09-27] MEDS: ASPIRIN 81MG CHEW TABLET PO SCH (10:23)
[2024-09-27] MEDS: CALCITRIOL 0.25 MCG CAP (S0169) PO SCH (10:23)
[2024-09-27] MEDS: TORSEMIDE 100 MG TAB PO SCH (10:23)
[2024-09-27] MEDS: MAGNESIUM OXIDE 400MG TAB (MAG-OX) PO SCH (10:23)
[2024-09-27] MEDS: CETIRIZINE (ZyrTEC) 10 MG TAB PO SCH (10:24)
[2024-09-27] MEDS: SERTRALINE 100 MG TAB PO SCH (10:24)
[2024-09-27] MEDS: CLOPIDOGREL 75 MG TAB PO SCH (10:25)
[2024-09-27 12:00] VITALS: BP 154/91; TEMP 98.2; O2SAT 98
[2024-09-27] MEDS: oxyCODONE 5MG TAB PO PRN (14:10)
[2024-09-27 16:00] VITALS: BP 117/57; TEMP 97.4; O2SAT 97
[2024-09-27 20:26] VITALS: BP 133/61; TEMP 97.8; O2SAT 96
[2024-09-27] MEDS: FLUTICASONE PROP 0.05% NASAL SPRAY 16 GM (FLONASE) NARES SCH (20:28)
[2024-09-27 23:53] VITALS: BP 131/60; TEMP 97.8; O2SAT 96
[2024-09-28 04:03] VITALS: BP 147/69; TEMP 98.2; O2SAT 98
[2024-09-28 06:47] LABS: HEMATOCRIT 35.9 % (36.0-47.0); HEMOGLOBIN 11.3 g/dl (12.0-15.5); MEAN CORPUSCULAR HEMOGLOBIN 29.7 pg (27.0-33.0); MEAN CORPUSCULAR HGB CONC 31.5 g/dl (32.0-36.5); MEAN CORPUSCULAR VOLUME 94.2 fl (80.0-96.0); PLATELET COUNT, AUTOMATED 267 10^3/uL (150-450); RED BLOOD COUNT 3.81 10^6/uL (4.00-5.40); WHITE BLOOD COUNT 8.1 10^3/uL (4.0-10.0)
[2024-09-28 07:15] LABS: CALCIUM LEVEL 7.6 MG/DL (8.3-10.6); CREATININE FOR GFR 4.5 MG/DL (0.55-1.30); GLOMERULAR FILTRATION RATE 10.5 (>45); POTASSIUM SERUM 3.9 MMOL/L (3.5-5.1)
[2024-09-28 08:00] VITALS: BP 159/69; TEMP 97.3; O2SAT 86
[2024-09-28] MEDS ORDERED: ASPI81CH8 PO (11:24)
[2024-09-28] MEDS ORDERED: CLOP75TA2 PO (11:24)
[2024-09-28] MEDS ORDERED: ATOR40TA75 PO (11:24)
[2024-09-28 12:00] VITALS: BP 128/59; TEMP 97.3; O2SAT 97
== END 2024-09-28 13:17 | disposition home or self-care (01) | DRG 64 ==
LOC: M ED 19:47 → M ED INP 21:55 → M PCU 23:12
PROVIDERS: ADMIT Family Medicine; ATTEND Family Medicine
PROC: B246ZZZ Ultrasonography of Right and Left Heart (ICD-10-PCS; principal; 2024-09-27)
DX: I63.9 Cerebral infarction, unspecified (principal); N18.6 End stage renal disease; J90 Pleural effusion, not elsewhere classified; J98.11 Atelectasis; I12.0 Hypertensive chronic kidney disease with stage 5 chronic kidney disease or end stage renal disease; E05.00 Thyrotoxicosis with diffuse goiter without thyrotoxic crisis or storm; D63.8 Anemia in other chronic diseases classified elsewhere; D50.9 Iron deficiency anemia, unspecified; M19.90 Unspecified osteoarthritis, unspecified site; M06.9 Rheumatoid arthritis, unspecified; K58.9 Irritable bowel syndrome, unspecified; R73.03 Prediabetes; G89.29 Other chronic pain; G62.9 Polyneuropathy, unspecified; Z98.84 Bariatric surgery status; K21.9 Gastro-esophageal reflux disease without esophagitis; Z90.49 Acquired absence of other specified parts of digestive tract; Z79.890 Hormone replacement therapy; Z79.899 Other long term (current) drug therapy; Z88.1 Allergy status to other antibiotic agents; Z88.8 Allergy status to other drugs, medicaments and biological substances; Z91.018 Allergy to other foods; Z91.048 Other nonmedicinal substance allergy status; Z99.2 Dependence on renal dialysis

== ENCOUNTER 2024-12-08 11:47 | Inpatient (IN) | payer MEDICARE, OTHER ==
[~2024-12-08] VITALS: Ht 170.2 cm; Wt 122.1 kg
[2024-12-08] VITALS (34 sets, daily range): BP systolic 59–156; BP diastolic 36–102; TEMP 96.2–96.7; O2SAT 62–100
[~2024-12-08 11:47] MED LIST changes: +ASPI81CH8 PO; +ATOR40TA75 PO; +CLOP75TA2 PO; +MAGN400T35 PO; +OCUVTAB4 PO; +ROCA0.5C PO; +TORS100T PO; +ZOLO100T PO
[2024-12-08] MEDS: NS 500 ML IV ONE ×2 (12:50→14:15)
[2024-12-08] MEDS ORDERED: ISOVUE-370 76% 100ML VIAL As Ordered ONE (12:51)
[2024-12-08 13:24] LABS: BASO # 0.1 10^3/uL (0.0-0.2); BASO % 0.3 % (0.0-1.0); EOS % 0.1 % (0.0-3.0); HEMOGLOBIN 7.8 g/dl (12.0-15.5); LYMPH % 5.2 % (24.0-44.0); MEAN CORPUSCULAR HEMOGLOBIN 29.3 pg (27.0-33.0); MEAN CORPUSCULAR VOLUME 97.7 fl (80.0-96.0); MONO # 0.9 10^3/uL (0.0-0.8); MONO % 4.9 % (2.0-8.0); NEUTROPHILS # 15.9 10^3/uL (1.5-8.5); NEUTROPHILS % 85.3 % (36.0-66.0); PLATELET COUNT, AUTOMATED 420 10^3/uL (150-450); RED BLOOD COUNT 2.66 10^6/uL (4.00-5.40); WHITE BLOOD COUNT 18.7 10^3/uL (4.0-10.0)
[2024-12-08 13:43] LABS: ALBUMIN 1.2 G/DL (3.2-5.2); ALKALINE PHOSPHATASE 173 U/L (35-104); ALT/SGPT 20 U/L (7.0-40); AST/SGOT 45 U/L (<34); BILIRUBIN,DIRECT < 0.1 MG/DL (<0.4); BILIRUBIN,TOTAL < 0.2 MG/DL (0.3-1.2); BLOOD UREA NITROGEN 54 MG/DL (9-23); CALCIUM LEVEL 7.3 MG/DL (8.3-10.6); CARBON DIOXIDE LEVEL 18 MMOL/L (20-31); CHLORIDE LEVEL 92 MMOL/L (98-107); CK-MB VALUE MASS < 1.0 NG/ML (<3.6); CREATININE FOR GFR 4.76 MG/DL (0.55-1.30); GLOMERULAR FILTRATION RATE 9.8 (>45); GLUCOSE, FASTING 210 MG/DL (74-106); POTASSIUM SERUM 3.7 MMOL/L (3.5-5.1); SODIUM LEVEL 131 MMOL/L (136-145); TOTAL PROTEIN 4.2 G/DL (5.7-8.2)
[2024-12-08 13:46] LABS: FREE T4 0.91 NG/DL (0.89-1.76)
[2024-12-08 13:47] LABS: THYROID STIMULATING HORMONE 3.948 uIU/ML (0.55-4.78)
[2024-12-08 13:54] LABS: CPK CREATINE PHOSPHOKINASE 29 U/L (34-145); MB/CK RELATIVE INDEX 3.44 (< OR =4)
[2024-12-08] MEDS: cefTRIAXone SOD 2 GM in DEXTROSE 5% (D5W) ADV/MINI-BAG 50 ML IV ONE (14:08)
[2024-12-08 14:25] LABS: INR 1.08; PARTIAL THROMBOPLASTIN TIME 28.3 SECONDS (24.8-34.2); PROTHROMBIN TIME 14.3 SECONDS (12.5-14.5)
[2024-12-08 14:33] LABS: CK-MB VALUE MASS < 1.0 NG/ML (<3.6)
[2024-12-08 14:40] LABS: CPK CREATINE PHOSPHOKINASE 42 U/L (34-145); MB/CK RELATIVE INDEX 2.38 (< OR =4)
[2024-12-08] MEDS: PANTOPRAZOLE 40MG VIAL IV ONE (15:16)
[2024-12-08] MEDS: NOREPINEPHRINE 4MG IN D5 250ML 4 MG in IV 1 EA IV SCH (15:28)
[2024-12-08] MEDS ORDERED: cefTRIAXone SOD 2GM VIAL IM SCH (15:30)
[2024-12-08 16:04] LABS: APPEARANCE, BODY FLUID CLEAR (CLEAR); PERITONEAL FL COLOR COLORLESS (COLORLESS); SOURCE, BODY FLUID PERITONEAL
[2024-12-08] MEDS ORDERED: ASPI81TA26 PO (16:16)
[2024-12-08] MEDS ORDERED: OXYC10TA12 PO (16:16)
[2024-12-08] MEDS ORDERED: CLOP75TA99 PO (16:16)
[2024-12-08] MEDS ORDERED: HOME MED LIST COMPLETE! XX SCH (16:20)
[2024-12-08] MEDS: CALCIUM CARBONATE 500 MG CHEW U/D PO ONE (16:58)
[2024-12-08] MEDS ORDERED: traMADol 50 MG TAB PO PRN (18:05)
[2024-12-08] MEDS ORDERED: PILL CUTTER 1 EACH XX PRN (18:20)
[2024-12-08] MEDS: CYCLOBENZAPRINE 10MG TABLET PO PRN (18:44)
[2024-12-08] MEDS: SODIUM BICARBONATE 150 MEQ in STERILE WATER LITER BAG 1,000 ML IV SCH (20:44)
[2024-12-08] MEDS: OMEPRAZOLE 20MG CAP PO SCH (21:19)
[2024-12-08] MEDS: MONTELUKAST 10 MG TAB PO SCH (21:20)
[2024-12-08] MEDS: FLUTICASONE PROP 0.05% NASAL SPRAY 16 GM (FLONASE) NARES SCH (21:20)
[2024-12-08] MEDS: rOPINIRole 0.25 MG TAB(REQUIP) PO SCH (21:20)
[2024-12-08] MEDS: oxyCODONE 5MG TAB PO PRN (21:36)
[2024-12-08] MEDS: VASOPRESSIN IN 0.9 % NACL 20 UNIT in IV 1 EA IV SCH (22:51)
[2024-12-09] VITALS (35 sets, daily range): BP systolic 52–133; BP diastolic 28–83; TEMP 96.3–98.9; O2SAT 94–100
[2024-12-09] MEDS: LEVOTHYROXINE 100MCG TABLET (0.1MG) PO SCH (02:58)
[2024-12-09] MEDS: traMADol 50 MG TAB PO PRN (03:14)
[2024-12-09] MEDS ORDERED: PROMETHAZINE 25MG/ML 1ML VIAL IM PRN (05:40)
[2024-12-09 05:41] LABS: HEMATOCRIT 41.3 % (36.0-47.0); HEMOGLOBIN 13.3 g/dl (12.0-15.5); MEAN CORPUSCULAR HEMOGLOBIN 29.8 pg (27.0-33.0); MEAN CORPUSCULAR HGB CONC 32.2 g/dl (32.0-36.5); MEAN CORPUSCULAR VOLUME 92.6 fl (80.0-96.0); PLATELET COUNT, AUTOMATED 424 10^3/uL (150-450); RED BLOOD COUNT 4.46 10^6/uL (4.00-5.40)
[2024-12-09 05:48] LABS: WHITE BLOOD COUNT 34.4 10^3/uL (4.0-10.0)
[2024-12-09 05:52] LABS: ALBUMIN 1.2 G/DL (3.2-5.2); BILIRUBIN,TOTAL 0.2 MG/DL (0.3-1.2); CALCIUM LEVEL 7.1 MG/DL (8.3-10.6); CREATININE FOR GFR 4.47 MG/DL (0.55-1.30); GLOMERULAR FILTRATION RATE 10.6 (>45); MAGNESIUM LEVEL 2.4 MG/DL (1.8-2.4); PHOSPHORUS LEVEL 7.5 MG/DL (2.4-5.1); POTASSIUM SERUM 4.4 MMOL/L (3.5-5.1); TOTAL PROTEIN 4.2 G/DL (5.7-8.2)
[2024-12-09 06:24] LABS: EOSINOPHILS 1 % (0-3); LYMPHOCYTES 5 % (16-44); MONOCYTES 4 % (0-5); NEUTROPHILS 78 % (28-66); PLATELET ESTIMATE NORMAL (NORMAL)
[2024-12-09 06:25] LABS: ANISOCYTOSIS 1+; BURR CELLS 1+; OVALOCYTES 1+; POIKILOCYTOSIS 2+; POLYCHROMASIA 1+
[2024-12-09] MEDS ORDERED: VANCOMYCIN HCL 1,000 MG, VIAL MATE ADAPTER 1 EACH in NS 250 ML IV SCH (07:25)
[2024-12-09] MEDS ORDERED: SUCROFERRIC OXYHYDROXIDE 500MG CHEW TAB (VELPHORO) PO SCH (07:30)
[2024-12-09] MEDS ORDERED: PIPERACILLIN/TAZOBACTAM SOD 4.5 GM in DEXTROSE 5% (D5W) ADV/MINI-BAG 50 ML IV SCH (08:00)
[2024-12-09] MEDS ORDERED: SODIUM BICARBONATE 8.4% INJ 50ML SYRINGE ONE (08:30)
[2024-12-09] MEDS ORDERED: CALCIUM CHLORIDE 10% 1 GM/10 ML SYR ONE (08:30)
[2024-12-09] MEDS ORDERED: ADENOSINE 6MG 2ML INJECTION ONE (08:30)
[2024-12-09] MEDS ORDERED: EPINEPHrine 1MG/10ML SYRINGE 1.5IN ONE (08:30)
[2024-12-09] MEDS ORDERED: SODIUM BICARBONATE 8.4% INJ 50ML SYRINGE As Ordered ONE (08:31)
[2024-12-09] MEDS ORDERED: CALCIUM CHLORIDE 10% 1 GM/10 ML SYR As Ordered ONE (08:36)
[2024-12-09] MEDS ORDERED: PANTOPRAZOLE 40MG VIAL IV SCH (09:00)
[2024-12-09] MEDS ORDERED: CETIRIZINE (ZyrTEC) 10 MG TAB PO SCH (09:00)
[2024-12-09] MEDS ORDERED: MAGNESIUM OXIDE 400MG TAB (MAG-OX) PO SCH (09:00)
[2024-12-09] MEDS ORDERED: ASPIRIN 81MG ENTERIC TABLET PO SCH (09:00)
[2024-12-09] MEDS ORDERED: TORSEMIDE 100 MG TAB PO SCH (09:00)
[2024-12-09] MEDS ORDERED: VANCOMYCIN HCL 2,000 MG, VIAL MATE ADAPTER 1 EACH in NS 500 ML IV ONE (09:00)
[2024-12-09] MEDS ORDERED: cefTRIAXone SOD 2 GM in DEXTROSE 5% (D5W) ADV/MINI-BAG 50 ML IV SCH (13:00)
== END 2024-12-09 11:15 | disposition expired | DRG 871 ==
LOC: M ED 11:47 → EDBD 11:47 → M ED INP 15:01 → M ICU 15:50
PROVIDERS: ADMIT Internal Medicine Pulmonary Disease; ATTEND Internal Medicine Pulmonary Disease
PROC: 02HV33Z Insertion of Infusion Device into Superior Vena Cava, Percutaneous Approach (ICD-10-PCS; principal; 2024-12-08)
PROC: 30233N1 Transfusion of Nonautologous Red Blood Cells into Peripheral Vein, Percutaneous Approach (ICD-10-PCS; 2024-12-08)
PROC: 0BH17EZ Insertion of Endotracheal Airway into Trachea, Via Natural or Artificial Opening (ICD-10-PCS; 2024-12-09)
PROC: 5A1935Z Respiratory Ventilation, Less than 24 Consecutive Hours (ICD-10-PCS; 2024-12-09)
DX: A41.9 Sepsis, unspecified organism (principal); R65.21 Severe sepsis with septic shock; N18.6 End stage renal disease; K63.1 Perforation of intestine (nontraumatic); I13.2 Hypertensive heart and chronic kidney disease with heart failure and with stage 5 chronic kidney disease, or end stage renal disease; E87.20 Acidosis, unspecified; Z68.41 Body mass index [BMI] 40.0-44.9, adult; E87.1 Hypo-osmolality and hyponatremia; G93.40 Encephalopathy, unspecified; I95.9 Hypotension, unspecified; M54.9 Dorsalgia, unspecified; R10.9 Unspecified abdominal pain; G89.29 Other chronic pain; Z99.2 Dependence on renal dialysis; I46.8 Cardiac arrest due to other underlying condition; E87.70 Fluid overload, unspecified; I50.9 Heart failure, unspecified; E05.00 Thyrotoxicosis with diffuse goiter without thyrotoxic crisis or storm; D63.1 Anemia in chronic kidney disease; D50.9 Iron deficiency anemia, unspecified; M06.9 Rheumatoid arthritis, unspecified; K58.9 Irritable bowel syndrome, unspecified; K21.9 Gastro-esophageal reflux disease without esophagitis; R73.03 Prediabetes; G62.9 Polyneuropathy, unspecified; R13.10 Dysphagia, unspecified; R26.89 Other abnormalities of gait and mobility; Z98.84 Bariatric surgery status; Z90.49 Acquired absence of other specified parts of digestive tract; Z86.73 Personal history of transient ischemic attack (TIA), and cerebral infarction without residual deficits; Z79.82 Long term (current) use of aspirin; Z79.890 Hormone replacement therapy; Z79.899 Other long term (current) drug therapy; Z91.048 Other nonmedicinal substance allergy status; Z88.8 Allergy status to other drugs, medicaments and biological substances; Z91.018 Allergy to other foods